=== PATIENT | male | born 1975 | race Caucasian/White ===

== ENCOUNTER → 2018-02-26 | Outpatient (CLI) | payer BC, OTHER ==
[~2018-02-26] MED LIST: MELO-195 PO; NAPR-243 PO; OMEP40CA36 PO; PNT40TEC PO; PRD20T PO; PRD5T PO; SULF1TAB35 PO; TRAM-21 PO
--- NOTE | 2018-02-26 14:32 | Diagnostic Imaging Report ---
PROCEDURE: MRI of the right joint upper extremity without contrast. TECHNIQUE: Multiplanar, multisequence [id number] MRI of the right upper extremity was accomplished. INDICATION: Bilateral shoulder pain with years of heavy lifting. COMPARISON: 07/23/2013. FINDINGS: No acute fracture is seen in the right shoulder. There is superior migration of the humeral head. No significant joint effusion is seen. There is high-grade partial-thickness tearing of the supraspinatus and infraspinatus tendons, with small full-thickness components anteriorly and posteriorly. The subscapularis tendon demonstrates low-grade partial thickness tearing at the articular surface. The teres minor tendon appears intact. There is mild atrophy of the infraspinatus muscle. The glenoid labrum is suboptimally evaluated in the absence of contrast; however, there appears to be tearing at the posterior labrum. No large paralabral cyst is seen. The long head of the biceps tendon demonstrates tendinosis with high-grade tearing of the intra-articular portion. There are marked degenerative changes at the acromioclavicular joint. The acromion has a slightly curved undersurface without significant hooking seen. The coracoclavicular ligament appears intact. The coracoacromial ligament is not well seen, and may be torn. The soft tissues about the right shoulder are otherwise unremarkable. No lymphadenopathy is seen. IMPRESSION: 1. High-grade partial-thickness tearing of the right supraspinatus and infraspinatus tendons with small full-thickness components anteriorly and posteriorly. Mild atrophy of the infraspinatus muscle. 2. Low-grade partial-thickness tearing of the right subscapularis tendon. 3. High-grade near-complete tearing of the proximal long of the biceps tendon. 4. Marked degenerative changes in the acromioclavicular joint. The coracoacromial ligament is not well seen, and may be torn. Dictated by: Dictated on workstation # [id number]
--- NOTE | 2018-02-26 20:03 | Diagnostic Imaging Report ---
EXAMINATION: Magnetic resonance imaging of the left shoulder without contrast. DATE: February 26, 2018. COMPARISON: MRI left shoulder July 23, 2013. HISTORY: 42-year-old male, bilateral shoulder pain. History of weightlifting. TECHNIQUE: Magnetic Resonance Imaging sequences were performed of the shoulder without contrast. FINDINGS: ROTATOR CUFF, LIGAMENTS, TENDONS, AND MUSCLES: There is a full-thickness near fullwidth tear of the supraspinatus tendon with tendon retraction measuring 1.8 cm to the level of the superior humeral head. There is infraspinatus tendinopathy. The teres minor tendon is intact. The subscapularis tendon is intact. There is normal rotator cuff muscle bulk and signal. LONG HEAD OF BICEPS: The biceps labral attachment and long head of the biceps tendon is intact. The long head of the biceps tendon is normally positioned within the bicipital groove. GLENOHUMERAL JOINT: The humeral head is well positioned relative to the glenoid. There is a tear of the posterior superior labrum extending from approximately the 11 o'clock position to near the 9 o'clock position in the mid posterior labrum. There is no identified paralabral cyst. The articular cartilage is grossly intact. There is no joint effusion. ACROMIOCLAVICULAR JOINT: The acromioclavicular joint is normally aligned. The coracoclavicular and coracoacromial ligaments are intact. There are mild to moderate acromioclavicular degenerative changes with somewhat bulbous clavicle and osteophytes projecting approximately 2 mm below the joint margin. BONE: There is no os acromiale. There is degenerative related marrow edema adjacent to the acromioclavicular joint. There is no acute fracture, bone contusion, or evidence of osteonecrosis. BURSAE AND SOFT TISSUES: The bursae and soft tissue surrounding the shoulder are unremarkable. IMPRESSION: 1. Full width or near fullwidth tear of the supraspinatus tendon which is a full-thickness tear with tendon retraction near the level of the superior humeral head. No fatty muscle atrophy. Infraspinatus tendinopathy. 2. Mild to moderate acromioclavicular degenerative changes with somewhat bulbous lateral clavicle and osteophytes projecting approximately 2 mm below the joint margin. No os acromiale. 3.. Tear of the posterior superior labrum extending to the mid posterior labrum extending from approximately the 11 o'clock position to the 9 o'clock position. No paralabral cyst. Grossly intact articular cartilage. No glenohumeral joint effusion. 4. No acute fracture, bone contusion, or evidence of osteonecrosis. Dictated on workstation # [id number]
== END ==
LOC: RAD 13:09
PROVIDERS: ATTEND Orthopaedic Surgery
DX: M75.122 Complete rotator cuff tear or rupture of left shoulder, not specified as traumatic (principal); M19.012 Primary osteoarthritis, left shoulder; M25.712 Osteophyte, left shoulder; M19.011 Primary osteoarthritis, right shoulder; M75.111 Incomplete rotator cuff tear or rupture of right shoulder, not specified as traumatic; S43.492A Other sprain of left shoulder joint, initial encounter; S46.811A Strain of other muscles, fascia and tendons at shoulder and upper arm level, right arm, initial encounter
CPT/HCPCS: 73221

== ENCOUNTER → 2018-09-19 | Day surgery (SDC) | payer BC ==
[~2018-09-19] VITALS: Ht 185.4 cm; Wt 86.2 kg
[~2018-09-19] MED LIST changes: +LIDOCAINE 1% INJ 20 ML 20 ML VIAL ONE
--- OUTSIDE RECORDS SUMMARY | 2018-09-19 08:01 | XMS REPORT | Clinical Summary ---
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 If you d o not see the information that you expected, contact Release of Information in [facility] [employer] Information Management department at [phone] for further assistan ce in locating additional records.[facility] Allergies No Known Allergies Medications End Date Status Medication Sig Dispensed Refills Start Date Active testosterone cypionate(+) Inject 100 mg 0 (DEPO-TESTOSTERONE) 100 to area(s) as mg/mL injection directed every 14 days. Active PEG 7723-Ttysciqlwcqe-Sdy 1 liter at 1 Each 0 C (MOVIPREP) 6pm night 3 100-7.5-2.691 gram pwpk before colonoscopy, then drink 2 cups water. 1 liter at 2am morning of colonoscopy, then drink 2 cups water. Active budesonide (ENTOCORT EC) take 3 90 Cap 3 3 mg capsule capsules 3 daily for 90 days, then 2 capsules for 2 weeks, then 1 capsule for 2 weeks, then stop. Active metroNIDAZOLE (METROGEL) Apply to 45 g 3 1 % topical gel affected area 4 twice weekly. Active Problems Problem Noted Date Diarrhea 12/30/2012 Crohn's disease 12/30/2012 Overview: This is OSH diagnosis, we need to evaluate and confirm Encounters Care Team Description Date Type Specialty 07/08/2018 Hospital Radiology Encounter 07/08/2018 Hospital Radiology Encounter from Last 3 Months Family History Medical History Relation Name Comments Melanoma Neg Hx Social History Date Tobacco Use Types Packs/Day Years Used Never Smoker Smokeless Tobacco: Chew Current User Comments: 1 can a day Drinks/Week oz/Week Comments Alcohol Use drink socially, beer, whisky Yes Sex Assigned at Date Recorded Not on file Industry Job Start Date Occupation Not on file Not on file Not on file Travel End Travel History Travel Start No recent travel history available. Last Filed Vital Signs Reading Time Taken Comments Vital Sign 147/89 03/10/2013 1:20 PM [employer] Blood Pressure 71 03/10/2013 1:20 PM [employer] Pulse 36.9 C (98.5 F) 03/10/2013 1:20 PM [employer] Temperature 16 03/10/2013 1:20 PM [employer] Respiratory Rate 94% 02/13/2013 10:21 AM [employer] Oxygen Saturation - - Inhaled Oxygen Concentration 99.2 kg (218 lb 9.6 oz) 03/25/2013 9:20 AM [employer] Weight 185.4 cm (6' 1") 03/25/2013 9:20 AM [employer] Height 28.84 03/25/2013 9:20 AM [employer] Body Mass Index Plan of Treatment Health Maintenance Due Date Last Done Comments PHYSICAL (COMPREHENSIVE) 1981 EXAM HIV SCREENING 1989 DTAP/TDAP VACCINES (1992 Tdap) INFLUENZA VACCINE 12/24/2018 Procedures Comments Procedure Name Priority Date/Time Associated Diagnosis GENERAL RAD CHEST Routine 07/08/2018 Diagnosis unknown EXTERNAL IMAGING 12:[address] HEAD EXTERNAL IMAGING Routine 07/08/2018 Diagnosis unknown 12:00 AM CDT from Last 3 Months Results * GENERAL RAD CHEST EXTERNAL IMAGING (07/08/2018 12:05 AM CDT) Specimen Narrative Performed At This order has been auto finalized and does not contain a result. * CT HEAD EXTERNAL IMAGING (07/08/2018 12:00 AM CDT) Specimen Narrative Performed At This order has been auto finalized and does not contain a result. 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
--- OUTSIDE RECORDS SUMMARY | 2018-09-19 08:02 | XMS REPORT | Encounter Summary ---
Author Author [facility] Organization [facility] Address Unknown Phone Unavailable Care Team Providers Care Family And Consumer Science Professor Name Role Phone Tanner Swan MD Unavailable Ryan Miguel MD PCP Prasad Brewer MD Unavailable Jose Rogers MD Unavailable Waleska Howell MD Unavailable Encounter Details Care Team Description Date Type Department 07/08/2018 [facility] [address] [id number] Social History Date Tobacco Use Types Packs/Day [...] Travel Start No recent travel history available. documented as of this encounter Medications at Time of Discharge Start Date End Date Medication Sig Dispensed Refills 03/10/2013 budesonide (ENTOCORT EC) take 3 90 Cap 3 3 mg capsule capsules daily for 90 days, then 2 capsules for 2 weeks, then 1 capsule for 2 weeks, then stop. 03/27/2013 metroNIDAZOLE (METROGEL) Apply to 45 g 3 1 % topical gel affected area twice weekly. 02/24/2013 PEG 9282-Vdpftknrnxgt-Lzr 1 liter at 1 Each 0 C (MOVIPREP) 6pm night 100-7.5-2.691 gram pwpk before colonoscopy, then drink 2 cups water. 1 liter at 2am morning of colonoscopy, then drink 2 cups water. testosterone cypionate(+) Inject 100 mg 0 (DEPO-TESTOSTERONE) 100 to area(s) as mg/mL injection directed every 14 days. documented as of this encounter Plan of Treatment Not on filedocumented as of this encounter Procedures Comments Procedure Name Priority Date/Time Associated Diagnosis GENERAL RAD CHEST Routine 07/08/2018 Diagnosis unknown EXTERNAL IMAGING 12:05 AM CDT documented in this encounter Results * GENERAL RAD CHEST EXTERNAL IMAGING (07/08/2018 12:05 AM CDT) Specimen Narrative Performed At This order has been auto finalized and does not contain a result. documented in this encounter Visit Diagnoses Diagnosis Diagnosis unknown Other unknown and unspecified cause of morbidity or mortality documented in this encounter
--- OUTSIDE RECORDS SUMMARY | 2018-09-19 08:02 | XMS REPORT | Encounter Summary ---
Author Author [facility] Organization [facility] Address Unknown Phone Unavailable Care Team Providers Care Director Of Vocational Guidance Name Role Phone Tanner Swan MD Unavailable Ryan Miguel MD PCP Prasad Brewer MD Unavailable Jose Rogers MD Unavailable Waleska Howell MD Unavailable Encounter Details Care Team Description Date Type Department 07/08/2018 [facility] [address] [phone] Social History Date Tobacco Use Types Packs/Day [...] gel affected area twice weekly. 02/24/2013 PEG 2611-Iyktjmqhuyar-Die 1 liter at 1 Each 0 C [...] Comments Procedure Name Priority Date/Time Associated Diagnosis CT HEAD EXTERNAL IMAGING Routine 07/08/2018 Diagnosis unknown 12:00 AM CDT documented in this encounter Results * CT HEAD EXTERNAL IMAGING (07/08/2018 12:00 AM CDT) Specimen Narrative Performed At This order has been auto finalized and does not contain a result. documented in this encounter Visit Diagnoses Diagnosis Diagnosis unknown Other unknown and unspecified cause of morbidity or mortality documented in this encounter
--- OUTSIDE RECORDS SUMMARY | 2018-09-19 08:03 | XMS REPORT | CCD ---
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 Name Role Phone PP Unavailable CCM Unavailable Summary Purpose Interface Exchange Insurance Providers Payer name Policy type / Coverage type Covered republican ID Effective Begin Date Effective End Date Blue Cross Blue [facility] Blue Cross/Blue [facility] [id number] Unknown Unknown Family history Son Diagnosis Age At Onset Attention deficit hyperactivity disorder Unknown Social History Social History Element Codes Description Effective Dates Marital status Unknown Consuelo 04/25/2018 Number of children Unknown 1 10/15/[address]: 891390930 Currently uses smokeless tobacco 10/15/2015 Alcohol history Unknown pt chooses not to answer 10/15/2015 Allergies, Adverse Reactions, Alerts Substance Reaction Codes Entered Date Inactivated Date Status * NO KNOWN DRUG ALLERGIES Unknown 10/15/2015 No Inactive Date Active Past Medical History Illness Codes Condition Status Onset Date Resolved Date Essential (primary) hypertension ICD-9: 401.1 ICD-10: I10 Active 07/25/2018 Unknown Atrial septal defect ICD- 9: 745.5 ICD-10: Q21.1 Active 07/11/2018 Unknown 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-9: 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.91 ICD-10: I63.81 Active 07/11/2018 Unknown Crohn's disease of both small and large intestine without complications ICD-9: 555.2 ICD-10: K50.80 Active 10/14/2015 Unknown Chronic pain due to trauma ICD-9: 338.21 ICD-10: G89.21 Active 11/29/2015 Unknown Incomplete rotator cuff tear or rupture of right shoulder, not specified as traumatic ICD-9: 726.13 ICD-10: M75.111 Active 11/29/2015 Unknown Testicular hypofunction ICD-9: 257.2 ICD-10: E29.1 Active 04/25/2018 Unknown Incomplete rotator cuff tear or rupture of left shoulder, not specified as traumatic ICD-9: 726.13 ICD-10: M75.112 Active 11/29/2015 Unknown Rash and other nonspecific skin eruption ICD-9: 782.1 ICD-10: R21 Active 01/02/2017 Unknown Zoster without complications ICD-9: 053.9 ICD-10: B02.9 Active 01/02/2017 Unknown Problems Condition Codes Effective Dates Condition Status Essential (primary) hypertension ICD-9: 401.1 ICD-10: I10 07/25/2018 Active Atrial septal defect ICD- 9: 745.5 ICD-10: Q21.1 07/11/2018 Active 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-9: 434.91 ICD-10: I63.81 07/11/2018 Active Crohn's disease of both small and large intestine without complications ICD-9: 555.2 ICD-10: K50.80 10/14/2015 Active Chronic pain due to trauma ICD-9: 338.21 ICD-10: G89.21 11/29/2015 Active Incomplete rotator cuff tear or rupture of right shoulder, not specified as traumatic ICD-9: 726.13 ICD-10: M75.111 11/29/2015 Active Testicular hypofunction ICD-9: 257.2 ICD-10: E29.1 04/25/2018 Active Incomplete rotator cuff tear or rupture of left shoulder, not specified as traumatic ICD-9: 726.13 ICD-10: M75.112 11/29/2015 Active Rash and other nonspecific skin eruption ICD-9: 782.1 ICD-10: R21 01/02/2017 Active Zoster without complications ICD-9: 053.9 ICD-10: B02.9 01/02/2017 Active Medications Medication Codes Instructions Start Date Stop Date Status Fill Instructions hydrocodone 10 mg-acetaminophen 325 mg tablet RxNorm: 519071 1 Tablet(s) PO Q6-8H as needed 2018 09/25/2018 Active hydrocodone 10 mg-acetaminophen 325 mg tablet RxNorm: 978988 1 Tablet(s) PO Q6-8H as needed 08/12/2018 09/02/2018 Inactive lisinopril 20 mg tablet RxNorm: 815138 1 Tablet(s) PO daily 07/25/2018 02/19/2019 Active atorvastatin 10 mg tablet RxNorm: 139814 1 Tablet(s) PO QHS 07/25/2018 02/19/2019 Active hydrocodone 10 mg-acetaminophen 325 mg tablet RxNorm: 777037 1 Tablet(s) PO Q6-8H as needed 07/15/2018 08/06/2018 Inactive hydrocodone 10 mg-acetaminophen 325 mg tablet RxNorm: 025503 1 Tablet(s) PO Q6-8H as needed 06/18/2018 07/10/2018 Inactive hydrocodone 10 mg-acetaminophen 325 mg tablet RxNorm: 639544 1 Tablet(s) PO Q6-8H as needed 05/22/2018 06/13/2018 Inactive cyanocobalamin (vit B-12) 1,000 mcg/mL injection solution RxNorm: 306886 1 Milliliter(s) Inj monthly 05/01/2018 08/28/2018 Inactive Please provide syringes and needles for him to administer testosterone cypionate 200 mg/mL intramuscular oil RxNorm: 6538216 1 Milliliter(s) IM monthly 05/01/2018 08/28/2018 Inactive cyanocobalamin (vit B-12) 1,000 mcg/mL injection solution RxNorm: 801476 1 Milliliter(s) Inj monthly 05/01/2018 04/30/2018 Inactive testosterone cypionate 200 mg/mL intramuscular oil RxNorm: 0255799 1 Milliliter(s) IM monthly 05/01/2018 04/30/2018 Inactive hydrocodone 10 mg-acetaminophen 325 mg tablet RxNorm: 567599 1 Tablet(s) PO Q6-8H as needed 04/25/2018 05/17/2018 Inactive hydrocodone 10 mg-acetaminophen 325 mg tablet RxNorm: 239680 1 Tablet(s) PO Q6-8H as needed 04/01/2018 04/23/2018 Inactive hydrocodone 10 mg-acetaminophen 325 mg tablet RxNorm: 626950 1 Tablet(s) PO Q6-8H as needed 03/05/2018 03/27/2018 Inactive hydrocodone 10 mg-acetaminophen 325 mg tablet RxNorm: 116730 1 Tablet(s) PO Q6-8H as needed 02/11/2018 03/04/2018 Inactive hydrocodone 10 mg-acetaminophen 325 mg tablet RxNorm: 489380 1 Tablet(s) PO Q6-8H as needed 01/18/2018 02/09/2018 Inactive hydrocodone 10 mg-acetaminophen 325 mg tablet RxNorm: 438819 1 Tablet(s) PO Q6-8H as needed 12/24/2017 01/15/2018 Inactive hydrocodone 10 mg-acetaminophen 325 mg tablet RxNorm: 824617 1 Tablet(s) PO Q6-8H as needed 11/30/2017 12/22/2017 Inactive hydrocodone 10 mg-acetaminophen 325 mg tablet RxNorm: 995670 1 Tablet(s) PO Q6-8H as needed 11/06/2017 11/28/2017 Inactive hydrocodone 10 mg-acetaminophen 325 mg tablet RxNorm: 191319 1 Tablet(s) PO Q6-8H as needed 10/11/2017 11/02/2017 Inactive hydrocodone 10 mg-acetaminophen 325 mg tablet RxNorm: 687575 1 Tablet(s) PO Q6-8H as needed 09/12/2017 10/04/2017 Inactive hydrocodone 10 mg-acetaminophen 325 mg tablet RxNorm: 706461 1 Tablet(s) PO Q6-8H as needed 08/16/2017 09/07/2017 Inactive hydrocodone 10 mg-acetaminophen 325 mg tablet RxNorm: 463316 1 Tablet(s) PO Q6-8H as needed 07/19/2017 08/10/2017 Inactive oxycodone-acetaminophen 7.5 mg-325 mg tablet RxNorm: 2923334 1 Tablet(s) PO Q6-8H as needed 06/29/2017 07/18/2017 Inactive hydrocodone 10 mg-acetaminophen 325 mg tablet RxNorm: 189369 1 Tablet(s) PO Q6-8H as needed 06/01/2017 06/17/2017 Inactive hydrocodone 10 mg-acetaminophen 325 mg tablet RxNorm: 150354 1 Tablet(s) PO Q6-8H as needed 05/09/2017 05/30/2017 Inactive Cipro 500 mg tablet RxNorm: 709366 1 Tablet(s) PO BID 04/20/2017 04/29/2017 Inactive prednisone 10 mg tablet RxNorm: 283450 Tablet(s) PO 04/20/2017 03/04/2018 Inactive 6,5,4,3,2,1 Flagyl 500 mg tablet RxNorm: 574254 1 Tablet(s) PO TID 04/20/2017 04/29/2017 Inactive hydrocodone 10 mg-acetaminophen 325 mg tablet RxNorm: 544080 1 Tablet(s) PO Q6-8H as needed 04/09/2017 05/01/2017 Inactive hydrocodone 10 mg-acetaminophen 325 mg tablet RxNorm: 563825 1 Tablet(s) PO Q6-8H as needed 03/07/2017 03/29/2017 Inactive hydrocodone 10 mg-acetaminophen 325 mg tablet RxNorm: 786648 1 Tablet(s) PO Q6-8H as needed 02/01/2017 02/23/2017 Inactive lidocaine 3 % lotion RxNorm: 2365474 1 Application TOP BID as needed 01/03/2017 No Stop Date Active acyclovir 800 mg tablet RxNorm: 919472 1 Tablet(s) PO 5 x a day 01/02/2017 01/08/2017 Inactive hydrocodone 10 mg-acetaminophen 325 mg tablet RxNorm: 383312 1 Tablet(s) PO Q6-8H as needed 12/06/2016 12/28/2016 Inactive hydrocodone 10 mg-acetaminophen 325 mg tablet RxNorm: 577954 1 Tablet(s) PO Q6-8H as needed 12/04/2016 12/05/2016 Inactive hydrocodone 10 mg-acetaminophen 325 mg tablet RxNorm: 252438 1 Tablet(s) PO Q6-8H as needed 11/08/2016 11/30/2016 Inactive hydrocodone 10 mg-acetaminophen 325 mg tablet RxNorm: 875701 1 Tablet(s) PO Q6-8H as needed 10/09/2016 10/31/2016 Inactive hydrocodone 10 mg-acetaminophen 325 mg tablet RxNorm: 253565 1 Tablet(s) PO Q6-8H as needed 08/08/2016 08/30/2016 Inactive hydrocodone 10 mg-acetaminophen 325 mg tablet RxNorm: 941419 1 Tablet(s) PO Q6-8H as needed 07/12/2016 08/03/2016 Inactive hydrocodone 10 mg-acetaminophen 325 mg tablet RxNorm: 445764 1 Tablet(s) PO Q6-8H as needed 06/12/2016 07/04/2016 Inactive hydrocodone 10 mg-acetaminophen 325 mg tablet RxNorm: 761907 1 Tablet(s) PO Q6-8H as needed 05/16/2016 06/07/2016 Inactive hydrocodone 10 mg-acetaminophen 325 mg tablet RxNorm: 775488 1 Tablet(s) PO Q6-8H as needed 04/21/2016 05/12/2016 Inactive hydrocodone 10 mg-acetaminophen 325 mg tablet RxNorm: 791101 1 Tablet(s) PO Q6-8H as needed 03/23/2016 04/13/2016 Inactive hydrocodone 10 mg-acetaminophen 325 mg tablet RxNorm: 616921 1 Tablet(s) PO Q6-8H as needed 02/24/2016 03/16/2016 Inactive hydrocodone 10 mg-acetaminophen 325 mg tablet RxNorm: 192680 1 Tablet(s) PO Q6-8H 01/21/2016 02/11/2016 Inactive hydrocodone 10 mg-acetaminophen 325 mg tablet RxNorm: 789833 1 Tablet(s) PO Q6-8H 12/24/2015 01/14/2016 Inactive hydrocodone 10 mg-acetaminophen 325 mg tablet RxNorm: 382681 1 Tablet(s) PO Q6-8H 11/30/2015 12/23/2015 Inactive hydrocodone 10 mg-acetaminophen 325 mg tablet RxNorm: 736703 1 Tablet(s) PO Q6-8H 11/05/2015 11/29/2015 Inactive hydrocodone 5 mg-acetaminophen 325 mg tablet RxNorm: 391212 1-2 Tablet(s) PO Q6-8H as needed 10/26/2015 11/01/2015 Inactive omeprazole 40 mg capsule,delayed release RxNorm: 975421 1 Capsule(s) PO daily No Start Date Active aspirin 325 mg tablet,delayed release RxNorm: 423418 1 Tablet(s) PO daily No Start Date Active Imuran 50 mg tablet RxNorm: 647282 1 Tablet(s) PO daily No Start Date Active testosterone cypionate 200 mg/mL intramuscular oil RxNorm: 386968 1 Milliliter(s) IM No Start Date Active metoprolol succinate ER 50 mg tablet,extended release 24 hr RxNorm: 877617 1 Tablet(s) PO daily -Prescribed by Valentino Zapien (cardiology) No Start Date Active lidocaine 3 % lotion RxNorm: 1900525 1 Application TOP BID as needed No Start Date 01/02/2017 Inactive hydrocodone 5 mg-acetaminophen 325 mg tablet RxNorm: 608648 1-2 Tablet(s) PO Q6-8H as needed No Start Date 10/25/2015 Inactive Medication Administered No Medication Administered data Immunizations No Immunization data Assessments Condition Codes Effective Dates Essential (primary) hypertension ICD-10: I10 ICD-9: 401.1 08/26/2018 Atrial septal defect ICD-10: Q21.1 ICD-9: 745.5 07/25/2018 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-10: I63.81 ICD-9: 434.91 07/25/2018 Crohn's disease of both small and large intestine without complications ICD-10: K50.80 ICD-9: 555.2 07/11/2018 Chronic pain due to trauma ICD-10: G89.21 ICD-9: 338.21 04/25/2018 Testicular hypofunction ICD-10: E29.1 ICD-9: 257.2 04/25/2018 Incomplete rotator cuff tear or rupture of right shoulder, not specified as traumatic ICD-10: M75.111 ICD-9: 726.13 04/25/2018 Incomplete rotator cuff tear or rupture of left shoulder, not specified as traumatic ICD-10: M75.112 ICD-9: 726.13 12/24/2017 Zoster without complications ICD-10: B02.9 ICD-9: 053.9 01/02/2017 Reason For Visit Reason For Visit Effective Dates Notes hypertension 08/26/2018 Hospital Follow Up 07/25/2018 Hospital Follow Up 07/23/2018 Hospital Follow Up 07/11/2018 shoulder pain 04/25/2018 medication follow up 12/24/2017 medication follow up 06/20/2017 diarrhea 04/20/2017 rash 01/02/2017 medication follow up 09/07/2016 medication follow up 04/21/2016 medication follow up 11/30/2015 shoulder pain 11/02/2015 shoulder pain 10/15/2015 Results Observation Observation Code Item Item Code Result Date QuantiFERON?-TB Gold Plus (Client Incubated) [id number] QUANTIFERON CRITERIA COMMENT 07/01/2018 QuantiFERON?-TB Gold Plus (Client Incubated) [id number] QUANTIFERON TB1 AG VALUE 0.01 IU/ML 07/01/2018 QuantiFERON?-TB Gold Plus (Client Incubated) [id number] QUANTIFERON TB2 AG VALUE 0.01 IU/ML 07/01/2018 QuantiFERON?-TB Gold Plus (Client Incubated) [id number] QUANTIFERON NIL VALUE 0.01 IU/ML 07/01/2018 QuantiFERON?-TB Gold Plus (Client Incubated) [id number] QUANTIFERON MITOGEN VALUE >10.00 IU/ML 07/01/2018 QuantiFERON?-TB Gold Plus (Client Incubated) [id number] QUANTIFERON-TB GOLD PLUS NEGATIVE 07/01/2018 B12 Rtb955 B12 113.00 pg/ml 04/30/2018 Testosterone Ydf046 Testo 198.8 ng/dL 04/30/2018 Comp Metabolic Iky633 NA 143 mEq/L 04/30/2018 Comp Metabolic Ulu826 K 3.8 mEq/L 04/30/2018 Comp Metabolic Ujv941 CL 108 mEq/L 04/30/2018 Comp Metabolic Tsz166 CO2 29.0 mEq/L 04/30/2018 Comp Metabolic Zou508 ANION GAP 10 04/30/2018 Comp Metabolic Stc284 GLUCOSE 94 mg/dL 04/30/2018 Comp Metabolic Sxf950 Creat 0.8 mg/dL 04/30/2018 Comp Metabolic Qif172 eGFR 110 ml/min/1.73m2 04/30/2018 Comp Metabolic Uct842 BUN 13 mg/dL 04/30/2018 Comp Metabolic Puu960 B/C Ratio 16.0 Ratio 04/30/2018 Comp Metabolic Dpf058 CALCIUM 9.2 mg/dL 04/30/2018 Comp Metabolic Bnu515 ALK PHOS 62 U/L 04/30/2018 Comp Metabolic Dvk991 AST(SGOT) 16 U/L 04/30/2018 Comp Metabolic Yho335 ALT(SGPT) 15 U/L 04/30/2018 Comp Metabolic Zqo899 BILI T 0.9 mg/dL 04/30/2018 Comp Metabolic Hwb727 ALBUMIN 4.1 g/dL 04/30/2018 Comp Metabolic Nam167 TPRO 6.2 g/dL 04/30/2018 Comp Metabolic Zuw821 GLOB 2.1 g/dL 04/30/2018 Comp Metabolic Svk910 A/G Ratio 1.9 Ratio 04/30/2018 Comp Metabolic Okx048 Osmo 285 mOsmo 04/30/2018 Cbc With Differential Ord2 WBC 6.03 K/ul 04/30/2018 Cbc With Differential Ord2 RBC 4.63 M/ul 04/30/2018 Cbc With Differential Ord2 HGB 14.5 g/dl 04/30/2018 Cbc With Differential Ord2 HCT 41.4 % 04/30/2018 Cbc With Differential Ord2 Neut% 75.0 % 04/30/2018 Cbc With Differential Ord2 MCV 89.4 fl 04/30/2018 Cbc With Differential Ord2 Lymph% 13.3 % 04/30/2018 Cbc With Differential Ord2 MCH 31.3 pg 04/30/2018 Cbc With Differential Ord2 Webb% 8.5 % 04/30/2018 Cbc With Differential Ord2 MCHC 35.0 pg 04/30/2018 Cbc With Differential Ord2 Eos% 3.0 % 04/30/2018 Cbc With Differential Ord2 PLT 246 K/ul 04/30/2018 Cbc With Differential Ord2 Baso% 0.2 % 04/30/2018 Cbc With Differential Ord2 RDW 14.9 % 04/30/2018 Cbc With Differential Ord2 Neut ABS# 4.53 K/ul 04/30/2018 Cbc With Differential Ord2 Lymph ABS# 0.80 K/ul 04/30/2018 Cbc With Differential Ord2 Webb ABS# 0.5 K/ul 04/30/2018 Cbc With Differential Ord2 Eos ABS# 0.2 K/ul 04/30/2018 Cbc With Differential Ord2 Baso ABS# 0.0 K/ul 04/30/2018 Lipid Ord30 CHOL 115 mg/dL 04/30/2018 Lipid Ord30 HDL 34.0 mg/dl 04/30/2018 Lipid Ord30 TRIG 83 mg/dL 04/30/2018 Lipid Ord30 LDL 64 mg/dL 04/30/2018 Lipid Ord30 C/HDL 3.4 Ratio 04/30/2018 Cbc With Differential Ord2 WBC 6.44 K/ul 04/20/2017 Cbc With Differential Ord2 RBC 5.02 M/ul 04/20/2017 Cbc With Differential Ord2 HGB 15.7 g/dl 04/20/2017 Cbc With Differential Ord2 HCT 45.5 % 04/20/2017 Cbc With Differential Ord2 Neut% 69.7 % 04/20/2017 Cbc With Differential Ord2 MCV 90.6 fl 04/20/2017 Cbc With Differential Ord2 Lymph% 10.4 % 04/20/2017 Cbc With Differential Ord2 MCH 31.3 pg 04/20/2017 Cbc With Differential Ord2 Webb% 18.6 % 04/20/2017 Cbc With Differential Ord2 MCHC 34.5 pg 04/20/2017 Cbc With Differential Ord2 Eos% 1.1 % 04/20/2017 Cbc With Differential Ord2 PLT 371 K/ul 04/20/2017 Cbc With Differential Ord2 Baso% 0.2 % 04/20/2017 Cbc With Differential Ord2 RDW 16.0 % 04/20/2017 Cbc With Differential Ord2 Neut ABS# 4.49 K/ul 04/20/2017 Cbc With Differential Ord2 Lymph ABS# 0.67 K/ul 04/20/2017 Cbc With Differential Ord2 Webb ABS# 1.2 K/ul 04/20/2017 Cbc With Differential Ord2 Eos ABS# 0.1 K/ul 04/20/2017 Cbc With Differential Ord2 Baso ABS# 0.0 K/ul 04/20/2017 Comp Metabolic Aoj419 NA 142 mEq/L 04/20/2017 Comp Metabolic Sns580 K 4.2 mEq/L 04/20/2017 Comp Metabolic Jwm878 CL 104 mEq/L 04/20/2017 Comp Metabolic Brl142 CO2 28.0 mEq/L 04/20/2017 Comp Metabolic Ajr655 ANION GAP 14 04/20/2017 Comp Metabolic Csi370 GLUCOSE 73 mg/dL 04/20/2017 Comp Metabolic Vga702 Creat 1.2 mg/dL 04/20/2017 Comp Metabolic Dgg776 eGFR 68 ml/min/1.73m2 04/20/2017 Comp Metabolic Orq994 BUN 9 mg/dL 04/20/2017 Comp Metabolic Wyy953 B/C Ratio 7.3 Ratio 04/20/2017 Comp Metabolic Zyx018 CALCIUM 9.5 mg/dL 04/20/2017 Comp Metabolic Vig596 ALK PHOS 57 U/L 04/20/2017 Comp Metabolic Teg450 AST(SGOT) 16 U/L 04/20/2017 Comp Metabolic Wub402 ALT(SGPT) 14 U/L 04/20/2017 Comp Metabolic Ces046 BILI T 0.6 mg/dL 04/20/2017 Comp Metabolic Wmz667 ALBUMIN 4.0 g/dL 04/20/2017 Comp Metabolic Qft432 TPRO 7.0 g/dL 04/20/2017 Comp Metabolic Zad583 GLOB 3.0 g/dL 04/20/2017 Comp Metabolic Ubl373 A/G Ratio 1.3 Ratio 04/20/2017 Comp Metabolic Zxh354 Osmo 280 mOsmo 04/20/2017 Review of Systems System Result Effective Dates Constitutional No recent illness 08/26/2018 Constitutional No chills 08/26/2018 Constitutional No diaphoresis 08/26/2018 Constitutional No fatigue 08/26/2018 Constitutional No fever 08/26/2018 Eyes No blindness 08/26/2018 Eyes No vision change 08/26/2018 Ears/Nose/Throat/Neck No nasal discharge 08/26/2018 Cardiovascular No chest pain/pressure 08/26/2018 Cardiovascular No dyspnea 08/26/2018 Respiratory No chest congestion 08/26/2018 Respiratory No cough 08/26/2018 Neurologic No alteration of consciousness 08/26/2018 Neurologic No memory loss 08/26/2018 Neurologic No mental status change 08/26/2018 Neurologic No weakness 08/26/2018 Gastrointestinal abdominal pain 08/26/2018 Gastrointestinal diarrhea 08/26/2018 Gastrointestinal No nausea 08/26/2018 Gastrointestinal No vomiting 08/26/2018 Musculoskeletal arthralgia(s) 08/26/2018 Dermatologic No sores 08/26/2018 Psychiatric No anxiety 08/26/2018 Psychiatric No depression 08/26/2018 Constitutional No recent illness 07/25/2018 Constitutional No chills 07/25/2018 Constitutional No diaphoresis 07/25/2018 Constitutional No fatigue 07/25/2018 Constitutional No fever 07/25/2018 Eyes No blindness 07/25/2018 Eyes No vision change 07/25/2018 Ears/Nose/Throat/Neck No nasal discharge 07/25/2018 Cardiovascular No chest pain/pressure 07/25/2018 Cardiovascular No dyspnea 07/25/2018 Respiratory No chest congestion 07/25/2018 Respiratory No cough 07/25/2018 Neurologic No alteration of consciousness 07/25/2018 Neurologic dizziness 07/25/2018 Neurologic headache 07/25/2018 Neurologic No memory loss 07/25/2018 Neurologic No mental status change 07/25/2018 Neurologic No weakness 07/25/2018 Eyes No vision change 07/23/2018 Neurologic dizziness 07/23/2018 Neurologic headache 07/23/2018 Neurologic No memory loss 07/23/2018 Neurologic No mental status change 07/23/2018 Constitutional No recent illness 07/23/2018 Constitutional No chills 07/23/2018 Constitutional No diaphoresis 07/23/2018 Constitutional No fatigue 07/23/2018 Constitutional No fever 07/23/2018 Eyes No eye erythema 07/23/2018 Ears/Nose/Throat/Neck No nasal discharge 07/23/2018 Cardiovascular No chest pain/pressure 07/23/2018 Cardiovascular No dyspnea 07/23/2018 Respiratory No cough 07/23/2018 Respiratory No chest congestion 07/23/2018 Neurologic No alteration of consciousness 07/23/2018 Neurologic No weakness 07/23/2018 Constitutional recent illness 07/11/2018 Constitutional No night sweats 07/11/2018 Constitutional No chills 07/11/2018 Constitutional No diaphoresis 07/11/2018 Constitutional fatigue 07/11/2018 Constitutional No fever 07/11/2018 Constitutional No insomnia 07/11/2018 Constitutional No malaise 07/11/2018 Eyes No eye pain 07/11/2018 Eyes No eye trauma 07/11/2018 Eyes No vision change 07/11/2018 Ears/Nose/Throat/Neck No dizziness 07/11/2018 Ears/Nose/Throat/Neck No headache 07/11/2018 Cardiovascular No chest pain/pressure 07/11/2018 Cardiovascular No dyspnea 07/11/2018 Cardiovascular No exercise intolerance 07/11/2018 Respiratory No chest congestion 07/11/2018 Respiratory No chest tightness 07/11/2018 Respiratory No cigarette smoking 07/11/2018 Respiratory No cough 07/11/2018 Gastrointestinal abdominal pain 07/11/2018 Gastrointestinal No constipation 07/11/2018 Gastrointestinal diarrhea 07/11/2018 Gastrointestinal No nausea 07/11/2018 Gastrointestinal No vomiting 07/11/2018 Musculoskeletal stiffness 07/11/2018 Musculoskeletal arthralgia(s) 07/11/2018 Musculoskeletal No back pain 07/11/2018 Dermatologic No rash 07/11/2018 Dermatologic No sores 07/11/2018 Neurologic dizziness 07/11/2018 Neurologic headache 07/11/2018 Neurologic No memory loss 07/11/2018 Neurologic No mental status change 07/11/2018 Psychiatric No anxiety 07/11/2018 Psychiatric No depression 07/11/2018 Hematologic/Lymphatic No abnormal ecchymoses 07/11/2018 Hematologic/Lymphatic No abnormal bleeding and bruising 07/11/2018 Neurologic No pain, limb 07/11/2018 Neurologic No weakness 07/11/2018 Constitutional No recent illness 04/25/2018 Constitutional anorexia 04/25/2018 Constitutional No night sweats 04/25/2018 Constitutional No chills 04/25/2018 Constitutional No diaphoresis 04/25/2018 Constitutional fatigue 04/25/2018 Constitutional No fever 04/25/2018 Constitutional No insomnia 04/25/2018 Constitutional No malaise 04/25/2018 Constitutional weight loss 04/25/2018 Constitutional No weight gain 04/25/2018 Constitutional No obesity 04/25/2018 Eyes No eye pain 04/25/2018 Eyes No eye trauma 04/25/2018 Eyes No vision change 04/25/2018 Ears/Nose/Throat/Neck No dizziness 04/25/2018 Ears/Nose/Throat/Neck No headache 04/25/2018 Cardiovascular No chest pain/pressure 04/25/2018 Cardiovascular No dyspnea 04/25/2018 Cardiovascular No exercise intolerance 04/25/2018 Respiratory No chest congestion 04/25/2018 Respiratory No chest tightness 04/25/2018 Respiratory No cigarette smoking 04/25/2018 Respiratory No cough 04/25/2018 Gastrointestinal abdominal pain 04/25/2018 Gastrointestinal No constipation 04/25/2018 Gastrointestinal diarrhea 04/25/2018 Gastrointestinal No nausea 04/25/2018 Gastrointestinal No vomiting 04/25/2018 Genitourinary/Nephrology No anuria/oliguria 04/25/2018 Genitourinary/Nephrology No dysuria 04/25/2018 Musculoskeletal stiffness 04/25/2018 Musculoskeletal arthralgia(s) 04/25/2018 Musculoskeletal No back pain 04/25/2018 Dermatologic No rash 04/25/2018 Dermatologic No sores 04/25/2018 Neurologic No dizziness 04/25/2018 Neurologic No headache 04/25/2018 Neurologic No memory loss 04/25/2018 Neurologic No mental status change 04/25/2018 Neurologic pain, limb 04/25/2018 Psychiatric No anxiety 04/25/2018 Psychiatric No depression 04/25/2018 Hematologic/Lymphatic No abnormal ecchymoses 04/25/2018 Hematologic/Lymphatic No abnormal bleeding and bruising 04/25/2018 Constitutional No recent illness 12/24/2017 Constitutional No chills 12/24/2017 Constitutional No diaphoresis 12/24/2017 Constitutional No fever 12/24/2017 Eyes No eye erythema 12/24/2017 Eyes No vision change 12/24/2017 Ears/Nose/Throat/Neck No nasal allergies 12/24/2017 Ears/Nose/Throat/Neck No nasal discharge 12/24/2017 Cardiovascular No chest pain/pressure 12/24/2017 Cardiovascular No dyspnea 12/24/2017 Respiratory No chest congestion 12/24/2017 Respiratory No cough 12/24/2017 Respiratory No dyspnea 12/24/2017 Gastrointestinal No abdominal pain 12/24/2017 Gastrointestinal No constipation 12/24/2017 Gastrointestinal No diarrhea 12/24/2017 Gastrointestinal No nausea 12/24/2017 Gastrointestinal No vomiting 12/24/2017 Musculoskeletal stiffness 12/24/2017 Musculoskeletal arthralgia(s) 12/24/2017 Musculoskeletal No back pain 12/24/2017 Dermatologic No rash 12/24/2017 Neurologic No alteration of consciousness 12/24/2017 Neurologic No mental status change 12/24/2017 Constitutional No recent illness 06/20/2017 Constitutional No chills 06/20/2017 Constitutional No diaphoresis 06/20/2017 Constitutional No fever 06/20/2017 Eyes No eye erythema 06/20/2017 Eyes No vision change 06/20/2017 Ears/Nose/Throat/Neck No nasal allergies 06/20/2017 Ears/Nose/Throat/Neck No nasal discharge 06/20/2017 Cardiovascular No chest pain/pressure 06/20/2017 Cardiovascular No dyspnea 06/20/2017 Respiratory No chest congestion 06/20/2017 Respiratory No cough 06/20/2017 Respiratory No dyspnea 06/20/2017 Gastrointestinal No abdominal pain 06/20/2017 Gastrointestinal No constipation 06/20/2017 Gastrointestinal No diarrhea 06/20/2017 Gastrointestinal No nausea 06/20/2017 Gastrointestinal No vomiting 06/20/2017 Musculoskeletal stiffness 06/20/2017 Musculoskeletal arthralgia(s) 06/20/2017 Musculoskeletal No back pain 06/20/2017 Dermatologic No rash 06/20/2017 Neurologic No alteration of consciousness 06/20/2017 Neurologic No mental status change 06/20/2017 Constitutional recent illness 04/20/2017 Constitutional No chills 04/20/2017 Constitutional No diaphoresis 04/20/2017 Constitutional No fever 04/20/2017 Eyes No eye erythema 04/20/2017 Ears/Nose/Throat/Neck No nasal discharge 04/20/2017 Ears/Nose/Throat/Neck No nasal allergies 04/20/2017 Cardiovascular No chest pain/pressure 04/20/2017 Respiratory No cough 04/20/2017 Gastrointestinal abdominal pain 04/20/2017 Gastrointestinal diarrhea 04/20/2017 Gastrointestinal No constipation 04/20/2017 Gastrointestinal No vomiting 04/20/2017 Gastrointestinal No nausea 04/20/2017 Dermatologic No rash 04/20/2017 Neurologic No alteration of consciousness 04/20/2017 Neurologic No mental status change 04/20/2017 Constitutional No recent illness 01/02/2017 Constitutional No chills 01/02/2017 Constitutional No diaphoresis 01/02/2017 Constitutional No fever 01/02/2017 Eyes No eye erythema 01/02/2017 Ears/Nose/Throat/Neck No nasal discharge 01/02/2017 Ears/Nose/Throat/Neck No nasal allergies 01/02/2017 Cardiovascular No chest pain/pressure 01/02/2017 Cardiovascular No dyspnea 01/02/2017 Respiratory No cough 01/02/2017 Respiratory No dyspnea 01/02/2017 Dermatologic rash 01/02/2017 Neurologic No alteration of consciousness 01/02/2017 Neurologic No mental status change 01/02/2017 Constitutional No recent illness 09/07/2016 Constitutional No chills 09/07/2016 Constitutional No diaphoresis 09/07/2016 Constitutional No fatigue 09/07/2016 Constitutional No fever 09/07/2016 Constitutional No insomnia 09/07/2016 Constitutional No malaise 09/07/2016 Eyes No eye pain 09/07/2016 Eyes No vision change 09/07/2016 Cardiovascular No chest pain/pressure 09/07/2016 Cardiovascular No dyspnea 09/07/2016 Respiratory No chest congestion 09/07/2016 Respiratory No cough 09/07/2016 Gastrointestinal No abdominal pain 09/07/2016 Gastrointestinal No constipation 09/07/2016 Gastrointestinal No diarrhea 09/07/2016 Gastrointestinal No nausea 09/07/2016 Gastrointestinal No vomiting 09/07/2016 Musculoskeletal stiffness 09/07/2016 Musculoskeletal arthralgia(s) 09/07/2016 Musculoskeletal No back pain 09/07/2016 Dermatologic No rash 09/07/2016 Eyes No eye erythema 09/07/2016 Ears/Nose/Throat/Neck No nasal allergies 09/07/2016 Ears/Nose/Throat/Neck No nasal discharge 09/07/2016 Respiratory No dyspnea 09/07/2016 Neurologic No alteration of consciousness 09/07/2016 Neurologic No mental status change 09/07/2016 Constitutional No recent illness 04/21/2016 Constitutional No anorexia 04/21/2016 Constitutional No chills 04/21/2016 Constitutional No night sweats 04/21/2016 Constitutional No diaphoresis 04/21/2016 Constitutional No fatigue 04/21/2016 Constitutional No fever 04/21/2016 Constitutional No insomnia 04/21/2016 Constitutional No malaise 04/21/2016 Constitutional No weight loss 04/21/2016 Constitutional No weight gain 04/21/2016 Constitutional No obesity 04/21/2016 Eyes No eye pain 04/21/2016 Eyes No eye trauma 04/21/2016 Eyes No vision change 04/21/2016 Ears/Nose/Throat/Neck No dizziness 04/21/2016 Ears/Nose/Throat/Neck No headache 04/21/2016 Cardiovascular No chest pain/pressure 04/21/2016 Cardiovascular No dyspnea 04/21/2016 Cardiovascular No exercise intolerance 04/21/2016 Respiratory No chest congestion 04/21/2016 Respiratory No chest tightness 04/21/2016 Respiratory No cigarette smoking 04/21/2016 Respiratory No cough 04/21/2016 Gastrointestinal No abdominal pain 04/21/2016 Gastrointestinal No constipation 04/21/2016 Gastrointestinal No diarrhea 04/21/2016 Gastrointestinal No nausea 04/21/2016 Gastrointestinal No vomiting 04/21/2016 Genitourinary/Nephrology No anuria/oliguria 04/21/2016 Genitourinary/Nephrology No dysuria 04/21/2016 Musculoskeletal stiffness 04/21/2016 Musculoskeletal arthralgia(s) 04/21/2016 Musculoskeletal No back pain 04/21/2016 Dermatologic No rash 04/21/2016 Dermatologic No sores 04/21/2016 Neurologic No dizziness 04/21/2016 Neurologic No headache 04/21/2016 Neurologic No memory loss 04/21/2016 Neurologic No mental status change 04/21/2016 Neurologic pain, limb 04/21/2016 Psychiatric No anxiety 04/21/2016 Psychiatric No depression 04/21/2016 Hematologic/Lymphatic No abnormal ecchymoses 04/21/2016 Hematologic/Lymphatic No abnormal bleeding and bruising 04/21/2016 Constitutional No recent illness 11/30/2015 Constitutional No chills 11/30/2015 Constitutional No diaphoresis 11/30/2015 Constitutional No fever 11/30/2015 Eyes No eye erythema 11/30/2015 Ears/Nose/Throat/Neck No nasal allergies 11/30/2015 Ears/Nose/Throat/Neck No nasal discharge 11/30/2015 Cardiovascular No chest pain/pressure 11/30/2015 Cardiovascular No dyspnea 11/30/2015 Respiratory No cough 11/30/2015 Respiratory No dyspnea 11/30/2015 Musculoskeletal shoulder pain 11/30/2015 Dermatologic No rash 11/30/2015 Dermatologic No sores 11/30/2015 Neurologic No alteration of consciousness 11/30/2015 Neurologic No mental status change 11/30/2015 Respiratory No chest congestion 11/30/2015 Gastrointestinal No abdominal pain 11/30/2015 Constitutional No recent illness 11/02/2015 Constitutional No chills 11/02/2015 Constitutional No diaphoresis 11/02/2015 Constitutional No fever 11/02/2015 Eyes No eye erythema 11/02/2015 Ears/Nose/Throat/Neck No nasal allergies 11/02/2015 Ears/Nose/Throat/Neck No nasal discharge 11/02/2015 Cardiovascular No chest pain/pressure 11/02/2015 Cardiovascular No dyspnea 11/02/2015 Respiratory No cough 11/02/2015 Respiratory No dyspnea 11/02/2015 Musculoskeletal shoulder pain 11/02/2015 Dermatologic No rash 11/02/2015 Dermatologic No sores 11/02/2015 Neurologic No alteration of consciousness 11/02/2015 Neurologic No mental status change 11/02/2015 Psychiatric No anxiety 11/02/2015 Psychiatric No depression 11/02/2015 Constitutional No recent illness 10/15/2015 Constitutional No malaise 10/15/2015 Constitutional No fever 10/15/2015 Constitutional No fatigue 10/15/2015 Constitutional No diaphoresis 10/15/2015 Constitutional No chills 10/15/2015 Eyes No eye erythema 10/15/2015 Ears/Nose/Throat/Neck No nasal discharge 10/15/2015 Ears/Nose/Throat/Neck No nasal allergies 10/15/2015 Cardiovascular No chest pain/pressure 10/15/2015 Cardiovascular No dyspnea 10/15/2015 Cardiovascular No edema 10/15/2015 Respiratory No cough 10/15/2015 Respiratory No chest congestion 10/15/2015 Respiratory No dyspnea 10/15/2015 Gastrointestinal No abdominal pain 10/15/2015 Gastrointestinal No constipation 10/15/2015 Gastrointestinal No diarrhea 10/15/2015 Gastrointestinal No vomiting 10/15/2015 Gastrointestinal No nausea 10/15/2015 Genitourinary/Nephrology No flank pain 10/15/2015 Musculoskeletal shoulder pain 10/15/2015 Dermatologic No rash 10/15/2015 Dermatologic No sores 10/15/2015 Neurologic No alteration of consciousness 10/15/2015 Neurologic No mental status change 10/15/2015 Psychiatric No anxiety 10/15/2015 Psychiatric No depression 10/15/2015 Physical Exam Exam Name System Name Item Name Status Result Effective Dates Notes Full Exam - General 1994 Constitutional general appearance Overall: well developed 08/26/2018 None Full Exam - General 1994 Constitutional general appearance Overall: in no acute distress 08/26/2018 None Full Exam - General 1995 Constitutional general appearance Overall: well nourished 08/26/2018 None Full Exam - General 1995 Eyes conjunctiva/eyelids Overall: conjunctiva clear 08/26/2018 None Full Exam - General 1995 Eyes conjunctiva/eyelids Overall: cornea clear 08/26/2018 None Full Exam - General 1994 Eyes pupils and irises Overall: pupils equal, round, reactive to light and accomodation 08/26/2018 None Full Exam - General 1995 Ears/Nose/Throat lips/teeth/gingiva Overall: benign lips 08/26/2018 None Full Exam - General 1995 Ears/Nose/Throat oral cavity/pharynx/larynx Overall: oral mucosa clear 08/26/2018 None Full Exam - General 1994 Respiratory auscultation Overall: breath sounds clear bilaterally 08/26/2018 None Full Exam - General 1994 Respiratory respiratory effort/rhythm Overall: no retractions 08/26/2018 None Full Exam - General 1994 Respiratory respiratory effort/rhythm Overall: normal rate 08/26/2018 None Full Exam - General 1994 Cardiovascular auscultation of heart Overall: regular rate 08/26/2018 None Full Exam - General 1994 Cardiovascular auscultation of heart Overall: normal heart sounds 08/26/2018 None Full Exam - General 1994 Cardiovascular auscultation of heart Overall: no murmurs 08/26/2018 None Full Exam - General 1994 Musculoskeletal gait and station Overall: normal gait 08/26/2018 None Full Exam - General 1994 Musculoskeletal gait and station Overall: normal station 08/26/2018 None Full Exam - General 1994 Musculoskeletal head and neck Overall: head atraumatic 08/26/2018 None Full Exam - General 1994 Psychiatric orientation/consciousness Overall: oriented to person, place and time 08/26/2018 None Full Exam - General 1994 Psychiatric mood and affect Overall: normal mood and affect 08/26/2018 None Full Exam - General 1994 Psychiatric speech Overall: normal quality, no aphasia 08/26/2018 None Full Exam - General 1994 Constitutional general appearance Overall: well developed 07/25/2018 None Full Exam - General 1994 Constitutional general appearance Overall: in no acute distress 07/25/2018 None Full Exam - General 1994 Constitutional general appearance Overall: well nourished 07/25/2018 None Full Exam - General 1994 Eyes conjunctiva/eyelids Overall: conjunctiva clear 07/25/2018 None Full Exam - General 1994 Eyes conjunctiva/eyelids Overall: cornea clear 07/25/2018 None Full Exam - General 1994 Eyes pupils and irises Overall: pupils equal, round, reactive to light and accomodation 07/25/2018 None Full Exam - General 1994 Ears/Nose/Throat lips/teeth/gingiva Overall: benign lips 07/25/2018 None Full Exam - General 1994 Ears/Nose/Throat oral cavity/pharynx/larynx Overall: oral mucosa clear 07/25/2018 None Full Exam - General 1994 Respiratory auscultation Overall: breath sounds clear bilaterally 07/25/2018 None Full Exam - General 1994 Respiratory respiratory effort/rhythm Overall: no retractions 07/25/2018 None Full Exam - General 1994 Respiratory respiratory effort/rhythm Overall: normal rate 07/25/2018 None Full Exam - General 1994 Cardiovascular auscultation of heart Overall: regular rate 07/25/2018 None Full Exam - General 1994 Cardiovascular auscultation of heart Overall: normal heart sounds 07/25/2018 None Full Exam - General 1994 Cardiovascular auscultation of heart Overall: no murmurs 07/25/2018 None Full Exam - General 1994 Musculoskeletal gait and station Overall: normal gait 07/25/2018 None Full Exam - General 1994 Musculoskeletal gait and station Overall: normal station 07/25/2018 None Full Exam - General 1994 Musculoskeletal head and neck Overall: head atraumatic 07/25/2018 None Full Exam - General 1994 Neurologic mental status Overall: alert 07/25/2018 None Full Exam - General 1994 Neurologic mental status Overall: oriented 07/25/2018 None Full Exam - General 1994 Psychiatric orientation/consciousness Overall: oriented to person, place and time 07/25/2018 None Full Exam - General 1994 Psychiatric mood and affect Overall: normal mood and affect 07/25/2018 None Full Exam - General 1994 Psychiatric speech Overall: normal quality, no aphasia 07/25/2018 None Full Exam - General 1994 Abdomen abdominal exam Overall: no tenderness 07/25/2018 None Full Exam - General 1994 Abdomen abdominal exam Overall: normal bowel sounds 07/25/2018 None Full Exam - General 1994 Eyes conjunctiva/eyelids Overall: conjunctiva clear 07/23/2018 None Full Exam - General 1994 Eyes conjunctiva/eyelids Overall: cornea clear 07/23/2018 None Full Exam - General 1994 Eyes pupils and irises Overall: pupils equal, round, reactive to light and accomodation 07/23/2018 None Full Exam - General 1994 Ears/Nose/Throat lips/teeth/gingiva Overall: benign lips 07/23/2018 None Full Exam - General 1994 Ears/Nose/Throat oral cavity/pharynx/larynx Overall: oral mucosa clear 07/23/2018 None Full Exam - General 1994 Respiratory auscultation Overall: breath sounds clear bilaterally 07/23/2018 None Full Exam - General 1994 Respiratory respiratory effort/rhythm Overall: no retractions 07/23/2018 None Full Exam - General 1994 Respiratory respiratory effort/rhythm Overall: normal rate 07/23/2018 None Full Exam - General 1994 Cardiovascular auscultation of heart Overall: regular rate 07/23/2018 None Full Exam - General 1994 Cardiovascular auscultation of heart Overall: normal heart sounds 07/23/2018 None Full Exam - General 1994 Cardiovascular auscultation of heart Overall: no murmurs 07/23/2018 None Full Exam - General 1994 Musculoskeletal gait and station Overall: normal gait 07/23/2018 None Full Exam - General 1994 Musculoskeletal gait and station Overall: normal station 07/23/2018 None Full Exam - General 1994 Musculoskeletal head and neck Overall: head atraumatic 07/23/2018 None Full Exam - General 1994 Neurologic mental status Overall: alert 07/23/2018 None Full Exam - General 1994 Neurologic mental status Overall: oriented 07/23/2018 None Full Exam - General 1994 Psychiatric orientation/consciousness Overall: oriented to person, place and time 07/23/2018 None Full Exam - General 1994 Psychiatric mood and affect Overall: normal mood and affect 07/23/2018 None Full Exam - General 1994 Psychiatric speech Overall: normal quality, no aphasia 07/23/2018 None Full Exam - General 1994 Constitutional general appearance Overall: well developed 07/23/2018 None Full Exam - General 1994 Constitutional general appearance Overall: in no acute distress 07/23/2018 None Full Exam - General 1994 Constitutional general appearance Overall: well nourished 07/23/2018 None Full Exam - General 1994 Constitutional general appearance Development: well developed 07/11/2018 None Full Exam - General 1994 Constitutional general appearance Development: appears stated age 0407/11/2018 None Full Exam - General 1994 Eyes conjunctiva/eyelids Overall: conjunctiva clear 07/11/2018 None Full Exam - General 1994 Eyes conjunctiva/eyelids Overall: cornea clear 07/11/2018 None Full Exam - General 1994 Eyes pupils and irises Overall: pupils equal, round, reactive to light and accomodation 07/11/2018 None Full Exam - General 1994 Ears/Nose/Throat otoscopic exam Overall: external auditory canals clear 07/11/2018 None Full Exam - General 1994 Ears/Nose/Throat otoscopic exam Overall: tympanic membranes clear 07/11/2018 None Full Exam - General 1994 Ears/Nose/Throat lips/teeth/gingiva Overall: benign lips 07/11/2018 None Full Exam - General 1994 Ears/Nose/Throat lips/teeth/gingiva Overall: normal dentition 07/11/2018 None Full Exam - General 1994 Ears/Nose/Throat oral cavity/pharynx/larynx Overall: oral mucosa clear 07/11/2018 None Full Exam - General 1994 Respiratory auscultation Overall: breath sounds clear bilaterally 07/11/2018 None Full Exam - General 1994 Respiratory respiratory effort/rhythm Overall: no retractions 07/11/2018 None Full Exam - General 1994 Respiratory respiratory effort/rhythm Overall: normal rate 07/11/2018 None Full Exam - General 1994 Cardiovascular auscultation of heart Overall: regular rate 07/11/2018 None Full Exam - General 1994 Cardiovascular auscultation of heart Overall: normal heart sounds 07/11/2018 None Full Exam - General 1994 Cardiovascular auscultation of heart Overall: no murmurs 07/11/2018 None Full Exam - General 1994 Abdomen abdominal exam Overall: no tenderness 07/11/2018 None Full Exam - General 1994 Abdomen abdominal exam Overall: normal bowel sounds 07/11/2018 None Full Exam - General 1994 Integument inspection of skin Overall: few scattered moles, no gross abnormalities 07/11/2018 None Full Exam - General 1994 Neurologic mental status Overall: alert 07/11/2018 None Full Exam - General 1994 Neurologic mental status Overall: oriented 07/11/2018 None Full Exam - General 1994 Psychiatric orientation/consciousness Overall: oriented to person, place and time 07/11/2018 None Full Exam - General 1994 Psychiatric mood and affect Overall: normal mood and affect 07/11/2018 None Full Exam - General 1994 Psychiatric speech Overall: normal quality, no aphasia 07/11/2018 None Full Exam - General 1994 Musculoskeletal head and neck Overall: cervical spine benign 07/11/2018 None Full Exam - General 1994 Musculoskeletal head and neck Overall: head atraumatic 07/11/2018 None Full Exam - General 1994 Musculoskeletal gait and station Overall: normal station 07/11/2018 None Full Exam - General 1994 Musculoskeletal gait and station Overall: normal gait 07/11/2018 None Full Exam - General 1994 Lymphatic neck nodes Overall: anterior cervical chain benign 07/11/2018 None Full Exam - General 1994 Lymphatic neck nodes Overall: posterior cervical chain benign 07/11/2018 None Full Exam - General 1994 Constitutional general appearance Development: well developed 04/25/2018 None Full Exam - General 1994 Constitutional general appearance Development: appears stated age 0104/25/2018 None Full Exam - General 1994 Eyes conjunctiva/eyelids Overall: conjunctiva clear 04/25/2018 None Full Exam - General 1994 Eyes conjunctiva/eyelids Overall: cornea clear 04/25/2018 None Full Exam - General 1994 Eyes pupils and irises Overall: pupils equal, round, reactive to light and accomodation 04/25/2018 None Full Exam - General 1994 Ears/Nose/Throat otoscopic exam Overall: external auditory canals clear 04/25/2018 None Full Exam - General 1994 Ears/Nose/Throat otoscopic exam Overall: tympanic membranes clear 04/25/2018 None Full Exam - General 1994 Ears/Nose/Throat lips/teeth/gingiva Overall: benign lips 04/25/2018 None Full Exam - General 1994 Ears/Nose/Throat lips/teeth/gingiva Overall: normal dentition 04/25/2018 None Full Exam - General 1994 Ears/Nose/Throat oral cavity/pharynx/larynx Overall: oral mucosa clear 04/25/2018 None Full Exam - General 1994 Respiratory auscultation Overall: breath sounds clear bilaterally 04/25/2018 None Full Exam - General 1994 Respiratory respiratory effort/rhythm Overall: no retractions 04/25/2018 None Full Exam - General 1994 Respiratory respiratory effort/rhythm Overall: normal rate 04/25/2018 None Full Exam - General 1994 Cardiovascular auscultation of heart Overall: regular rate 04/25/2018 None Full Exam - General 1994 Cardiovascular auscultation of heart Overall: normal heart sounds 04/25/2018 None Full Exam - General 1994 Cardiovascular auscultation of heart Overall: no murmurs 04/25/2018 None Full Exam - General 1994 Abdomen abdominal exam Overall: no tenderness 04/25/2018 None Full Exam - General 1994 Abdomen abdominal exam Overall: normal bowel sounds 04/25/2018 None Full Exam - General 1994 Neurologic mental status Overall: alert 04/25/2018 None Full Exam - General 1994 Neurologic mental status Overall: oriented 04/25/2018 None Full Exam - General 1994 Psychiatric orientation/consciousness Overall: oriented to person, place and time 04/25/2018 None Full Exam - General 1994 Psychiatric mood and affect Overall: normal mood and affect 04/25/2018 None Full Exam - General 1994 Psychiatric speech Overall: normal quality, no aphasia 04/25/2018 None Full Exam - General 1994 Integument inspection of skin Overall: few scattered moles, no gross abnormalities 04/25/2018 None Full Exam - General 1994 Constitutional general appearance Overall: well developed 12/24/2017 None Full Exam - General 1994 Constitutional general appearance Overall: in no acute distress 12/24/2017 None Full Exam - General 1994 Constitutional general appearance Overall: well nourished 12/24/2017 None Full Exam - General 1994 Eyes conjunctiva/eyelids Overall: conjunctiva clear 12/24/2017 None Full Exam - General 1994 Eyes conjunctiva/eyelids Overall: cornea clear 12/24/2017 None Full Exam - General 1994 Eyes conjunctiva/eyelids Overall: eyelids normal 12/24/2017 None Full Exam - General 1994 Ears/Nose/Throat lips/teeth/gingiva Overall: benign lips 12/24/2017 None Full Exam - General 1994 Ears/Nose/Throat oral cavity/pharynx/larynx Overall: oral mucosa clear 12/24/2017 None Full Exam - General 1994 Respiratory auscultation Overall: breath sounds clear bilaterally 12/24/2017 None Full Exam - General 1994 Respiratory respiratory effort/rhythm Overall: no retractions 12/24/2017 None Full Exam - General 1994 Respiratory respiratory effort/rhythm Overall: normal rate 12/24/2017 None Full Exam - General 1994 Cardiovascular auscultation of heart Overall: regular rate 12/24/2017 None Full Exam - General 1994 Cardiovascular auscultation of heart Overall: normal heart sounds 12/24/2017 None Full Exam - General 1994 Cardiovascular auscultation of heart Overall: no murmurs 12/24/2017 None Full Exam - General 1994 Abdomen abdominal exam Overall: no tenderness 12/24/2017 None Full Exam - General 1994 Abdomen abdominal exam Overall: normal bowel sounds 12/24/2017 None Full Exam - General 1994 Abdomen hernia exam Abdominal hernia present: non-tender 12/24/2017 None Full Exam - General 1994 Abdomen hernia exam Abdominal hernia present: reducible 12/24/2017 None Full Exam - General 1994 Musculoskeletal upper extremity ROM - shoulder: pain with external rotation 12/24/2017 None Full Exam - General 1994 Musculoskeletal upper extremity ROM - shoulder: pain with internal rotation 12/24/2017 None Full Exam - General 1994 Musculoskeletal gait and station Overall: normal gait 12/24/2017 None Full Exam - General 1994 Musculoskeletal gait and station Overall: normal station 12/24/2017 None Full Exam - General 1994 Musculoskeletal head and neck Overall: head atraumatic 12/24/2017 None Full Exam - General 1994 Neurologic cranial nerves Overall: crainial nerves 2 - 12 grossly intact 12/24/2017 None Full Exam - General 1994 Psychiatric orientation/consciousness Overall: oriented to person, place and time 12/24/2017 None Full Exam - General 1994 Psychiatric mood and affect Overall: normal mood and affect 12/24/2017 None Full Exam - General 1994 Psychiatric appearance Overall: well-groomed, good eye contact 12/24/2017 None Full Exam - General 1994 Psychiatric speech Overall: normal quality, no aphasia 12/24/2017 None Full Exam - General 1994 Constitutional general appearance Overall: well developed 06/20/2017 None Full Exam - General 1994 Constitutional general appearance Overall: in no acute distress 06/20/2017 None Full Exam - General 1994 Constitutional general appearance Overall: well nourished 06/20/2017 None Full Exam - General 1994 Eyes conjunctiva/eyelids Overall: conjunctiva clear 06/20/2017 None Full Exam - General 1994 Eyes conjunctiva/eyelids Overall: eyelids normal 06/20/2017 None Full Exam - General 1994 Ears/Nose/Throat lips/teeth/gingiva Overall: benign lips 06/20/2017 None Full Exam - General 1994 Ears/Nose/Throat oral cavity/pharynx/larynx Overall: oral mucosa clear 06/20/2017 None Full Exam - General 1994 Respiratory auscultation Overall: breath sounds clear bilaterally 06/20/2017 None Full Exam - General 1994 Respiratory respiratory effort/rhythm Overall: no retractions 06/20/2017 None Full Exam - General 1994 Respiratory respiratory effort/rhythm Overall: normal rate 06/20/2017 None Full Exam - General 1994 Cardiovascular auscultation of heart Overall: regular rate 06/20/2017 None Full Exam - General 1994 Cardiovascular auscultation of heart Overall: normal heart sounds 06/20/2017 None Full Exam - General 1994 Cardiovascular auscultation of heart Overall: no murmurs 06/20/2017 None Full Exam - General 1994 Abdomen abdominal exam Overall: no tenderness 06/20/2017 None Full Exam - General 1994 Abdomen abdominal exam Overall: normal bowel sounds 06/20/2017 None Full Exam - General 1994 Abdomen hernia exam Abdominal hernia present: non-tender 06/20/2017 None Full Exam - General 1994 Abdomen hernia exam Abdominal hernia present: reducible 06/20/2017 None Full Exam - General 1994 Musculoskeletal gait and station Overall: normal gait 06/20/2017 None Full Exam - General 1994 Musculoskeletal gait and station Overall: normal station 06/20/2017 None Full Exam - General 1994 Musculoskeletal head and neck Overall: head atraumatic 06/20/2017 None Full Exam - General 1994 Neurologic cranial nerves Overall: crainial nerves 2 - 12 grossly intact 06/20/2017 None Full Exam - General 1994 Psychiatric orientation/consciousness Overall: oriented to person, place and time 06/20/2017 None Full Exam - General 1994 Psychiatric mood and affect Overall: normal mood and affect 06/20/2017 None Full Exam - General 1994 Psychiatric appearance Overall: well-groomed, good eye contact 06/20/2017 None Full Exam - General 1994 Psychiatric speech Overall: normal quality, no aphasia 06/20/2017 None Full Exam - General 1994 Eyes conjunctiva/eyelids Overall: cornea clear 06/20/2017 None Full Exam - General 1994 Musculoskeletal upper extremity ROM - shoulder: pain with external rotation 06/20/2017 None Full Exam - General 1994 Musculoskeletal upper extremity ROM - shoulder: pain with internal rotation 06/20/2017 None Full Exam - General 1994 Constitutional general appearance Overall: well developed 04/20/2017 None Full Exam - General 1994 Constitutional general appearance Overall: in no acute distress 04/20/2017 None Full Exam - General 1994 Constitutional general appearance Overall: well nourished 04/20/2017 None Full Exam - General 1994 Eyes conjunctiva/eyelids Overall: conjunctiva clear 04/20/2017 None Full Exam - General 1994 Eyes conjunctiva/eyelids Overall: cornea clear 04/20/2017 None Full Exam - General 1994 Eyes conjunctiva/eyelids Overall: eyelids normal 04/20/2017 None Full Exam - General 1994 Eyes pupils and irises Overall: pupils equal, round, reactive to light and accomodation 04/20/2017 None Full Exam - General 1994 Ears/Nose/Throat lips/teeth/gingiva Overall: benign lips 04/20/2017 None Full Exam - General 1994 Ears/Nose/Throat oral cavity/pharynx/larynx Overall: oral mucosa clear 04/20/2017 None Full Exam - General 1994 Respiratory auscultation Overall: breath sounds clear bilaterally 04/20/2017 None Full Exam - General 1994 Respiratory respiratory effort/rhythm Overall: no retractions 04/20/2017 None Full Exam - General 1994 Respiratory respiratory effort/rhythm Overall: normal rate 04/20/2017 None Full Exam - General 1994 Cardiovascular auscultation of heart Overall: regular rate 04/20/2017 None Full Exam - General 1994 Cardiovascular auscultation of heart Overall: normal heart sounds 04/20/2017 None Full Exam - General 1994 Abdomen abdominal exam Bowel sounds: hyperactive 04/20/2017 None Full Exam - General 1994 Abdomen abdominal exam Lower quadrant: dull pain 04/20/2017 None Full Exam - General 1994 Abdomen abdominal exam Lower quadrant: tender to palpation 04/20/2017 None Full Exam - General 1994 Abdomen abdominal exam Lower quadrant: no guarding 04/20/2017 None Full Exam - General 1994 Abdomen abdominal exam Lower quadrant: no rebound tenderness 04/20/2017 None Full Exam - General 1994 Abdomen abdominal exam Lower quadrant: soft 04/20/2017 None Full Exam - General 1994 Musculoskeletal head and neck Overall: head atraumatic 04/20/2017 None Full Exam - General 1994 Musculoskeletal gait and station Overall: normal station 04/20/2017 None Full Exam - General 1994 Musculoskeletal gait and station Overall: normal gait 04/20/2017 None Full Exam - General 1994 Neurologic cranial nerves Overall: crainial nerves 2 - 12 grossly intact 04/20/2017 None Full Exam - General 1994 Psychiatric orientation/consciousness Overall: oriented to person, place and time 04/20/2017 None Full Exam - General 1994 Psychiatric mood and affect Overall: normal mood and affect 04/20/2017 None Full Exam - Dermatology Constitutional general appearance Overall: well nourished 01/02/2017 None Full Exam - Dermatology Constitutional general appearance Overall: well developed 01/02/2017 None Full Exam - Dermatology Constitutional general appearance Overall: in no acute distress 01/02/2017 None Full Exam - Dermatology Eyes conjunctiva/eyelids Overall: clear conjunctiva bilaterally 01/02/2017 None Full Exam - Dermatology Eyes conjunctiva/eyelids Overall: normal eyelids 01/02/2017 None Full Exam - Dermatology Ears/Nose/Throat lips/teeth/gingiva Overall: benign lips 01/02/2017 None Full Exam - Dermatology Respiratory respiratory effort/rhythm Overall: no retractions 01/02/2017 None Full Exam - Dermatology Respiratory respiratory effort/rhythm Overall: normal rate 01/02/2017 None Full Exam - Dermatology Musculoskeletal head and neck Overall: head atraumatic 01/02/2017 None Full Exam - Dermatology Musculoskeletal gait and station Overall: normal gait 01/02/2017 None Full Exam - Dermatology Musculoskeletal gait and station Overall: normal station 01/02/2017 None Full Exam - Dermatology Integument insp & palp - abdomen Location: on the right abdomen 01/02/2017 None Full Exam - Dermatology Integument insp & palp - abdomen Color: erythematous 01/02/2017 None Full Exam - Dermatology Integument insp & palp - abdomen Lesion: vesicle 01/02/2017 None Full Exam - Dermatology Integument insp & palp - genitalia/groin/buttocks Location: on the left buttock 01/02/2017 None Full Exam - Dermatology Integument insp & palp - genitalia/groin/buttocks Color: erythematous 01/02/2017 None Full Exam - Dermatology Integument insp & palp - genitalia/groin/buttocks Lesion: vesicle 01/02/2017 None Full Exam - Dermatology Psychiatric orientation Overall: oriented to person, place and time 01/02/2017 None Full Exam - Dermatology Psychiatric mood and affect Overall: normal mood and affect 01/02/2017 None Full Exam - General 1994 Eyes conjunctiva/eyelids Overall: conjunctiva clear 09/07/2016 None Full Exam - General 1994 Ears/Nose/Throat lips/teeth/gingiva Overall: benign lips 09/07/2016 None Full Exam - General 1994 Ears/Nose/Throat oral cavity/pharynx/larynx Overall: oral mucosa clear 09/07/2016 None Full Exam - General 1994 Respiratory auscultation Overall: breath sounds clear bilaterally 09/07/2016 None Full Exam - General 1994 Respiratory respiratory effort/rhythm Overall: no retractions 09/07/2016 None Full Exam - General 1994 Respiratory respiratory effort/rhythm Overall: normal rate 09/07/2016 None Full Exam - General 1994 Cardiovascular auscultation of heart Overall: regular rate 09/07/2016 None Full Exam - General 1994 Cardiovascular auscultation of heart Overall: normal heart sounds 09/07/2016 None Full Exam - General 1994 Cardiovascular auscultation of heart Overall: no murmurs 09/07/2016 None Full Exam - General 1994 Abdomen abdominal exam Overall: no tenderness 09/07/2016 None Full Exam - General 1994 Abdomen abdominal exam Overall: normal bowel sounds 09/07/2016 None Full Exam - General 1994 Psychiatric orientation/consciousness Overall: oriented to person, place and time 09/07/2016 None Full Exam - General 1994 Psychiatric mood and affect Overall: normal mood and affect 09/07/2016 None Full Exam - General 1994 Psychiatric speech Overall: normal quality, no aphasia 09/07/2016 None Full Exam - General 1994 Constitutional general appearance Overall: well developed 09/07/2016 None Full Exam - General 1994 Constitutional general appearance Overall: in no acute distress 09/07/2016 None Full Exam - General 1994 Constitutional general appearance Overall: well nourished 09/07/2016 None Full Exam - General 1994 Eyes conjunctiva/eyelids Overall: eyelids normal 09/07/2016 None Full Exam - General 1994 Abdomen hernia exam Abdominal hernia present: non-tender 09/07/2016 None Full Exam - General 1994 Abdomen hernia exam Abdominal hernia present: reducible 09/07/2016 None Full Exam - General 1994 Musculoskeletal gait and station Overall: normal gait 09/07/2016 None Full Exam - General 1994 Musculoskeletal gait and station Overall: normal station 09/07/2016 None Full Exam - General 1994 Musculoskeletal head and neck Overall: head atraumatic 09/07/2016 None Full Exam - General 1994 Neurologic cranial nerves Overall: crainial nerves 2 - 12 grossly intact 09/07/2016 None Full Exam - General 1994 Psychiatric appearance Overall: well-groomed, good eye contact 09/07/2016 None Full Exam - General 1994 Constitutional general appearance Development: well developed 04/21/2016 None Full Exam - General 1994 Constitutional general appearance Development: appears stated age 0104/21/2016 None Full Exam - General 1994 Eyes conjunctiva/eyelids Overall: conjunctiva clear 04/21/2016 None Full Exam - General 1994 Eyes conjunctiva/eyelids Overall: cornea clear 04/21/2016 None Full Exam - General 1994 Eyes pupils and irises Overall: pupils equal, round, reactive to light and accomodation 04/21/2016 None Full Exam - General 1994 Ears/Nose/Throat otoscopic exam Overall: external auditory canals clear 04/21/2016 None Full Exam - General 1994 Ears/Nose/Throat otoscopic exam Overall: tympanic membranes clear 04/21/2016 None Full Exam - General 1994 Ears/Nose/Throat lips/teeth/gingiva Overall: benign lips 04/21/2016 None Full Exam - General 1995 Ears/Nose/Throat lips/teeth/gingiva Overall: normal dentition 04/21/2016 None Full Exam - General 1994 Ears/Nose/Throat oral cavity/pharynx/larynx Overall: oral mucosa clear 04/21/2016 None Full Exam - General 1994 Respiratory auscultation Overall: breath sounds clear bilaterally 04/21/2016 None Full Exam - General 1994 Respiratory respiratory effort/rhythm Overall: no retractions 04/21/2016 None Full Exam - General 1994 Respiratory respiratory effort/rhythm Overall: normal rate 04/21/2016 None Full Exam - General 1994 Cardiovascular auscultation of heart Overall: regular rate 04/21/2016 None Full Exam - General 1994 Cardiovascular auscultation of heart Overall: normal heart sounds 04/21/2016 None Full Exam - General 1994 Cardiovascular auscultation of heart Overall: no murmurs 04/21/2016 None Full Exam - General 1994 Abdomen abdominal exam Overall: no tenderness 04/21/2016 None Full Exam - General 1994 Abdomen abdominal exam Overall: normal bowel sounds 04/21/2016 None Full Exam - General 1994 Neurologic mental status Overall: alert 04/21/2016 None Full Exam - General 1994 Neurologic mental status Overall: oriented 04/21/2016 None Full Exam - General 1994 Psychiatric orientation/consciousness Overall: oriented to person, place and time 04/21/2016 None Full Exam - General 1994 Psychiatric mood and affect Overall: normal mood and affect 04/21/2016 None Full Exam - General 1994 Psychiatric speech Overall: normal quality, no aphasia 04/21/2016 None Full Exam - General 1994 Constitutional general appearance Overall: well developed 11/30/2015 None Full Exam - General 1994 Constitutional general appearance Overall: in no acute distress 11/30/2015 None Full Exam - General 1994 Constitutional general appearance Overall: well nourished 11/30/2015 None Full Exam - General 1994 Eyes conjunctiva/eyelids Overall: conjunctiva clear 11/30/2015 None Full Exam - General 1994 Eyes conjunctiva/eyelids Overall: cornea clear 11/30/2015 None Full Exam - General 1994 Eyes conjunctiva/eyelids Overall: eyelids normal 11/30/2015 None Full Exam - General 1994 Ears/Nose/Throat lips/teeth/gingiva Overall: benign lips 11/30/2015 None Full Exam - General 1994 Ears/Nose/Throat lips/teeth/gingiva Overall: normal dentition 11/30/2015 None Full Exam - General 1994 Respiratory auscultation Overall: breath sounds clear bilaterally 11/30/2015 None Full Exam - General 1994 Respiratory respiratory effort/rhythm Overall: no retractions 11/30/2015 None Full Exam - General 1994 Respiratory respiratory effort/rhythm Overall: normal rate 11/30/2015 None Full Exam - General 1994 Cardiovascular extremities Overall: no clubbing 11/30/2015 None Full Exam - General 1994 Cardiovascular auscultation of heart Overall: regular rate 11/30/2015 None Full Exam - General 1994 Cardiovascular auscultation of heart Overall: normal heart sounds 11/30/2015 None Full Exam - General 1994 Musculoskeletal upper extremity Palpation - shoulder: tenderness @ bicipital groove 11/30/2015 None Full Exam - General 1994 Musculoskeletal upper extremity ROM - shoulder: pain with external rotation 11/30/2015 None Full Exam - General 1994 Musculoskeletal upper extremity ROM - shoulder: pain with internal rotation 11/30/2015 None Full Exam - General 1994 Musculoskeletal spine, ribs and pelvis Overall: good posture 11/30/2015 None Full Exam - General 1994 Musculoskeletal gait and station Overall: normal gait 11/30/2015 None Full Exam - General 1994 Musculoskeletal gait and station Overall: normal station 11/30/2015 None Full Exam - General 1994 Integument inspection of skin Overall: no rash, lesions 11/30/2015 None Full Exam - General 1994 Neurologic gait Overall: no ataxia, no unsteadiness 11/30/2015 None Full Exam - General 1994 Neurologic cranial nerves Overall: crainial nerves 2 - 12 grossly intact 11/30/2015 None Full Exam - General 1994 Psychiatric orientation/consciousness Overall: oriented to person, place and time 11/30/2015 None Full Exam - General 1994 Psychiatric mood and affect Overall: normal mood and affect 11/30/2015 None Full Exam - General 1994 Psychiatric appearance Overall: well-groomed, good eye contact 11/30/2015 None Full Exam - General 1994 Psychiatric speech Overall: normal quality, no aphasia 11/30/2015 None Full Exam - General 1994 Psychiatric speech Overall: normal quality, quantity, rate 11/30/2015 None Full Exam - General 1994 Ears/Nose/Throat oral cavity/pharynx/larynx Overall: oral mucosa clear 11/30/2015 None Full Exam - General 1994 Musculoskeletal head and neck Overall: head atraumatic 11/30/2015 None Full Exam - General 1994 Abdomen abdominal exam Contour: flat 11/30/2015 None Full Exam - General 1994 Constitutional general appearance Overall: well developed 11/02/2015 None Full Exam - General 1994 Constitutional general appearance Overall: in no acute distress 11/02/2015 None Full Exam - General 1994 Constitutional general appearance Overall: well nourished 11/02/2015 None Full Exam - General 1994 Eyes conjunctiva/eyelids Overall: conjunctiva clear 11/02/2015 None Full Exam - General 1994 Eyes conjunctiva/eyelids Overall: cornea clear 11/02/2015 None Full Exam - General 1994 Eyes conjunctiva/eyelids Overall: eyelids normal 11/02/2015 None Full Exam - General 1994 Ears/Nose/Throat lips/teeth/gingiva Overall: benign lips 11/02/2015 None Full Exam - General 1994 Ears/Nose/Throat lips/teeth/gingiva Overall: normal dentition 11/02/2015 None Full Exam - General 1994 Respiratory auscultation Overall: breath sounds clear bilaterally 11/02/2015 None Full Exam - General 1994 Respiratory respiratory effort/rhythm Overall: no retractions 11/02/2015 None Full Exam - General 1994 Respiratory respiratory effort/rhythm Overall: normal rate 11/02/2015 None Full Exam - General 1994 Cardiovascular extremities Overall: no clubbing 11/02/2015 None Full Exam - General 1994 Cardiovascular auscultation of heart Overall: regular rate 11/02/2015 None Full Exam - General 1994 Cardiovascular auscultation of heart Overall: normal heart sounds 11/02/2015 None Full Exam - General 1994 Musculoskeletal upper extremity Palpation - shoulder: tenderness @ bicipital groove 11/02/2015 None Full Exam - General 1994 Musculoskeletal upper extremity ROM - shoulder: pain with external rotation 11/02/2015 None Full Exam - General 1994 Musculoskeletal upper extremity ROM - shoulder: pain with internal rotation 11/02/2015 None Full Exam - General 1994 Musculoskeletal spine, ribs and pelvis Overall: good posture 11/02/2015 None Full Exam - General 1994 Musculoskeletal gait and station Overall: normal gait 11/02/2015 None Full Exam - General 1994 Musculoskeletal gait and station Overall: normal station 11/02/2015 None Full Exam - General 1994 Integument inspection of skin Overall: no rash, lesions 11/02/2015 None Full Exam - General 1994 Neurologic gait Overall: no ataxia, no unsteadiness 11/02/2015 None Full Exam - General 1994 Neurologic cranial nerves Overall: crainial nerves 2 - 12 grossly intact 11/02/2015 None Full Exam - General 1994 Psychiatric orientation/consciousness Overall: oriented to person, place and time 11/02/2015 None Full Exam - General 1994 Psychiatric mood and affect Overall: normal mood and affect 11/02/2015 None Full Exam - General 1994 Psychiatric appearance Overall: well-groomed, good eye contact 11/02/2015 None Full Exam - General 1994 Psychiatric speech Overall: normal quality, no aphasia 11/02/2015 None Full Exam - General 1994 Psychiatric speech Overall: normal quality, quantity, rate 11/02/2015 None Full Exam - General 1994 Constitutional general appearance Overall: well developed 10/15/2015 None Full Exam - General 1994 Constitutional general appearance Overall: in no acute distress 10/15/2015 None Full Exam - General 1994 Constitutional general appearance Overall: well nourished 10/15/2015 None Full Exam - General 1994 Eyes conjunctiva/eyelids Overall: conjunctiva clear 10/15/2015 None Full Exam - General 1994 Eyes conjunctiva/eyelids Overall: cornea clear 10/15/2015 None Full Exam - General 1994 Eyes conjunctiva/eyelids Overall: eyelids normal 10/15/2015 None Full Exam - General 1994 Ears/Nose/Throat otoscopic exam Overall: external auditory canals clear 10/15/2015 None Full Exam - General 1994 Ears/Nose/Throat otoscopic exam Overall: tympanic membranes clear 10/15/2015 None Full Exam - General 1994 Ears/Nose/Throat lips/teeth/gingiva Overall: benign lips 10/15/2015 None Full Exam - General 1994 Ears/Nose/Throat lips/teeth/gingiva Overall: normal dentition 10/15/2015 None Full Exam - General 1994 Ears/Nose/Throat oral cavity/pharynx/larynx Overall: oral mucosa clear 10/15/2015 None Full Exam - General 1994 Ears/Nose/Throat oral cavity/pharynx/larynx Overall: oropharyngeal mucosa clear 10/15/2015 None Full Exam - General 1994 Ears/Nose/Throat oral cavity/pharynx/larynx Overall: no masses 10/15/2015 None Full Exam - General 1994 Respiratory auscultation Overall: breath sounds clear bilaterally 10/15/2015 None Full Exam - General 1994 Respiratory respiratory effort/rhythm Overall: no retractions 10/15/2015 None Full Exam - General 1994 Respiratory respiratory effort/rhythm Overall: normal rate 10/15/2015 None Full Exam - General 1994 Cardiovascular extremities Overall: no clubbing 10/15/2015 None Full Exam - General 1994 Cardiovascular auscultation of heart Overall: regular rate 10/15/2015 None Full Exam - General 1994 Cardiovascular auscultation of heart Overall: normal heart sounds 10/15/2015 None Full Exam - General 1994 Abdomen abdominal exam Overall: no tenderness 10/15/2015 None Full Exam - General 1994 Abdomen abdominal exam Overall: normal bowel sounds 10/15/2015 None Full Exam - General 1994 Lymphatic neck nodes Overall: anterior cervical chain benign 10/15/2015 None Full Exam - General 1994 Lymphatic neck nodes Overall: posterior cervical chain benign 10/15/2015 None Full Exam - General 1994 Musculoskeletal spine, ribs and pelvis Overall: good posture 10/15/2015 None Full Exam - General 1994 Musculoskeletal gait and station Overall: normal gait 10/15/2015 None Full Exam - General 1994 Musculoskeletal gait and station Overall: normal station 10/15/2015 None Full Exam - General 1994 Musculoskeletal upper extremity Palpation - shoulder: tenderness @ bicipital groove 10/15/2015 None Full Exam - General 1994 Musculoskeletal upper extremity ROM - shoulder: pain with external rotation 10/15/2015 None Full Exam - General 1994 Musculoskeletal upper extremity ROM - shoulder: pain with internal rotation 10/15/2015 None Full Exam - General 1994 Integument inspection of skin Overall: no rash, lesions 10/15/2015 None Full Exam - General 1994 Neurologic deep tendon reflexes Overall: deep tendon reflexes intact 10/15/2015 None Full Exam - General 1994 Neurologic gait Overall: no ataxia, no unsteadiness 10/15/2015 None Full Exam - General 1994 Neurologic cranial nerves Overall: crainial nerves 2 - 12 grossly intact 10/15/2015 None Full Exam - General 1994 Psychiatric orientation/consciousness Overall: oriented to person, place and time 10/15/2015 None Full Exam - General 1994 Psychiatric mood and affect Overall: normal mood and affect 10/15/2015 None Full Exam - General 1994 Psychiatric appearance Overall: well-groomed, good eye contact 10/15/2015 None Full Exam - General 1994 Psychiatric speech Overall: normal quality, no aphasia 10/15/2015 None Full Exam - General 1994 Psychiatric speech Overall: normal quality, quantity, rate 10/15/2015 None Procedures No Procedures data Vital Signs Date Vital 08/26/2018 Blood Pressure 1: 120/82 Code: 8480-6 BMI: 24.5 Code: 84376-3 Heart Rate 1: 80 bpm Height: 6' SpO2: 97% Weight: 181 lbs 07/30/2018 Blood Pressure 1: 132/70 Code: 8480-6 Heart Rate 1: 50 bpm SpO2: 97% 07/25/2018 Blood Pressure 1: 140/88 Code: 8480-6 BMI: 25.5 Code: 85120-8 Height: 6' Weight: 188 lbs 07/23/2018 Height: Weight: 07/11/2018 Blood Pressure 1: 148/82 Code: 8480-6 Blood Pressure 1: 126/74 Code: 8480-6 BMI: 25.1 Code: 10868-2 Heart Rate 1: 75 bpm Height: 6' SpO2: 98% Weight: 185 lbs 04/25/2018 Blood Pressure 1: 146/88 Code: 8480-6 BMI: 25.2 Code: 65215-8 Heart Rate 1: 94 bpm Height: 6' SpO2: 95% Weight: 186 lbs 12/24/2017 Blood Pressure 1: 134/90 Code: 8480-6 BMI: 25.8 Code: 81754-8 Heart Rate 1: 64 bpm Height: 6' SpO2: 99% Weight: 190 lbs 06/20/2017 Blood Pressure 1: 130/86 Code: 8480-6 BMI: 27.1 Code: 36297-4 Heart Rate 1: 74 bpm Height: 6' SpO2: 98% Weight: 200 lbs 04/20/2017 Blood Pressure 1: 136/80 Code: 8480-6 BMI: 27.1 Code: 00575-5 Heart Rate 1: 100 bpm Height: 6' SpO2: 95% Temperature: 36.9 (C) / 98.4 (F) Weight: 200 lbs 01/02/2017 Blood Pressure 1: 120/78 Code: 8480-6 BMI: 28.3 Code: 67061-0 Heart Rate 1: 79 bpm Height: 6' SpO2: 98% Weight: 209 lbs 09/07/2016 Blood Pressure 1: 140/90 Code: 8480-6 BMI: 27.4 Code: 21867-2 Heart Rate 1: 70 bpm Height: 6' SpO2: 96% Weight: 202 lbs 04/21/2016 Blood Pressure 1: 136/84 Code: 8480-6 BMI: 29.0 Code: 17492-9 Heart Rate 1: 67 bpm Height: 6' SpO2: 98% Weight: 214 lbs 11/30/2015 Blood Pressure 1: 130/80 Code: 8480-6 BMI: 29.3 Code: 31153-9 Heart Rate 1: 75 bpm Height: 6' SpO2: 98% Weight: 216 lbs 11/02/2015 Blood Pressure 1: 126/78 Code: 8480-6 BMI: 29.8 Code: 53292-2 Heart Rate 1: 69 bpm Height: 6' SpO2: 98% Weight: 220 lbs 10/15/2015 Blood Pressure 1: 132/76 Code: 8480-6 BMI: 29.8 Code: 45209-3 Heart Rate 1: 77 bpm Height: 6' SpO2: 95% Weight: 220 lbs Functional Status No Functional Status data History of Present Illness Symptom Name Status Result Effective Date Notes Quality primary hypertension 08/26/2018 None Onset and Resolution ongoing 08/26/2018 None Onset of Symptom during adulthood 08/26/2018 None Alleviating Factors medication 08/26/2018 None Blood Pressure Values not checking blood pressure at home 08/26/2018 None Pertinent Findings Denies dizziness 08/26/2018 None Pertinent Findings Denies dyspnea 08/26/2018 None Pertinent Findings Denies edema 08/26/2018 None Pertinent Findings Denies palpitations 08/26/2018 None _ Other: CVA 07/25/2018 None Onset and Resolution sudden in onset 07/25/2018 None Pertinent Findings other neurologic symptoms 07/25/2018 None Pertinent Findings Denies fever 07/25/2018 None _ Other: CVA 07/23/2018 None Onset and Resolution sudden in onset 07/23/2018 None Pertinent Findings Denies fever 07/23/2018 None Pertinent Findings other neurologic symptoms 07/23/2018 None _ Other: CVA 07/11/2018 None Onset of Symptom 4 days ago 07/11/2018 None Onset and Resolution sudden in onset 07/11/2018 None Quality chronic 07/11/2018 None Quality constant 07/11/2018 None Onset and Resolution ongoing 07/11/2018 None Onset of Symptom Denies years ago 07/11/2018 None Frequency of Episodes daily 07/11/2018 None Significant Medical Conditions inflammatory bowel disease 07/11/2018 -Crohn's Alleviating Factors medication 07/11/2018 None Location on the right shoulder 04/25/2018 None Location on the left shoulder 04/25/2018 -improving since surgery Quality chronic 04/25/2018 None Quality intermittent 04/25/2018 None Onset and Resolution ongoing 04/25/2018 None Frequency of Episodes daily 04/25/2018 None Alleviating Factors rest 04/25/2018 None Exacerbating Factors lifting 04/25/2018 None Exacerbating Factors pulling 04/25/2018 None Exacerbating Factors activity 04/25/2018 None Quality chronic 04/25/2018 None Onset and Resolution ongoing 04/25/2018 None Onset of Symptom Denies years ago 04/25/2018 None Frequency of Episodes daily 04/25/2018 None Quality constant 04/25/2018 None Significant Medical Conditions inflammatory bowel disease 04/25/2018 -Crohn's Alleviating Factors medication 04/25/2018 None medication follow up Additional Comments medication use 12/24/2017 None medication follow up Location oral intake 12/24/2017 None medication follow up Additional Comments medication use 06/20/2017 None medication follow up Location oral intake 06/20/2017 None medication follow up Quality chronic 06/20/2017 None medication follow up Significant Past Medical History injury 06/20/2017 None medication follow up Triggers pain 06/20/2017 None diarrhea Quality acute 04/20/2017 None diarrhea Quality intermittent 04/20/2017 None diarrhea Onset and Resolution gradual in onset 04/20/2017 None diarrhea Onset of Symptom 1 weeks ago 04/20/2017 None diarrhea Pertinent Findings fever 04/20/2017 None diarrhea Pertinent Findings Denies emesis 04/20/2017 None diarrhea Pertinent Findings abdominal distension 04/20/2017 None diarrhea Pertinent Findings Denies dyspepsia 04/20/2017 None diarrhea Pertinent Findings cramping 04/20/2017 None diarrhea Pertinent Findings flatulence 04/20/2017 None diarrhea Pertinent Findings Denies heartburn 04/20/2017 None diarrhea Pertinent Findings lethargy 04/20/2017 None diarrhea Pertinent Findings poor weight gain 04/20/2017 None diarrhea Pertinent Findings weight loss 04/20/2017 None diarrhea Pertinent Findings bloating 04/20/2017 None diarrhea Pertinent Findings Denies lightheadedness 04/20/2017 None diarrhea Pertinent Findings fecal urgency 04/20/2017 None diarrhea Alleviating Factors antidiarrheal agent 04/20/2017 None diarrhea Alleviating Factors medication 04/20/2017 None diarrhea Significant Medical Conditions acid reflux 04/20/2017 None diarrhea Significant Medical Conditions inflammatory bowel disease 04/20/2017 None diarrhea Significant Medical Conditions irritable bowel syndrome 04/20/2017 None diarrhea Limitation on Activities moderately limits activities 04/20/2017 None diarrhea Frequency of Episodes 4-6 stools per day 04/20/2017 None diarrhea Timing of Episodes no specific time 04/20/2017 None diarrhea Significant Medications toxic ingestion 04/20/2017 went on cruise diarrhea Triggers no known associated factors 04/20/2017 None diarrhea Triggers recent travel 04/20/2017 None rash Location-Major on the upper body 01/02/2017 None rash Color red 01/02/2017 None rash Onset and Resolution sudden in onset 01/02/2017 None rash Onset of Symptom 3 days ago 01/02/2017 None medication follow up Location oral intake 09/07/2016 None shoulder pain Location in both acromioclavicular joints 09/07/2016 None shoulder pain Quality chronic 09/07/2016 None shoulder pain Onset and Resolution ongoing 09/07/2016 None shoulder pain Limitation on Activities does not limit activities 09/07/2016 None shoulder pain Frequency of Episodes unchanged 09/07/2016 None shoulder pain Significant Medical Conditions trauma 09/07/2016 None shoulder pain Pertinent Findings Denies limited range of motion 09/07/2016 None medication follow up Additional Comments medication use 04/21/2016 None medication follow up Location oral intake 04/21/2016 None shoulder pain Location in both acromioclavicular joints 04/21/2016 None shoulder pain Quality chronic 04/21/2016 None shoulder pain Onset and Resolution ongoing 04/21/2016 None shoulder pain Limitation on Activities does not limit activities 04/21/2016 None shoulder pain Frequency of Episodes unchanged 04/21/2016 None shoulder pain Significant Medical Conditions trauma 04/21/2016 None medication follow up Additional Comments medication use 11/30/2015 None medication follow up Location oral intake 11/30/2015 None shoulder pain Quality aching 11/30/2015 None shoulder pain Quality constant 11/30/2015 None shoulder pain Quality sharp 11/30/2015 None shoulder pain Quality stabbing 11/30/2015 None shoulder pain Onset and Resolution ongoing 11/30/2015 None shoulder pain Triggers no known associated factors 11/30/2015 None shoulder pain Exacerbating Factors lifting 11/30/2015 None shoulder pain Onset of Symptom over 2 years ago 11/30/2015 None shoulder pain Exacerbating Factors pulling 11/30/2015 None shoulder pain Pertinent Findings Denies fever 11/30/2015 None shoulder pain Pertinent Findings Denies swelling 11/30/2015 None shoulder pain Quality aching 11/02/2015 None shoulder pain Quality constant 11/02/2015 None shoulder pain Quality sharp 11/02/2015 None shoulder pain Quality stabbing 11/02/2015 None shoulder pain Onset and Resolution ongoing 11/02/2015 None shoulder pain Onset of Symptom 2 years ago 11/02/2015 None shoulder pain Triggers no known associated factors 11/02/2015 None shoulder pain Exacerbating Factors lifting 11/02/2015 None shoulder pain Exacerbating Factors pulling 11/02/2015 None shoulder pain Quality sharp 10/15/2015 None shoulder pain Quality aching 10/15/2015 None shoulder pain Quality constant 10/15/2015 None shoulder pain Quality stabbing 10/15/2015 None shoulder pain Onset and Resolution ongoing 10/15/2015 None shoulder pain Onset of Symptom 2 years ago 10/15/2015 None shoulder pain Triggers no known associated factors 10/15/2015 None shoulder pain Exacerbating Factors lifting 10/15/2015 None shoulder pain Exacerbating Factors pulling 10/15/2015 None Advance Directives No Advance Directive data Encounters Encounter Performer Location Codes Date ([id number]) 81718 EST. PATIENT, LEVEL III Diagnosis: Essential (primary) hypertension[ICD10: I10] Rupal Hamm MD, [facility] CPT-4: 18204 08/26/2018 ([id number]) Miscellaneous no charge Diagnosis: Essential (primary) hypertension[ICD10: I10] [facility] CPT-4: 36676 07/30/2018 ([id number]) 00146 EST. 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 PATIENT, LEVEL III Diagnosis: 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 or stenosis of small artery[ICD10: I63.81] Diagnosis: Atrial septal defect[ICD10: Q21.1] [facility] CPT-4: 25054 07/23/2018 ([id number]) 09400 EST. PATIENT, LEVEL IV Diagnosis: Crohn's disease of both small and large intestine without complications[ICD10: K50.80] Diagnosis: 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 or stenosis of small artery[ICD10: I63.81] Diagnosis: Atrial septal defect[ICD10: Q21.1] Rupal Hamm MD, [facility] CPT- 4: 17261 07/11/2018 ([id number]) 08462 EST. PATIENT, LEVEL IV Diagnosis: Crohn's disease of both small and large intestine without complications[ICD10: K50.80] Diagnosis: Testicular hypofunction[ICD10: E29.1] Diagnosis: Incomplete rotator cuff tear or rupture of right shoulder, not specified as traumatic[ICD10: M75.111] Diagnosis: Chronic pain due to trauma[ICD10: G89.21] Carmela Hamm MD, [facility] CPT-4: 64122 04/25/2018 84085 EST. PATIENT, LEVEL III Diagnosis: Chronic pain due to trauma[ICD10: G89.21] Diagnosis: Incomplete rotator cuff tear or rupture of left shoulder, not specified as traumatic[ICD10: M75.112] Diagnosis: Incomplete rotator cuff tear or rupture of right shoulder, not specified as traumatic[ICD10: M75.111] Diagnosis: Crohn's disease of both small and large intestine without complications[ICD10: K50.80] Bridget Hamm MD, [facility] CPT-4: 41448 12/24/2017 49768 EST. PATIENT, LEVEL III Diagnosis: Chronic pain due to trauma[ICD10: G89.21] Diagnosis: Incomplete rotator cuff tear or rupture of left shoulder, not specified as traumatic[ICD10: M75.112] Diagnosis: Incomplete rotator cuff tear or rupture of right shoulder, not specified as traumatic[ICD10: M75.111] Diagnosis: Crohn's disease of both small and large intestine without complications[ICD10: K50.80] Bridget Hamm MD, [facility] CPT-4: 27140 06/20/2017 81581 EST. PATIENT, LEVEL IV Diagnosis: Crohn's disease of both small and large intestine without complications[ICD10: K50.80] [facility] CPT-4: 05445 04/20/2017 17586 EST. PATIENT, LEVEL III Diagnosis: Zoster without complications[ICD10: B02.9] Bridget Hamm MD, [facility] CPT-4: 54053 01/02/2017 81071 EST. PATIENT, LEVEL IV Diagnosis: Chronic pain due to trauma[ICD10: G89.21] Diagnosis: Incomplete rotator cuff tear or rupture of left shoulder, not specified as traumatic[ICD10: M75.112] Diagnosis: Incomplete rotator cuff tear or rupture of right shoulder, not specified as traumatic[ICD10: M75.111] Diagnosis: Crohn's disease of both small and large intestine without complications[ICD10: K50.80] Bridget Hamm MD, [facility] CPT-4: 67009 09/07/2016 ([id number]) 26212 EST. PATIENT, LEVEL III Diagnosis: Chronic pain due to trauma[ICD10: G89.21] Diagnosis: Incomplete rotator cuff tear or rupture of left shoulder, not specified as traumatic[ICD10: M75.112] Diagnosis: Incomplete rotator cuff tear or rupture of right shoulder, not specified as traumatic[ICD10: M75.111] Diagnosis: Crohn's disease of both small and large intestine without complications[ICD10: K50.80] Carmela Hamm MD, [facility] CPT-4: 30737 04/21/2016 17117 EST. PATIENT, LEVEL IV Diagnosis: Chronic pain due to trauma[ICD10: G89.21] Diagnosis: Incomplete rotator cuff tear or rupture of right shoulder, not specified as traumatic[ICD10: M75.111] Diagnosis: Incomplete rotator cuff tear or rupture of left shoulder, not specified as traumatic[ICD10: M75.112] Bridget Hamm MD, [facility] CPT-4: 84714 11/30/2015 33576 EST. PATIENT, LEVEL IV Diagnosis: Chronic pain due to trauma[ICD10: G89.21] Diagnosis: Incomplete rotator cuff tear or rupture of right shoulder, not specified as traumatic[ICD10: M75.111] Diagnosis: Incomplete rotator cuff tear or rupture of left shoulder, not specified as traumatic[ICD10: M75.112] Bridget Hamm MD, [facility] CPT-4: 61540 11/02/2015 ([id number]) OFFICE VISIT, NEW - LEVEL 4 Diagnosis: Incomplete rotator cuff tear or rupture of left shoulder, not specified as traumatic[ICD10: M75.112] Diagnosis: Incomplete rotator cuff tear or rupture of right shoulder, not specified as traumatic[ICD10: M75.111] Diagnosis: Crohn's disease of both small and large intestine without complications[ICD10: K50.80] [facility] CPT-4: 77651 10/15/2015 Plan of Care Planned Activity Notes Codes Status Date Visit Plan: Hypertension - well controlled - continue with current medications, continue with no added salt diet. Pt has been encouraged to exercise daily. The pt has been advised to call the office if there are any acute concerns about change in blood pressure readings at home. Advised Ba to stay off of work until he has his full cardiac work-up - he is to have an PHOEBE this week - this will tell us if he needs to have cardiac surgery or not - and until we know for sure if this is the cause of his stroke, I feel it is best for him to stay out of the high stress environment that he works in at the [employer]. 08/26/2018 Appointment: Rupal Hamm WPtel: [address] [place], [place] [id number] (15 min) Moderate 08/26/2018 Patient Education: Patient Medication Summary Completed 08/26/2018 Appointment: Nurse Visit 07/30/2018 Patient Education: Patient Medication Summary Completed 07/30/2018 Visit Plan: CVA - continue with heart monitor -Pt advised to keep track of any recurrent symptoms and notify clinic with any changes, questions, or concerns. I have recommended that Ba needs to look into seeking disability from his job due to the worsening of his Crohns disease from the stress of his job and his recent stroke that I feel was at least partially due to stress from his job and lack of sleep from his job. Restart statin therapy. Hypertension - uncontrolled - the patient's medications have been modified as documented in the visit note. The patient has been counseled to cut back on salt in diet for a no added salt diet, low fat diet, start an exercise program with low weight bearing exercises and higher aerobic activity for heart health. The patient is to check blood pressure readings as an outpatient and either fax, call, or email the readings to the office next week for practitioner to review. The pt is to call for acute concerns. Increase lisinopril to 20mg daily. ASD - waiting on neurology input to determine if they feel as if he needs any further intervention for stroke prevention. 07/25/2018 [facility]ment[phone] (15 min) Moderate 07/25/2018 Patient Education: Patient Medication Summary Completed 07/25/2018 Visit Plan: CVA - continue with heart monitor - will check with neurology consult - keep track of your symptoms and notify clinic with any changes, questions, or concerns. 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 Continue with medications as directed by specialist at [facility]. I have recommended that Ba needs to stay off of work until some of this work-up is completed since some of these issues may be due to the stress of his job and lack of sleep, versus from the foramen ovale that may be shunting blood from his right to left side of his heart. referral to neurology in [place] referral to dr. villalpando - Crohn's disease - keep appt with Dr. Sandhu since his symptoms have been worsening lately due to the stress of his job. 07/11/2018 Appointment: [phone] [place] (15 min) Moderate 07/11/2018 Patient Education: Patient Medication Summary Completed 07/11/2018 Care Plan: Referral Order SNOMED-CT : [id number] Pending 07/11/2018 Visit Plan: Crohns - symptoms are not well controlled with imuran -patient has seen Dr Sandhu in the past -recommend he follow up with him Low testosterone -check labs -restart injections if indicated Chronic Pain Syndrome - pt has chronic pain - has been maintained on current medications, has not sought out other medications, only uses PRN pain medications as directed, and understands the consequences of over-medication. Pain contract update today. 04/25/2018 Appointment: Carmela Greenberg WPtel: [phone] (30 min) Complex 04/25/2018 Patient Education: Patient Medication Summary Completed 04/25/2018 Visit Diagnosis Plan: Crohn's disease of both small and large intestine without complications Discussion: managed by Dr Ramsey-no changes at this time ICD-9 : 555.2 ICD-10 : K50.80 12/24/2017 Visit Diagnosis Plan: Incomplete rotator cuff tear or rupture of right shoulder, not specified as traumatic Recommendations: pt is to continue exercise and strengthening and notify clinic with any changes, questions, or concerns. ICD-9 : 726.13 ICD-10 : M75.111 12/24/2017 Visit Diagnosis Plan: Incomplete rotator cuff tear or rupture of left shoulder, not specified as traumatic Recommendations: pt is to continue exercise and strengthening and notify clinic with any changes, questions, or concerns. ICD-9 : 726.13 ICD-10 : M75.112 12/24/2017 Appointment: Bridget Terry WPtel: [address] [place], [place] [phone] (15 min) Moderate 12/24/2017 Patient Education: Patient Medication Summary Completed 12/24/2017 Visit Diagnosis Plan: Chronic pain due to trauma Discussion: Chronic Shoulder pain-bilateral rotator cuff tears - pt has chronic pain - has been maintained on current medications, has not sought out other medications, only uses PRN pain medications as directed, and understands the consequences of over-medication. ICD-9 : 338.21 ICD-10 : G89.21 06/20/2017 Visit Diagnosis Plan: Incomplete rotator cuff tear or rupture of right shoulder, not specified as traumatic Recommendations: pt is to continue exercise and strengthening and notify clinic with any changes, questions, or concerns. ICD-9 : 726.13 ICD-10 : M75.111 06/20/2017 Visit Diagnosis Plan: Crohn's disease of both small and large intestine without complications Discussion: managed by Dr Ramsey-no changes at this time ICD-9 : 555.2 ICD-10 : K50.80 06/20/2017 Visit Diagnosis Plan: Incomplete rotator cuff tear or rupture of left shoulder, not specified as traumatic Recommendations: pt is to continue exercise and strengthening and notify clinic with any changes, questions, or concerns. ICD-9 : 726.13 ICD-10 : M75.112 06/20/2017 Appointment: Bridget Terry WPtel: [phone] (30 min) Complex 06/20/2017 Patient Education: Patient Medication Summary Completed 06/20/2017 Appointment: Carmela Greenberg WPtel: [phone] [place] (15 min) Moderate 06/19/2017 Appointment: Lab Draw 05/31/2017 Visit Plan: Crohns vs Diverticulitis - rx for antibiotic sent to pt's pharmacy - pt advised to avoid seeds, nuts, popcorn, or any other food which has been proven to upset the pt's stomach. Pt is to follow up with his GI specialist and notify clinic with any changes in his current treatment plan. 04/20/2017 Appointment: Bridget Terry WPtel: [address] [place], [place] [phone] (30 min) Complex 04/20/2017 Patient Education: Patient Medication Summary Completed 04/20/2017 Appointment: Bridget Terry WPtel: [phone] (15 min) Moderate 04/19/2017 Appointment: Lab Draw 01/03/2017 Visit Plan: Shingles - Herpes Zoster - acute in onset - pt started on acyclovir and instructed to call if symptoms worsen or if the pt is concerned about the symptoms. Pt has been advised to avoid contact with persons who may be , or infants, or immunocompromised individuals. Pt has been instructed that shingles will continue to break out and eventually scab over a two week period, until all of the vesicles are scabbed, the pt is to be considered contagious. 01/02/2017 Appointment: Bridget Terry WPtel: [phone] (30 min) Complex 01/02/2017 Patient Education: Patient Medication Summary Completed 01/02/2017 Visit Diagnosis Plan: Crohn's disease of both small and large intestine without complications Discussion: managed by Dr Ramsey-no changes at this time ICD-9 : 555.2 ICD-10 : K50.80 09/07/2016 Visit Diagnosis Plan: Chronic pain due to trauma Discussion: Chronic Shoulder pain-bilateral rotator cuff tears - pt has chronic pain - has been maintained on current medications, has not sought out other medications, only uses PRN pain medications as directed, and understands the consequences of over-medication. ICD-9 : 338.21 ICD-10 : G89.21 09/07/2016 Appointment: Bridget Terry WPtel: [facility] (30 min) Complex 09/07/2016 Patient Education: Patient Medication Summary Completed 09/07/2016 Patient Education: Obesity Completed 09/07/2016 Visit Diagnosis Plan: Crohn's disease of both small and large intestine without complications Discussion: managed by Dr Ramsey-no changes at this time ICD-9 : 555.2 ICD-10 : K50.80 04/21/2016 Visit Diagnosis Plan: Chronic pain due to trauma Discussion: Chronic Shoulder pain-bilateral rotator cuff tears - pt has chronic pain - has been maintained on current medications, has not sought out other medications, only uses PRN pain medications as directed, and understands the consequences of over-medication. ICD-9 : 338.21 ICD-10 : G89.21 04/21/2016 Appointment: Carmela Greenberg WPtel: [phone] (15 min) Moderate 04/21/2016 Patient Education: Patient Medication Summary Completed 04/21/2016 Patient Education: Obesity Completed 04/21/2016 Visit Plan: Bilateral rotator cuff tear - the patient was counseled to always first attempt to use modalities other than pain medication for alleviation of the muscle spasms and pain. The patient was also encouraged to continue with exercises as previously directed. Pt is to use pain medication as directed. If pain medications are used inappropriately or early refills are requested, the patient understands that is a breech of trust/contract and could result in the patient's termination from this medical practice. Pt states that he has done PT before - pt states that he is planning to have surgery after the first of the year. 11/30/2015 Appointment: Carmela Greenberg WPtel: [phone] [phone] (30 min) Complex 11/30/2015 Patient Education: Patient Medication Summary Completed 11/30/2015 Patient Education: Obesity Completed 11/30/2015 Visit Plan: Bilateral rotator cuff tear - the patient was counseled to always first attempt to use modalities other than pain medication for alleviation of the muscle spasms and pain. The patient was also encouraged to continue with exercises as previously directed. Pt is to use pain medication as directed. If pain medications are used inappropriately or early refills are requested, the patient understands that is a breech of trust/contract and could result in the patient's termination from this medical practice. Will refer to physical therapy - pt states that he is planning to have surgery after the first of the year. 11/02/2015 Appointment: Carmela Greenberg WPtel: [phone] [phone] (15 min) Moderate 11/02/2015 Patient Education: Patient Medication Summary Completed 11/02/2015 Patient Education: Obesity Completed 11/02/2015 Visit Plan: Bilateral rotator cuff tear - the patient was counseled to always first attempt to use modalities other than pain medication for alleviation of the muscle spasms and pain. The patient was also encouraged to continue with back exercises as previously directed. Pt is to use pain medication as directed. If pain medications are used inappropriately or early refills are requested, the patient understands that is a breech of trust/contract and could result in the patient's termination from this medical practice. Well Adult - pt was counseled about diet, exercise, and encouraged to follow a heart healthy diet and increase activity level. The patient was instructed to RTC yearly for well adult exams and PRN for acute illnesses. The pt was also instructed to have yearly labs for check of cholesterol, thyroid, chem panel, CBC, and renal functioning. Crohn's - sees specialist, no changes at this time. 10/15/2015 Patient Education: Patient Medication Summary Completed 10/15/2015 Patient Education: Obesity Completed 10/15/2015 Referral: Kvng Villalpando Referral Appointment Requested Instructions Comment . Bilateral rotator cuff tear - the patient was counseled to always first attempt to use modalities other than pain medication for alleviation of the muscle spasms and pain. The patient was also encouraged to continue with exercises as previously directed. Pt is to use pain medication as directed. If pain medications are used inappropriately or early refills are requested, the patient understands that is a breech of trust/contract and could result in the patient's termination from this medical practice. Pt states that he has done PT before - pt states that he is planning to have surgery after the first of the year. . Bilateral rotator cuff tear - the patient was counseled to always first attempt to use modalities other than pain medication for alleviation of the muscle spasms and pain. The patient was also encouraged to continue with back exercises as previously directed. Pt is to use pain medication as directed. If pain medications are used inappropriately or early refills are requested, the patient understands that is a breech of trust/contract and could result in the patient's termination from this medical practice. Well Adult - pt was counseled about diet, exercise, and encouraged to follow a heart healthy diet and increase activity level. The patient was instructed to RTC yearly for well adult exams and PRN for acute illnesses. The pt was also instructed to have yearly labs for check of cholesterol, thyroid, chem panel, CBC, and renal functioning. Crohn's - sees specialist, no changes at this time. Sign release for Dr Pham so we can get your records Make an appointment with Dr Sandhu [facility] . Crohns - symptoms are not well controlled with imuran -patient has seen Dr Sandhu in the past -recommend he follow up with him Low testosterone -check labs -restart injections if indicated Chronic Pain Syndrome - pt has chronic pain - has been maintained on current medications, has not sought out other medications, only uses PRN pain medications as directed, and understands the consequences of over-medication. Pain contract update today. . Crohns vs Diverticulitis - rx for antibiotic sent to pt's pharmacy - pt advised to avoid seeds, nuts, popcorn, or any other food which has been proven to upset the pt's stomach. Pt is to follow up with his GI specialist and notify clinic with any changes in his current treatment plan. . 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 Continue with medications as directed by specialist at [facility]. I have recommended that Ba needs to stay off of work until some of this work- up is completed since some of these issues may be due to the stress of his job and lack of sleep, versus from the foramen ovale that may be shunting blood from his right to left side of his heart. referral to neurology in [place] referral to dr. villalpando - Crohn's disease - keep appt with Dr. Sandhu since his symptoms have been worsening lately due to the stress of his job. . Bilateral rotator cuff tear - the patient was counseled to always first attempt to use modalities other than pain medication for alleviation of the muscle spasms and pain. The patient was also encouraged to continue with exercises as previously directed. Pt is to use pain medication as directed. If pain medications are used inappropriately or early refills are requested, the patient understands that is a breech of trust/contract and could result in the patient's termination from this medical practice. Will refer to physical therapy - pt states that he is planning to have surgery after the first of the year. . CVA - continue with heart monitor - will check with neurology consult - keep track of your symptoms and notify clinic with any changes, questions, or concerns. increase lisinopril to 20mg daily call and ask dr. sandhu if he is okay with you taking a full 325mg aspirin daily . CVA - continue with heart monitor -Pt advised to keep track of any recurrent symptoms and notify clinic with any changes, questions, or concerns. I have recommended that Ba needs to look into seeking disability from his job due to the worsening of his Crohns disease from the stress of his job and his recent stroke that I feel was at least partially due to stress from his job and lack of sleep from his job. Restart statin therapy. Hypertension - uncontrolled - the patient's medications have been modified as documented in the visit note. The patient has been counseled to cut back on salt in diet for a no added salt diet, low fat diet, start an exercise program with low weight bearing exercises and higher aerobic activity for heart health. The patient is to check blood pressure readings as an outpatient and either fax, call, or email the readings to the office next week for practitioner to review. The pt is to call for acute concerns. Increase lisinopril to 20mg daily. ASD - waiting on neurology input to determine if they feel as if he needs any further intervention for stroke prevention. . Hypertension - well controlled - continue with current medications, continue with no added salt diet. Pt has been encouraged to exercise daily. The pt has been advised to call the office if there are any acute concerns about change in blood pressure readings at home. Advised Ba to stay off of work until he has his full cardiac work-up - he is to have an PHOEBE this week - this will tell us if he needs to have cardiac surgery or not - and until we know for sure if this is the cause of his stroke, I feel it is best for him to stay out of the high stress environment that he works in at [employer]. . Shingles - Herpes Zoster - acute in onset - pt started on acyclovir and instructed to call if symptoms worsen or if the pt is concerned about the symptoms. Pt has been advised to avoid contact with persons who may be , or infants, or immunocompromised individuals. Pt has been instructed that shingles will continue to break out and eventually scab over a two week period, until all of the vesicles are scabbed, the pt is to be considered contagious.
--- OUTSIDE RECORDS SUMMARY | 2018-09-19 08:05 | XMS REPORT | CCD ---
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 Name Role Phone PP Unavailable CCM Unavailable Summary Purpose Interface Exchange Insurance Providers Payer name Policy type / Coverage type Covered libertarian ID Effective Begin Date Effective End Date Blue Cross Blue [facility] [id number] Unknown Unknown Family history Son Diagnosis Age At Onset Attention deficit hyperactivity disorder Unknown Social History Social History Element Codes Description Effective Dates Marital status Unknown Consuelo 04/25/2018 Number of children Unknown 1 10/15/[address]: 176810260 Currently uses smokeless tobacco 10/15/2015 Alcohol history [...] hydrocodone 10 mg-acetaminophen 325 mg tablet RxNorm: 370531 1 Tablet(s) PO Q6-8H as needed 08/12/2018 2018 Active lisinopril 20 mg tablet RxNorm: 708887 1 Tablet(s) PO daily 07/25/2018 02/19/2019 Active atorvastatin 10 mg tablet RxNorm: 746608 1 Tablet(s) PO QHS 07/25/2018 02/19/2019 Active hydrocodone 10 mg-acetaminophen 325 mg tablet RxNorm: 465702 1 Tablet(s) PO Q6-8H as needed 07/15/2018 08/06/2018 Inactive hydrocodone 10 mg-acetaminophen 325 mg tablet RxNorm: 556344 1 Tablet(s) PO Q6-8H as needed 06/18/2018 07/10/2018 Inactive hydrocodone 10 mg-acetaminophen 325 mg tablet RxNorm: 455429 1 Tablet(s) PO Q6-8H as needed 05/22/2018 06/13/2018 Inactive testosterone cypionate 200 mg/mL intramuscular oil RxNorm: 8160975 1 Milliliter(s) IM monthly 05/01/2018 08/28/2018 Active cyanocobalamin (vit B-12) 1,000 mcg/mL injection solution RxNorm: 368240 1 Milliliter(s) Inj monthly 05/01/2018 08/28/2018 Active Please provide syringes and needles for him to administer cyanocobalamin (vit B-12) 1,000 mcg/mL injection solution RxNorm: 312708 1 Milliliter(s) Inj monthly 05/01/2018 04/30/2018 Inactive testosterone cypionate 200 mg/mL intramuscular oil RxNorm: 8107732 1 Milliliter(s) IM monthly 05/01/2018 04/30/2018 Inactive hydrocodone 10 mg-acetaminophen 325 mg tablet RxNorm: 500414 1 Tablet(s) PO Q6-8H as needed 04/25/2018 05/17/2018 Inactive hydrocodone 10 mg-acetaminophen 325 mg tablet RxNorm: 327062 1 Tablet(s) PO Q6-8H as needed 04/01/2018 04/23/2018 Inactive hydrocodone 10 mg-acetaminophen 325 mg tablet RxNorm: 203920 1 Tablet(s) PO Q6-8H as needed 03/05/2018 03/27/2018 Inactive hydrocodone 10 mg-acetaminophen 325 mg tablet RxNorm: 270459 1 Tablet(s) PO Q6-8H as needed 02/11/2018 03/04/2018 Inactive hydrocodone 10 mg-acetaminophen 325 mg tablet RxNorm: 982399 1 Tablet(s) PO Q6-8H as needed 01/18/2018 02/09/2018 Inactive hydrocodone 10 mg-acetaminophen 325 mg tablet RxNorm: 350056 1 Tablet(s) PO Q6-8H as needed 12/24/2017 01/15/2018 Inactive hydrocodone 10 mg-acetaminophen 325 mg tablet RxNorm: 732165 1 Tablet(s) PO Q6-8H as needed 11/30/2017 12/22/2017 Inactive hydrocodone 10 mg-acetaminophen 325 mg tablet RxNorm: 350569 1 Tablet(s) PO Q6-8H as needed 11/06/2017 11/28/2017 Inactive hydrocodone 10 mg-acetaminophen 325 mg tablet RxNorm: 874824 1 Tablet(s) PO Q6-8H as needed 10/11/2017 11/02/2017 Inactive hydrocodone 10 mg-acetaminophen 325 mg tablet RxNorm: 331980 1 Tablet(s) PO Q6-8H as needed 09/12/2017 10/04/2017 Inactive hydrocodone 10 mg-acetaminophen 325 mg tablet RxNorm: 986968 1 Tablet(s) PO Q6-8H as needed 08/16/2017 09/07/2017 Inactive hydrocodone 10 mg-acetaminophen 325 mg tablet RxNorm: 517603 1 Tablet(s) PO Q6-8H as needed 07/19/2017 08/10/2017 Inactive oxycodone-acetaminophen 7.5 mg-325 mg tablet RxNorm: 2275842 1 Tablet(s) PO Q6-8H as needed 06/29/2017 07/18/2017 Inactive hydrocodone 10 mg-acetaminophen 325 mg tablet RxNorm: 529539 1 Tablet(s) PO Q6-8H as needed 06/01/2017 06/17/2017 Inactive hydrocodone 10 mg-acetaminophen 325 mg tablet RxNorm: 957635 1 Tablet(s) PO Q6-8H as needed 05/09/2017 05/30/2017 Inactive Cipro 500 mg tablet RxNorm: 628547 1 Tablet(s) PO BID 04/20/2017 04/29/2017 Inactive prednisone 10 mg tablet RxNorm: 874386 Tablet(s) PO 04/20/2017 03/04/2018 Inactive 6,5,4,3,2,1 Flagyl 500 mg tablet RxNorm: 344441 1 Tablet(s) PO TID 04/20/2017 04/29/2017 Inactive hydrocodone 10 mg-acetaminophen 325 mg tablet RxNorm: 826784 1 Tablet(s) PO Q6-8H as needed 04/09/2017 05/01/2017 Inactive hydrocodone 10 mg-acetaminophen 325 mg tablet RxNorm: 254489 1 Tablet(s) PO Q6-8H as needed 03/07/2017 03/29/2017 Inactive hydrocodone 10 mg-acetaminophen 325 mg tablet RxNorm: 557080 1 Tablet(s) PO Q6-8H as needed 02/01/2017 02/23/2017 Inactive lidocaine 3 % lotion RxNorm: 5284136 1 Application TOP BID as needed 01/03/2017 No Stop Date Active acyclovir 800 mg tablet RxNorm: 961145 1 Tablet(s) PO 5 x a day 01/02/2017 01/08/2017 Inactive hydrocodone 10 mg-acetaminophen 325 mg tablet RxNorm: 323516 1 Tablet(s) PO Q6-8H as needed 12/06/2016 12/28/2016 Inactive hydrocodone 10 mg-acetaminophen 325 mg tablet RxNorm: 206535 1 Tablet(s) PO Q6-8H as needed 12/04/2016 12/05/2016 Inactive hydrocodone 10 mg-acetaminophen 325 mg tablet RxNorm: 704699 1 Tablet(s) PO Q6-8H as needed 11/08/2016 11/30/2016 Inactive hydrocodone 10 mg-acetaminophen 325 mg tablet RxNorm: 805539 1 Tablet(s) PO Q6-8H as needed 10/09/2016 10/31/2016 Inactive hydrocodone 10 mg-acetaminophen 325 mg tablet RxNorm: 803398 1 Tablet(s) PO Q6-8H as needed 08/08/2016 08/30/2016 Inactive hydrocodone 10 mg-acetaminophen 325 mg tablet RxNorm: 830368 1 Tablet(s) PO Q6-8H as needed 07/12/2016 08/03/2016 Inactive hydrocodone 10 mg-acetaminophen 325 mg tablet RxNorm: 504823 1 Tablet(s) PO Q6-8H as needed 06/12/2016 07/04/2016 Inactive hydrocodone 10 mg-acetaminophen 325 mg tablet RxNorm: 754907 1 Tablet(s) PO Q6-8H as needed 05/16/2016 06/07/2016 Inactive hydrocodone 10 mg-acetaminophen 325 mg tablet RxNorm: 010336 1 Tablet(s) PO Q6-8H as needed 04/21/2016 05/12/2016 Inactive hydrocodone 10 mg-acetaminophen 325 mg tablet RxNorm: 928401 1 Tablet(s) PO Q6-8H as needed 03/23/2016 04/13/2016 Inactive hydrocodone 10 mg-acetaminophen 325 mg tablet RxNorm: 239017 1 Tablet(s) PO Q6-8H as needed 02/24/2016 03/16/2016 Inactive hydrocodone 10 mg-acetaminophen 325 mg tablet RxNorm: 570232 1 Tablet(s) PO Q6-8H 01/21/2016 02/11/2016 Inactive hydrocodone 10 mg-acetaminophen 325 mg tablet RxNorm: 191351 1 Tablet(s) PO Q6-8H 12/24/2015 01/14/2016 Inactive hydrocodone 10 mg-acetaminophen 325 mg tablet RxNorm: 095019 1 Tablet(s) PO Q6-8H 11/30/2015 12/23/2015 Inactive hydrocodone 10 mg-acetaminophen 325 mg tablet RxNorm: 963595 1 Tablet(s) PO Q6-8H 11/05/2015 11/29/2015 Inactive hydrocodone 5 mg-acetaminophen 325 mg tablet RxNorm: 528904 1-2 Tablet(s) PO Q6-8H as needed 10/26/2015 11/01/2015 Inactive omeprazole 40 mg capsule,delayed release RxNorm: 453341 1 Capsule(s) PO daily No Start Date Active aspirin 325 mg tablet,delayed release RxNorm: 398389 1 Tablet(s) PO daily No Start Date Active Imuran 50 mg tablet RxNorm: 185011 1 Tablet(s) PO daily No Start Date Active testosterone cypionate 200 mg/mL intramuscular oil RxNorm: 197625 1 Milliliter(s) IM No Start Date Active metoprolol succinate ER 50 mg tablet,extended release 24 hr RxNorm: 168967 1 Tablet(s) PO daily -Prescribed by Valentino Zapien (cardiology) No Start Date Active lidocaine 3 % lotion RxNorm: 8614123 1 Application TOP BID as needed No Start Date 01/02/2017 Inactive hydrocodone 5 mg-acetaminophen 325 mg tablet RxNorm: 435361 1-2 Tablet(s) PO Q6-8H as needed No [...] Result Date QuantiFERON?-TB Gold Plus (Client Incubated) 312081 QUANTIFERON CRITERIA COMMENT 07/01/2018 QuantiFERON?-TB Gold Plus (Client Incubated) 000679 QUANTIFERON TB1 AG VALUE 0.01 IU/ML 07/01/2018 QuantiFERON?-TB Gold Plus (Client Incubated) 412521 QUANTIFERON TB2 AG VALUE 0.01 IU/ML 07/01/2018 QuantiFERON?-TB Gold Plus (Client Incubated) 134159 QUANTIFERON NIL VALUE 0.01 IU/ML 07/01/2018 QuantiFERON?-TB Gold Plus (Client Incubated) 699259 QUANTIFERON MITOGEN VALUE >10.00 IU/ML 07/01/2018 QuantiFERON?-TB Gold Plus (Client Incubated) 875939 QUANTIFERON-TB GOLD PLUS NEGATIVE 07/01/2018 B12 Ljg410 B12 113.00 pg/ml 04/30/2018 Testosterone Urf733 Testo 198.8 ng/dL 04/30/2018 Comp Metabolic Vjq844 NA 143 mEq/L 04/30/2018 Comp Metabolic Mdq073 K 3.8 mEq/L 04/30/2018 Comp Metabolic Hbz736 CL 108 mEq/L 04/30/2018 Comp Metabolic Bcm623 CO2 29.0 mEq/L 04/30/2018 Comp Metabolic Fkj968 ANION GAP 10 04/30/2018 Comp Metabolic Ffg650 GLUCOSE 94 mg/dL 04/30/2018 Comp Metabolic Igv500 Creat 0.8 mg/dL 04/30/2018 Comp Metabolic Wjm081 eGFR 110 ml/min/1.73m2 04/30/2018 Comp Metabolic Pnd977 BUN 13 mg/dL 04/30/2018 Comp Metabolic Bbu880 B/C Ratio 16.0 Ratio 04/30/2018 Comp Metabolic Wzb511 CALCIUM 9.2 mg/dL 04/30/2018 Comp Metabolic Swz072 ALK PHOS 62 U/L 04/30/2018 Comp Metabolic Yfx352 AST(SGOT) 16 U/L 04/30/2018 Comp Metabolic Rfb773 ALT(SGPT) 15 U/L 04/30/2018 Comp Metabolic Jfo138 BILI T 0.9 mg/dL 04/30/2018 Comp Metabolic Mqn382 ALBUMIN 4.1 g/dL 04/30/2018 Comp Metabolic Dvq824 TPRO 6.2 g/dL 04/30/2018 Comp Metabolic Bkw301 GLOB 2.1 g/dL 04/30/2018 Comp Metabolic Ixt448 A/G Ratio 1.9 Ratio 04/30/2018 Comp Metabolic Rpu015 Osmo 285 mOsmo 04/30/2018 Cbc With Differential [...] 31.3 pg 04/30/2018 Cbc With Differential Ord2 [place]% 8.5 % 04/30/2018 Cbc With Differential Ord2 [...] 0.80 K/ul 04/30/2018 Cbc With Differential Ord2 [place] ABS# 0.5 K/ul 04/30/2018 Cbc With Differential [...] 31.3 pg 04/20/2017 Cbc With Differential Ord2 [place]% 18.6 % 04/20/2017 Cbc With Differential Ord2 [...] 0.67 K/ul 04/20/2017 Cbc With Differential Ord2 [place] ABS# 1.2 K/ul 04/20/2017 Cbc With Differential Ord2 Eos ABS# 0.1 K/ul 04/20/2017 Cbc With Differential Ord2 Baso ABS# 0.0 K/ul 04/20/2017 Comp Metabolic Znq095 NA 142 mEq/L 04/20/2017 Comp Metabolic Sbi960 K 4.2 mEq/L 04/20/2017 Comp Metabolic Uvc009 CL 104 mEq/L 04/20/2017 Comp Metabolic Qed109 CO2 28.0 mEq/L 04/20/2017 Comp Metabolic Bch017 ANION GAP 14 04/20/2017 Comp Metabolic Geh449 GLUCOSE 73 mg/dL 04/20/2017 Comp Metabolic Xme391 Creat 1.2 mg/dL 04/20/2017 Comp Metabolic Lne551 eGFR 68 ml/min/1.73m2 04/20/2017 Comp Metabolic Fww368 BUN 9 mg/dL 04/20/2017 Comp Metabolic Wtw768 B/C Ratio 7.3 Ratio 04/20/2017 Comp Metabolic Qor428 CALCIUM 9.5 mg/dL 04/20/2017 Comp Metabolic Bbz316 ALK PHOS 57 U/L 04/20/2017 Comp Metabolic Rfo777 AST(SGOT) 16 U/L 04/20/2017 Comp Metabolic Qzk002 ALT(SGPT) 14 U/L 04/20/2017 Comp Metabolic Cxa098 BILI T 0.6 mg/dL 04/20/2017 Comp Metabolic Ziv637 ALBUMIN 4.0 g/dL 04/20/2017 Comp Metabolic Fgl532 TPRO 7.0 g/dL 04/20/2017 Comp Metabolic Yrg760 GLOB 3.0 g/dL 04/20/2017 Comp Metabolic Epy456 A/G Ratio 1.3 Ratio 04/20/2017 Comp Metabolic Fph028 Osmo 280 mOsmo 04/20/2017 Review of Systems [...] distress 08/26/2018 None Full Exam - General 1994 Constitutional general appearance Overall: well nourished 08/26/2018 None Full Exam - General 1994 Eyes conjunctiva/eyelids Overall: conjunctiva clear 08/26/2018 None Full Exam - General 1995 Eyes conjunctiva/eyelids Overall: cornea clear 08/26/2018 None Full Exam - General 1994 Eyes pupils and irises Overall: pupils equal, round, reactive to light and accomodation 08/26/2018 None Full Exam - General 1995 Ears/Nose/Throat lips/teeth/gingiva Overall: benign lips 08/26/2018 None Full Exam - General 1994 Ears/Nose/Throat [...] accomodation 07/25/2018 None Full Exam - General 1995 Ears/Nose/Throat lips/teeth/gingiva Overall: benign lips 07/25/2018 None Full Exam - General 1995 Ears/Nose/Throat [...] developed 04/25/2018 None Full Exam - General 1995 Constitutional general appearance Development: appears stated age 0104/25/2018 None Full Exam - General 1995 Eyes conjunctiva/eyelids Overall: conjunctiva clear 04/25/2018 None [...] 1: 120/82 Code: 8480-6 BMI: 24.5 Code: 73480-7 Heart Rate 1: 80 bpm Height: 6' SpO2: 97% Weight: 181 lbs 07/30/2018 Blood Pressure 1: 132/70 Code: 8480-6 Heart Rate 1: 50 bpm SpO2: 97% 07/25/2018 Blood Pressure 1: 140/88 Code: 8480-6 BMI: 25.5 Code: 67278-8 Height: 6' Weight: 188 lbs 07/23/2018 Height: Weight: 07/11/2018 Blood Pressure 1: 148/82 Code: 8480-6 Blood Pressure 1: 126/74 Code: 8480-6 BMI: 25.1 Code: 16940-5 Heart Rate 1: 75 bpm Height: 6' SpO2: 98% Weight: 185 lbs 04/25/2018 Blood Pressure 1: 146/88 Code: 8480-6 BMI: 25.2 Code: 03711-1 Heart Rate 1: 94 bpm Height: 6' SpO2: 95% Weight: 186 lbs 12/24/2017 Blood Pressure 1: 134/90 Code: 8480-6 BMI: 25.8 Code: 50530-0 Heart Rate 1: 64 bpm Height: 6' SpO2: 99% Weight: 190 lbs 06/20/2017 Blood Pressure 1: 130/86 Code: 8480-6 BMI: 27.1 Code: 44808-2 Heart Rate 1: 74 bpm Height: 6' SpO2: 98% Weight: 200 lbs 04/20/2017 Blood Pressure 1: 136/80 Code: 8480-6 BMI: 27.1 Code: 19099-7 Heart Rate 1: 100 bpm Height: 6' SpO2: 95% Temperature: 36.9 (C) / 98.4 (F) Weight: 200 lbs 01/02/2017 Blood Pressure 1: 120/78 Code: 8480-6 BMI: 28.3 Code: 09721-7 Heart Rate 1: 79 bpm Height: 6' SpO2: 98% Weight: 209 lbs 09/07/2016 Blood Pressure 1: 140/90 Code: 8480-6 BMI: 27.4 Code: 69403-2 Heart Rate 1: 70 bpm Height: 6' SpO2: 96% Weight: 202 lbs 04/21/2016 Blood Pressure 1: 136/84 Code: 8480-6 BMI: 29.0 Code: 97582-2 Heart Rate 1: 67 bpm Height: 6' SpO2: 98% Weight: 214 lbs 11/30/2015 Blood Pressure 1: 130/80 Code: 8480-6 BMI: 29.3 Code: 60600-2 Heart Rate 1: 75 bpm Height: 6' SpO2: 98% Weight: 216 lbs 11/02/2015 Blood Pressure 1: 126/78 Code: 8480-6 BMI: 29.8 Code: 50881-5 Heart Rate 1: 69 bpm Height: 6' SpO2: 98% Weight: 220 lbs 10/15/2015 Blood Pressure 1: 132/76 Code: 8480-6 BMI: 29.8 Code: 09916-4 Heart Rate 1: 77 bpm Height: 6' [...] data Encounters Encounter Performer Location Codes Date () 64386 EST. PATIENT, LEVEL III Diagnosis: Essential (primary) hypertension[ICD10: I10] Rupal Hamm MD, [facility] CPT-4: 11697 08/26/2018 ([id number]) Miscellaneous no charge Diagnosis: Essential (primary) hypertension[ICD10: I10] Rupal Hamm MD, [facility] CPT-4: 85859 07/30/2018 ([id number]) 83159 EST. 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 PATIENT, LEVEL IV Diagnosis: Crohn's disease of both small and large intestine without complications[ICD10: K50.80] Diagnosis: Testicular hypofunction[ICD10: E29.1] Diagnosis: Incomplete rotator cuff tear or rupture of right shoulder, not specified as traumatic[ICD10: M75.111] Diagnosis: Chronic pain due to trauma[ICD10: G89.21] Carmela Hamm MD, [facility] CPT-4: 70348 04/25/2018 29803 EST. PATIENT, LEVEL III Diagnosis: Chronic pain due to trauma[ICD10: G89.21] Diagnosis: Incomplete rotator cuff tear or rupture of left shoulder, not specified as traumatic[ICD10: M75.112] Diagnosis: Incomplete rotator cuff tear or rupture of right shoulder, not specified as traumatic[ICD10: M75.111] Diagnosis: Crohn's disease of both small and large intestine without complications[ICD10: K50.80] Bridget Hamm MD, [facility] CPT-4: 46995 12/24/2017 37034 EST. PATIENT, LEVEL III Diagnosis: Chronic pain due to trauma[ICD10: G89.21] Diagnosis: Incomplete rotator cuff tear or rupture of left shoulder, not specified as traumatic[ICD10: M75.112] Diagnosis: Incomplete rotator cuff tear or rupture of right shoulder, not specified as traumatic[ICD10: M75.111] Diagnosis: Crohn's disease of both small and large intestine without complications[ICD10: K50.80] [facility] CPT-4: 98196 06/20/2017 42677 EST. PATIENT, LEVEL IV Diagnosis: Crohn's disease of both small and large intestine without complications[ICD10: K50.80] [facility] CPT-4: 30948 04/20/2017 57417 EST. PATIENT, LEVEL III Diagnosis: Zoster without complications[ICD10: B02.9] Bridget Hamm MD, [facility] CPT-4: 04232 01/02/2017 06400 EST. PATIENT, LEVEL IV Diagnosis: Chronic pain due to trauma[ICD10: G89.21] Diagnosis: Incomplete rotator cuff tear or rupture of left shoulder, not specified as traumatic[ICD10: M75.112] Diagnosis: Incomplete rotator cuff tear or rupture of right shoulder, not specified as traumatic[ICD10: M75.111] Diagnosis: Crohn's disease of both small and large intestine without complications[ICD10: K50.80] Bridget Hamm MD, [facility] CPT-4: 90914 09/07/2016 ([id number]) 52594 EST. PATIENT, LEVEL III Diagnosis: Chronic pain due to trauma[ICD10: G89.21] Diagnosis: Incomplete rotator cuff tear or rupture of left shoulder, not specified as traumatic[ICD10: M75.112] Diagnosis: Incomplete rotator cuff tear or rupture of right shoulder, not specified as traumatic[ICD10: M75.111] Diagnosis: Crohn's disease of both small and large intestine without complications[ICD10: K50.80] Carmela Hamm MD, [facility] CPT-4: 68176 04/21/2016 53314 EST. PATIENT, LEVEL IV Diagnosis: Chronic pain due to trauma[ICD10: G89.21] Diagnosis: Incomplete rotator cuff tear or rupture of right shoulder, not specified as traumatic[ICD10: M75.111] Diagnosis: Incomplete rotator cuff tear or rupture of left shoulder, not specified as traumatic[ICD10: M75.112] Bridget Hamm MD, [facility] CPT-4: 42832 11/30/2015 66923 EST. PATIENT, LEVEL IV Diagnosis: Chronic pain due to trauma[ICD10: G89.21] Diagnosis: Incomplete rotator cuff tear or rupture of right shoulder, not specified as traumatic[ICD10: M75.111] Diagnosis: Incomplete rotator cuff tear or rupture of left shoulder, not specified as traumatic[ICD10: M75.112] Bridget Hamm MD, [facility] CPT-4: 90844 11/02/2015 ([id number]) OFFICE VISIT, NEW - LEVEL 4 Diagnosis: Incomplete rotator cuff tear or rupture of left shoulder, not specified as traumatic[ICD10: M75.112] Diagnosis: Incomplete rotator cuff tear or rupture of right shoulder, not specified as traumatic[ICD10: M75.111] Diagnosis: Crohn's disease of both small and large intestine without complications[ICD10: K50.80] [facility] CPT-4: 52205 10/15/2015 Plan of Care Planned Activity Notes [...] environment that he works in at the [employer]. 08/26/2018 Patient Education: Patient Medication Summary Completed [...] stroke prevention. 07/25/2018 Appointment: Rupal Hamm WPtel: [address] [place], [place] [address] (15 min) Moderate 07/25/2018 Patient Education: Patient Medication Summary Completed 07/25/2018 Visit Plan: CVA - continue with heart monitor - will check with neurology consult - keep track of your symptoms and notify clinic with any changes, questions, or concerns. 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 Continue with medications as directed by specialist at [facility]. I have recommended that Ba needs to stay off of work until some of this work-up is completed since some of these issues may be due to the stress of his job and lack of sleep, versus from the foramen ovale that may be shunting blood from his right to left side of his heart. referral to neurology in [place] referral to dr. villalpando - Crohn's disease - keep appt with Dr. Sandhu since his symptoms have been worsening lately due to the stress of his job. 07/11/2018 Appointment: [facility]upal Hamm [facility] [phone] [facility] [place] (15 min) Moderate 07/11/2018 Patient Education: Patient Medication Summary Completed 07/11/2018 Care Plan: Referral Order SNOMED-CT : [id number] Pending 07/11/2018 Visit Plan: Crohns - symptoms [...] update today. 04/25/2018 Appointment: [facility] [phone] [phone] [place] (30 min) Complex 04/25/2018 Patient Education: Patient [...] 726.13 ICD-10 : M75.112 12/24/2017 Appointment: Bridget Terry: [address] [place], [place] [id number] (15 min) [facility] 12/24/2017 Patient Education: Patient Medication Summary Completed [...] 726.13 ICD-10 : M75.112 06/20/2017 Appointment: Bridget Terryl: [address] [facility] [place] (30 min) Complex 06/20/2017 Patient Education: Patient Medication Summary Completed 06/20/2017 Appointment: Carmela Greenberg WPtel: [phone] [phone] [place] (15 min) Moderate 06/19/2017 Appointment: Lab [...] treatment plan. 04/20/2017 Appointment: Bridget Terry WPtel: [phone] [facility] (30 min) Complex 04/20/2017 Patient Education: Patient Medication Summary Completed 04/20/2017 Appointment: [facility] Terry [facility]Ptel[facility] [phone] [facility] [place] (15 min) Moderate 04/19/2017 Appointment: Lab Draw [...] to be considered contagious. 01/02/2017 Appointment: Bridget Teryr WPtel: [facility]3 [facility] [place] (30 min) Complex 01/02/2017 Patient Education: Patient [...] : G89.21 09/07/2016 Appointment: Bridget Terry WPtel: [facility] (30 min) Complex 09/07/2016 Patient Education: Patient [...] : G89.21 04/21/2016 Appointment: Carmela Greenberg WPtel: [phone] (15 min) Moderate 04/21/2016 Patient Education: Patient [...] the year. 11/30/2015 Appointment: Carmela Greenberg WPtel: [phone] [place] (30 min) Complex 11/30/2015 Patient Education: Patient [...] the year. 11/02/2015 Appointment: Carmela Greenberg WPtel: [phone] [place] (15 min) [facility] 11/02/2015 Patient Education: Patient Medication Summary Completed [...] your records Make an appointment with Dr Snadhu [facility] . Crohns - symptoms are [...] with medications as directed by specialist at [facility]. I have recommended that Ba needs to stay off of work until some of this work- up is completed since some of these issues may be due to the stress of his job and lack of sleep, versus from the foramen ovale that may be shunting blood from his right to left side of his heart. referral to neurology in [place] referral to dr. villalpando - Crohn's disease [...] environment that he works in at the [employer]. . Shingles - Herpes Zoster - acute [...]
--- OUTSIDE RECORDS SUMMARY | 2018-09-19 08:07 | XMS REPORT | CCD ---
Author Author [facility] Address [address] [place] [address] Phone Care Team Providers Care Engraving Supervisor Name Role Phone PP Unavailable CCM Unavailable Summary Purpose Interface Exchange Insurance Providers Payer name Policy type / Coverage type Covered green party ID Effective Begin Date Effective End Date Blue Cross Blue [facility] Blue Cross/Blue [facility] [id number] Unknown Unknown Family history Son Diagnosis Age At Onset Attention deficit hyperactivity disorder Unknown Social History Social History Element Codes Description Effective Dates Marital status Unknown Consuelo 04/25/2018 Number of children Unknown 1 10/15/[address]: 622138525 Currently uses smokeless tobacco 10/15/2015 Alcohol history [...] hydrocodone 10 mg-acetaminophen 325 mg tablet RxNorm: 066014 1 Tablet(s) PO Q6-8H as needed 08/12/2018 2018 Active lisinopril 20 mg tablet RxNorm: 931251 1 Tablet(s) PO daily 07/25/2018 02/19/2019 Active atorvastatin 10 mg tablet RxNorm: 582105 1 Tablet(s) PO QHS 07/25/2018 02/19/2019 Active hydrocodone 10 mg-acetaminophen 325 mg tablet RxNorm: 624190 1 Tablet(s) PO Q6-8H as needed 07/15/2018 08/06/2018 Inactive hydrocodone 10 mg-acetaminophen 325 mg tablet RxNorm: 143129 1 Tablet(s) PO Q6-8H as needed 06/18/2018 07/10/2018 Inactive hydrocodone 10 mg-acetaminophen 325 mg tablet RxNorm: 732704 1 Tablet(s) PO Q6-8H as needed 05/22/2018 06/13/2018 Inactive testosterone cypionate 200 mg/mL intramuscular oil RxNorm: 8813835 1 Milliliter(s) IM monthly 05/01/2018 08/28/2018 Active cyanocobalamin (vit B-12) 1,000 mcg/mL injection solution RxNorm: 808502 1 Milliliter(s) Inj monthly 05/01/2018 08/28/2018 Active Please provide syringes and needles for him to administer cyanocobalamin (vit B-12) 1,000 mcg/mL injection solution RxNorm: 595739 1 Milliliter(s) Inj monthly 05/01/2018 04/30/2018 Inactive testosterone cypionate 200 mg/mL intramuscular oil RxNorm: 4457586 1 Milliliter(s) IM monthly 05/01/2018 04/30/2018 Inactive hydrocodone 10 mg-acetaminophen 325 mg tablet RxNorm: 834703 1 Tablet(s) PO Q6-8H as needed 04/25/2018 05/17/2018 Inactive hydrocodone 10 mg-acetaminophen 325 mg tablet RxNorm: 747559 1 Tablet(s) PO Q6-8H as needed 04/01/2018 04/23/2018 Inactive hydrocodone 10 mg-acetaminophen 325 mg tablet RxNorm: 363204 1 Tablet(s) PO Q6-8H as needed 03/05/2018 03/27/2018 Inactive hydrocodone 10 mg-acetaminophen 325 mg tablet RxNorm: 510395 1 Tablet(s) PO Q6-8H as needed 02/11/2018 03/04/2018 Inactive hydrocodone 10 mg-acetaminophen 325 mg tablet RxNorm: 379345 1 Tablet(s) PO Q6-8H as needed 01/18/2018 02/09/2018 Inactive hydrocodone 10 mg-acetaminophen 325 mg tablet RxNorm: 931536 1 Tablet(s) PO Q6-8H as needed 12/24/2017 01/15/2018 Inactive hydrocodone 10 mg-acetaminophen 325 mg tablet RxNorm: 709633 1 Tablet(s) PO Q6-8H as needed 11/30/2017 12/22/2017 Inactive hydrocodone 10 mg-acetaminophen 325 mg tablet RxNorm: 998712 1 Tablet(s) PO Q6-8H as needed 11/06/2017 11/28/2017 Inactive hydrocodone 10 mg-acetaminophen 325 mg tablet RxNorm: 318767 1 Tablet(s) PO Q6-8H as needed 10/11/2017 11/02/2017 Inactive hydrocodone 10 mg-acetaminophen 325 mg tablet RxNorm: 896161 1 Tablet(s) PO Q6-8H as needed 09/12/2017 10/04/2017 Inactive hydrocodone 10 mg-acetaminophen 325 mg tablet RxNorm: 667410 1 Tablet(s) PO Q6-8H as needed 08/16/2017 09/07/2017 Inactive hydrocodone 10 mg-acetaminophen 325 mg tablet RxNorm: 063567 1 Tablet(s) PO Q6-8H as needed 07/19/2017 08/10/2017 Inactive oxycodone-acetaminophen 7.5 mg-325 mg tablet RxNorm: 8462791 1 Tablet(s) PO Q6-8H as needed 06/29/2017 07/18/2017 Inactive hydrocodone 10 mg-acetaminophen 325 mg tablet RxNorm: 736710 1 Tablet(s) PO Q6-8H as needed 06/01/2017 06/17/2017 Inactive hydrocodone 10 mg-acetaminophen 325 mg tablet RxNorm: 988832 1 Tablet(s) PO Q6-8H as needed 05/09/2017 05/30/2017 Inactive Cipro 500 mg tablet RxNorm: 918982 1 Tablet(s) PO BID 04/20/2017 04/29/2017 Inactive prednisone 10 mg tablet RxNorm: 653575 Tablet(s) PO 04/20/2017 03/04/2018 Inactive 6,5,4,3,2,1 Flagyl 500 mg tablet RxNorm: 921489 1 Tablet(s) PO TID 04/20/2017 04/29/2017 Inactive hydrocodone 10 mg-acetaminophen 325 mg tablet RxNorm: 927451 1 Tablet(s) PO Q6-8H as needed 04/09/2017 05/01/2017 Inactive hydrocodone 10 mg-acetaminophen 325 mg tablet RxNorm: 486614 1 Tablet(s) PO Q6-8H as needed 03/07/2017 03/29/2017 Inactive hydrocodone 10 mg-acetaminophen 325 mg tablet RxNorm: 497764 1 Tablet(s) PO Q6-8H as needed 02/01/2017 02/23/2017 Inactive lidocaine 3 % lotion RxNorm: 7177330 1 Application TOP BID as needed 01/03/2017 No Stop Date Active acyclovir 800 mg tablet RxNorm: 746248 1 Tablet(s) PO 5 x a day 01/02/2017 01/08/2017 Inactive hydrocodone 10 mg-acetaminophen 325 mg tablet RxNorm: 733413 1 Tablet(s) PO Q6-8H as needed 12/06/2016 12/28/2016 Inactive hydrocodone 10 mg-acetaminophen 325 mg tablet RxNorm: 884565 1 Tablet(s) PO Q6-8H as needed 12/04/2016 12/05/2016 Inactive hydrocodone 10 mg-acetaminophen 325 mg tablet RxNorm: 922201 1 Tablet(s) PO Q6-8H as needed 11/08/2016 11/30/2016 Inactive hydrocodone 10 mg-acetaminophen 325 mg tablet RxNorm: 116667 1 Tablet(s) PO Q6-8H as needed 10/09/2016 10/31/2016 Inactive hydrocodone 10 mg-acetaminophen 325 mg tablet RxNorm: 519949 1 Tablet(s) PO Q6-8H as needed 08/08/2016 08/30/2016 Inactive hydrocodone 10 mg-acetaminophen 325 mg tablet RxNorm: 017739 1 Tablet(s) PO Q6-8H as needed 07/12/2016 08/03/2016 Inactive hydrocodone 10 mg-acetaminophen 325 mg tablet RxNorm: 526432 1 Tablet(s) PO Q6-8H as needed 06/12/2016 07/04/2016 Inactive hydrocodone 10 mg-acetaminophen 325 mg tablet RxNorm: 765941 1 Tablet(s) PO Q6-8H as needed 05/16/2016 06/07/2016 Inactive hydrocodone 10 mg-acetaminophen 325 mg tablet RxNorm: 688401 1 Tablet(s) PO Q6-8H as needed 04/21/2016 05/12/2016 Inactive hydrocodone 10 mg-acetaminophen 325 mg tablet RxNorm: 713669 1 Tablet(s) PO Q6-8H as needed 03/23/2016 04/13/2016 Inactive hydrocodone 10 mg-acetaminophen 325 mg tablet RxNorm: 431137 1 Tablet(s) PO Q6-8H as needed 02/24/2016 03/16/2016 Inactive hydrocodone 10 mg-acetaminophen 325 mg tablet RxNorm: 958861 1 Tablet(s) PO Q6-8H 01/21/2016 02/11/2016 Inactive hydrocodone 10 mg-acetaminophen 325 mg tablet RxNorm: 421393 1 Tablet(s) PO Q6-8H 12/24/2015 01/14/2016 Inactive hydrocodone 10 mg-acetaminophen 325 mg tablet RxNorm: 675738 1 Tablet(s) PO Q6-8H 11/30/2015 12/23/2015 Inactive hydrocodone 10 mg-acetaminophen 325 mg tablet RxNorm: 015094 1 Tablet(s) PO Q6-8H 11/05/2015 11/29/2015 Inactive hydrocodone 5 mg-acetaminophen 325 mg tablet RxNorm: 795937 1-2 Tablet(s) PO Q6-8H as needed 10/26/2015 11/01/2015 Inactive omeprazole 40 mg capsule,delayed release RxNorm: 221515 1 Capsule(s) PO daily No Start Date Active Imuran 50 mg tablet RxNorm: 483006 1 Tablet(s) PO daily No Start Date Active testosterone cypionate 200 mg/mL intramuscular oil RxNorm: 079767 1 Milliliter(s) IM No Start Date Active lidocaine 3 % lotion RxNorm: 6751631 1 Application TOP BID as needed No Start Date 01/02/2017 Inactive hydrocodone 5 mg-acetaminophen 325 mg tablet RxNorm: 915713 1-2 Tablet(s) PO Q6-8H as needed No Start Date 10/25/2015 Inactive Medication Administered No Medication Administered data Immunizations No Immunization data Assessments Condition Codes Effective Dates Essential (primary) hypertension ICD-10: I10 ICD-9: 401.1 07/30/2018 Atrial septal defect ICD-10: Q21.1 ICD-9: 745.5 [...] Visit Reason For Visit Effective Dates Notes Hospital Follow Up 07/25/2018 Hospital Follow Up 07/23/2018 Hospital Follow Up 07/11/2018 shoulder pain 04/25/2018 medication follow up 12/24/2017 medication follow up 06/20/2017 diarrhea 04/20/2017 rash 01/02/2017 medication follow up 09/07/2016 medication follow up 04/21/2016 medication follow up 11/30/2015 shoulder pain 11/02/2015 shoulder pain 10/15/2015 Results Observation Observation Code Item Item Code Result Date QuantiFERON?-TB Gold Plus (Client Incubated) [id number] QUANTIFERON CRITERIA COMMENT 07/01/2018 QuantiFERON?-TB Gold Plus (Client Incubated) [id number] QUANTIFERON TB1 AG VALUE 0.01 IU/ML 07/01/2018 QuantiFERON?-TB Gold Plus (Client Incubated) [id number] QUANTIFERON TB2 AG VALUE 0.01 IU/ML 07/01/2018 QuantiFERON?-TB Gold Plus (Client Incubated) [id number] QUANTIFERON NIL VALUE 0.01 IU/ML 07/01/2018 QuantiFERON?-TB Gold Plus (Client Incubated) [id number] QUANTIFERON MITOGEN VALUE >10.00 IU/ML 07/01/2018 QuantiFERON?-TB Gold Plus (Client Incubated) [id number] QUANTIFERON-TB GOLD PLUS NEGATIVE 07/01/2018 B12 Jbq217 B12 113.00 pg/ml 04/30/2018 Testosterone Sbs967 Testo 198.8 ng/dL 04/30/2018 Comp Metabolic Gef435 NA 143 mEq/L 04/30/2018 Comp Metabolic Wnt606 K 3.8 mEq/L 04/30/2018 Comp Metabolic Mmg117 CL 108 mEq/L 04/30/2018 Comp Metabolic Iik384 CO2 29.0 mEq/L 04/30/2018 Comp Metabolic Qbl620 ANION GAP 10 04/30/2018 Comp Metabolic Jjq457 GLUCOSE 94 mg/dL 04/30/2018 Comp Metabolic Ien958 Creat 0.8 mg/dL 04/30/2018 Comp Metabolic Qgu178 eGFR 110 ml/min/1.73m2 04/30/2018 Comp Metabolic Biq730 BUN 13 mg/dL 04/30/2018 Comp Metabolic Kpn016 B/C Ratio 16.0 Ratio 04/30/2018 Comp Metabolic Vpo465 CALCIUM 9.2 mg/dL 04/30/2018 Comp Metabolic Akk385 ALK PHOS 62 U/L 04/30/2018 Comp Metabolic Kyl122 AST(SGOT) 16 U/L 04/30/2018 Comp Metabolic Ovd371 ALT(SGPT) 15 U/L 04/30/2018 Comp Metabolic Txn961 BILI T 0.9 mg/dL 04/30/2018 Comp Metabolic Ptg118 ALBUMIN 4.1 g/dL 04/30/2018 Comp Metabolic Shm025 TPRO 6.2 g/dL 04/30/2018 Comp Metabolic Pmv656 GLOB 2.1 g/dL 04/30/2018 Comp Metabolic Kwo195 A/G Ratio 1.9 Ratio 04/30/2018 Comp Metabolic Sbg340 Osmo 285 mOsmo 04/30/2018 Cbc With Differential [...] 31.3 pg 04/30/2018 Cbc With Differential Ord2 [place]% 8.5 % 04/30/2018 Cbc With Differential Ord2 [...] 0.80 K/ul 04/30/2018 Cbc With Differential Ord2 [place] ABS# 0.5 K/ul 04/30/2018 Cbc With Differential [...] 31.3 pg 04/20/2017 Cbc With Differential Ord2 [place]% 18.6 % 04/20/2017 Cbc With Differential Ord2 [...] 0.67 K/ul 04/20/2017 Cbc With Differential Ord2 [place] ABS# 1.2 K/ul 04/20/2017 Cbc With Differential Ord2 Eos ABS# 0.1 K/ul 04/20/2017 Cbc With Differential Ord2 Baso ABS# 0.0 K/ul 04/20/2017 Comp Metabolic Emr548 NA 142 mEq/L 04/20/2017 Comp Metabolic Xak368 K 4.2 mEq/L 04/20/2017 Comp Metabolic Azb529 CL 104 mEq/L 04/20/2017 Comp Metabolic Ihx399 CO2 28.0 mEq/L 04/20/2017 Comp Metabolic Hfc785 ANION GAP 14 04/20/2017 Comp Metabolic Toq880 GLUCOSE 73 mg/dL 04/20/2017 Comp Metabolic Cih082 Creat 1.2 mg/dL 04/20/2017 Comp Metabolic Doz712 eGFR 68 ml/min/1.73m2 04/20/2017 Comp Metabolic Oru321 BUN 9 mg/dL 04/20/2017 Comp Metabolic Djp908 B/C Ratio 7.3 Ratio 04/20/2017 Comp Metabolic Mrb272 CALCIUM 9.5 mg/dL 04/20/2017 Comp Metabolic Atx211 ALK PHOS 57 U/L 04/20/2017 Comp Metabolic Wiw969 AST(SGOT) 16 U/L 04/20/2017 Comp Metabolic Nsn656 ALT(SGPT) 14 U/L 04/20/2017 Comp Metabolic Szn076 BILI T 0.6 mg/dL 04/20/2017 Comp Metabolic Btg285 ALBUMIN 4.0 g/dL 04/20/2017 Comp Metabolic Xdn152 TPRO 7.0 g/dL 04/20/2017 Comp Metabolic Jug842 GLOB 3.0 g/dL 04/20/2017 Comp Metabolic Cqd181 A/G Ratio 1.3 Ratio 04/20/2017 Comp Metabolic Wty671 Osmo 280 mOsmo 04/20/2017 Review of Systems System Result Effective Dates Constitutional No recent illness 07/25/2018 Constitutional No [...] dentition 04/25/2018 None Full Exam - General 1995 Ears/Nose/Throat [...] lips 04/21/2016 None Full Exam - General 1994 Ears/Nose/Throat lips/teeth/gingiva Overall: normal dentition 04/21/2016 None [...] No Procedures data Vital Signs Date Vital 07/30/2018 Blood Pressure 1: 132/70 Code: 8480-6 Heart Rate 1: 50 bpm SpO2: 97% 07/25/2018 Blood Pressure 1: 140/88 Code: 8480-6 BMI: 25.5 Code: 72600-3 Height: 6' Weight: 188 lbs 07/23/2018 Height: Weight: 07/11/2018 Blood Pressure 1: 148/82 Code: 8480-6 Blood Pressure 1: 126/74 Code: 8480-6 BMI: 25.1 Code: 32423-9 Heart Rate 1: 75 bpm Height: 6' SpO2: 98% Weight: 185 lbs 04/25/2018 Blood Pressure 1: 146/88 Code: 8480-6 BMI: 25.2 Code: 51772-2 Heart Rate 1: 94 bpm Height: 6' SpO2: 95% Weight: 186 lbs 12/24/2017 Blood Pressure 1: 134/90 Code: 8480-6 BMI: 25.8 Code: 41903-8 Heart Rate 1: 64 bpm Height: 6' SpO2: 99% Weight: 190 lbs 06/20/2017 Blood Pressure 1: 130/86 Code: 8480-6 BMI: 27.1 Code: 02395-2 Heart Rate 1: 74 bpm Height: 6' SpO2: 98% Weight: 200 lbs 04/20/2017 Blood Pressure 1: 136/80 Code: 8480-6 BMI: 27.1 Code: 84796-3 Heart Rate 1: 100 bpm Height: 6' SpO2: 95% Temperature: 36.9 (C) / 98.4 (F) Weight: 200 lbs 01/02/2017 Blood Pressure 1: 120/78 Code: 8480-6 BMI: 28.3 Code: 09574-1 Heart Rate 1: 79 bpm Height: 6' SpO2: 98% Weight: 209 lbs 09/07/2016 Blood Pressure 1: 140/90 Code: 8480-6 BMI: 27.4 Code: 39693-0 Heart Rate 1: 70 bpm Height: 6' SpO2: 96% Weight: 202 lbs 04/21/2016 Blood Pressure 1: 136/84 Code: 8480-6 BMI: 29.0 Code: 15062-2 Heart Rate 1: 67 bpm Height: 6' SpO2: 98% Weight: 214 lbs 11/30/2015 Blood Pressure 1: 130/80 Code: 8480-6 BMI: 29.3 Code: 75775-8 Heart Rate 1: 75 bpm Height: 6' SpO2: 98% Weight: 216 lbs 11/02/2015 Blood Pressure 1: 126/78 Code: 8480-6 BMI: 29.8 Code: 63398-4 Heart Rate 1: 69 bpm Height: 6' SpO2: 98% Weight: 220 lbs 10/15/2015 Blood Pressure 1: 132/76 Code: 8480-6 BMI: 29.8 Code: 51191-6 Heart Rate 1: 77 bpm Height: 6' SpO2: 95% Weight: 220 lbs Functional Status No Functional Status data History of Present Illness Symptom Name Status Result Effective Date Notes _ Other: CVA 07/25/2018 None Onset and [...] data Encounters Encounter Performer Location Codes Date ([id number]) Miscellaneous no charge Diagnosis: Essential (primary) hypertension[ICD10: I10] [facility] CPT-4: 56644 07/30/2018 ([id number]) 08383 EST. 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 PATIENT, LEVEL IV Diagnosis: Crohn's disease of both small and large intestine without complications[ICD10: K50.80] Diagnosis: Testicular hypofunction[ICD10: E29.1] Diagnosis: Incomplete rotator cuff tear or rupture of right shoulder, not specified as traumatic[ICD10: M75.111] Diagnosis: Chronic pain due to trauma[ICD10: G89.21] Carmela Hamm MD, [facility] CPT-4: 78673 04/25/2018 62773 EST. PATIENT, LEVEL III Diagnosis: Chronic pain due to trauma[ICD10: G89.21] Diagnosis: Incomplete rotator cuff tear or rupture of left shoulder, not specified as traumatic[ICD10: M75.112] Diagnosis: Incomplete rotator cuff tear or rupture of right shoulder, not specified as traumatic[ICD10: M75.111] Diagnosis: Crohn's disease of both small and large intestine without complications[ICD10: K50.80] Bridget Hamm MD, [facility] CPT-4: 70704 12/24/2017 43857 EST. PATIENT, LEVEL III Diagnosis: Chronic pain due to trauma[ICD10: G89.21] Diagnosis: Incomplete rotator cuff tear or rupture of left shoulder, not specified as traumatic[ICD10: M75.112] Diagnosis: Incomplete rotator cuff tear or rupture of right shoulder, not specified as traumatic[ICD10: M75.111] Diagnosis: Crohn's disease of both small and large intestine without complications[ICD10: K50.80] Bridget Hamm MD, [facility] CPT-4: 11825 06/20/2017 03276 EST. PATIENT, LEVEL IV Diagnosis: Crohn's disease of both small and large intestine without complications[ICD10: K50.80] [facility] CPT-4: 15083 04/20/2017 07379 EST. PATIENT, LEVEL III Diagnosis: Zoster without complications[ICD10: B02.9] [facility] CPT-4: 87206 01/02/2017 76620 EST. PATIENT, LEVEL IV Diagnosis: Chronic pain due to trauma[ICD10: G89.21] Diagnosis: Incomplete rotator cuff tear or rupture of left shoulder, not specified as traumatic[ICD10: M75.112] Diagnosis: Incomplete rotator cuff tear or rupture of right shoulder, not specified as traumatic[ICD10: M75.111] Diagnosis: Crohn's disease of both small and large intestine without complications[ICD10: K50.80] Bridget Hamm MD, [facility] CPT-4: 71161 09/07/2016 ([id number]) 12957 EST. PATIENT, LEVEL III Diagnosis: Chronic pain due to trauma[ICD10: G89.21] Diagnosis: Incomplete rotator cuff tear or rupture of left shoulder, not specified as traumatic[ICD10: M75.112] Diagnosis: Incomplete rotator cuff tear or rupture of right shoulder, not specified as traumatic[ICD10: M75.111] Diagnosis: Crohn's disease of both small and large intestine without complications[ICD10: K50.80] [facility] CPT-4: 89697 04/21/2016 25883 EST. PATIENT, LEVEL IV Diagnosis: Chronic pain due to trauma[ICD10: G89.21] Diagnosis: Incomplete rotator cuff tear or rupture of right shoulder, not specified as traumatic[ICD10: M75.111] Diagnosis: Incomplete rotator cuff tear or rupture of left shoulder, not specified as traumatic[ICD10: M75.112] [facility] CPT-4: 27790 11/30/2015 71608 EST. PATIENT, LEVEL IV Diagnosis: Chronic pain due to trauma[ICD10: G89.21] Diagnosis: Incomplete rotator cuff tear or rupture of right shoulder, not specified as traumatic[ICD10: M75.111] Diagnosis: Incomplete rotator cuff tear or rupture of left shoulder, not specified as traumatic[ICD10: M75.112] [facility] CPT-4: 51219 11/02/2015 ([id number]) OFFICE VISIT, NEW - LEVEL 4 Diagnosis: Incomplete rotator cuff tear or rupture of left shoulder, not specified as traumatic[ICD10: M75.112] Diagnosis: Incomplete rotator cuff tear or rupture of right shoulder, not specified as traumatic[ICD10: M75.111] Diagnosis: Crohn's disease of both small and large intestine without complications[ICD10: K50.80] [facility] CPT-4: 60621 10/15/2015 Plan of Care Planned Activity Notes Codes Status Date Appointment: Nurse Visit 07/30/2018 Patient Education: Patient [...] stroke prevention. 07/25/2018 Appointment: Rupal Hamm WPtel: [address] [place], [place] [id number] (15 min) Moderate 07/25/2018 Patient Education: Patient Medication Summary Completed 07/25/2018 Visit Plan: CVA - continue with heart monitor - will check with neurology consult - keep track of your symptoms and notify clinic with any changes, questions, or concerns. 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 Continue with medications as directed by specialist at [facility]. I have recommended that Ba needs to stay off of work until some of this work-up is completed since some of these issues may be due to the stress of his job and lack of sleep, versus from the foramen ovale that may be shunting blood from his right to left side of his heart. referral to neurology in [place] referral to dr. villalpando - Crohn's disease - keep appt with Dr. Sandhu since his symptoms have been worsening lately due to the stress of his job. 07/11/2018 Appointment: Rupal Hamm [facility]Ptel[facility] [place] (15 min) Moderate 07/11/2018 Patient Education: Patient Medication Summary Completed 07/11/2018 Care Plan: Referral Order SNOMED-CT : [id number] Pending 07/11/2018 Visit Plan: Crohns - symptoms [...] update today. 04/25/2018 Appointment: Carm[facility] Green[facility] [phone] [phone] [place] (30 min) Complex 04/25/2018 Patient Education: Patient Medication Summary Completed 04/25/2018 Visit Diagnosis Plan: Crohn's disease of both small and large intestine without complications Discussion: managed by Dr SandhuYgwoi-agatxy-wq changes at this time ICD-9 : 555.2 [...] : M75.112 12/24/2017 Appointment: Bridget Terry WPtel: [id number] (15 min) Moderate 12/24/2017 Patient Education: Patient [...] intestine without complications Discussion: managed by Dr SandhuIgquf-zrxiia-ss changes at this time ICD-9 : 555.2 ICD-10 : K50.80 06/20/2017 Visit Diagnosis Plan: Incomplete rotator cuff tear or rupture of left shoulder, not specified as traumatic Recommendations: pt is to continue exercise and strengthening and notify clinic with any changes, questions, or concerns. ICD-9 : 726.13 ICD-10 : M75.112 06/20/2017 Appointment: Bridget Terry WPtel: [address] [place], [place] [phone] [place] (30 min) Complex 06/20/2017 Patient Education: Patient Medication Summary Completed 06/20/2017 Appointment: Carmela Greenberg WPtel: [address] [place], [place] [phone] [place] (15 min) Moderate 06/19/2017 Appointment: Lab [...] treatment plan. 04/20/2017 Appointment: Bridget Terry WPtel: [phone] [id number] [place] (30 min) Complex 04/20/2017 Patient Education: Patient Medication Summary Completed 04/20/2017 Appointment: Bridget Terrytel: [phone] [id number] [place] (15 min) Moderate 04/19/2017 Appointment: Lab [...] considered contagious. 01/02/2017 Appointment: Bridget Terry WPtel: [id number] [place] (30 min) Complex 01/02/2017 Patient Education: Patient Medication Summary Completed 01/02/2017 Visit Diagnosis Plan: Crohn's disease of both small and large intestine without complications Discussion: managed by Dr SandhuQoeru-rzjopa-ai changes at this time ICD-9 : 555.2 [...] : G89.21 09/07/2016 Appointment: Bridget Terry [phone] [facility] (30 min) Complex 09/07/2016 Patient Education: Patient [...] : G89.21 04/21/2016 Appointment: Carm[facility] Greenberg [facility]el[facility] [phone] [phone] (15 min) Moderate 04/21/2016 Patient Education: Patient [...] the year. 11/30/2015 Appointment: [phone] [phone] (30 min) Complex 11/30/2015 Patient Education: Patient [...] the year. 11/02/2015 Appointment: [facility] Green[phone] [phone] [place] (15 min) Moderate 11/02/2015 Patient Education: Patient [...] with medications as directed by specialist at [facility]. I have recommended that Ba needs to stay off of work until some of this work- up is completed since some of these issues may be due to the stress of his job and lack of sleep, versus from the foramen ovale that may be shunting blood from his right to left side of his heart. referral to neurology in [place] referral to dr. villalpando - Crohn's disease [...] any further intervention for stroke prevention. . Shingles - Herpes Zoster - acute [...]
--- OUTSIDE RECORDS SUMMARY | 2018-09-19 08:09 | XMS REPORT | CCD ---
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 Name Role Phone PP Unavailable CCM Unavailable Summary Purpose Interface Exchange Insurance Providers Payer name Policy type / Coverage type Covered alliance party ID Effective Begin Date Effective End Date Blue Cross Blue [facility] Blue Cross/Blue [facility] [id number] Unknown Unknown Family history Son Diagnosis Age At Onset Attention deficit hyperactivity disorder Unknown Social History Social History Element Codes Description Effective Dates Marital status Unknown Consuelo 04/25/2018 Number of children Unknown 1 10/15/[address]: 613546670 Currently uses smokeless tobacco 10/15/2015 Alcohol history [...] Start Date Stop Date Status Fill Instructions lisinopril 20 mg tablet RxNorm: 119326 1 Tablet(s) PO daily 07/25/2018 02/19/2019 Active atorvastatin 10 mg tablet RxNorm: 772679 1 Tablet(s) PO QHS 07/25/2018 02/19/2019 Active hydrocodone 10 mg-acetaminophen 325 mg tablet RxNorm: 555263 1 Tablet(s) PO Q6-8H as needed 07/15/2018 08/06/2018 Active hydrocodone 10 mg-acetaminophen 325 mg tablet RxNorm: 862773 1 Tablet(s) PO Q6-8H as needed 06/18/2018 07/10/2018 Inactive hydrocodone 10 mg-acetaminophen 325 mg tablet RxNorm: 394950 1 Tablet(s) PO Q6-8H as needed 05/22/2018 06/13/2018 Inactive testosterone cypionate 200 mg/mL intramuscular oil RxNorm: 3624601 1 Milliliter(s) IM monthly 05/01/2018 08/28/2018 Active cyanocobalamin (vit B-12) 1,000 mcg/mL injection solution RxNorm: 955096 1 Milliliter(s) Inj monthly 05/01/2018 08/28/2018 Active Please provide syringes and needles for him to administer cyanocobalamin (vit B-12) 1,000 mcg/mL injection solution RxNorm: 585455 1 Milliliter(s) Inj monthly 05/01/2018 04/30/2018 Inactive testosterone cypionate 200 mg/mL intramuscular oil RxNorm: 9717572 1 Milliliter(s) IM monthly 05/01/2018 04/30/2018 Inactive hydrocodone 10 mg-acetaminophen 325 mg tablet RxNorm: 046330 1 Tablet(s) PO Q6-8H as needed 04/25/2018 05/17/2018 Inactive hydrocodone 10 mg-acetaminophen 325 mg tablet RxNorm: 462836 1 Tablet(s) PO Q6-8H as needed 04/01/2018 04/23/2018 Inactive hydrocodone 10 mg-acetaminophen 325 mg tablet RxNorm: 028486 1 Tablet(s) PO Q6-8H as needed 03/05/2018 03/27/2018 Inactive hydrocodone 10 mg-acetaminophen 325 mg tablet RxNorm: 463359 1 Tablet(s) PO Q6-8H as needed 02/11/2018 03/04/2018 Inactive hydrocodone 10 mg-acetaminophen 325 mg tablet RxNorm: 727444 1 Tablet(s) PO Q6-8H as needed 01/18/2018 02/09/2018 Inactive hydrocodone 10 mg-acetaminophen 325 mg tablet RxNorm: 643219 1 Tablet(s) PO Q6-8H as needed 12/24/2017 01/15/2018 Inactive hydrocodone 10 mg-acetaminophen 325 mg tablet RxNorm: 880576 1 Tablet(s) PO Q6-8H as needed 11/30/2017 12/22/2017 Inactive hydrocodone 10 mg-acetaminophen 325 mg tablet RxNorm: 035039 1 Tablet(s) PO Q6-8H as needed 11/06/2017 11/28/2017 Inactive hydrocodone 10 mg-acetaminophen 325 mg tablet RxNorm: 747409 1 Tablet(s) PO Q6-8H as needed 10/11/2017 11/02/2017 Inactive hydrocodone 10 mg-acetaminophen 325 mg tablet RxNorm: 199726 1 Tablet(s) PO Q6-8H as needed 09/12/2017 10/04/2017 Inactive hydrocodone 10 mg-acetaminophen 325 mg tablet RxNorm: 741760 1 Tablet(s) PO Q6-8H as needed 08/16/2017 09/07/2017 Inactive hydrocodone 10 mg-acetaminophen 325 mg tablet RxNorm: 677838 1 Tablet(s) PO Q6-8H as needed 07/19/2017 08/10/2017 Inactive oxycodone-acetaminophen 7.5 mg-325 mg tablet RxNorm: 5234385 1 Tablet(s) PO Q6-8H as needed 06/29/2017 07/18/2017 Inactive hydrocodone 10 mg-acetaminophen 325 mg tablet RxNorm: 880918 1 Tablet(s) PO Q6-8H as needed 06/01/2017 06/17/2017 Inactive hydrocodone 10 mg-acetaminophen 325 mg tablet RxNorm: 390060 1 Tablet(s) PO Q6-8H as needed 05/09/2017 05/30/2017 Inactive Cipro 500 mg tablet RxNorm: 045128 1 Tablet(s) PO BID 04/20/2017 04/29/2017 Inactive prednisone 10 mg tablet RxNorm: 292415 Tablet(s) PO 04/20/2017 03/04/2018 Inactive 6,5,4,3,2,1 Flagyl 500 mg tablet RxNorm: 773305 1 Tablet(s) PO TID 04/20/2017 04/29/2017 Inactive hydrocodone 10 mg-acetaminophen 325 mg tablet RxNorm: 061038 1 Tablet(s) PO Q6-8H as needed 04/09/2017 05/01/2017 Inactive hydrocodone 10 mg-acetaminophen 325 mg tablet RxNorm: 848417 1 Tablet(s) PO Q6-8H as needed 03/07/2017 03/29/2017 Inactive hydrocodone 10 mg-acetaminophen 325 mg tablet RxNorm: 994990 1 Tablet(s) PO Q6-8H as needed 02/01/2017 02/23/2017 Inactive lidocaine 3 % lotion RxNorm: 5222277 1 Application TOP BID as needed 01/03/2017 No Stop Date Active acyclovir 800 mg tablet RxNorm: 476350 1 Tablet(s) PO 5 x a day 01/02/2017 01/08/2017 Inactive hydrocodone 10 mg-acetaminophen 325 mg tablet RxNorm: 218977 1 Tablet(s) PO Q6-8H as needed 12/06/2016 12/28/2016 Inactive hydrocodone 10 mg-acetaminophen 325 mg tablet RxNorm: 529007 1 Tablet(s) PO Q6-8H as needed 12/04/2016 12/05/2016 Inactive hydrocodone 10 mg-acetaminophen 325 mg tablet RxNorm: 815805 1 Tablet(s) PO Q6-8H as needed 11/08/2016 11/30/2016 Inactive hydrocodone 10 mg-acetaminophen 325 mg tablet RxNorm: 193010 1 Tablet(s) PO Q6-8H as needed 10/09/2016 10/31/2016 Inactive hydrocodone 10 mg-acetaminophen 325 mg tablet RxNorm: 133224 1 Tablet(s) PO Q6-8H as needed 08/08/2016 08/30/2016 Inactive hydrocodone 10 mg-acetaminophen 325 mg tablet RxNorm: 939411 1 Tablet(s) PO Q6-8H as needed 07/12/2016 08/03/2016 Inactive hydrocodone 10 mg-acetaminophen 325 mg tablet RxNorm: 559181 1 Tablet(s) PO Q6-8H as needed 06/12/2016 07/04/2016 Inactive hydrocodone 10 mg-acetaminophen 325 mg tablet RxNorm: 873691 1 Tablet(s) PO Q6-8H as needed 05/16/2016 06/07/2016 Inactive hydrocodone 10 mg-acetaminophen 325 mg tablet RxNorm: 860836 1 Tablet(s) PO Q6-8H as needed 04/21/2016 05/12/2016 Inactive hydrocodone 10 mg-acetaminophen 325 mg tablet RxNorm: 867222 1 Tablet(s) PO Q6-8H as needed 03/23/2016 04/13/2016 Inactive hydrocodone 10 mg-acetaminophen 325 mg tablet RxNorm: 796752 1 Tablet(s) PO Q6-8H as needed 02/24/2016 03/16/2016 Inactive hydrocodone 10 mg-acetaminophen 325 mg tablet RxNorm: 656415 1 Tablet(s) PO Q6-8H 01/21/2016 02/11/2016 Inactive hydrocodone 10 mg-acetaminophen 325 mg tablet RxNorm: 464617 1 Tablet(s) PO Q6-8H 12/24/2015 01/14/2016 Inactive hydrocodone 10 mg-acetaminophen 325 mg tablet RxNorm: 355286 1 Tablet(s) PO Q6-8H 11/30/2015 12/23/2015 Inactive hydrocodone 10 mg-acetaminophen 325 mg tablet RxNorm: 106082 1 Tablet(s) PO Q6-8H 11/05/2015 11/29/2015 Inactive hydrocodone 5 mg-acetaminophen 325 mg tablet RxNorm: 708087 1-2 Tablet(s) PO Q6-8H as needed 10/26/2015 11/01/2015 Inactive omeprazole 40 mg capsule,delayed release RxNorm: 015338 1 Capsule(s) PO daily No Start Date Active Imuran 50 mg tablet RxNorm: 305652 1 Tablet(s) PO daily No Start Date Active testosterone cypionate 200 mg/mL intramuscular oil RxNorm: 224257 1 Milliliter(s) IM No Start Date Active lidocaine 3 % lotion RxNorm: 8921546 1 Application TOP BID as needed No Start Date 01/02/2017 Inactive hydrocodone 5 mg-acetaminophen 325 mg tablet RxNorm: 872443 1-2 Tablet(s) PO Q6-8H as needed No [...] Result Date QuantiFERON?-TB Gold Plus (Client Incubated) [id number] QUANTIFERON CRITERIA COMMENT 07/01/2018 QuantiFERON?-TB Gold Plus (Client Incubated) [id number] QUANTIFERON TB1 AG VALUE 0.01 IU/ML 07/01/2018 QuantiFERON?-TB Gold Plus (Client Incubated) [id number] QUANTIFERON TB2 AG VALUE 0.01 IU/ML 07/01/2018 QuantiFERON?-TB Gold Plus (Client Incubated) [id number] QUANTIFERON NIL VALUE 0.01 IU/ML 07/01/2018 QuantiFERON?-TB Gold Plus (Client Incubated) [id number] QUANTIFERON MITOGEN VALUE >10.00 IU/ML 07/01/2018 QuantiFERON?-TB Gold Plus (Client Incubated) [id number] QUANTIFERON-TB GOLD PLUS NEGATIVE 07/01/2018 B12 Cmc361 B12 113.00 pg/ml 04/30/2018 Testosterone Dpi376 Testo 198.8 ng/dL 04/30/2018 Comp Metabolic Mkv112 NA 143 mEq/L 04/30/2018 Comp Metabolic Kyd405 K 3.8 mEq/L 04/30/2018 Comp Metabolic Lrb803 CL 108 mEq/L 04/30/2018 Comp Metabolic Ete669 CO2 29.0 mEq/L 04/30/2018 Comp Metabolic Ric956 ANION GAP 10 04/30/2018 Comp Metabolic Jmj484 GLUCOSE 94 mg/dL 04/30/2018 Comp Metabolic Jck779 Creat 0.8 mg/dL 04/30/2018 Comp Metabolic Mkg418 eGFR 110 ml/min/1.73m2 04/30/2018 Comp Metabolic Tqa708 BUN 13 mg/dL 04/30/2018 Comp Metabolic Tvz664 B/C Ratio 16.0 Ratio 04/30/2018 Comp Metabolic Kkg959 CALCIUM 9.2 mg/dL 04/30/2018 Comp Metabolic Uze904 ALK PHOS 62 U/L 04/30/2018 Comp Metabolic Tbw050 AST(SGOT) 16 U/L 04/30/2018 Comp Metabolic Gkg781 ALT(SGPT) 15 U/L 04/30/2018 Comp Metabolic Jcl275 BILI T 0.9 mg/dL 04/30/2018 Comp Metabolic Rqe586 ALBUMIN 4.1 g/dL 04/30/2018 Comp Metabolic Kck331 TPRO 6.2 g/dL 04/30/2018 Comp Metabolic Ffx870 GLOB 2.1 g/dL 04/30/2018 Comp Metabolic Wjv914 A/G Ratio 1.9 Ratio 04/30/2018 Comp Metabolic Vnf151 Osmo 285 mOsmo 04/30/2018 Cbc With Differential [...] 31.3 pg 04/30/2018 Cbc With Differential Ord2 [place]% 8.5 % 04/30/2018 Cbc With Differential Ord2 [...] 0.80 K/ul 04/30/2018 Cbc With Differential Ord2 [place] ABS# 0.5 K/ul 04/30/2018 Cbc With Differential [...] 31.3 pg 04/20/2017 Cbc With Differential Ord2 [place]% 18.6 % 04/20/2017 Cbc With Differential Ord2 [...] 0.67 K/ul 04/20/2017 Cbc With Differential Ord2 [place] ABS# 1.2 K/ul 04/20/2017 Cbc With Differential Ord2 Eos ABS# 0.1 K/ul 04/20/2017 Cbc With Differential Ord2 Baso ABS# 0.0 K/ul 04/20/2017 Comp Metabolic Bkr763 NA 142 mEq/L 04/20/2017 Comp Metabolic Lwa869 K 4.2 mEq/L 04/20/2017 Comp Metabolic Nig175 CL 104 mEq/L 04/20/2017 Comp Metabolic Gzo964 CO2 28.0 mEq/L 04/20/2017 Comp Metabolic Hlh821 ANION GAP 14 04/20/2017 Comp Metabolic Gak629 GLUCOSE 73 mg/dL 04/20/2017 Comp Metabolic Zyd254 Creat 1.2 mg/dL 04/20/2017 Comp Metabolic Qpv629 eGFR 68 ml/min/1.73m2 04/20/2017 Comp Metabolic Fzb880 BUN 9 mg/dL 04/20/2017 Comp Metabolic Mjo728 B/C Ratio 7.3 Ratio 04/20/2017 Comp Metabolic Kzo380 CALCIUM 9.5 mg/dL 04/20/2017 Comp Metabolic Ile024 ALK PHOS 57 U/L 04/20/2017 Comp Metabolic Cgq431 AST(SGOT) 16 U/L 04/20/2017 Comp Metabolic Fto469 ALT(SGPT) 14 U/L 04/20/2017 Comp Metabolic Lif357 BILI T 0.6 mg/dL 04/20/2017 Comp Metabolic Zgn366 ALBUMIN 4.0 g/dL 04/20/2017 Comp Metabolic Zuj215 TPRO 7.0 g/dL 04/20/2017 Comp Metabolic Mrj612 GLOB 3.0 g/dL 04/20/2017 Comp Metabolic Ums563 A/G Ratio 1.3 Ratio 04/20/2017 Comp Metabolic Ieg233 Osmo 280 mOsmo 04/20/2017 Review of Systems [...] 1: 140/88 Code: 8480-6 BMI: 25.5 Code: 66885-0 Height: 6' Weight: 188 lbs 07/23/2018 Height: Weight: 07/11/2018 Blood Pressure 1: 148/82 Code: 8480-6 Blood Pressure 1: 126/74 Code: 8480-6 BMI: 25.1 Code: 39211-1 Heart Rate 1: 75 bpm Height: 6' SpO2: 98% Weight: 185 lbs 04/25/2018 Blood Pressure 1: 146/88 Code: 8480-6 BMI: 25.2 Code: 67674-0 Heart Rate 1: 94 bpm Height: 6' SpO2: 95% Weight: 186 lbs 12/24/2017 Blood Pressure 1: 134/90 Code: 8480-6 BMI: 25.8 Code: 80646-9 Heart Rate 1: 64 bpm Height: 6' SpO2: 99% Weight: 190 lbs 06/20/2017 Blood Pressure 1: 130/86 Code: 8480-6 BMI: 27.1 Code: 85812-7 Heart Rate 1: 74 bpm Height: 6' SpO2: 98% Weight: 200 lbs 04/20/2017 Blood Pressure 1: 136/80 Code: 8480-6 BMI: 27.1 Code: 17718-9 Heart Rate 1: 100 bpm Height: 6' SpO2: 95% Temperature: 36.9 (C) / 98.4 (F) Weight: 200 lbs 01/02/2017 Blood Pressure 1: 120/78 Code: 8480-6 BMI: 28.3 Code: 64558-8 Heart Rate 1: 79 bpm Height: 6' SpO2: 98% Weight: 209 lbs 09/07/2016 Blood Pressure 1: 140/90 Code: 8480-6 BMI: 27.4 Code: 71559-1 Heart Rate 1: 70 bpm Height: 6' SpO2: 96% Weight: 202 lbs 04/21/2016 Blood Pressure 1: 136/84 Code: 8480-6 BMI: 29.0 Code: 79567-7 Heart Rate 1: 67 bpm Height: 6' SpO2: 98% Weight: 214 lbs 11/30/2015 Blood Pressure 1: 130/80 Code: 8480-6 BMI: 29.3 Code: 59824-3 Heart Rate 1: 75 bpm Height: 6' SpO2: 98% Weight: 216 lbs 11/02/2015 Blood Pressure 1: 126/78 Code: 8480-6 BMI: 29.8 Code: 37562-3 Heart Rate 1: 69 bpm Height: 6' SpO2: 98% Weight: 220 lbs 10/15/2015 Blood Pressure 1: 132/76 Code: 8480-6 BMI: 29.8 Code: 77903-5 Heart Rate 1: 77 bpm Height: 6' [...] data Encounters Encounter Performer Location Codes Date ([id number]) Miscellaneous no charge Diagnosis: Essential (primary) hypertension[ICD10: I10] [facility] CPT-4: 41229 07/30/2018 52010 48093 EST. 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 PATIENT, LEVEL IV Diagnosis: Crohn's disease of both small and large intestine without complications[ICD10: K50.80] Diagnosis: Testicular hypofunction[ICD10: E29.1] Diagnosis: Incomplete rotator cuff tear or rupture of right shoulder, not specified as traumatic[ICD10: M75.111] Diagnosis: Chronic pain due to trauma[ICD10: G89.21] Carmela Hamm MD, [facility] CPT-4: 65581 04/25/2018 68700 EST. PATIENT, LEVEL III Diagnosis: Chronic pain due to trauma[ICD10: G89.21] Diagnosis: Incomplete rotator cuff tear or rupture of left shoulder, not specified as traumatic[ICD10: M75.112] Diagnosis: Incomplete rotator cuff tear or rupture of right shoulder, not specified as traumatic[ICD10: M75.111] Diagnosis: Crohn's disease of both small and large intestine without complications[ICD10: K50.80] Bridget Hamm MD, [facility] CPT-4: 51464 12/24/2017 12982 EST. PATIENT, LEVEL III Diagnosis: Chronic pain due to trauma[ICD10: G89.21] Diagnosis: Incomplete rotator cuff tear or rupture of left shoulder, not specified as traumatic[ICD10: M75.112] Diagnosis: Incomplete rotator cuff tear or rupture of right shoulder, not specified as traumatic[ICD10: M75.111] Diagnosis: Crohn's disease of both small and large intestine without complications[ICD10: K50.80] [facility] CPT-4: 05242 06/20/2017 03746 EST. PATIENT, LEVEL IV Diagnosis: Crohn's disease of both small and large intestine without complications[ICD10: K50.80] [facility] CPT-4: 13400 04/20/2017 70217 EST. PATIENT, LEVEL III Diagnosis: Zoster without complications[ICD10: B02.9] [facility] CPT-4: 56831 01/02/2017 08499 EST. PATIENT, LEVEL IV Diagnosis: Chronic pain due to trauma[ICD10: G89.21] Diagnosis: Incomplete rotator cuff tear or rupture of left shoulder, not specified as traumatic[ICD10: M75.112] Diagnosis: Incomplete rotator cuff tear or rupture of right shoulder, not specified as traumatic[ICD10: M75.111] Diagnosis: Crohn's disease of both small and large intestine without complications[ICD10: K50.80] [facility] CPT-4: 72705 09/07/2016 ([id number]) 64191 EST. PATIENT, LEVEL III Diagnosis: Chronic pain due to trauma[ICD10: G89.21] Diagnosis: Incomplete rotator cuff tear or rupture of left shoulder, not specified as traumatic[ICD10: M75.112] Diagnosis: Incomplete rotator cuff tear or rupture of right shoulder, not specified as traumatic[ICD10: M75.111] Diagnosis: Crohn's disease of both small and large intestine without complications[ICD10: K50.80] [facility] CPT-4: 15083 04/21/2016 51034 EST. PATIENT, LEVEL IV Diagnosis: Chronic pain due to trauma[ICD10: G89.21] Diagnosis: Incomplete rotator cuff tear or rupture of right shoulder, not specified as traumatic[ICD10: M75.111] Diagnosis: Incomplete rotator cuff tear or rupture of left shoulder, not specified as traumatic[ICD10: M75.112] [facility] CPT-4: 73623 11/30/2015 25638 EST. PATIENT, LEVEL IV Diagnosis: Chronic pain due to trauma[ICD10: G89.21] Diagnosis: Incomplete rotator cuff tear or rupture of right shoulder, not specified as traumatic[ICD10: M75.111] Diagnosis: Incomplete rotator cuff tear or rupture of left shoulder, not specified as traumatic[ICD10: M75.112] [facility] CPT-4: 56479 11/02/2015 ([id number]) OFFICE VISIT, NEW - LEVEL 4 Diagnosis: Incomplete rotator cuff tear or rupture of left shoulder, not specified as traumatic[ICD10: M75.112] Diagnosis: Incomplete rotator cuff tear or rupture of right shoulder, not specified as traumatic[ICD10: M75.111] Diagnosis: Crohn's disease of both small and large intestine without complications[ICD10: K50.80] [facility] CPT-4: 31089 10/15/2015 Plan of Care Planned Activity Notes Codes Status Date Patient Education: Patient Medication Summary Completed 07/30/2018 [...] stroke prevention. 07/25/2018 Appointment: Rupal Hamm [facility]el[facility] (15 min) Moderate 07/25/2018 Patient Education: Patient Medication Summary Completed 07/25/2018 Visit Plan: CVA - continue with heart monitor - will check with neurology consult - keep track of your symptoms and notify clinic with any changes, questions, or concerns. 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 Continue with medications as directed by specialist at [facility]. I have recommended that Ba needs to stay off of work until some of this work-up is completed since some of these issues may be due to the stress of his job and lack of sleep, versus from the foramen ovale that may be shunting blood from his right to left side of his heart. referral to neurology in [place] referral to dr. villalpando - Crohn's disease - keep appt with Dr. Sandhu since his symptoms have been worsening lately due to the stress of his job. 07/11/2018 App[facility]ment: [facility]upal Hamm [facility] [phone] [facility] (15 min) Moderate 07/11/2018 Patient Education: Patient Medication Summary Completed 07/11/2018 Care Plan: Referral Order SNOMED-CT : [id number] Pending 07/11/2018 Visit Plan: Crohns - symptoms [...] update today. 04/25/2018 Appointment: Carm[facility] Green[facility]Ptel[facility] [phone] [phone] (30 min) Complex 04/25/2018 Patient Education: Patient Medication Summary Completed 04/25/2018 Visit Diagnosis Plan: Crohn's disease of both small and large intestine without complications Discussion: managed by Dr SandhuWizgu-dmpouy-jz changes at this time ICD-9 : 555.2 [...] : M75.112 12/24/2017 Appointment: Bridget Terry WPtel: [facility] [place] (15 min) Moderate 12/24/2017 Patient Education: Patient [...] intestine without complications Discussion: managed by Dr SandhuDjlsu-ssysqm-gv changes at this time ICD-9 : 555.2 ICD-10 : K50.80 06/20/2017 Visit Diagnosis Plan: Incomplete rotator cuff tear or rupture of left shoulder, not specified as traumatic Recommendations: pt is to continue exercise and strengthening and notify clinic with any changes, questions, or concerns. ICD-9 : 726.13 ICD-10 : M75.112 06/20/2017 Appointment: Bridget Terry WPtel: [address] [place], [place] [phone] [place] (30 min) Complex 06/20/2017 Patient Education: Patient Medication Summary Completed 06/20/2017 Appointment: Carmela Greenberg WPtel: [address] [place], [place] [phone] [place] (15 min) Moderate 06/19/2017 Appointment: Lab [...] his current treatment plan. 04/20/2017 Appointment: Bridget Terrytel: [facility] (30 min) Complex 04/20/2017 Patient Education: Patient Medication Summary Completed 04/20/2017 Appointment: Bridget Terry WPtel: [facility] (15 min) Moderate 04/19/2017 Appointment: Lab Draw [...] to be considered contagious. 01/02/2017 Appointment: Bridget Terrytel: [address] [place], [place] [phone] (30 min) Complex 01/02/2017 Patient Education: Patient [...] : G89.21 09/07/2016 Appointment: Bridget Terry WPtel: [facility] (30 min) Complex 09/07/2016 Patient Education: [...] : G89.21 04/21/2016 Appointment: Carmela Greenberg WPtel: [address] [place], [place] [phone] (15 min) Moderate 04/21/2016 Patient Education: Patient [...] the year. 11/30/2015 Appointment: Carmela Greenberg WPtel: [address] [place], [place] [phone] (30 min) Complex 11/30/2015 Patient Education: Patient [...] the year. 11/02/2015 Appointment: Carmela Greenberg WPtel: [phone] [place] (15 min) Moderate 11/02/2015 Patient Education: [...] with medications as directed by specialist at [facility]. I have recommended that Ba needs to stay off of work until some of this work- up is completed since some of these issues may be due to the stress of his job and lack of sleep, versus from the foramen ovale that may be shunting blood from his right to left side of his heart. referral to neurology in [place] referral to dr. villalpando - Crohn's disease [...]
--- OUTSIDE RECORDS SUMMARY | 2018-09-19 08:10 | XMS REPORT | CCD ---
Author Author Bridget Terry Organization [facility] Address [address] [place] [address] Phone Care Team Providers Care Assembler Gold Frame Name Role Phone PP Unavailable CCM Unavailable Summary Purpose Interface Exchange Insurance Providers Payer name Policy type / Coverage type Covered libertarian ID Effective Begin Date Effective End Date Blue Cross Blue [facility] Blue Cross/Blue Shield [id number] Unknown Unknown Family history Son Diagnosis Age At Onset Attention deficit hyperactivity disorder Unknown Social History Social History Element Codes Description Effective Dates Marital status Unknown Single 10/15/2015 Number of children Unknown 1 10/15/[address]: 435544452 Currently uses smokeless tobacco 10/15/2015 Alcohol history Unknown pt chooses not to answer 10/15/2015 Allergies, Adverse Reactions, Alerts Allergies, Adverse Reactions, Alerts data not found Past Medical History Illness Codes Condition Status Onset Date Resolved Date Chronic pain due to trauma ICD-9: 338.21 ICD-10: G89.21 Active 11/29/2015 Unknown Crohn's disease of both small and large intestine without complications ICD-9: 555.2 ICD-10: K50.80 Active 10/14/2015 Unknown Incomplete rotator cuff tear or rupture of right shoulder, not specified as traumatic ICD-9: 726.13 ICD-10: M75.111 Active 11/29/2015 Unknown Incomplete rotator cuff tear or rupture of left shoulder, not specified as traumatic ICD-9: 726.13 ICD-10: M75.112 Active 11/29/2015 Unknown Problems Condition Codes Effective Dates Condition Status Chronic pain due to trauma ICD-9: 338.21 ICD-10: G89.21 11/29/2015 Active Crohn's disease of both small and large intestine without complications ICD-9: 555.2 ICD-10: K50.80 10/14/2015 Active Incomplete rotator cuff tear or rupture of right shoulder, not specified as traumatic ICD-9: 726.13 ICD-10: M75.111 11/29/2015 Active Incomplete rotator cuff tear or rupture of left shoulder, not specified as traumatic ICD-9: 726.13 ICD-10: M75.112 11/29/2015 Active Medications Medication Codes Instructions Start Date Stop Date Status Fill Instructions hydrocodone 10 mg-acetaminophen 325 mg tablet RxNorm: 796374 1 Tablet(s) PO Q6-8H as needed 08/08/2016 08/30/2016 Inactive hydrocodone 10 mg-acetaminophen 325 mg tablet RxNorm: 358046 1 Tablet(s) PO Q6-8H as needed 07/12/2016 08/03/2016 Inactive hydrocodone 10 mg-acetaminophen 325 mg tablet RxNorm: 840285 1 Tablet(s) PO Q6-8H as needed 06/12/2016 07/04/2016 Inactive hydrocodone 10 mg-acetaminophen 325 mg tablet RxNorm: 964429 1 Tablet(s) PO Q6-8H as needed 05/16/2016 06/07/2016 Inactive hydrocodone 10 mg-acetaminophen 325 mg tablet RxNorm: 232462 1 Tablet(s) PO Q6-8H as needed 04/21/2016 05/12/2016 Inactive hydrocodone 10 mg-acetaminophen 325 mg tablet RxNorm: 564423 1 Tablet(s) PO Q6-8H as needed 03/23/2016 04/13/2016 Inactive hydrocodone 10 mg-acetaminophen 325 mg tablet RxNorm: 990103 1 Tablet(s) PO Q6-8H as needed 02/24/2016 03/16/2016 Inactive hydrocodone 10 mg-acetaminophen 325 mg tablet RxNorm: 327689 1 Tablet(s) PO Q6-8H 01/21/2016 02/11/2016 Inactive hydrocodone 10 mg-acetaminophen 325 mg tablet RxNorm: 910562 1 Tablet(s) PO Q6-8H 12/24/2015 01/14/2016 Inactive hydrocodone 10 mg-acetaminophen 325 mg tablet RxNorm: 786708 1 Tablet(s) PO Q6-8H 11/30/2015 12/23/2015 Inactive hydrocodone 10 mg-acetaminophen 325 mg tablet RxNorm: 804199 1 Tablet(s) PO Q6-8H 11/05/2015 11/29/2015 Inactive hydrocodone 5 mg-acetaminophen 325 mg tablet RxNorm: 359881 1-2 Tablet(s) PO Q6-8H as needed 10/26/2015 11/01/2015 Inactive omeprazole 40 mg capsule,delayed release RxNorm: 637915 1 Capsule(s) PO daily No Start Date Active Imuran 50 mg tablet RxNorm: 134533 1 Tablet(s) PO daily No Start Date Active testosterone cypionate 200 mg/mL intramuscular oil RxNorm: 163203 1 Milliliter(s) IM No Start Date Active hydrocodone 5 mg-acetaminophen 325 mg tablet RxNorm: 637198 1-2 Tablet(s) PO Q6-8H as needed No Start Date 10/25/2015 Inactive Medication Administered No Medication Administered data Immunizations No Immunization data Assessments Condition Codes Effective Dates Crohn's disease of both small and large intestine without complications ICD-10: K50.80 ICD-9: 555.2 09/07/2016 Chronic pain due to trauma ICD-10: G89.21 ICD-9: 338.21 09/07/2016 Incomplete rotator cuff tear or rupture of right shoulder, not specified as traumatic ICD-10: M75.111 ICD-9: 726.13 09/07/2016 Incomplete rotator cuff tear or rupture of left shoulder, not specified as traumatic ICD-10: M75.112 ICD-9: 726.13 09/07/2016 Reason For Visit Reason For Visit Effective Dates Notes medication follow up 09/07/2016 medication follow up 04/21/2016 medication follow up 11/30/2015 shoulder pain 11/02/2015 shoulder pain 10/15/2015 Results No Results data Review of Systems System Result Effective Dates Constitutional No recent illness 09/07/2016 Constitutional No [...] Dates Notes Full Exam - General 1994 Eyes conjunctiva/eyelids [...] No Procedures data Vital Signs Date Vital 09/07/2016 Blood Pressure 1: 140/90 Code: 8480-6 BMI: 27.4 Code: 33153-9 Heart Rate 1: 70 bpm Height: 6' SpO2: 96% Weight: 202 lbs 04/21/2016 Blood Pressure 1: 136/84 Code: 8480-6 BMI: 29.0 Code: 84075-6 Heart Rate 1: 67 bpm Height: 6' SpO2: 98% Weight: 214 lbs 11/30/2015 Blood Pressure 1: 130/80 Code: 8480-6 BMI: 29.3 Code: 95333-2 Heart Rate 1: 75 bpm Height: 6' SpO2: 98% Weight: 216 lbs 11/02/2015 Blood Pressure 1: 126/78 Code: 8480-6 BMI: 29.8 Code: 94100-5 Heart Rate 1: 69 bpm Height: 6' SpO2: 98% Weight: 220 lbs 10/15/2015 Blood Pressure 1: 132/76 Code: 8480-6 BMI: 29.8 Code: 91653-2 Heart Rate 1: 77 bpm Height: 6' SpO2: 95% Weight: 220 lbs Functional Status No Functional Status data History of Present Illness Symptom Name Status Result Effective Date Notes medication follow up Location oral intake 09/07/2016 [...] data Encounters Encounter Performer Location Codes Date EST. PATIENT, LEVEL IV Diagnosis: Chronic pain due to trauma[ICD10: G89.21] Diagnosis: Incomplete rotator cuff tear or rupture of left shoulder, not specified as traumatic[ICD10: M75.112] Diagnosis: Incomplete rotator cuff tear or rupture of right shoulder, not specified as traumatic[ICD10: M75.111] Diagnosis: Crohn's disease of both small and large intestine without complications[ICD10: K50.80] Bridget Hamm MD, [facility] CPT-4: 10489 09/07/2016 ([id number]) 70871 EST. PATIENT, LEVEL III Diagnosis: Chronic pain due to trauma[ICD10: G89.21] Diagnosis: Incomplete rotator cuff tear or rupture of left shoulder, not specified as traumatic[ICD10: M75.112] Diagnosis: Incomplete rotator cuff tear or rupture of right shoulder, not specified as traumatic[ICD10: M75.111] Diagnosis: Crohn's disease of both small and large intestine without complications[ICD10: K50.80] Carmela Hamm MD, [facility] CPT-4: 81433 04/21/2016 83549 EST. PATIENT, LEVEL IV Diagnosis: Chronic pain due to trauma[ICD10: G89.21] Diagnosis: Incomplete rotator cuff tear or rupture of right shoulder, not specified as traumatic[ICD10: M75.111] Diagnosis: Incomplete rotator cuff tear or rupture of left shoulder, not specified as traumatic[ICD10: M75.112] Bridget Hamm MD, [facility] CPT-4: 84442 11/30/2015 45032 EST. PATIENT, LEVEL IV Diagnosis: Chronic pain due to trauma[ICD10: G89.21] Diagnosis: Incomplete rotator cuff tear or rupture of right shoulder, not specified as traumatic[ICD10: M75.111] Diagnosis: Incomplete rotator cuff tear or rupture of left shoulder, not specified as traumatic[ICD10: M75.112] [facility] CPT-4: 52794 11/02/2015 ([id number]) OFFICE VISIT, NEW - LEVEL 4 Diagnosis: Incomplete rotator cuff tear or rupture of left shoulder, not specified as traumatic[ICD10: M75.112] Diagnosis: Incomplete rotator cuff tear or rupture of right shoulder, not specified as traumatic[ICD10: M75.111] Diagnosis: Crohn's disease of both small and large intestine without complications[ICD10: K50.80] [facility] CPT-4: 83109 10/15/2015 Plan of Care Planned Activity Notes Codes Status Date Appointment: Bridget Terry WPtel: [phone] ([facility] min) Complex 09/07/2016 Patient Education: Patient Medication Summary Completed 09/07/2016 Patient Education: Obesity Completed 09/07/2016 Appointment: Carmela Greenberg WPtel: [address] [place], [place] [phone] [place] (15 min) Moderate 04/21/2016 Patient Education: Patient Medication Summary Completed 04/21/2016 Patient Education: Obesity Completed 04/21/2016 Appointment: Carmela Greenberg WPtel: [phone] (30 min) Complex 11/30/2015 Patient Education: Patient Medication Summary Completed 11/30/2015 Patient Education: Obesity Completed 11/30/2015 Appointment: Carmela Greenberg WPtel: [phone] (15 min) Moderate 11/02/2015 Patient Education: Patient Medication Summary Completed 11/02/2015 Patient Education: Obesity Completed 11/02/2015 Patient Education: Patient Medication Summary Completed 10/15/2015 Patient Education: Obesity Completed 10/15/2015 Instructions No Instructions
--- OUTSIDE RECORDS SUMMARY | 2018-09-19 08:10 | XMS REPORT | CCD ---
Author Author Bridget Terry Organization [facility] Address [address] [place] [address] Phone Care Team Providers Care Charrer Name Role Phone PP Unavailable CCM Unavailable Summary Purpose Interface Exchange Insurance Providers Payer name Policy type / Coverage type Covered green party ID Effective Begin Date Effective End Date Blue Cross Blue [facility] Blue Cross/Blue Shield [id number] Unknown Unknown Family history Son Diagnosis Age At Onset Attention deficit hyperactivity disorder Unknown Social History Social History Element Codes Description Effective Dates Marital status Unknown Single 10/15/2015 Number of children Unknown 1 10/15/[address]: 018807972 Currently uses smokeless tobacco 10/15/2015 Alcohol history [...] hydrocodone 10 mg-acetaminophen 325 mg tablet RxNorm: 337504 1 Tablet(s) PO Q6-8H as needed 10/09/2016 10/31/2016 Active hydrocodone 10 mg-acetaminophen 325 mg tablet RxNorm: 987681 1 Tablet(s) PO Q6-8H as needed 08/08/2016 08/30/2016 Inactive hydrocodone 10 mg-acetaminophen 325 mg tablet RxNorm: 176766 1 Tablet(s) PO Q6-8H as needed 07/12/2016 08/03/2016 Inactive hydrocodone 10 mg-acetaminophen 325 mg tablet RxNorm: 160025 1 Tablet(s) PO Q6-8H as needed 06/12/2016 07/04/2016 Inactive hydrocodone 10 mg-acetaminophen 325 mg tablet RxNorm: 217626 1 Tablet(s) PO Q6-8H as needed 05/16/2016 06/07/2016 Inactive hydrocodone 10 mg-acetaminophen 325 mg tablet RxNorm: 748345 1 Tablet(s) PO Q6-8H as needed 04/21/2016 05/12/2016 Inactive hydrocodone 10 mg-acetaminophen 325 mg tablet RxNorm: 501733 1 Tablet(s) PO Q6-8H as needed 03/23/2016 04/13/2016 Inactive hydrocodone 10 mg-acetaminophen 325 mg tablet RxNorm: 422210 1 Tablet(s) PO Q6-8H as needed 02/24/2016 03/16/2016 Inactive hydrocodone 10 mg-acetaminophen 325 mg tablet RxNorm: 660878 1 Tablet(s) PO Q6-8H 01/21/2016 02/11/2016 Inactive hydrocodone 10 mg-acetaminophen 325 mg tablet RxNorm: 424283 1 Tablet(s) PO Q6-8H 12/24/2015 01/14/2016 Inactive hydrocodone 10 mg-acetaminophen 325 mg tablet RxNorm: 454461 1 Tablet(s) PO Q6-8H 11/30/2015 12/23/2015 Inactive hydrocodone 10 mg-acetaminophen 325 mg tablet RxNorm: 632209 1 Tablet(s) PO Q6-8H 11/05/2015 11/29/2015 Inactive hydrocodone 5 mg-acetaminophen 325 mg tablet RxNorm: 155063 1-2 Tablet(s) PO Q6-8H as needed 10/26/2015 11/01/2015 Inactive omeprazole 40 mg capsule,delayed release RxNorm: 281994 1 Capsule(s) PO daily No Start Date Active Imuran 50 mg tablet RxNorm: 554268 1 Tablet(s) PO daily No Start Date Active testosterone cypionate 200 mg/mL intramuscular oil RxNorm: 833470 1 Milliliter(s) IM No Start Date Active hydrocodone 5 mg-acetaminophen 325 mg tablet RxNorm: 230791 1-2 Tablet(s) PO Q6-8H as needed No [...] 1: 140/90 Code: 8480-6 BMI: 27.4 Code: 13432-9 Heart Rate 1: 70 bpm Height: 6' SpO2: 96% Weight: 202 lbs 04/21/2016 Blood Pressure 1: 136/84 Code: 8480-6 BMI: 29.0 Code: 21131-9 Heart Rate 1: 67 bpm Height: 6' SpO2: 98% Weight: 214 lbs 11/30/2015 Blood Pressure 1: 130/80 Code: 8480-6 BMI: 29.3 Code: 26808-8 Heart Rate 1: 75 bpm Height: 6' SpO2: 98% Weight: 216 lbs 11/02/2015 Blood Pressure 1: 126/78 Code: 8480-6 BMI: 29.8 Code: 48190-5 Heart Rate 1: 69 bpm Height: 6' SpO2: 98% Weight: 220 lbs 10/15/2015 Blood Pressure 1: 132/76 Code: 8480-6 BMI: 29.8 Code: 73127-4 Heart Rate 1: 77 bpm Height: 6' [...] intestine without complications[ICD10: K50.80] Bridget Hamm MD, [facility] CPT-4: 63490 09/07/2016 ([id number]) 08344 EST. PATIENT, LEVEL III Diagnosis: Chronic pain due to trauma[ICD10: G89.21] Diagnosis: Incomplete rotator cuff tear or rupture of left shoulder, not specified as traumatic[ICD10: M75.112] Diagnosis: Incomplete rotator cuff tear or rupture of right shoulder, not specified as traumatic[ICD10: M75.111] Diagnosis: Crohn's disease of both small and large intestine without complications[ICD10: K50.80] Carmela Hamm MD, [facility] CPT-4: 62665 04/21/2016 23889 EST. PATIENT, LEVEL IV Diagnosis: Chronic pain due to trauma[ICD10: G89.21] Diagnosis: Incomplete rotator cuff tear or rupture of right shoulder, not specified as traumatic[ICD10: M75.111] Diagnosis: Incomplete rotator cuff tear or rupture of left shoulder, not specified as traumatic[ICD10: M75.112] Bridget Hamm MD, [facility] CPT-4: 27646 11/30/2015 17076 EST. PATIENT, LEVEL IV Diagnosis: Chronic pain due to trauma[ICD10: G89.21] Diagnosis: Incomplete rotator cuff tear or rupture of right shoulder, not specified as traumatic[ICD10: M75.111] Diagnosis: Incomplete rotator cuff tear or rupture of left shoulder, not specified as traumatic[ICD10: M75.112] [facility] CPT-4: 15394 11/02/2015 ([id number]) OFFICE VISIT, NEW - LEVEL 4 Diagnosis: Incomplete rotator cuff tear or rupture of left shoulder, not specified as traumatic[ICD10: M75.112] Diagnosis: Incomplete rotator cuff tear or rupture of right shoulder, not specified as traumatic[ICD10: M75.111] Diagnosis: Crohn's disease of both small and large intestine without complications[ICD10: K50.80] [facility] CPT-4: 27131 10/15/2015 Plan of Care Planned Activity Notes Codes Status Date Appointment: Bridget Terry WPtel: [address] [place], [place] [phone] (30 min) Complex 09/07/2016 Patient Education: Patient Medication Summary Completed 09/07/2016 Patient Education: Obesity Completed 09/07/2016 Appointment: Carmela Greenberg WPtel: [phone] (15 min) Moderate 04/21/2016 Patient Education: Patient [...] in the patient's termination from this medical practice.Pt states that he has done PT before - pt states that he is planning to have surgery after the first of the year. 11/30/2015 Appointment: Carmela Greenberg WPtel: [address] [phone] [place] [address] (30 min) [facility] 11/30/2015 Patient Education: Patient Medication Summary Completed [...] in the patient's termination from this medical practice.Will refer to physical therapy - pt states that he is planning to have surgery after the first of the year. 11/02/2015 Appointment: Carmela Greenberg WPtel: [address] [phone] (15 min) [facility] 11/02/2015 Patient Education: Patient Medication Summary Completed [...] in the patient's termination from this medical practice.Well Adult - pt was counseled about diet, exercise, and encouraged to follow a heart healthy diet and increase activity level. The patient was instructed to RTC yearly for well adult exams and PRN for acute illnesses. The pt was also instructed to have yearly labs for check of cholesterol, thyroid, chem panel, CBC, and renal functioning.Crohn's - sees specialist, no changes at this time. 10/15/2015 Patient Education: Patient Medication Summary Completed 10/15/2015 Patient Education: Obesity Completed 10/15/2015 Instructions Comment . Bilateral rotator cuff tear [...] sees specialist, no changes at this time. . Bilateral rotator cuff tear - the [...]
--- OUTSIDE RECORDS SUMMARY | 2018-09-19 08:11 | XMS REPORT | CCD ---
Author Author Bridget Terry Organization [facility] Address [address] [place] [address] Phone Care Team Providers Care Hotel Operations Manager Name Role Phone PP Unavailable CCM Unavailable Summary Purpose Interface Exchange Insurance Providers Payer name Policy type / Coverage type Covered constitution party ID Effective Begin Date Effective End Date Blue Cross Blue [facility] Blue Cross/Blue Shield [id number] Unknown Unknown Family history Son Diagnosis Age At Onset Attention deficit hyperactivity disorder Unknown Social History Social History Element Codes Description Effective Dates Marital status Unknown Single 10/15/2015 Number of children Unknown 1 10/15/[address]: 461824221 Currently uses smokeless tobacco 10/15/2015 Alcohol history [...] hydrocodone 10 mg-acetaminophen 325 mg tablet RxNorm: 709096 1 Tablet(s) PO Q6-8H as needed 08/08/2016 08/30/2016 Inactive hydrocodone 10 mg-acetaminophen 325 mg tablet RxNorm: 188419 1 Tablet(s) PO Q6-8H as needed 07/12/2016 08/03/2016 Inactive hydrocodone 10 mg-acetaminophen 325 mg tablet RxNorm: 289651 1 Tablet(s) PO Q6-8H as needed 06/12/2016 07/04/2016 Inactive hydrocodone 10 mg-acetaminophen 325 mg tablet RxNorm: 037245 1 Tablet(s) PO Q6-8H as needed 05/16/2016 06/07/2016 Inactive hydrocodone 10 mg-acetaminophen 325 mg tablet RxNorm: 869784 1 Tablet(s) PO Q6-8H as needed 04/21/2016 05/12/2016 Inactive hydrocodone 10 mg-acetaminophen 325 mg tablet RxNorm: 982243 1 Tablet(s) PO Q6-8H as needed 03/23/2016 04/13/2016 Inactive hydrocodone 10 mg-acetaminophen 325 mg tablet RxNorm: 056328 1 Tablet(s) PO Q6-8H as needed 02/24/2016 03/16/2016 Inactive hydrocodone 10 mg-acetaminophen 325 mg tablet RxNorm: 623894 1 Tablet(s) PO Q6-8H 01/21/2016 02/11/2016 Inactive hydrocodone 10 mg-acetaminophen 325 mg tablet RxNorm: 078929 1 Tablet(s) PO Q6-8H 12/24/2015 01/14/2016 Inactive hydrocodone 10 mg-acetaminophen 325 mg tablet RxNorm: 739138 1 Tablet(s) PO Q6-8H 11/30/2015 12/23/2015 Inactive hydrocodone 10 mg-acetaminophen 325 mg tablet RxNorm: 208201 1 Tablet(s) PO Q6-8H 11/05/2015 11/29/2015 Inactive hydrocodone 5 mg-acetaminophen 325 mg tablet RxNorm: 280864 1-2 Tablet(s) PO Q6-8H as needed 10/26/2015 11/01/2015 Inactive omeprazole 40 mg capsule,delayed release RxNorm: 359315 1 Capsule(s) PO daily No Start Date Active Imuran 50 mg tablet RxNorm: 949127 1 Tablet(s) PO daily No Start Date Active testosterone cypionate 200 mg/mL intramuscular oil RxNorm: 841968 1 Milliliter(s) IM No Start Date Active hydrocodone 5 mg-acetaminophen 325 mg tablet RxNorm: 609239 1-2 Tablet(s) PO Q6-8H as needed No [...] 1: 140/90 Code: 8480-6 BMI: 27.4 Code: 48448-1 Heart Rate 1: 70 bpm Height: 6' SpO2: 96% Weight: 202 lbs 04/21/2016 Blood Pressure 1: 136/84 Code: 8480-6 BMI: 29.0 Code: 57091-7 Heart Rate 1: 67 bpm Height: 6' SpO2: 98% Weight: 214 lbs 11/30/2015 Blood Pressure 1: 130/80 Code: 8480-6 BMI: 29.3 Code: 31853-3 Heart Rate 1: 75 bpm Height: 6' SpO2: 98% Weight: 216 lbs 11/02/2015 Blood Pressure 1: 126/78 Code: 8480-6 BMI: 29.8 Code: 55250-5 Heart Rate 1: 69 bpm Height: 6' SpO2: 98% Weight: 220 lbs 10/15/2015 Blood Pressure 1: 132/76 Code: 8480-6 BMI: 29.8 Code: 09555-1 Heart Rate 1: 77 bpm Height: 6' [...] intestine without complications[ICD10: K50.80] Bridget Hamm MD, [facility] CPT-4: 00929 09/07/2016 ([id number]) 63583 EST. PATIENT, LEVEL III Diagnosis: Chronic pain due to trauma[ICD10: G89.21] Diagnosis: Incomplete rotator cuff tear or rupture of left shoulder, not specified as traumatic[ICD10: M75.112] Diagnosis: Incomplete rotator cuff tear or rupture of right shoulder, not specified as traumatic[ICD10: M75.111] Diagnosis: Crohn's disease of both small and large intestine without complications[ICD10: K50.80] Carmela Hamm MD, [facility] CPT-4: 96771 04/21/2016 47977 EST. PATIENT, LEVEL IV Diagnosis: Chronic pain due to trauma[ICD10: G89.21] Diagnosis: Incomplete rotator cuff tear or rupture of right shoulder, not specified as traumatic[ICD10: M75.111] Diagnosis: Incomplete rotator cuff tear or rupture of left shoulder, not specified as traumatic[ICD10: M75.112] Bridget Hamm MD, [facility] CPT-4: 88335 11/30/2015 24471 EST. PATIENT, LEVEL IV Diagnosis: Chronic pain due to trauma[ICD10: G89.21] Diagnosis: Incomplete rotator cuff tear or rupture of right shoulder, not specified as traumatic[ICD10: M75.111] Diagnosis: Incomplete rotator cuff tear or rupture of left shoulder, not specified as traumatic[ICD10: M75.112] [facility] CPT-4: 42989 11/02/2015 ([id number]) OFFICE VISIT, NEW - LEVEL 4 Diagnosis: Incomplete rotator cuff tear or rupture of left shoulder, not specified as traumatic[ICD10: M75.112] Diagnosis: Incomplete rotator cuff tear or rupture of right shoulder, not specified as traumatic[ICD10: M75.111] Diagnosis: Crohn's disease of both small and large intestine without complications[ICD10: K50.80] [facility] CPT-4: 44119 10/15/2015 Plan of Care Planned Activity Notes Codes Status Date Patient Education: Patient Medication Summary Completed 09/07/2016 Patient Education: Obesity Completed 09/07/2016 Appointment: Carmela Greenberg WPtel: [address] [place], [place] [phone] (15 min) Moderate 04/21/2016 Patient Education: Patient Medication Summary Completed 04/21/2016 Patient Education: Obesity Completed 04/21/2016 Appointment: Carmela Greenberg WPtel: [address] [place], [place] [phone] (30 min) Complex 11/30/2015 Patient Education: Patient Medication Summary Completed 11/30/2015 Patient Education: Obesity Completed 11/30/2015 Appointment: Carmela Greenberg WPtel: [address] [place], [place] [phone] (15 min) Moderate 11/02/2015 Patient Education: Patient Medication Summary Completed 11/02/2015 Patient Education: Obesity Completed 11/02/2015 Patient Education: Patient Medication Summary Completed 10/15/2015 Patient Education: Obesity Completed 10/15/2015 Instructions No Instructions
--- OUTSIDE RECORDS SUMMARY | 2018-09-19 08:12 | XMS REPORT | CCD ---
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 Name Role Phone PP Unavailable CCM Unavailable Summary Purpose Interface Exchange Insurance Providers Payer name Policy type / Coverage type Covered green party ID Effective Begin Date Effective End Date Blue Cross Blue [facility] Blue Cross/Blue [facility] [id number] Unknown Unknown Family history Son Diagnosis Age At Onset Attention deficit hyperactivity disorder Unknown Social History Social History Element Codes Description Effective Dates Marital status Unknown Consuelo 04/25/2018 Number of children Unknown 1 10/15/[address]: 873258355 Currently uses smokeless tobacco 10/15/2015 Alcohol history Unknown pt chooses not to answer 10/15/2015 Allergies, Adverse Reactions, Alerts Substance Reaction Codes Entered Date Inactivated Date Status * NO KNOWN DRUG ALLERGIES Unknown 10/15/2015 No Inactive Date Active Past Medical History Illness Codes Condition Status Onset Date Resolved Date Atrial septal defect ICD- 9: 745.5 ICD-10: Q21.1 Active 07/11/2018 Unknown Essential (primary) hypertension ICD-9: 401.1 ICD-10: I10 Active 07/25/2018 Unknown 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 [...] Problems Condition Codes Effective Dates Condition Status Atrial septal defect ICD- 9: 745.5 ICD-10: Q21.1 07/11/2018 Active Essential (primary) hypertension ICD-9: 401.1 ICD-10: I10 07/25/2018 Active 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 [...] Fill Instructions lisinopril 20 mg tablet RxNorm: 508807 1 Tablet(s) PO daily 07/25/2018 02/19/2019 Active atorvastatin 10 mg tablet RxNorm: 575139 1 Tablet(s) PO QHS 07/25/2018 02/19/2019 Active hydrocodone 10 mg-acetaminophen 325 mg tablet RxNorm: 251783 1 Tablet(s) PO Q6-8H as needed 07/15/2018 08/06/2018 Active hydrocodone 10 mg-acetaminophen 325 mg tablet RxNorm: 895988 1 Tablet(s) PO Q6-8H as needed 06/18/2018 07/10/2018 Inactive hydrocodone 10 mg-acetaminophen 325 mg tablet RxNorm: 960012 1 Tablet(s) PO Q6-8H as needed 05/22/2018 06/13/2018 Inactive testosterone cypionate 200 mg/mL intramuscular oil RxNorm: 2263417 1 Milliliter(s) IM monthly 05/01/2018 08/28/2018 Active cyanocobalamin (vit B-12) 1,000 mcg/mL injection solution RxNorm: 843761 1 Milliliter(s) Inj monthly 05/01/2018 08/28/2018 Active Please provide syringes and needles for him to administer cyanocobalamin (vit B-12) 1,000 mcg/mL injection solution RxNorm: 130977 1 Milliliter(s) Inj monthly 05/01/2018 04/30/2018 Inactive testosterone cypionate 200 mg/mL intramuscular oil RxNorm: 4241720 1 Milliliter(s) IM monthly 05/01/2018 04/30/2018 Inactive hydrocodone 10 mg-acetaminophen 325 mg tablet RxNorm: 696307 1 Tablet(s) PO Q6-8H as needed 04/25/2018 05/17/2018 Inactive hydrocodone 10 mg-acetaminophen 325 mg tablet RxNorm: 140695 1 Tablet(s) PO Q6-8H as needed 04/01/2018 04/23/2018 Inactive hydrocodone 10 mg-acetaminophen 325 mg tablet RxNorm: 282676 1 Tablet(s) PO Q6-8H as needed 03/05/2018 03/27/2018 Inactive hydrocodone 10 mg-acetaminophen 325 mg tablet RxNorm: 822656 1 Tablet(s) PO Q6-8H as needed 02/11/2018 03/04/2018 Inactive hydrocodone 10 mg-acetaminophen 325 mg tablet RxNorm: 738990 1 Tablet(s) PO Q6-8H as needed 01/18/2018 02/09/2018 Inactive hydrocodone 10 mg-acetaminophen 325 mg tablet RxNorm: 449023 1 Tablet(s) PO Q6-8H as needed 12/24/2017 01/15/2018 Inactive hydrocodone 10 mg-acetaminophen 325 mg tablet RxNorm: 100170 1 Tablet(s) PO Q6-8H as needed 11/30/2017 12/22/2017 Inactive hydrocodone 10 mg-acetaminophen 325 mg tablet RxNorm: 806955 1 Tablet(s) PO Q6-8H as needed 11/06/2017 11/28/2017 Inactive hydrocodone 10 mg-acetaminophen 325 mg tablet RxNorm: 770769 1 Tablet(s) PO Q6-8H as needed 10/11/2017 11/02/2017 Inactive hydrocodone 10 mg-acetaminophen 325 mg tablet RxNorm: 907935 1 Tablet(s) PO Q6-8H as needed 09/12/2017 10/04/2017 Inactive hydrocodone 10 mg-acetaminophen 325 mg tablet RxNorm: 496574 1 Tablet(s) PO Q6-8H as needed 08/16/2017 09/07/2017 Inactive hydrocodone 10 mg-acetaminophen 325 mg tablet RxNorm: 919858 1 Tablet(s) PO Q6-8H as needed 07/19/2017 08/10/2017 Inactive oxycodone-acetaminophen 7.5 mg-325 mg tablet RxNorm: 3392569 1 Tablet(s) PO Q6-8H as needed 06/29/2017 07/18/2017 Inactive hydrocodone 10 mg-acetaminophen 325 mg tablet RxNorm: 401474 1 Tablet(s) PO Q6-8H as needed 06/01/2017 06/17/2017 Inactive hydrocodone 10 mg-acetaminophen 325 mg tablet RxNorm: 143618 1 Tablet(s) PO Q6-8H as needed 05/09/2017 05/30/2017 Inactive Cipro 500 mg tablet RxNorm: 286561 1 Tablet(s) PO BID 04/20/2017 04/29/2017 Inactive prednisone 10 mg tablet RxNorm: 328164 Tablet(s) PO 04/20/2017 03/04/2018 Inactive 6,5,4,3,2,1 Flagyl 500 mg tablet RxNorm: 815552 1 Tablet(s) PO TID 04/20/2017 04/29/2017 Inactive hydrocodone 10 mg-acetaminophen 325 mg tablet RxNorm: 879575 1 Tablet(s) PO Q6-8H as needed 04/09/2017 05/01/2017 Inactive hydrocodone 10 mg-acetaminophen 325 mg tablet RxNorm: 924702 1 Tablet(s) PO Q6-8H as needed 03/07/2017 03/29/2017 Inactive hydrocodone 10 mg-acetaminophen 325 mg tablet RxNorm: 189663 1 Tablet(s) PO Q6-8H as needed 02/01/2017 02/23/2017 Inactive lidocaine 3 % lotion RxNorm: 9593765 1 Application TOP BID as needed 01/03/2017 No Stop Date Active acyclovir 800 mg tablet RxNorm: 874394 1 Tablet(s) PO 5 x a day 01/02/2017 01/08/2017 Inactive hydrocodone 10 mg-acetaminophen 325 mg tablet RxNorm: 371203 1 Tablet(s) PO Q6-8H as needed 12/06/2016 12/28/2016 Inactive hydrocodone 10 mg-acetaminophen 325 mg tablet RxNorm: 690831 1 Tablet(s) PO Q6-8H as needed 12/04/2016 12/05/2016 Inactive hydrocodone 10 mg-acetaminophen 325 mg tablet RxNorm: 110643 1 Tablet(s) PO Q6-8H as needed 11/08/2016 11/30/2016 Inactive hydrocodone 10 mg-acetaminophen 325 mg tablet RxNorm: 970115 1 Tablet(s) PO Q6-8H as needed 10/09/2016 10/31/2016 Inactive hydrocodone 10 mg-acetaminophen 325 mg tablet RxNorm: 918624 1 Tablet(s) PO Q6-8H as needed 08/08/2016 08/30/2016 Inactive hydrocodone 10 mg-acetaminophen 325 mg tablet RxNorm: 873023 1 Tablet(s) PO Q6-8H as needed 07/12/2016 08/03/2016 Inactive hydrocodone 10 mg-acetaminophen 325 mg tablet RxNorm: 080215 1 Tablet(s) PO Q6-8H as needed 06/12/2016 07/04/2016 Inactive hydrocodone 10 mg-acetaminophen 325 mg tablet RxNorm: 879697 1 Tablet(s) PO Q6-8H as needed 05/16/2016 06/07/2016 Inactive hydrocodone 10 mg-acetaminophen 325 mg tablet RxNorm: 000626 1 Tablet(s) PO Q6-8H as needed 04/21/2016 05/12/2016 Inactive hydrocodone 10 mg-acetaminophen 325 mg tablet RxNorm: 904887 1 Tablet(s) PO Q6-8H as needed 03/23/2016 04/13/2016 Inactive hydrocodone 10 mg-acetaminophen 325 mg tablet RxNorm: 597909 1 Tablet(s) PO Q6-8H as needed 02/24/2016 03/16/2016 Inactive hydrocodone 10 mg-acetaminophen 325 mg tablet RxNorm: 708369 1 Tablet(s) PO Q6-8H 01/21/2016 02/11/2016 Inactive hydrocodone 10 mg-acetaminophen 325 mg tablet RxNorm: 196970 1 Tablet(s) PO Q6-8H 12/24/2015 01/14/2016 Inactive hydrocodone 10 mg-acetaminophen 325 mg tablet RxNorm: 318858 1 Tablet(s) PO Q6-8H 11/30/2015 12/23/2015 Inactive hydrocodone 10 mg-acetaminophen 325 mg tablet RxNorm: 763765 1 Tablet(s) PO Q6-8H 11/05/2015 11/29/2015 Inactive hydrocodone 5 mg-acetaminophen 325 mg tablet RxNorm: 039192 1-2 Tablet(s) PO Q6-8H as needed 10/26/2015 11/01/2015 Inactive omeprazole 40 mg capsule,delayed release RxNorm: 951702 1 Capsule(s) PO daily No Start Date Active Imuran 50 mg tablet RxNorm: 595868 1 Tablet(s) PO daily No Start Date Active testosterone cypionate 200 mg/mL intramuscular oil RxNorm: 466883 1 Milliliter(s) IM No Start Date Active lidocaine 3 % lotion RxNorm: 4835238 1 Application TOP BID as needed No Start Date 01/02/2017 Inactive hydrocodone 5 mg-acetaminophen 325 mg tablet RxNorm: 829108 1-2 Tablet(s) PO Q6-8H as needed No Start Date 10/25/2015 Inactive Medication Administered No Medication Administered data Immunizations No Immunization data Assessments Condition Codes Effective Dates Atrial septal defect ICD-10: Q21.1 ICD-9: 745.5 07/25/2018 Essential (primary) hypertension ICD-10: I10 ICD-9: 401.1 07/25/2018 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 [...] Result Date QuantiFERON?-TB Gold Plus (Client Incubated) [id number] QUANTIFERON CRITERIA COMMENT 07/01/2018 QuantiFERON?-TB Gold Plus (Client Incubated) [id number] QUANTIFERON TB1 AG VALUE 0.01 IU/ML 07/01/2018 QuantiFERON?-TB Gold Plus (Client Incubated) 667772 QUANTIFERON TB2 AG VALUE 0.01 IU/ML 07/01/2018 QuantiFERON?-TB Gold Plus (Client Incubated) 390340 QUANTIFERON NIL VALUE 0.01 IU/ML 07/01/2018 QuantiFERON?-TB Gold Plus (Client Incubated) [id number] QUANTIFERON MITOGEN VALUE >10.00 IU/ML 07/01/2018 QuantiFERON?-TB Gold Plus (Client Incubated) [id number] QUANTIFERON-TB GOLD PLUS NEGATIVE 07/01/2018 B12 Yen557 B12 113.00 pg/ml 04/30/2018 Testosterone Ihm299 Testo 198.8 ng/dL 04/30/2018 Comp Metabolic Rii175 NA 143 mEq/L 04/30/2018 Comp Metabolic Kgr152 K 3.8 mEq/L 04/30/2018 Comp Metabolic Dkd073 CL 108 mEq/L 04/30/2018 Comp Metabolic Qwu968 CO2 29.0 mEq/L 04/30/2018 Comp Metabolic Amb330 ANION GAP 10 04/30/2018 Comp Metabolic Eae544 GLUCOSE 94 mg/dL 04/30/2018 Comp Metabolic Pim365 Creat 0.8 mg/dL 04/30/2018 Comp Metabolic Acu774 eGFR 110 ml/min/1.73m2 04/30/2018 Comp Metabolic Oxb240 BUN 13 mg/dL 04/30/2018 Comp Metabolic Wps334 B/C Ratio 16.0 Ratio 04/30/2018 Comp Metabolic Wgc853 CALCIUM 9.2 mg/dL 04/30/2018 Comp Metabolic Jaz567 ALK PHOS 62 U/L 04/30/2018 Comp Metabolic Fuq997 AST(SGOT) 16 U/L 04/30/2018 Comp Metabolic Fch101 ALT(SGPT) 15 U/L 04/30/2018 Comp Metabolic Wtn971 BILI T 0.9 mg/dL 04/30/2018 Comp Metabolic Uyq212 ALBUMIN 4.1 g/dL 04/30/2018 Comp Metabolic Rsc276 TPRO 6.2 g/dL 04/30/2018 Comp Metabolic Mnv976 GLOB 2.1 g/dL 04/30/2018 Comp Metabolic Xlm028 A/G Ratio 1.9 Ratio 04/30/2018 Comp Metabolic Yeb628 Osmo 285 mOsmo 04/30/2018 Cbc With Differential [...] 31.3 pg 04/30/2018 Cbc With Differential Ord2 Johnson% 8.5 % 04/30/2018 Cbc With Differential Ord2 [...] 0.80 K/ul 04/30/2018 Cbc With Differential Ord2 Johnson ABS# 0.5 K/ul 04/30/2018 Cbc With Differential [...] 31.3 pg 04/20/2017 Cbc With Differential Ord2 Johnson% 18.6 % 04/20/2017 Cbc With Differential Ord2 [...] 0.67 K/ul 04/20/2017 Cbc With Differential Ord2 Johnson ABS# 1.2 K/ul 04/20/2017 Cbc With Differential Ord2 Eos ABS# 0.1 K/ul 04/20/2017 Cbc With Differential Ord2 Baso ABS# 0.0 K/ul 04/20/2017 Comp Metabolic Sny456 NA 142 mEq/L 04/20/2017 Comp Metabolic Wla836 K 4.2 mEq/L 04/20/2017 Comp Metabolic Ith916 CL 104 mEq/L 04/20/2017 Comp Metabolic Wgh923 CO2 28.0 mEq/L 04/20/2017 Comp Metabolic Pxq138 ANION GAP 14 04/20/2017 Comp Metabolic Cja215 GLUCOSE 73 mg/dL 04/20/2017 Comp Metabolic Zsi583 Creat 1.2 mg/dL 04/20/2017 Comp Metabolic Xyl483 eGFR 68 ml/min/1.73m2 04/20/2017 Comp Metabolic Ukm909 BUN 9 mg/dL 04/20/2017 Comp Metabolic Yhq595 B/C Ratio 7.3 Ratio 04/20/2017 Comp Metabolic Smg864 CALCIUM 9.5 mg/dL 04/20/2017 Comp Metabolic Hrn028 ALK PHOS 57 U/L 04/20/2017 Comp Metabolic Mku688 AST(SGOT) 16 U/L 04/20/2017 Comp Metabolic Kwb828 ALT(SGPT) 14 U/L 04/20/2017 Comp Metabolic Uot045 BILI T 0.6 mg/dL 04/20/2017 Comp Metabolic Fvv244 ALBUMIN 4.0 g/dL 04/20/2017 Comp Metabolic Cvd310 TPRO 7.0 g/dL 04/20/2017 Comp Metabolic Kvz186 GLOB 3.0 g/dL 04/20/2017 Comp Metabolic Jhr036 A/G Ratio 1.3 Ratio 04/20/2017 Comp Metabolic Tgv590 Osmo 280 mOsmo 04/20/2017 Review of Systems [...] No Procedures data Vital Signs Date Vital 07/25/2018 Blood Pressure 1: 140/88 Code: 8480-6 BMI: 25.5 Code: 07488-2 Height: 6' Weight: 188 lbs 07/23/2018 Height: Weight: 07/11/2018 Blood Pressure 1: 148/82 Code: 8480-6 Blood Pressure 1: 126/74 Code: 8480-6 BMI: 25.1 Code: 47540-5 Heart Rate 1: 75 bpm Height: 6' SpO2: 98% Weight: 185 lbs 04/25/2018 Blood Pressure 1: 146/88 Code: 8480-6 BMI: 25.2 Code: 51596-5 Heart Rate 1: 94 bpm Height: 6' SpO2: 95% Weight: 186 lbs 12/24/2017 Blood Pressure 1: 134/90 Code: 8480-6 BMI: 25.8 Code: 55687-2 Heart Rate 1: 64 bpm Height: 6' SpO2: 99% Weight: 190 lbs 06/20/2017 Blood Pressure 1: 130/86 Code: 8480-6 BMI: 27.1 Code: 05548-1 Heart Rate 1: 74 bpm Height: 6' SpO2: 98% Weight: 200 lbs 04/20/2017 Blood Pressure 1: 136/80 Code: 8480-6 BMI: 27.1 Code: 65186-6 Heart Rate 1: 100 bpm Height: 6' SpO2: 95% Temperature: 36.9 (C) / 98.4 (F) Weight: 200 lbs 01/02/2017 Blood Pressure 1: 120/78 Code: 8480-6 BMI: 28.3 Code: 50235-3 Heart Rate 1: 79 bpm Height: 6' SpO2: 98% Weight: 209 lbs 09/07/2016 Blood Pressure 1: 140/90 Code: 8480-6 BMI: 27.4 Code: 54450-5 Heart Rate 1: 70 bpm Height: 6' SpO2: 96% Weight: 202 lbs 04/21/2016 Blood Pressure 1: 136/84 Code: 8480-6 BMI: 29.0 Code: 32077-8 Heart Rate 1: 67 bpm Height: 6' SpO2: 98% Weight: 214 lbs 11/30/2015 Blood Pressure 1: 130/80 Code: 8480-6 BMI: 29.3 Code: 81611-6 Heart Rate 1: 75 bpm Height: 6' SpO2: 98% Weight: 216 lbs 11/02/2015 Blood Pressure 1: 126/78 Code: 8480-6 BMI: 29.8 Code: 55789-6 Heart Rate 1: 69 bpm Height: 6' SpO2: 98% Weight: 220 lbs 10/15/2015 Blood Pressure 1: 132/76 Code: 8480-6 BMI: 29.8 Code: 67488-2 Heart Rate 1: 77 bpm Height: 6' [...] data Encounters Encounter Performer Location Codes Date ([id number]) 75419 EST. PATIENT, LEVEL IV Diagnosis: Essential (primary) hypertension[ICD10: I10] Diagnosis: Atrial septal defect[ICD10: Q21.1] Diagnosis: 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 or stenosis of small artery[ICD10: I63.81] [facility] CPT-4: 42478 07/25/2018 78645 EST. PATIENT, LEVEL III Diagnosis: 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 or stenosis of small artery[ICD10: I63.81] Diagnosis: Atrial septal defect[ICD10: Q21.1] [facility] CPT-4: 41333 07/23/2018 ([id number]) 98521 EST. PATIENT, LEVEL IV Diagnosis: Crohn's disease of both small and large intestine without complications[ICD10: K50.80] Diagnosis: 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 or stenosis of small artery[ICD10: I63.81] Diagnosis: Atrial septal defect[ICD10: Q21.1] [facility] CPT- 4: 60748 07/11/2018 ([id number]) 45875 EST. PATIENT, LEVEL IV Diagnosis: Crohn's disease of both small and large intestine without complications[ICD10: K50.80] Diagnosis: Testicular hypofunction[ICD10: E29.1] Diagnosis: Incomplete rotator cuff tear or rupture of right shoulder, not specified as traumatic[ICD10: M75.111] Diagnosis: Chronic pain due to trauma[ICD10: G89.21] Carmela Hamm MD, [facility] CPT-4: 14672 04/25/2018 89158 EST. PATIENT, LEVEL III Diagnosis: Chronic pain due to trauma[ICD10: G89.21] Diagnosis: Incomplete rotator cuff tear or rupture of left shoulder, not specified as traumatic[ICD10: M75.112] Diagnosis: Incomplete rotator cuff tear or rupture of right shoulder, not specified as traumatic[ICD10: M75.111] Diagnosis: Crohn's disease of both small and large intestine without complications[ICD10: K50.80] Bridget Hamm MD, [facility] CPT-4: 14057 12/24/2017 37306 EST. PATIENT, LEVEL III Diagnosis: Chronic pain due to trauma[ICD10: G89.21] Diagnosis: Incomplete rotator cuff tear or rupture of left shoulder, not specified as traumatic[ICD10: M75.112] Diagnosis: Incomplete rotator cuff tear or rupture of right shoulder, not specified as traumatic[ICD10: M75.111] Diagnosis: Crohn's disease of both small and large intestine without complications[ICD10: K50.80] Bridget Hamm MD, [facility] CPT-4: 29867 06/20/2017 57181 EST. PATIENT, LEVEL IV Diagnosis: Crohn's disease of both small and large intestine without complications[ICD10: K50.80] Bridget Hamm MD, [facility] CPT-4: 74901 04/20/2017 95225 EST. PATIENT, LEVEL III Diagnosis: Zoster without complications[ICD10: B02.9] Bridget Hamm MD, [facility] CPT-4: 89382 01/02/2017 24832 EST. PATIENT, LEVEL IV Diagnosis: Chronic pain due to trauma[ICD10: G89.21] Diagnosis: Incomplete rotator cuff tear or rupture of left shoulder, not specified as traumatic[ICD10: M75.112] Diagnosis: Incomplete rotator cuff tear or rupture of right shoulder, not specified as traumatic[ICD10: M75.111] Diagnosis: Crohn's disease of both small and large intestine without complications[ICD10: K50.80] [facility] CPT-4: 56465 09/07/2016 ([id number]) 53846 EST. PATIENT, LEVEL III Diagnosis: Chronic pain due to trauma[ICD10: G89.21] Diagnosis: Incomplete rotator cuff tear or rupture of left shoulder, not specified as traumatic[ICD10: M75.112] Diagnosis: Incomplete rotator cuff tear or rupture of right shoulder, not specified as traumatic[ICD10: M75.111] Diagnosis: Crohn's disease of both small and large intestine without complications[ICD10: K50.80] [facility] CPT-4: 58167 04/21/2016 04546 EST. PATIENT, LEVEL IV Diagnosis: Chronic pain due to trauma[ICD10: G89.21] Diagnosis: Incomplete rotator cuff tear or rupture of right shoulder, not specified as traumatic[ICD10: M75.111] Diagnosis: Incomplete rotator cuff tear or rupture of left shoulder, not specified as traumatic[ICD10: M75.112] [facility] CPT-4: 05232 11/30/2015 69816 EST. PATIENT, LEVEL IV Diagnosis: Chronic pain due to trauma[ICD10: G89.21] Diagnosis: Incomplete rotator cuff tear or rupture of right shoulder, not specified as traumatic[ICD10: M75.111] Diagnosis: Incomplete rotator cuff tear or rupture of left shoulder, not specified as traumatic[ICD10: M75.112] [facility] CPT-4: 69485 11/02/2015 ([id number]) OFFICE VISIT, NEW - LEVEL 4 Diagnosis: Incomplete rotator cuff tear or rupture of left shoulder, not specified as traumatic[ICD10: M75.112] Diagnosis: Incomplete rotator cuff tear or rupture of right shoulder, not specified as traumatic[ICD10: M75.111] Diagnosis: Crohn's disease of both small and large intestine without complications[ICD10: K50.80] [facility] CPT-4: 42709 10/15/2015 Plan of Care Planned Activity Notes Codes Status Date Visit Plan: CVA - continue with heart [...] any further intervention for stroke prevention. 07/25/2018 Patient Education: Patient Medication Summary Completed 07/25/2018 Visit Plan: CVA - continue with heart monitor - will check with neurology consult - keep track of your symptoms and notify clinic with any changes, questions, or concerns. 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 Continue with medications as directed by specialist at [facility]. I have recommended that Ba needs to stay off of work until some of this work-up is completed since some of these issues may be due to the stress of his job and lack of sleep, versus from the foramen ovale that may be shunting blood from his right to left side of his heart. referral to [place]y [place] referral to dr. villalpando - Crohn's disease - keep appt with Dr. Sandhu since his symptoms have been worsening lately due to the stress of his job. 07/11/2018 Appointment: Rupal Hamm WPtel: [phone] [facility] (15 min) Moderate 07/11/2018 Patient Education: Patient Medication Summary Completed 07/11/2018 Care Plan: Referral Order SNOMED-CT : [id number] Pending 07/11/2018 Visit Plan: Crohns - symptoms [...] today. 04/25/2018 Appointment: Carmela Greenberg WPtel: [phone] [phone] [place] (30 min) Complex 04/25/2018 Patient Education: Patient Medication Summary Completed 04/25/2018 Visit Diagnosis Plan: Crohn's disease of both small and large intestine without complications Discussion: managed by Dr SandhuMlelr-ntyynx-rv changes at this time ICD-9 : 555.2 [...] : M75.112 12/24/2017 [phone] [place] (15 min) Moderate 12/24/2017 Patient Education: [...] intestine without complications Discussion: managed by Dr SandhuAahwh-tqqlqt-rl changes at this time ICD-9 : 555.2 ICD-10 : K50.80 06/20/2017 Visit Diagnosis Plan: Incomplete rotator cuff tear or rupture of left shoulder, not specified as traumatic Recommendations: pt is to continue exercise and strengthening and notify clinic with any changes, questions, or concerns. ICD-9 : 726.13 ICD-10 : M75.112 06/20/2017 Appointment: Bridget Terry WPtel: [facility] (30 min) Complex 06/20/2017 Patient Education: Patient Medication Summary Completed 06/20/2017 Appointment: Carmela Greenberg WPtel: [phone] [place] (15 min) Moderate 06/19/2017 Appointment: Lab [...] treatment plan. 04/20/2017 Appointment: Bridget Terry WPtel: [facility] (30 min) Complex 04/20/2017 Patient Education: Patient Medication Summary Completed 04/20/2017 Appointment: Bridget Terry WPtel: [phone] [facility] (15 min) Moderate 04/19/2017 Appointment: Lab Draw [...] considered contagious. 01/02/2017 [facility]ment: [phone] ([facility] Complex 01/02/2017 Patient Education: Patient [...] : G89.21 09/07/2016 Appointment: Bridget Terry WPtel[facility] ([facility] 09/07/2016 Patient Education: [...] : G89.21 04/21/2016 Appointment: Carmela Greenberg WPtel: [phone] [phone] (15 min) Moderate 04/21/2016 Patient Education: Patient [...] the year. 11/30/2015 Appointment: Carmela Greenberg WPtel: [phone] [phone] (30 min) Complex 11/30/2015 Patient Education: Patient [...] the year. 11/02/2015 Appointment: Carmela Greenberg WPtel: [phone] [phone] (15 min) Moderate 11/02/2015 Patient Education: Patient [...] with medications as directed by specialist at [facility]. I have recommended that Ba needs to stay off of work until some of this work- up is completed since some of these issues may be due to the stress of his job and lack of sleep, versus from the foramen ovale that may be shunting blood from his right to left side of his heart. referral to neurology in [place] referral to dr. villalpando - Crohn's disease [...]
--- OUTSIDE RECORDS SUMMARY | 2018-09-19 08:14 | XMS REPORT | CCD ---
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 [employer] Name Role Phone PP Unavailable CCM Unavailable Summary Purpose Interface Exchange Insurance Providers Payer name Policy type / Coverage type Covered republican ID Effective Begin Date Effective End Date Blue Cross Blue [facility] Blue Cross/Blue [facility] [id number] Unknown Unknown Family history Son Diagnosis Age At Onset Attention deficit hyperactivity disorder Unknown Social History Social History Element Codes Description Effective Dates Marital status Unknown Consuelo 04/25/2018 Number of children Unknown 1 10/15/[address]: 694318762 Currently uses smokeless tobacco 10/15/2015 Alcohol history [...] Fill Instructions lisinopril 20 mg tablet RxNorm: 597413 1 Tablet(s) PO daily 07/25/2018 02/19/2019 Active atorvastatin 10 mg tablet RxNorm: 170450 1 Tablet(s) PO QHS 07/25/2018 02/19/2019 Active hydrocodone 10 mg-acetaminophen 325 mg tablet RxNorm: 596356 1 Tablet(s) PO Q6-8H as needed 07/15/2018 08/06/2018 Active hydrocodone 10 mg-acetaminophen 325 mg tablet RxNorm: 636838 1 Tablet(s) PO Q6-8H as needed 06/18/2018 07/10/2018 Inactive hydrocodone 10 mg-acetaminophen 325 mg tablet RxNorm: 377550 1 Tablet(s) PO Q6-8H as needed 05/22/2018 06/13/2018 Inactive testosterone cypionate 200 mg/mL intramuscular oil RxNorm: 5069583 1 Milliliter(s) IM monthly 05/01/2018 08/28/2018 Active cyanocobalamin (vit B-12) 1,000 mcg/mL injection solution RxNorm: 757633 1 Milliliter(s) Inj monthly 05/01/2018 08/28/2018 Active Please provide syringes and needles for him to administer cyanocobalamin (vit B-12) 1,000 mcg/mL injection solution RxNorm: 314475 1 Milliliter(s) Inj monthly 05/01/2018 04/30/2018 Inactive testosterone cypionate 200 mg/mL intramuscular oil RxNorm: 8411000 1 Milliliter(s) IM monthly 05/01/2018 04/30/2018 Inactive hydrocodone 10 mg-acetaminophen 325 mg tablet RxNorm: 170914 1 Tablet(s) PO Q6-8H as needed 04/25/2018 05/17/2018 Inactive hydrocodone 10 mg-acetaminophen 325 mg tablet RxNorm: 524135 1 Tablet(s) PO Q6-8H as needed 04/01/2018 04/23/2018 Inactive hydrocodone 10 mg-acetaminophen 325 mg tablet RxNorm: 502952 1 Tablet(s) PO Q6-8H as needed 03/05/2018 03/27/2018 Inactive hydrocodone 10 mg-acetaminophen 325 mg tablet RxNorm: 182627 1 Tablet(s) PO Q6-8H as needed 02/11/2018 03/04/2018 Inactive hydrocodone 10 mg-acetaminophen 325 mg tablet RxNorm: 510666 1 Tablet(s) PO Q6-8H as needed 01/18/2018 02/09/2018 Inactive hydrocodone 10 mg-acetaminophen 325 mg tablet RxNorm: 854483 1 Tablet(s) PO Q6-8H as needed 12/24/2017 01/15/2018 Inactive hydrocodone 10 mg-acetaminophen 325 mg tablet RxNorm: 003014 1 Tablet(s) PO Q6-8H as needed 11/30/2017 12/22/2017 Inactive hydrocodone 10 mg-acetaminophen 325 mg tablet RxNorm: 565732 1 Tablet(s) PO Q6-8H as needed 11/06/2017 11/28/2017 Inactive hydrocodone 10 mg-acetaminophen 325 mg tablet RxNorm: 403203 1 Tablet(s) PO Q6-8H as needed 10/11/2017 11/02/2017 Inactive hydrocodone 10 mg-acetaminophen 325 mg tablet RxNorm: 633207 1 Tablet(s) PO Q6-8H as needed 09/12/2017 10/04/2017 Inactive hydrocodone 10 mg-acetaminophen 325 mg tablet RxNorm: 051418 1 Tablet(s) PO Q6-8H as needed 08/16/2017 09/07/2017 Inactive hydrocodone 10 mg-acetaminophen 325 mg tablet RxNorm: 323077 1 Tablet(s) PO Q6-8H as needed 07/19/2017 08/10/2017 Inactive oxycodone-acetaminophen 7.5 mg-325 mg tablet RxNorm: 0315799 1 Tablet(s) PO Q6-8H as needed 06/29/2017 07/18/2017 Inactive hydrocodone 10 mg-acetaminophen 325 mg tablet RxNorm: 234500 1 Tablet(s) PO Q6-8H as needed 06/01/2017 06/17/2017 Inactive hydrocodone 10 mg-acetaminophen 325 mg tablet RxNorm: 558355 1 Tablet(s) PO Q6-8H as needed 05/09/2017 05/30/2017 Inactive Cipro 500 mg tablet RxNorm: 266689 1 Tablet(s) PO BID 04/20/2017 04/29/2017 Inactive prednisone 10 mg tablet RxNorm: 012593 Tablet(s) PO 04/20/2017 03/04/2018 Inactive 6,5,4,3,2,1 Flagyl 500 mg tablet RxNorm: 662651 1 Tablet(s) PO TID 04/20/2017 04/29/2017 Inactive hydrocodone 10 mg-acetaminophen 325 mg tablet RxNorm: 673579 1 Tablet(s) PO Q6-8H as needed 04/09/2017 05/01/2017 Inactive hydrocodone 10 mg-acetaminophen 325 mg tablet RxNorm: 950736 1 Tablet(s) PO Q6-8H as needed 03/07/2017 03/29/2017 Inactive hydrocodone 10 mg-acetaminophen 325 mg tablet RxNorm: 888148 1 Tablet(s) PO Q6-8H as needed 02/01/2017 02/23/2017 Inactive lidocaine 3 % lotion RxNorm: 9487520 1 Application TOP BID as needed 01/03/2017 No Stop Date Active acyclovir 800 mg tablet RxNorm: 155259 1 Tablet(s) PO 5 x a day 01/02/2017 01/08/2017 Inactive hydrocodone 10 mg-acetaminophen 325 mg tablet RxNorm: 204174 1 Tablet(s) PO Q6-8H as needed 12/06/2016 12/28/2016 Inactive hydrocodone 10 mg-acetaminophen 325 mg tablet RxNorm: 323177 1 Tablet(s) PO Q6-8H as needed 12/04/2016 12/05/2016 Inactive hydrocodone 10 mg-acetaminophen 325 mg tablet RxNorm: 613045 1 Tablet(s) PO Q6-8H as needed 11/08/2016 11/30/2016 Inactive hydrocodone 10 mg-acetaminophen 325 mg tablet RxNorm: 966465 1 Tablet(s) PO Q6-8H as needed 10/09/2016 10/31/2016 Inactive hydrocodone 10 mg-acetaminophen 325 mg tablet RxNorm: 427316 1 Tablet(s) PO Q6-8H as needed 08/08/2016 08/30/2016 Inactive hydrocodone 10 mg-acetaminophen 325 mg tablet RxNorm: 382926 1 Tablet(s) PO Q6-8H as needed 07/12/2016 08/03/2016 Inactive hydrocodone 10 mg-acetaminophen 325 mg tablet RxNorm: 574109 1 Tablet(s) PO Q6-8H as needed 06/12/2016 07/04/2016 Inactive hydrocodone 10 mg-acetaminophen 325 mg tablet RxNorm: 651751 1 Tablet(s) PO Q6-8H as needed 05/16/2016 06/07/2016 Inactive hydrocodone 10 mg-acetaminophen 325 mg tablet RxNorm: 881392 1 Tablet(s) PO Q6-8H as needed 04/21/2016 05/12/2016 Inactive hydrocodone 10 mg-acetaminophen 325 mg tablet RxNorm: 200220 1 Tablet(s) PO Q6-8H as needed 03/23/2016 04/13/2016 Inactive hydrocodone 10 mg-acetaminophen 325 mg tablet RxNorm: 709191 1 Tablet(s) PO Q6-8H as needed 02/24/2016 03/16/2016 Inactive hydrocodone 10 mg-acetaminophen 325 mg tablet RxNorm: 991572 1 Tablet(s) PO Q6-8H 01/21/2016 02/11/2016 Inactive hydrocodone 10 mg-acetaminophen 325 mg tablet RxNorm: 844488 1 Tablet(s) PO Q6-8H 12/24/2015 01/14/2016 Inactive hydrocodone 10 mg-acetaminophen 325 mg tablet RxNorm: 855154 1 Tablet(s) PO Q6-8H 11/30/2015 12/23/2015 Inactive hydrocodone 10 mg-acetaminophen 325 mg tablet RxNorm: 622501 1 Tablet(s) PO Q6-8H 11/05/2015 11/29/2015 Inactive hydrocodone 5 mg-acetaminophen 325 mg tablet RxNorm: 229073 1-2 Tablet(s) PO Q6-8H as needed 10/26/2015 11/01/2015 Inactive omeprazole 40 mg capsule,delayed release RxNorm: 544991 1 Capsule(s) PO daily No Start Date Active Imuran 50 mg tablet RxNorm: 767716 1 Tablet(s) PO daily No Start Date Active testosterone cypionate 200 mg/mL intramuscular oil RxNorm: 888060 1 Milliliter(s) IM No Start Date Active lidocaine 3 % lotion RxNorm: 2664278 1 Application TOP BID as needed No Start Date 01/02/2017 Inactive hydrocodone 5 mg-acetaminophen 325 mg tablet RxNorm: 547228 1-2 Tablet(s) PO Q6-8H as needed No [...] Result Date QuantiFERON?-TB Gold Plus (Client Incubated) [id number] QUANTIFERON CRITERIA COMMENT 07/01/2018 QuantiFERON?-TB Gold Plus (Client Incubated) [id number] QUANTIFERON TB1 AG VALUE 0.01 IU/ML 07/01/2018 QuantiFERON?-TB Gold Plus (Client Incubated) [id number] QUANTIFERON TB2 AG VALUE 0.01 IU/ML 07/01/2018 QuantiFERON?-TB Gold Plus (Client Incubated) [id number] QUANTIFERON NIL VALUE 0.01 IU/ML 07/01/2018 QuantiFERON?-TB Gold Plus (Client Incubated) [id number] QUANTIFERON MITOGEN VALUE >10.00 IU/ML 07/01/2018 QuantiFERON?-TB Gold Plus (Client Incubated) [id number] QUANTIFERON-TB GOLD PLUS NEGATIVE 07/01/2018 B12 Zlw159 B12 113.00 pg/ml 04/30/2018 Testosterone Tmh893 Testo 198.8 ng/dL 04/30/2018 Comp Metabolic Qdz865 NA 143 mEq/L 04/30/2018 Comp Metabolic Ktr190 K 3.8 mEq/L 04/30/2018 Comp Metabolic Eqw129 CL 108 mEq/L 04/30/2018 Comp Metabolic Avp225 CO2 29.0 mEq/L 04/30/2018 Comp Metabolic Lcm874 ANION GAP 10 04/30/2018 Comp Metabolic Dqv209 GLUCOSE 94 mg/dL 04/30/2018 Comp Metabolic Pwe788 Creat 0.8 mg/dL 04/30/2018 Comp Metabolic Ghz114 eGFR 110 ml/min/1.73m2 04/30/2018 Comp Metabolic Hya938 BUN 13 mg/dL 04/30/2018 Comp Metabolic Zcg447 B/C Ratio 16.0 Ratio 04/30/2018 Comp Metabolic Svo899 CALCIUM 9.2 mg/dL 04/30/2018 Comp Metabolic Wrg589 ALK PHOS 62 U/L 04/30/2018 Comp Metabolic Lrk245 AST(SGOT) 16 U/L 04/30/2018 Comp Metabolic Cqd291 ALT(SGPT) 15 U/L 04/30/2018 Comp Metabolic Spd607 BILI T 0.9 mg/dL 04/30/2018 Comp Metabolic Ffd087 ALBUMIN 4.1 g/dL 04/30/2018 Comp Metabolic Pkh696 TPRO 6.2 g/dL 04/30/2018 Comp Metabolic Tuv161 GLOB 2.1 g/dL 04/30/2018 Comp Metabolic Uha808 A/G Ratio 1.9 Ratio 04/30/2018 Comp Metabolic Bzy360 Osmo 285 mOsmo 04/30/2018 Cbc With Differential [...] 31.3 pg 04/30/2018 Cbc With Differential Ord2 Nicholas% 8.5 % 04/30/2018 Cbc With Differential Ord2 [...] 0.80 K/ul 04/30/2018 Cbc With Differential Ord2 Nicholas ABS# 0.5 K/ul 04/30/2018 Cbc With Differential [...] 31.3 pg 04/20/2017 Cbc With Differential Ord2 Nicholas% 18.6 % 04/20/2017 Cbc With Differential Ord2 [...] 0.67 K/ul 04/20/2017 Cbc With Differential Ord2 Nicholas ABS# 1.2 K/ul 04/20/2017 Cbc With Differential Ord2 Eos ABS# 0.1 K/ul 04/20/2017 Cbc With Differential Ord2 Baso ABS# 0.0 K/ul 04/20/2017 Comp Metabolic Ylg315 NA 142 mEq/L 04/20/2017 Comp Metabolic Kzm267 K 4.2 mEq/L 04/20/2017 Comp Metabolic Sgc789 CL 104 mEq/L 04/20/2017 Comp Metabolic Azk203 CO2 28.0 mEq/L 04/20/2017 Comp Metabolic Nwb121 ANION GAP 14 04/20/2017 Comp Metabolic Lkn599 GLUCOSE 73 mg/dL 04/20/2017 Comp Metabolic Gpc473 Creat 1.2 mg/dL 04/20/2017 Comp Metabolic Bdd948 eGFR 68 ml/min/1.73m2 04/20/2017 Comp Metabolic Npj595 BUN 9 mg/dL 04/20/2017 Comp Metabolic Npe679 B/C Ratio 7.3 Ratio 04/20/2017 Comp Metabolic Lgu634 CALCIUM 9.5 mg/dL 04/20/2017 Comp Metabolic Khs864 ALK PHOS 57 U/L 04/20/2017 Comp Metabolic Bvl212 AST(SGOT) 16 U/L 04/20/2017 Comp Metabolic Fne481 ALT(SGPT) 14 U/L 04/20/2017 Comp Metabolic Wgt958 BILI T 0.6 mg/dL 04/20/2017 Comp Metabolic Zsg359 ALBUMIN 4.0 g/dL 04/20/2017 Comp Metabolic Biv227 TPRO 7.0 g/dL 04/20/2017 Comp Metabolic Xmq799 GLOB 3.0 g/dL 04/20/2017 Comp Metabolic Kbv484 A/G Ratio 1.3 Ratio 04/20/2017 Comp Metabolic Nwr411 Osmo 280 mOsmo 04/20/2017 Review of Systems [...] 1: 140/88 Code: 8480-6 BMI: 25.5 Code: 29954-1 Height: 6' Weight: 188 lbs 07/23/2018 Height: Weight: 07/11/2018 Blood Pressure 1: 148/82 Code: 8480-6 Blood Pressure 1: 126/74 Code: 8480-6 BMI: 25.1 Code: 80968-8 Heart Rate 1: 75 bpm Height: 6' SpO2: 98% Weight: 185 lbs 04/25/2018 Blood Pressure 1: 146/88 Code: 8480-6 BMI: 25.2 Code: 89562-6 Heart Rate 1: 94 bpm Height: 6' SpO2: 95% Weight: 186 lbs 12/24/2017 Blood Pressure 1: 134/90 Code: 8480-6 BMI: 25.8 Code: 80981-1 Heart Rate 1: 64 bpm Height: 6' SpO2: 99% Weight: 190 lbs 06/20/2017 Blood Pressure 1: 130/86 Code: 8480-6 BMI: 27.1 Code: 13685-2 Heart Rate 1: 74 bpm Height: 6' SpO2: 98% Weight: 200 lbs 04/20/2017 Blood Pressure 1: 136/80 Code: 8480-6 BMI: 27.1 Code: 37418-3 Heart Rate 1: 100 bpm Height: 6' SpO2: 95% Temperature: 36.9 (C) / 98.4 (F) Weight: 200 lbs 01/02/2017 Blood Pressure 1: 120/78 Code: 8480-6 BMI: 28.3 Code: 47076-9 Heart Rate 1: 79 bpm Height: 6' SpO2: 98% Weight: 209 lbs 09/07/2016 Blood Pressure 1: 140/90 Code: 8480-6 BMI: 27.4 Code: 04357-2 Heart Rate 1: 70 bpm Height: 6' SpO2: 96% Weight: 202 lbs 04/21/2016 Blood Pressure 1: 136/84 Code: 8480-6 BMI: 29.0 Code: 31936-3 Heart Rate 1: 67 bpm Height: 6' SpO2: 98% Weight: 214 lbs 11/30/2015 Blood Pressure 1: 130/80 Code: 8480-6 BMI: 29.3 Code: 62278-6 Heart Rate 1: 75 bpm Height: 6' SpO2: 98% Weight: 216 lbs 11/02/2015 Blood Pressure 1: 126/78 Code: 8480-6 BMI: 29.8 Code: 52779-7 Heart Rate 1: 69 bpm Height: 6' SpO2: 98% Weight: 220 lbs 10/15/2015 Blood Pressure 1: 132/76 Code: 8480-6 BMI: 29.8 Code: 78499-7 Heart Rate 1: 77 bpm Height: 6' [...] data Encounters Encounter Performer Location Codes Date ([id number]) 02178 EST. 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 PATIENT, LEVEL IV Diagnosis: Crohn's disease of both small and large intestine without complications[ICD10: K50.80] Diagnosis: Testicular hypofunction[ICD10: E29.1] Diagnosis: Incomplete rotator cuff tear or rupture of right shoulder, not specified as traumatic[ICD10: M75.111] Diagnosis: Chronic pain due to trauma[ICD10: G89.21] Carmela Hamm MD, [facility] CPT-4: 62736 04/25/2018 67445 EST. PATIENT, LEVEL III Diagnosis: Chronic pain due to trauma[ICD10: G89.21] Diagnosis: Incomplete rotator cuff tear or rupture of left shoulder, not specified as traumatic[ICD10: M75.112] Diagnosis: Incomplete rotator cuff tear or rupture of right shoulder, not specified as traumatic[ICD10: M75.111] Diagnosis: Crohn's disease of both small and large intestine without complications[ICD10: K50.80] Bridget Hamm MD, [facility] CPT-4: 91593 12/24/2017 47442 EST. PATIENT, LEVEL III Diagnosis: Chronic pain due to trauma[ICD10: G89.21] Diagnosis: Incomplete rotator cuff tear or rupture of left shoulder, not specified as traumatic[ICD10: M75.112] Diagnosis: Incomplete rotator cuff tear or rupture of right shoulder, not specified as traumatic[ICD10: M75.111] Diagnosis: Crohn's disease of both small and large intestine without complications[ICD10: K50.80] Bridget Hamm MD, [facility] CPT-4: 35362 06/20/2017 52523 EST. PATIENT, LEVEL IV Diagnosis: Crohn's disease of both small and large intestine without complications[ICD10: K50.80] Bridget Hamm MD, [facility] CPT-4: 36955 04/20/2017 41490 EST. PATIENT, LEVEL III Diagnosis: Zoster without complications[ICD10: B02.9] Bridget Hamm MD, [facility] CPT-4: 02521 01/02/2017 76339 EST. PATIENT, LEVEL IV Diagnosis: Chronic pain due to trauma[ICD10: G89.21] Diagnosis: Incomplete rotator cuff tear or rupture of left shoulder, not specified as traumatic[ICD10: M75.112] Diagnosis: Incomplete rotator cuff tear or rupture of right shoulder, not specified as traumatic[ICD10: M75.111] Diagnosis: Crohn's disease of both small and large intestine without complications[ICD10: K50.80] [facility] CPT-4: 66654 09/07/2016 ([id number]) 18873 EST. PATIENT, LEVEL III Diagnosis: Chronic pain due to trauma[ICD10: G89.21] Diagnosis: Incomplete rotator cuff tear or rupture of left shoulder, not specified as traumatic[ICD10: M75.112] Diagnosis: Incomplete rotator cuff tear or rupture of right shoulder, not specified as traumatic[ICD10: M75.111] Diagnosis: Crohn's disease of both small and large intestine without complications[ICD10: K50.80] [facility] CPT-4: 49255 04/21/2016 36335 EST. PATIENT, LEVEL IV Diagnosis: Chronic pain due to trauma[ICD10: G89.21] Diagnosis: Incomplete rotator cuff tear or rupture of right shoulder, not specified as traumatic[ICD10: M75.111] Diagnosis: Incomplete rotator cuff tear or rupture of left shoulder, not specified as traumatic[ICD10: M75.112] [facility] CPT-4: 15036 11/30/2015 54983 EST. PATIENT, LEVEL IV Diagnosis: Chronic pain due to trauma[ICD10: G89.21] Diagnosis: Incomplete rotator cuff tear or rupture of right shoulder, not specified as traumatic[ICD10: M75.111] Diagnosis: Incomplete rotator cuff tear or rupture of left shoulder, not specified as traumatic[ICD10: M75.112] [facility] CPT-4: 01059 11/02/2015 ([id number]) OFFICE VISIT, NEW - LEVEL 4 Diagnosis: Incomplete rotator cuff tear or rupture of left shoulder, not specified as traumatic[ICD10: M75.112] Diagnosis: Incomplete rotator cuff tear or rupture of right shoulder, not specified as traumatic[ICD10: M75.111] Diagnosis: Crohn's disease of both small and large intestine without complications[ICD10: K50.80] [facility] CPT-4: 39360 10/15/2015 Plan of Care Planned Activity Notes [...] or concerns. 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 Continue with medications as directed by specialist at [facility]. I have recommended that Ba needs to stay off of work until some of this work-up is completed since some of these issues may be due to the stress of his job and lack of sleep, versus from the foramen ovale that may be shunting blood from his right to left side of his heart. referral to neurology in [place] referral to dr. villalpando - Crohn's disease - keep appt with Dr. Sandhu since his symptoms have been worsening lately due to the stress of his job. 07/11/2018 Appointment: Rupal Hamm WPtel: [phone] [facility] (15 min) Moderate 07/11/2018 Patient Education: Patient Medication Summary Completed 07/11/2018 Care Plan: Referral Order SNOMED-CT : [id number] Pending 07/11/2018 Visit Plan: Crohns - symptoms [...] today. 04/25/2018 Appointment: Carmela Greenberg WPtel: [phone] [phone] [place] (30 min) Complex 04/25/2018 Patient Education: Patient Medication Summary Completed 04/25/2018 Visit Diagnosis Plan: Crohn's disease of both small and large intestine without complications Discussion: managed by Dr SandhuOhafr-zwokaa-tt changes at this time ICD-9 : 555.2 [...] M75.112 12/24/2017 [phone] [facility] [place] (15 min) Moderate 12/24/2017 Patient Education: [...] intestine without complications Discussion: managed by Dr SandhuBvici-frkkcj-ga changes at this time ICD-9 : 555.2 ICD-10 : K50.80 06/20/2017 Visit Diagnosis Plan: Incomplete rotator cuff tear or rupture of left shoulder, not specified as traumatic Recommendations: pt is to continue exercise and strengthening and notify clinic with any changes, questions, or concerns. ICD-9 : 726.13 ICD-10 : M75.112 06/20/2017 Appointment: Bridget Terry WPtel: [facility] (30 min) Complex 06/20/2017 Patient Education: Patient Medication Summary Completed 06/20/2017 Appointment: Carmela Greenberg WPtel: [phone] [place] (15 min) Moderate 06/19/2017 Appointment: Lab [...] treatment plan. 04/20/2017 Appointment: Bridget Terry WPtel: [phone] (30 min) Complex 04/20/2017 Patient Education: Patient Medication Summary Completed 04/20/2017 Appointment: Bridget Terry WPtel: [phone] [phone] (15 min) Moderate 04/19/2017 Appointment: Lab Draw [...] contagious. 01/02/2017 [phone] [facility] ([facility] min) Complex 01/02/2017 Patient Education: Patient [...] : G89.21 09/07/2016 Appointment: [facility] Terry [facility]Ptel[facility] ([facility] min) Complex 09/07/2016 Patient Education: Patient [...] : G89.21 04/21/2016 Appointment: Carmela Greenberg WPtel: [phone] [phone] (15 min) Moderate 04/21/2016 Patient Education: Patient [...] the year. 11/30/2015 Appointment: Carmela Greenberg WPtel: [phone] [phone] (30 min) Complex 11/30/2015 Patient Education: Patient [...] year. 11/02/2015 Appointment: Carmela Greenberg WPtel: [phone] [phone] (15 min) Moderate 11/02/2015 Patient Education: Patient [...] with medications as directed by specialist at [facility]. I have recommended that Ba needs to stay off of work until some of this work- up is completed since some of these issues may be due to the stress of his job and lack of sleep, versus from the foramen ovale that may be shunting blood from his right to left side of his heart. referral to neurology in [place] referral to dr. villalpando - Crohn's disease [...]
--- OUTSIDE RECORDS SUMMARY | 2018-09-19 08:15 | XMS REPORT | CCD ---
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 Name Role Phone PP Unavailable CCM Unavailable Summary Purpose Interface Exchange Insurance Providers Payer name Policy type / Coverage type Covered alliance party ID Effective Begin Date Effective End Date Blue Cross Blue [facility] Blue Cross/Blue Shield [id number] Unknown Unknown Family history Son Diagnosis Age At Onset Attention deficit hyperactivity disorder Unknown Social History Social History Element Codes Description Effective Dates Marital status Unknown Consuelo 04/25/2018 Number of children Unknown 1 10/15/[address]: 274867117 Currently uses smokeless tobacco 10/15/2015 Alcohol history Unknown pt chooses not to answer 10/15/2015 Allergies, Adverse Reactions, Alerts Substance Reaction Codes Entered Date Inactivated Date Status * NO KNOWN DRUG ALLERGIES Unknown 10/15/2015 No Inactive Date Active Past Medical History Illness Codes Condition Status Onset Date Resolved Date Atrial septal defect ICD- 9: 745.5 ICD-10: Q21.1 Active 07/11/2018 Unknown Crohn's disease of both small and large intestine without complications ICD-9: 555.2 ICD-10: K50.80 Active 10/14/2015 Unknown 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-9: 434.91 ICD-10: I63.81 Active 07/11/2018 Unknown Chronic pain due to trauma ICD-9: [...] ICD- 9: 745.5 ICD-10: Q21.1 07/11/2018 Active Crohn's disease of both small and large intestine without complications ICD-9: 555.2 ICD-10: K50.80 10/14/2015 Active 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-9: 434.91 ICD-10: I63.81 07/11/2018 Active Chronic pain due to trauma ICD-9: [...] hydrocodone 10 mg-acetaminophen 325 mg tablet RxNorm: 433278 1 Tablet(s) PO Q6-8H as needed 07/15/2018 08/06/2018 Active hydrocodone 10 mg-acetaminophen 325 mg tablet RxNorm: 626267 1 Tablet(s) PO Q6-8H as needed 06/18/2018 07/10/2018 Inactive hydrocodone 10 mg-acetaminophen 325 mg tablet RxNorm: 935459 1 Tablet(s) PO Q6-8H as needed 05/22/2018 06/13/2018 Inactive testosterone cypionate 200 mg/mL intramuscular oil RxNorm: 6515864 1 Milliliter(s) IM monthly 05/01/2018 08/28/2018 Active cyanocobalamin (vit B-12) 1,000 mcg/mL injection solution RxNorm: 599112 1 Milliliter(s) Inj monthly 05/01/2018 08/28/2018 Active Please provide syringes and needles for him to administer cyanocobalamin (vit B-12) 1,000 mcg/mL injection solution RxNorm: 236452 1 Milliliter(s) Inj monthly 05/01/2018 04/30/2018 Inactive testosterone cypionate 200 mg/mL intramuscular oil RxNorm: 1392948 1 Milliliter(s) IM monthly 05/01/2018 04/30/2018 Inactive hydrocodone 10 mg-acetaminophen 325 mg tablet RxNorm: 631053 1 Tablet(s) PO Q6-8H as needed 04/25/2018 05/17/2018 Inactive hydrocodone 10 mg-acetaminophen 325 mg tablet RxNorm: 177677 1 Tablet(s) PO Q6-8H as needed 04/01/2018 04/23/2018 Inactive hydrocodone 10 mg-acetaminophen 325 mg tablet RxNorm: 603798 1 Tablet(s) PO Q6-8H as needed 03/05/2018 03/27/2018 Inactive hydrocodone 10 mg-acetaminophen 325 mg tablet RxNorm: 987743 1 Tablet(s) PO Q6-8H as needed 02/11/2018 03/04/2018 Inactive hydrocodone 10 mg-acetaminophen 325 mg tablet RxNorm: 016546 1 Tablet(s) PO Q6-8H as needed 01/18/2018 02/09/2018 Inactive hydrocodone 10 mg-acetaminophen 325 mg tablet RxNorm: 132544 1 Tablet(s) PO Q6-8H as needed 12/24/2017 01/15/2018 Inactive hydrocodone 10 mg-acetaminophen 325 mg tablet RxNorm: 997635 1 Tablet(s) PO Q6-8H as needed 11/30/2017 12/22/2017 Inactive hydrocodone 10 mg-acetaminophen 325 mg tablet RxNorm: 145593 1 Tablet(s) PO Q6-8H as needed 11/06/2017 11/28/2017 Inactive hydrocodone 10 mg-acetaminophen 325 mg tablet RxNorm: 881360 1 Tablet(s) PO Q6-8H as needed 10/11/2017 11/02/2017 Inactive hydrocodone 10 mg-acetaminophen 325 mg tablet RxNorm: 748165 1 Tablet(s) PO Q6-8H as needed 09/12/2017 10/04/2017 Inactive hydrocodone 10 mg-acetaminophen 325 mg tablet RxNorm: 896854 1 Tablet(s) PO Q6-8H as needed 08/16/2017 09/07/2017 Inactive hydrocodone 10 mg-acetaminophen 325 mg tablet RxNorm: 575906 1 Tablet(s) PO Q6-8H as needed 07/19/2017 08/10/2017 Inactive oxycodone-acetaminophen 7.5 mg-325 mg tablet RxNorm: 3877855 1 Tablet(s) PO Q6-8H as needed 06/29/2017 07/18/2017 Inactive hydrocodone 10 mg-acetaminophen 325 mg tablet RxNorm: 953657 1 Tablet(s) PO Q6-8H as needed 06/01/2017 06/17/2017 Inactive hydrocodone 10 mg-acetaminophen 325 mg tablet RxNorm: 894764 1 Tablet(s) PO Q6-8H as needed 05/09/2017 05/30/2017 Inactive Cipro 500 mg tablet RxNorm: 591271 1 Tablet(s) PO BID 04/20/2017 04/29/2017 Inactive prednisone 10 mg tablet RxNorm: 891110 Tablet(s) PO 04/20/2017 03/04/2018 Inactive 6,5,4,3,2,1 Flagyl 500 mg tablet RxNorm: 686058 1 Tablet(s) PO TID 04/20/2017 04/29/2017 Inactive hydrocodone 10 mg-acetaminophen 325 mg tablet RxNorm: 772968 1 Tablet(s) PO Q6-8H as needed 04/09/2017 05/01/2017 Inactive hydrocodone 10 mg-acetaminophen 325 mg tablet RxNorm: 294918 1 Tablet(s) PO Q6-8H as needed 03/07/2017 03/29/2017 Inactive hydrocodone 10 mg-acetaminophen 325 mg tablet RxNorm: 043274 1 Tablet(s) PO Q6-8H as needed 02/01/2017 02/23/2017 Inactive lidocaine 3 % lotion RxNorm: 4338301 1 Application TOP BID as needed 01/03/2017 No Stop Date Active acyclovir 800 mg tablet RxNorm: 896365 1 Tablet(s) PO 5 x a day 01/02/2017 01/08/2017 Inactive hydrocodone 10 mg-acetaminophen 325 mg tablet RxNorm: 563791 1 Tablet(s) PO Q6-8H as needed 12/06/2016 12/28/2016 Inactive hydrocodone 10 mg-acetaminophen 325 mg tablet RxNorm: 396529 1 Tablet(s) PO Q6-8H as needed 12/04/2016 12/05/2016 Inactive hydrocodone 10 mg-acetaminophen 325 mg tablet RxNorm: 056423 1 Tablet(s) PO Q6-8H as needed 11/08/2016 11/30/2016 Inactive hydrocodone 10 mg-acetaminophen 325 mg tablet RxNorm: 023328 1 Tablet(s) PO Q6-8H as needed 10/09/2016 10/31/2016 Inactive hydrocodone 10 mg-acetaminophen 325 mg tablet RxNorm: 821486 1 Tablet(s) PO Q6-8H as needed 08/08/2016 08/30/2016 Inactive hydrocodone 10 mg-acetaminophen 325 mg tablet RxNorm: 831155 1 Tablet(s) PO Q6-8H as needed 07/12/2016 08/03/2016 Inactive hydrocodone 10 mg-acetaminophen 325 mg tablet RxNorm: 372193 1 Tablet(s) PO Q6-8H as needed 06/12/2016 07/04/2016 Inactive hydrocodone 10 mg-acetaminophen 325 mg tablet RxNorm: 621630 1 Tablet(s) PO Q6-8H as needed 05/16/2016 06/07/2016 Inactive hydrocodone 10 mg-acetaminophen 325 mg tablet RxNorm: 131269 1 Tablet(s) PO Q6-8H as needed 04/21/2016 05/12/2016 Inactive hydrocodone 10 mg-acetaminophen 325 mg tablet RxNorm: 778804 1 Tablet(s) PO Q6-8H as needed 03/23/2016 04/13/2016 Inactive hydrocodone 10 mg-acetaminophen 325 mg tablet RxNorm: 303397 1 Tablet(s) PO Q6-8H as needed 02/24/2016 03/16/2016 Inactive hydrocodone 10 mg-acetaminophen 325 mg tablet RxNorm: 108464 1 Tablet(s) PO Q6-8H 01/21/2016 02/11/2016 Inactive hydrocodone 10 mg-acetaminophen 325 mg tablet RxNorm: 775318 1 Tablet(s) PO Q6-8H 12/24/2015 01/14/2016 Inactive hydrocodone 10 mg-acetaminophen 325 mg tablet RxNorm: 135804 1 Tablet(s) PO Q6-8H 11/30/2015 12/23/2015 Inactive hydrocodone 10 mg-acetaminophen 325 mg tablet RxNorm: 283107 1 Tablet(s) PO Q6-8H 11/05/2015 11/29/2015 Inactive hydrocodone 5 mg-acetaminophen 325 mg tablet RxNorm: 291774 1-2 Tablet(s) PO Q6-8H as needed 10/26/2015 11/01/2015 Inactive omeprazole 40 mg capsule,delayed release RxNorm: 352017 1 Capsule(s) PO daily No Start Date Active Imuran 50 mg tablet RxNorm: 188221 1 Tablet(s) PO daily No Start Date Active testosterone cypionate 200 mg/mL intramuscular oil RxNorm: 863652 1 Milliliter(s) IM No Start Date Active lidocaine 3 % lotion RxNorm: 0179620 1 Application TOP BID as needed No Start Date 01/02/2017 Inactive hydrocodone 5 mg-acetaminophen 325 mg tablet RxNorm: 651475 1-2 Tablet(s) PO Q6-8H as needed No Start Date 10/25/2015 Inactive Medication Administered No Medication Administered data Immunizations No Immunization data Assessments Condition Codes Effective Dates 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-10: I63.81 ICD-9: 434.91 07/23/2018 Atrial septal defect ICD-10: Q21.1 ICD-9: 745.5 07/23/2018 Crohn's disease of both small and large [...] Visit Effective Dates Notes Hospital Follow Up 07/23/2018 Hospital Follow Up 07/11/2018 shoulder pain 04/25/2018 medication follow up 12/24/2017 medication follow up 06/20/2017 diarrhea 04/20/2017 rash 01/02/2017 medication follow up 09/07/2016 medication follow up 04/21/2016 medication follow up 11/30/2015 shoulder pain 11/02/2015 shoulder pain 10/15/2015 Results Observation Observation Code Item Item Code Result Date QuantiFERON?-TB Gold Plus (Client Incubated) 134896 QUANTIFERON CRITERIA COMMENT 07/01/2018 QuantiFERON?-TB Gold Plus (Client Incubated) [id number] QUANTIFERON TB1 AG VALUE 0.01 IU/ML 07/01/2018 QuantiFERON?-TB Gold Plus (Client Incubated) 320347 QUANTIFERON TB2 AG VALUE 0.01 IU/ML 07/01/2018 QuantiFERON?-TB Gold Plus (Client Incubated) 875789 QUANTIFERON NIL VALUE 0.01 IU/ML 07/01/2018 QuantiFERON?-TB Gold Plus (Client Incubated) 678652 QUANTIFERON MITOGEN VALUE >10.00 IU/ML 07/01/2018 QuantiFERON?-TB Gold Plus (Client Incubated) 155135 QUANTIFERON-TB GOLD PLUS NEGATIVE 07/01/2018 B12 Nni127 B12 113.00 pg/ml 04/30/2018 Testosterone Djr881 Testo 198.8 ng/dL 04/30/2018 Comp Metabolic Iqj839 NA 143 mEq/L 04/30/2018 Comp Metabolic Ajo170 K 3.8 mEq/L 04/30/2018 Comp Metabolic Nvl251 CL 108 mEq/L 04/30/2018 Comp Metabolic Qbd556 CO2 29.0 mEq/L 04/30/2018 Comp Metabolic Gan570 ANION GAP 10 04/30/2018 Comp Metabolic Veg794 GLUCOSE 94 mg/dL 04/30/2018 Comp Metabolic Wyw610 Creat 0.8 mg/dL 04/30/2018 Comp Metabolic Ybk242 eGFR 110 ml/min/1.73m2 04/30/2018 Comp Metabolic Ghv973 BUN 13 mg/dL 04/30/2018 Comp Metabolic Ucq989 B/C Ratio 16.0 Ratio 04/30/2018 Comp Metabolic Xld006 CALCIUM 9.2 mg/dL 04/30/2018 Comp Metabolic Rdb373 ALK PHOS 62 U/L 04/30/2018 Comp Metabolic Aek475 AST(SGOT) 16 U/L 04/30/2018 Comp Metabolic Pbc551 ALT(SGPT) 15 U/L 04/30/2018 Comp Metabolic Jhu099 BILI T 0.9 mg/dL 04/30/2018 Comp Metabolic Axm898 ALBUMIN 4.1 g/dL 04/30/2018 Comp Metabolic Mux523 TPRO 6.2 g/dL 04/30/2018 Comp Metabolic Lft849 GLOB 2.1 g/dL 04/30/2018 Comp Metabolic Vdm213 A/G Ratio 1.9 Ratio 04/30/2018 Comp Metabolic Pwk595 Osmo 285 mOsmo 04/30/2018 Cbc With Differential [...] 31.3 pg 04/30/2018 Cbc With Differential Ord2 [place]% 8.5 % 04/30/2018 Cbc With Differential Ord2 [...] 0.80 K/ul 04/30/2018 Cbc With Differential Ord2 [place] ABS# 0.5 K/ul 04/30/2018 Cbc With Differential [...] 31.3 pg 04/20/2017 Cbc With Differential Ord2 [place]% 18.6 % 04/20/2017 Cbc With Differential Ord2 [...] 0.67 K/ul 04/20/2017 Cbc With Differential Ord2 [place] ABS# 1.2 K/ul 04/20/2017 Cbc With Differential Ord2 Eos ABS# 0.1 K/ul 04/20/2017 Cbc With Differential Ord2 Baso ABS# 0.0 K/ul 04/20/2017 Comp Metabolic Sjb494 NA 142 mEq/L 04/20/2017 Comp Metabolic Pbs245 K 4.2 mEq/L 04/20/2017 Comp Metabolic Jrk497 CL 104 mEq/L 04/20/2017 Comp Metabolic Onk874 CO2 28.0 mEq/L 04/20/2017 Comp Metabolic Etq044 ANION GAP 14 04/20/2017 Comp Metabolic Kkl927 GLUCOSE 73 mg/dL 04/20/2017 Comp Metabolic Xmv740 Creat 1.2 mg/dL 04/20/2017 Comp Metabolic Efv303 eGFR 68 ml/min/1.73m2 04/20/2017 Comp Metabolic Opy899 BUN 9 mg/dL 04/20/2017 Comp Metabolic Sfz798 B/C Ratio 7.3 Ratio 04/20/2017 Comp Metabolic Utj256 CALCIUM 9.5 mg/dL 04/20/2017 Comp Metabolic Hff274 ALK PHOS 57 U/L 04/20/2017 Comp Metabolic Xxr074 AST(SGOT) 16 U/L 04/20/2017 Comp Metabolic Ymt290 ALT(SGPT) 14 U/L 04/20/2017 Comp Metabolic Vyq819 BILI T 0.6 mg/dL 04/20/2017 Comp Metabolic Svv860 ALBUMIN 4.0 g/dL 04/20/2017 Comp Metabolic Aix229 TPRO 7.0 g/dL 04/20/2017 Comp Metabolic Lnp913 GLOB 3.0 g/dL 04/20/2017 Comp Metabolic Tni290 A/G Ratio 1.3 Ratio 04/20/2017 Comp Metabolic Yok959 Osmo 280 mOsmo 04/20/2017 Review of Systems System Result Effective Dates Eyes No vision change 07/23/2018 Neurologic dizziness [...] No Procedures data Vital Signs Date Vital 07/23/2018 Height: Weight: 07/11/2018 Blood Pressure 1: 148/82 Code: 8480-6 Blood Pressure 1: 126/74 Code: 8480-6 BMI: 25.1 Code: 70489-4 Heart Rate 1: 75 bpm Height: 6' SpO2: 98% Weight: 185 lbs 04/25/2018 Blood Pressure 1: 146/88 Code: 8480-6 BMI: 25.2 Code: 22193-1 Heart Rate 1: 94 bpm Height: 6' SpO2: 95% Weight: 186 lbs 12/24/2017 Blood Pressure 1: 134/90 Code: 8480-6 BMI: 25.8 Code: 05643-9 Heart Rate 1: 64 bpm Height: 6' SpO2: 99% Weight: 190 lbs 06/20/2017 Blood Pressure 1: 130/86 Code: 8480-6 BMI: 27.1 Code: 90850-8 Heart Rate 1: 74 bpm Height: 6' SpO2: 98% Weight: 200 lbs 04/20/2017 Blood Pressure 1: 136/80 Code: 8480-6 BMI: 27.1 Code: 73686-3 Heart Rate 1: 100 bpm Height: 6' SpO2: 95% Temperature: 36.9 (C) / 98.4 (F) Weight: 200 lbs 01/02/2017 Blood Pressure 1: 120/78 Code: 8480-6 BMI: 28.3 Code: 50932-2 Heart Rate 1: 79 bpm Height: 6' SpO2: 98% Weight: 209 lbs 09/07/2016 Blood Pressure 1: 140/90 Code: 8480-6 BMI: 27.4 Code: 14587-5 Heart Rate 1: 70 bpm Height: 6' SpO2: 96% Weight: 202 lbs 04/21/2016 Blood Pressure 1: 136/84 Code: 8480-6 BMI: 29.0 Code: 48164-8 Heart Rate 1: 67 bpm Height: 6' SpO2: 98% Weight: 214 lbs 11/30/2015 Blood Pressure 1: 130/80 Code: 8480-6 BMI: 29.3 Code: 81238-1 Heart Rate 1: 75 bpm Height: 6' SpO2: 98% Weight: 216 lbs 11/02/2015 Blood Pressure 1: 126/78 Code: 8480-6 BMI: 29.8 Code: 26787-1 Heart Rate 1: 69 bpm Height: 6' SpO2: 98% Weight: 220 lbs 10/15/2015 Blood Pressure 1: 132/76 Code: 8480-6 BMI: 29.8 Code: 70967-7 Heart Rate 1: 77 bpm Height: 6' SpO2: 95% Weight: 220 lbs Functional Status No Functional Status data History of Present Illness Symptom Name Status Result Effective Date Notes _ Other: CVA 07/23/2018 None Onset and [...] Performer Location Codes Date EST. PATIENT, LEVEL III Diagnosis: 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 or stenosis of small artery[ICD10: I63.81] Diagnosis: Atrial septal defect[ICD10: Q21.1] [facility] CPT-4: 47853 07/23/2018 ([id number]) 99498 EST. PATIENT, LEVEL IV Diagnosis: Crohn's disease of both small and large intestine without complications[ICD10: K50.80] Diagnosis: 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 or stenosis of small artery[ICD10: I63.81] Diagnosis: Atrial septal defect[ICD10: Q21.1] [facility] CPT- 4: 76412 07/11/2018 ([id number]) 92142 EST. PATIENT, LEVEL IV Diagnosis: Crohn's disease of both small and large intestine without complications[ICD10: K50.80] Diagnosis: Testicular hypofunction[ICD10: E29.1] Diagnosis: Incomplete rotator cuff tear or rupture of right shoulder, not specified as traumatic[ICD10: M75.111] Diagnosis: Chronic pain due to trauma[ICD10: G89.21] Carmela Hamm MD, [facility] CPT-4: 30046 04/25/2018 21529 EST. PATIENT, LEVEL III Diagnosis: Chronic pain due to trauma[ICD10: G89.21] Diagnosis: Incomplete rotator cuff tear or rupture of left shoulder, not specified as traumatic[ICD10: M75.112] Diagnosis: Incomplete rotator cuff tear or rupture of right shoulder, not specified as traumatic[ICD10: M75.111] Diagnosis: Crohn's disease of both small and large intestine without complications[ICD10: K50.80] Bridget Hamm MD, [facility] CPT-4: 82033 12/24/2017 29273 EST. PATIENT, LEVEL III Diagnosis: Chronic pain due to trauma[ICD10: G89.21] Diagnosis: Incomplete rotator cuff tear or rupture of left shoulder, not specified as traumatic[ICD10: M75.112] Diagnosis: Incomplete rotator cuff tear or rupture of right shoulder, not specified as traumatic[ICD10: M75.111] Diagnosis: Crohn's disease of both small and large intestine without complications[ICD10: K50.80] Bridget Hamm MD [facility] CPT-4: 28532 06/20/2017 17724 EST. PATIENT, LEVEL IV Diagnosis: Crohn's disease of both small and large intestine without complications[ICD10: K50.80] Bridget Hamm MD [facility] CPT-4: 70663 04/20/2017 24392 EST. PATIENT, LEVEL III Diagnosis: Zoster without complications[ICD10: B02.9] Bridget Hamm MD [facility] CPT-4: 77300 01/02/2017 05795 EST. PATIENT, LEVEL IV Diagnosis: Chronic pain due to trauma[ICD10: G89.21] Diagnosis: Incomplete rotator cuff tear or rupture of left shoulder, not specified as traumatic[ICD10: M75.112] Diagnosis: Incomplete rotator cuff tear or rupture of right shoulder, not specified as traumatic[ICD10: M75.111] Diagnosis: Crohn's disease of both small and large intestine without complications[ICD10: K50.80] [facility] CPT-4: 89274 09/07/2016 ([id number]) 99699 EST. PATIENT, LEVEL III Diagnosis: Chronic pain due to trauma[ICD10: G89.21] Diagnosis: Incomplete rotator cuff tear or rupture of left shoulder, not specified as traumatic[ICD10: M75.112] Diagnosis: Incomplete rotator cuff tear or rupture of right shoulder, not specified as traumatic[ICD10: M75.111] Diagnosis: Crohn's disease of both small and large intestine without complications[ICD10: K50.80] [facility] CPT-4: 38736 04/21/2016 80103 EST. PATIENT, LEVEL IV Diagnosis: Chronic pain due to trauma[ICD10: G89.21] Diagnosis: Incomplete rotator cuff tear or rupture of right shoulder, not specified as traumatic[ICD10: M75.111] Diagnosis: Incomplete rotator cuff tear or rupture of left shoulder, not specified as traumatic[ICD10: M75.112] [facility] CPT-4: 89228 11/30/2015 89662 EST. PATIENT, LEVEL IV Diagnosis: Chronic pain due to trauma[ICD10: G89.21] Diagnosis: Incomplete rotator cuff tear or rupture of right shoulder, not specified as traumatic[ICD10: M75.111] Diagnosis: Incomplete rotator cuff tear or rupture of left shoulder, not specified as traumatic[ICD10: M75.112] [facility] CPT-4: 59273 11/02/2015 ([id number]) OFFICE VISIT, NEW - LEVEL 4 Diagnosis: Incomplete rotator cuff tear or rupture of left shoulder, not specified as traumatic[ICD10: M75.112] Diagnosis: Incomplete rotator cuff tear or rupture of right shoulder, not specified as traumatic[ICD10: M75.111] Diagnosis: Crohn's disease of both small and large intestine without complications[ICD10: K50.80] [facility] CPT-4: 41877 10/15/2015 Plan of Care Planned Activity Notes Codes Status Date Visit Plan: CVA - continue with heart monitor - will check with neurology consult - keep track of your symptoms and notify clinic with any changes, questions, or concerns. 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 Continue with medications as directed by specialist at [facility]. I have recommended that Ba needs to stay off of work until some of this work-up is completed since some of these issues may be due to the stress of his job and lack of sleep, versus from the foramen ovale that may be shunting blood from his right to left side of his heart. referral to neurology in [place] referral to dr. villalpando - Crohn's disease - keep appt with Dr. Rondon since his symptoms have been worsening lately due to the stress of his job. 07/11/2018 [facility]ment[facility] [phone] [facility] (15 min) Moderate 07/11/2018 Patient Education: Patient Medication Summary Completed 07/11/2018 Care Plan: Referral Order SNOMED-CT : [id number] Pending 07/11/2018 Visit Plan: Crohns - symptoms are not well controlled with imuran -patient has seen Dr Rondon in the past -recommend he follow up with him Low testosterone -check labs -restart injections if indicated Chronic Pain Syndrome - pt has chronic pain - has been maintained on current medications, has not sought out other medications, only uses PRN pain medications as directed, and understands the consequences of over-medication. Pain contract update today. 04/25/2018 Appointment: [facility] [phone] [facility] [phone] (30 min) Complex 04/25/2018 Patient Education: Patient Medication Summary Completed 04/25/2018 Visit Diagnosis Plan: Crohn's disease of both small and large intestine without complications Discussion: managed by Dr RondonXkrcc-zcoain-pk changes at this time ICD-9 : 555.2 [...] : M75.112 12/24/2017 Appointment: Bridget Terry WPtel: [address] [place], [place] [address] (15 min) Moderate 12/24/2017 Patient Education: Patient [...] : M75.112 06/20/2017 Appointment: Bridget Terry WPtel: [facility] [place] [place] (30 min) Complex 06/20/2017 Patient Education: Patient Medication Summary Completed 06/20/2017 Appointment: Carmela Greenberg WPtel: [phone] [phone] [place] (15 min) Moderate 06/19/2017 Appointment: [...] treatment plan. 04/20/2017 Appointment: Bridget Terry WPtel: [phone] [facility] (30 min) Complex 04/20/2017 Patient Education: Patient Medication Summary Completed 04/20/2017 Appointment: Bridget Terry WPtel: [phone] [facility] (15 min) Moderate 04/19/2017 Appointment: Lab Draw [...] considered contagious. 01/02/2017 Appointment: Bridget Terry WPtel: [facility] [place] (30 min) Complex 01/02/2017 Patient [...] : G89.21 09/07/2016 Appointment: Bridget Terry WPtel: [facility] (30 min) Complex 09/07/2016 Patient Education: [...] : G89.21 04/21/2016 Appointment: Carmela Greenberg WPtel: [phone] (15 min) Moderate 04/21/2016 Patient Education: [...] the year. 11/30/2015 Appointment: Carmela Greenberg WPtel: [phone] (30 min) Complex 11/30/2015 Patient Education: Patient [...] year. 11/02/2015 Appointment: [facility] Green[facility]el[facility] [phone] [facility] [phone] [place] (15 min) Moderate 11/02/2015 Patient Education: [...] your records Make an appointment with Dr Rondon FA[facility] LAB[facility] . Crohns - symptoms are not well controlled with imuran -patient has seen Dr Rondon in the past -recommend he follow up [...] with medications as directed by specialist at [facility]. I have recommended that Ba needs to stay off of work until some of this work- up is completed since some of these issues may be due to the stress of his job and lack of sleep, versus from the foramen ovale that may be shunting blood from his right to left side of his heart. referral to neurology in [place] referral to dr. villalpando - Crohn's disease - keep appt with Dr. Rondon since his symptoms have been worsening lately [...] clinic with any changes, questions, or concerns. . Shingles - Herpes Zoster - acute [...]
--- OUTSIDE RECORDS SUMMARY | 2018-09-19 08:17 | XMS REPORT | CCD ---
Author Author Bridget Terry MD, [facility] Address [address] [place] [address] Phone Care Team Providers Care Banking Specialist Name Role Phone PP Unavailable CCM Unavailable Summary Purpose Interface Exchange Insurance Providers Payer name Policy type / Coverage type Covered alliance party ID Effective Begin Date Effective End Date Blue Cross Blue [facility] Blue Cross/Blue Shield [id number] Unknown Unknown Family history Son Diagnosis Age At Onset Attention deficit hyperactivity disorder Unknown Social History Social History Element Codes Description Effective Dates Marital status Unknown Consuelo 04/25/2018 Number of children Unknown 1 10/15/[address]: 166352910 Currently uses smokeless tobacco 10/15/2015 Alcohol history [...] hydrocodone 10 mg-acetaminophen 325 mg tablet RxNorm: 316753 1 Tablet(s) PO Q6-8H as needed 07/15/2018 08/06/2018 Active hydrocodone 10 mg-acetaminophen 325 mg tablet RxNorm: 597928 1 Tablet(s) PO Q6-8H as needed 06/18/2018 07/10/2018 Inactive hydrocodone 10 mg-acetaminophen 325 mg tablet RxNorm: 989753 1 Tablet(s) PO Q6-8H as needed 05/22/2018 06/13/2018 Inactive testosterone cypionate 200 mg/mL intramuscular oil RxNorm: 1438071 1 Milliliter(s) IM monthly 05/01/2018 08/28/2018 Active cyanocobalamin (vit B-12) 1,000 mcg/mL injection solution RxNorm: 087830 1 Milliliter(s) Inj monthly 05/01/2018 08/28/2018 Active Please provide syringes and needles for him to administer cyanocobalamin (vit B-12) 1,000 mcg/mL injection solution RxNorm: 312181 1 Milliliter(s) Inj monthly 05/01/2018 04/30/2018 Inactive testosterone cypionate 200 mg/mL intramuscular oil RxNorm: 6621931 1 Milliliter(s) IM monthly 05/01/2018 04/30/2018 Inactive hydrocodone 10 mg-acetaminophen 325 mg tablet RxNorm: 591343 1 Tablet(s) PO Q6-8H as needed 04/25/2018 05/17/2018 Inactive hydrocodone 10 mg-acetaminophen 325 mg tablet RxNorm: 768754 1 Tablet(s) PO Q6-8H as needed 04/01/2018 04/23/2018 Inactive hydrocodone 10 mg-acetaminophen 325 mg tablet RxNorm: 981867 1 Tablet(s) PO Q6-8H as needed 03/05/2018 03/27/2018 Inactive hydrocodone 10 mg-acetaminophen 325 mg tablet RxNorm: 704590 1 Tablet(s) PO Q6-8H as needed 02/11/2018 03/04/2018 Inactive hydrocodone 10 mg-acetaminophen 325 mg tablet RxNorm: 109909 1 Tablet(s) PO Q6-8H as needed 01/18/2018 02/09/2018 Inactive hydrocodone 10 mg-acetaminophen 325 mg tablet RxNorm: 393227 1 Tablet(s) PO Q6-8H as needed 12/24/2017 01/15/2018 Inactive hydrocodone 10 mg-acetaminophen 325 mg tablet RxNorm: 662181 1 Tablet(s) PO Q6-8H as needed 11/30/2017 12/22/2017 Inactive hydrocodone 10 mg-acetaminophen 325 mg tablet RxNorm: 855510 1 Tablet(s) PO Q6-8H as needed 11/06/2017 11/28/2017 Inactive hydrocodone 10 mg-acetaminophen 325 mg tablet RxNorm: 675507 1 Tablet(s) PO Q6-8H as needed 10/11/2017 11/02/2017 Inactive hydrocodone 10 mg-acetaminophen 325 mg tablet RxNorm: 115963 1 Tablet(s) PO Q6-8H as needed 09/12/2017 10/04/2017 Inactive hydrocodone 10 mg-acetaminophen 325 mg tablet RxNorm: 124100 1 Tablet(s) PO Q6-8H as needed 08/16/2017 09/07/2017 Inactive hydrocodone 10 mg-acetaminophen 325 mg tablet RxNorm: 952581 1 Tablet(s) PO Q6-8H as needed 07/19/2017 08/10/2017 Inactive oxycodone-acetaminophen 7.5 mg-325 mg tablet RxNorm: 5857710 1 Tablet(s) PO Q6-8H as needed 06/29/2017 07/18/2017 Inactive hydrocodone 10 mg-acetaminophen 325 mg tablet RxNorm: 136438 1 Tablet(s) PO Q6-8H as needed 06/01/2017 06/17/2017 Inactive hydrocodone 10 mg-acetaminophen 325 mg tablet RxNorm: 743268 1 Tablet(s) PO Q6-8H as needed 05/09/2017 05/30/2017 Inactive Cipro 500 mg tablet RxNorm: 939256 1 Tablet(s) PO BID 04/20/2017 04/29/2017 Inactive prednisone 10 mg tablet RxNorm: 889267 Tablet(s) PO 04/20/2017 03/04/2018 Inactive 6,5,4,3,2,1 Flagyl 500 mg tablet RxNorm: 961547 1 Tablet(s) PO TID 04/20/2017 04/29/2017 Inactive hydrocodone 10 mg-acetaminophen 325 mg tablet RxNorm: 017932 1 Tablet(s) PO Q6-8H as needed 04/09/2017 05/01/2017 Inactive hydrocodone 10 mg-acetaminophen 325 mg tablet RxNorm: 300625 1 Tablet(s) PO Q6-8H as needed 03/07/2017 03/29/2017 Inactive hydrocodone 10 mg-acetaminophen 325 mg tablet RxNorm: 968247 1 Tablet(s) PO Q6-8H as needed 02/01/2017 02/23/2017 Inactive lidocaine 3 % lotion RxNorm: 5952177 1 Application TOP BID as needed 01/03/2017 No Stop Date Active acyclovir 800 mg tablet RxNorm: 526892 1 Tablet(s) PO 5 x a day 01/02/2017 01/08/2017 Inactive hydrocodone 10 mg-acetaminophen 325 mg tablet RxNorm: 958590 1 Tablet(s) PO Q6-8H as needed 12/06/2016 12/28/2016 Inactive hydrocodone 10 mg-acetaminophen 325 mg tablet RxNorm: 215122 1 Tablet(s) PO Q6-8H as needed 12/04/2016 12/05/2016 Inactive hydrocodone 10 mg-acetaminophen 325 mg tablet RxNorm: 544330 1 Tablet(s) PO Q6-8H as needed 11/08/2016 11/30/2016 Inactive hydrocodone 10 mg-acetaminophen 325 mg tablet RxNorm: 613548 1 Tablet(s) PO Q6-8H as needed 10/09/2016 10/31/2016 Inactive hydrocodone 10 mg-acetaminophen 325 mg tablet RxNorm: 914405 1 Tablet(s) PO Q6-8H as needed 08/08/2016 08/30/2016 Inactive hydrocodone 10 mg-acetaminophen 325 mg tablet RxNorm: 313434 1 Tablet(s) PO Q6-8H as needed 07/12/2016 08/03/2016 Inactive hydrocodone 10 mg-acetaminophen 325 mg tablet RxNorm: 678395 1 Tablet(s) PO Q6-8H as needed 06/12/2016 07/04/2016 Inactive hydrocodone 10 mg-acetaminophen 325 mg tablet RxNorm: 838053 1 Tablet(s) PO Q6-8H as needed 05/16/2016 06/07/2016 Inactive hydrocodone 10 mg-acetaminophen 325 mg tablet RxNorm: 599818 1 Tablet(s) PO Q6-8H as needed 04/21/2016 05/12/2016 Inactive hydrocodone 10 mg-acetaminophen 325 mg tablet RxNorm: 342885 1 Tablet(s) PO Q6-8H as needed 03/23/2016 04/13/2016 Inactive hydrocodone 10 mg-acetaminophen 325 mg tablet RxNorm: 439490 1 Tablet(s) PO Q6-8H as needed 02/24/2016 03/16/2016 Inactive hydrocodone 10 mg-acetaminophen 325 mg tablet RxNorm: 746807 1 Tablet(s) PO Q6-8H 01/21/2016 02/11/2016 Inactive hydrocodone 10 mg-acetaminophen 325 mg tablet RxNorm: 201950 1 Tablet(s) PO Q6-8H 12/24/2015 01/14/2016 Inactive hydrocodone 10 mg-acetaminophen 325 mg tablet RxNorm: 653924 1 Tablet(s) PO Q6-8H 11/30/2015 12/23/2015 Inactive hydrocodone 10 mg-acetaminophen 325 mg tablet RxNorm: 643814 1 Tablet(s) PO Q6-8H 11/05/2015 11/29/2015 Inactive hydrocodone 5 mg-acetaminophen 325 mg tablet RxNorm: 399773 1-2 Tablet(s) PO Q6-8H as needed 10/26/2015 11/01/2015 Inactive omeprazole 40 mg capsule,delayed release RxNorm: 551630 1 Capsule(s) PO daily No Start Date Active Imuran 50 mg tablet RxNorm: 267689 1 Tablet(s) PO daily No Start Date Active testosterone cypionate 200 mg/mL intramuscular oil RxNorm: 692239 1 Milliliter(s) IM No Start Date Active lidocaine 3 % lotion RxNorm: 2229495 1 Application TOP BID as needed No Start Date 01/02/2017 Inactive hydrocodone 5 mg-acetaminophen 325 mg tablet RxNorm: 758474 1-2 Tablet(s) PO Q6-8H as needed No Start Date 10/25/2015 Inactive Medication Administered No Medication Administered data Immunizations No Immunization data Assessments Condition Codes Effective Dates Atrial septal defect ICD-10: Q21.1 ICD-9: 745.5 07/11/2018 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-10: I63.81 ICD-9: 434.91 07/11/2018 Crohn's disease of both small and large [...] Visit Effective Dates Notes Hospital Follow Up 07/11/2018 shoulder pain 04/25/2018 medication follow up 12/24/2017 medication follow up 06/20/2017 diarrhea 04/20/2017 rash 01/02/2017 medication follow up 09/07/2016 medication follow up 04/21/2016 medication follow up 11/30/2015 shoulder pain 11/02/2015 shoulder pain 10/15/2015 Results Observation Observation Code Item Item Code Result Date QuantiFERON?-TB Gold Plus (Client Incubated) [id number] QUANTIFERON CRITERIA COMMENT 07/01/2018 QuantiFERON?-TB Gold Plus (Client Incubated) 728642 QUANTIFERON TB1 AG VALUE 0.01 IU/ML 07/01/2018 QuantiFERON?-TB Gold Plus (Client Incubated) 636557 QUANTIFERON TB2 AG VALUE 0.01 IU/ML 07/01/2018 QuantiFERON?-TB Gold Plus (Client Incubated) 221111 QUANTIFERON NIL VALUE 0.01 IU/ML 07/01/2018 QuantiFERON?-TB Gold Plus (Client Incubated) 354758 QUANTIFERON MITOGEN VALUE >10.00 IU/ML 07/01/2018 QuantiFERON?-TB Gold Plus (Client Incubated) [id number] QUANTIFERON-TB GOLD PLUS NEGATIVE 07/01/2018 B12 Svr569 B12 113.00 pg/ml 04/30/2018 Testosterone Hib350 Testo 198.8 ng/dL 04/30/2018 Comp Metabolic Fmo068 NA 143 mEq/L 04/30/2018 Comp Metabolic Ugm816 K 3.8 mEq/L 04/30/2018 Comp Metabolic Imk698 CL 108 mEq/L 04/30/2018 Comp Metabolic Dyy181 CO2 29.0 mEq/L 04/30/2018 Comp Metabolic Ref579 ANION GAP 10 04/30/2018 Comp Metabolic Svj539 GLUCOSE 94 mg/dL 04/30/2018 Comp Metabolic Dza845 Creat 0.8 mg/dL 04/30/2018 Comp Metabolic Zcx114 eGFR 110 ml/min/1.73m2 04/30/2018 Comp Metabolic Bxf464 BUN 13 mg/dL 04/30/2018 Comp Metabolic Jqh356 B/C Ratio 16.0 Ratio 04/30/2018 Comp Metabolic Ltj841 CALCIUM 9.2 mg/dL 04/30/2018 Comp Metabolic Qbt829 ALK PHOS 62 U/L 04/30/2018 Comp Metabolic Zjn415 AST(SGOT) 16 U/L 04/30/2018 Comp Metabolic Qff238 ALT(SGPT) 15 U/L 04/30/2018 Comp Metabolic Fpz342 BILI T 0.9 mg/dL 04/30/2018 Comp Metabolic Txc540 ALBUMIN 4.1 g/dL 04/30/2018 Comp Metabolic Ggy021 TPRO 6.2 g/dL 04/30/2018 Comp Metabolic Eah547 GLOB 2.1 g/dL 04/30/2018 Comp Metabolic Qso883 A/G Ratio 1.9 Ratio 04/30/2018 Comp Metabolic Ohh224 Osmo 285 mOsmo 04/30/2018 Cbc With Differential [...] 31.3 pg 04/30/2018 Cbc With Differential Ord2 Gila% 8.5 % 04/30/2018 Cbc With Differential Ord2 [...] 0.80 K/ul 04/30/2018 Cbc With Differential Ord2 Gila ABS# 0.5 K/ul 04/30/2018 Cbc With Differential [...] 31.3 pg 04/20/2017 Cbc With Differential Ord2 Gila% 18.6 % 04/20/2017 Cbc With Differential Ord2 [...] 0.67 K/ul 04/20/2017 Cbc With Differential Ord2 Gila ABS# 1.2 K/ul 04/20/2017 Cbc With Differential Ord2 Eos ABS# 0.1 K/ul 04/20/2017 Cbc With Differential Ord2 Baso ABS# 0.0 K/ul 04/20/2017 Comp Metabolic Onx179 NA 142 mEq/L 04/20/2017 Comp Metabolic Wve183 K 4.2 mEq/L 04/20/2017 Comp Metabolic Mla640 CL 104 mEq/L 04/20/2017 Comp Metabolic Axs763 CO2 28.0 mEq/L 04/20/2017 Comp Metabolic Hrp249 ANION GAP 14 04/20/2017 Comp Metabolic Jtr322 GLUCOSE 73 mg/dL 04/20/2017 Comp Metabolic Tou780 Creat 1.2 mg/dL 04/20/2017 Comp Metabolic Prp450 eGFR 68 ml/min/1.73m2 04/20/2017 Comp Metabolic Lfa092 BUN 9 mg/dL 04/20/2017 Comp Metabolic Ezr039 B/C Ratio 7.3 Ratio 04/20/2017 Comp Metabolic Zid683 CALCIUM 9.5 mg/dL 04/20/2017 Comp Metabolic Zgy172 ALK PHOS 57 U/L 04/20/2017 Comp Metabolic Wke666 AST(SGOT) 16 U/L 04/20/2017 Comp Metabolic Qid033 ALT(SGPT) 14 U/L 04/20/2017 Comp Metabolic Qym021 BILI T 0.6 mg/dL 04/20/2017 Comp Metabolic Qjt298 ALBUMIN 4.0 g/dL 04/20/2017 Comp Metabolic Pzh224 TPRO 7.0 g/dL 04/20/2017 Comp Metabolic Khj396 GLOB 3.0 g/dL 04/20/2017 Comp Metabolic Tmm520 A/G Ratio 1.3 Ratio 04/20/2017 Comp Metabolic Djg210 Osmo 280 mOsmo 04/20/2017 Review of Systems System Result Effective Dates Constitutional recent illness 07/11/2018 Constitutional No night [...] No Procedures data Vital Signs Date Vital 07/11/2018 Blood Pressure 1: 148/82 Code: 8480-6 Blood Pressure 1: 126/74 Code: 8480-6 BMI: 25.1 Code: 02227-0 Heart Rate 1: 75 bpm Height: 6' SpO2: 98% Weight: 185 lbs 04/25/2018 Blood Pressure 1: 146/88 Code: 8480-6 BMI: 25.2 Code: 22961-3 Heart Rate 1: 94 bpm Height: 6' SpO2: 95% Weight: 186 lbs 12/24/2017 Blood Pressure 1: 134/90 Code: 8480-6 BMI: 25.8 Code: 13382-2 Heart Rate 1: 64 bpm Height: 6' SpO2: 99% Weight: 190 lbs 06/20/2017 Blood Pressure 1: 130/86 Code: 8480-6 BMI: 27.1 Code: 94675-7 Heart Rate 1: 74 bpm Height: 6' SpO2: 98% Weight: 200 lbs 04/20/2017 Blood Pressure 1: 136/80 Code: 8480-6 BMI: 27.1 Code: 71658-8 Heart Rate 1: 100 bpm Height: 6' SpO2: 95% Temperature: 36.9 (C) / 98.4 (F) Weight: 200 lbs 01/02/2017 Blood Pressure 1: 120/78 Code: 8480-6 BMI: 28.3 Code: 64252-1 Heart Rate 1: 79 bpm Height: 6' SpO2: 98% Weight: 209 lbs 09/07/2016 Blood Pressure 1: 140/90 Code: 8480-6 BMI: 27.4 Code: 13869-6 Heart Rate 1: 70 bpm Height: 6' SpO2: 96% Weight: 202 lbs 04/21/2016 Blood Pressure 1: 136/84 Code: 8480-6 BMI: 29.0 Code: 78857-8 Heart Rate 1: 67 bpm Height: 6' SpO2: 98% Weight: 214 lbs 11/30/2015 Blood Pressure 1: 130/80 Code: 8480-6 BMI: 29.3 Code: 12322-2 Heart Rate 1: 75 bpm Height: 6' SpO2: 98% Weight: 216 lbs 11/02/2015 Blood Pressure 1: 126/78 Code: 8480-6 BMI: 29.8 Code: 10752-0 Heart Rate 1: 69 bpm Height: 6' SpO2: 98% Weight: 220 lbs 10/15/2015 Blood Pressure 1: 132/76 Code: 8480-6 BMI: 29.8 Code: 70561-2 Heart Rate 1: 77 bpm Height: 6' SpO2: 95% Weight: 220 lbs Functional Status No Functional Status data History of Present Illness Symptom Name Status Result Effective Date Notes _ Other: CVA 07/11/2018 None Onset of [...] data Encounters Encounter Performer Location Codes Date ([id number]) 83074 EST. PATIENT, LEVEL IV Diagnosis: Crohn's disease of both small and large intestine without complications[ICD10: K50.80] Diagnosis: 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 or stenosis of small artery[ICD10: I63.81] Diagnosis: Atrial septal defect[ICD10: Q21.1] Rupal Hamm MD, [facility] CPT- 4: 28158 07/11/2018 ([id number]) 18600 EST. PATIENT, LEVEL IV Diagnosis: Crohn's disease of both small and large intestine without complications[ICD10: K50.80] Diagnosis: Testicular hypofunction[ICD10: E29.1] Diagnosis: Incomplete rotator cuff tear or rupture of right shoulder, not specified as traumatic[ICD10: M75.111] Diagnosis: Chronic pain due to trauma[ICD10: G89.21] Carmela Hamm MD, [facility] CPT-4: 80578 04/25/2018 92108 EST. PATIENT, LEVEL III Diagnosis: Chronic pain due to trauma[ICD10: G89.21] Diagnosis: Incomplete rotator cuff tear or rupture of left shoulder, not specified as traumatic[ICD10: M75.112] Diagnosis: Incomplete rotator cuff tear or rupture of right shoulder, not specified as traumatic[ICD10: M75.111] Diagnosis: Crohn's disease of both small and large intestine without complications[ICD10: K50.80] Bridget Hamm MD, [facility] CPT-4: 56706 12/24/2017 21963 EST. PATIENT, LEVEL III Diagnosis: Chronic pain due to trauma[ICD10: G89.21] Diagnosis: Incomplete rotator cuff tear or rupture of left shoulder, not specified as traumatic[ICD10: M75.112] Diagnosis: Incomplete rotator cuff tear or rupture of right shoulder, not specified as traumatic[ICD10: M75.111] Diagnosis: Crohn's disease of both small and large intestine without complications[ICD10: K50.80] Bridget Hamm MD, [facility] CPT-4: 79296 06/20/2017 46607 EST. PATIENT, LEVEL IV Diagnosis: Crohn's disease of both small and large intestine without complications[ICD10: K50.80] Bridget Hamm MD, [facility] CPT-4: 98132 04/20/2017 89737 EST. PATIENT, LEVEL III Diagnosis: Zoster without complications[ICD10: B02.9] Bridget Hamm MD, [facility] CPT-4: 08901 01/02/2017 95663 EST. PATIENT, LEVEL IV Diagnosis: Chronic pain due to trauma[ICD10: G89.21] Diagnosis: Incomplete rotator cuff tear or rupture of left shoulder, not specified as traumatic[ICD10: M75.112] Diagnosis: Incomplete rotator cuff tear or rupture of right shoulder, not specified as traumatic[ICD10: M75.111] Diagnosis: Crohn's disease of both small and large intestine without complications[ICD10: K50.80] Bridget Hamm MD, [facility] CPT-4: 23962 09/07/2016 ([id number]) 94578 EST. PATIENT, LEVEL III Diagnosis: Chronic pain due to trauma[ICD10: G89.21] Diagnosis: Incomplete rotator cuff tear or rupture of left shoulder, not specified as traumatic[ICD10: M75.112] Diagnosis: Incomplete rotator cuff tear or rupture of right shoulder, not specified as traumatic[ICD10: M75.111] Diagnosis: Crohn's disease of both small and large intestine without complications[ICD10: K50.80] Carmela Hamm MD, [facility] CPT-4: 44867 04/21/2016 65575 EST. PATIENT, LEVEL IV Diagnosis: Chronic pain due to trauma[ICD10: G89.21] Diagnosis: Incomplete rotator cuff tear or rupture of right shoulder, not specified as traumatic[ICD10: M75.111] Diagnosis: Incomplete rotator cuff tear or rupture of left shoulder, not specified as traumatic[ICD10: M75.112] Bridget Hamm MD, [facility] CPT-4: 06833 11/30/2015 84892 EST. PATIENT, LEVEL IV Diagnosis: Chronic pain due to trauma[ICD10: G89.21] Diagnosis: Incomplete rotator cuff tear or rupture of right shoulder, not specified as traumatic[ICD10: M75.111] Diagnosis: Incomplete rotator cuff tear or rupture of left shoulder, not specified as traumatic[ICD10: M75.112] [facility] CPT-4: 88298 11/02/2015 ([id number]) OFFICE VISIT, NEW - LEVEL 4 Diagnosis: Incomplete rotator cuff tear or rupture of left shoulder, not specified as traumatic[ICD10: M75.112] Diagnosis: Incomplete rotator cuff tear or rupture of right shoulder, not specified as traumatic[ICD10: M75.111] Diagnosis: Crohn's disease of both small and large intestine without complications[ICD10: K50.80] Bridget Hamm MD, [facility] CPT-4: 62536 10/15/2015 Plan of Care Planned Activity Notes Codes Status Date Referral: Kvng Villalpando Referral Completed 07/23/2018 Visit Plan: 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 Continue with medications as directed by specialist at [facility]. I have recommended that Ba needs to stay off of work until some of this work-up is completed since some of these issues may be due to the stress of his job and lack of sleep, versus from the foramen ovale that may be shunting blood from his right to left side of his heart. referral to neurology in [place] referral to dr. villalpando - Crohn's disease - keep appt with Dr. Rondon since his symptoms have been worsening lately due to the stress of his job. 07/11/2018 Appointment: Rupal Hamm WPtel: [address] [place], [place] [phone] (15 min) Moderate 07/11/2018 Patient Education: Patient Medication Summary Completed 07/11/2018 Care Plan: Referral Order SNOMED-CT : [id number] Pending 07/11/2018 Visit Plan: Crohns - symptoms [...] update today. 04/25/2018 Appointment: Carmela Greenberg WPtel: [phone] (30 min) Complex 04/25/2018 Patient Education: Patient Medication Summary Completed 04/25/2018 Visit Diagnosis Plan: Crohn's disease of both small and large intestine without complications Discussion: managed by Dr RondonDuwuu-lqgoay-gz changes at this time ICD-9 : 555.2 [...] : M75.112 12/24/2017 Appointment: Bridget Terry WPtel[facility] [place] ([place] min) Moderate 12/24/2017 Patient Education: Patient [...] : M75.112 06/20/2017 Appointment: Bridget Terry WPtel: [facility] (30 min) Complex 06/20/2017 Patient Education: Patient Medication Summary Completed 06/20/2017 Appointment: Carmela Greenberg WPtel: [phone] [place] (15 min) Moderate 06/19/2017 Appointment: Lab [...] treatment plan. 04/20/2017 Appointment: Bridget Terry WPtel: [facility] (30 min) Complex 04/20/2017 Patient Education: Patient Medication Summary Completed 04/20/2017 Appointment: Bridget Terry WPtel: [phone] [facility] [place] (15 min) Moderate 04/19/2017 Appointment: Lab [...] considered contagious. 01/02/2017 Appointment: Bridget Terry WPtel: [address] [place], [place] [phone] (30 min) Complex 01/02/2017 Patient Education: Patient [...] : G89.21 09/07/2016 Appointment: Bridget Terry WPtel: [address] [place], [place] [phone] (30 min) Complex 09/07/2016 Patient Education: Patient [...] : G89.21 04/21/2016 Appointment: Carmela Greenberg WPtel: [facility] [phone] [place] (15 min) Moderate 04/21/2016 Patient Education: [...] year. 11/30/2015 Appointment: Carmela Greenberg WPtel: [phone] [facility] [place] [address] (30 min) [facility] 11/30/2015 Patient Education: Patient Medication Summary Completed [...] the year. 11/02/2015 Appointment: Carmela Greenberg WPtel: [phone] (15 min) Moderate 11/02/2015 Patient Education: Patient [...] with medications as directed by specialist at [facility]. I have recommended that Ba needs to stay off of work until some of this work- up is completed since some of these issues may be due to the stress of his job and lack of sleep, versus from the foramen ovale that may be shunting blood from his right to left side of his heart. referral to neurology in [place] referral to dr. villalpando - Crohn's disease [...] after the first of the year. . Shingles - Herpes Zoster - acute [...]
--- OUTSIDE RECORDS SUMMARY | 2018-09-19 08:18 | XMS REPORT | CCD ---
Author Author Bridget Terry MD, [facility] Address [address] [place] [address] Phone Care Team Providers Care Patient Access Associate Name Role Phone PP Unavailable CCM Unavailable Summary Purpose Interface Exchange Insurance Providers Payer name Policy type / Coverage type Covered democrat ID Effective Begin Date Effective End Date Blue Cross Blue [facility] Blue Cross/Blue Shield [id number] Unknown Unknown Family history Son Diagnosis Age At Onset Attention deficit hyperactivity disorder Unknown Social History Social History Element Codes Description Effective Dates Marital status Unknown Consuelo 04/25/2018 Number of children Unknown 1 10/15/[address]: 775261794 Currently uses smokeless tobacco 10/15/2015 Alcohol history [...] hydrocodone 10 mg-acetaminophen 325 mg tablet RxNorm: 866724 1 Tablet(s) PO Q6-8H as needed 06/18/2018 07/10/2018 Inactive hydrocodone 10 mg-acetaminophen 325 mg tablet RxNorm: 230816 1 Tablet(s) PO Q6-8H as needed 05/22/2018 06/13/2018 Inactive testosterone cypionate 200 mg/mL intramuscular oil RxNorm: 7655739 1 Milliliter(s) IM monthly 05/01/2018 08/28/2018 Active cyanocobalamin (vit B-12) 1,000 mcg/mL injection solution RxNorm: 730357 1 Milliliter(s) Inj monthly 05/01/2018 08/28/2018 Active Please provide syringes and needles for him to administer cyanocobalamin (vit B-12) 1,000 mcg/mL injection solution RxNorm: 267157 1 Milliliter(s) Inj monthly 05/01/2018 04/30/2018 Inactive testosterone cypionate 200 mg/mL intramuscular oil RxNorm: 9922976 1 Milliliter(s) IM monthly 05/01/2018 04/30/2018 Inactive hydrocodone 10 mg-acetaminophen 325 mg tablet RxNorm: 505281 1 Tablet(s) PO Q6-8H as needed 04/25/2018 05/17/2018 Inactive hydrocodone 10 mg-acetaminophen 325 mg tablet RxNorm: 231242 1 Tablet(s) PO Q6-8H as needed 04/01/2018 04/23/2018 Inactive hydrocodone 10 mg-acetaminophen 325 mg tablet RxNorm: 105568 1 Tablet(s) PO Q6-8H as needed 03/05/2018 03/27/2018 Inactive hydrocodone 10 mg-acetaminophen 325 mg tablet RxNorm: 434762 1 Tablet(s) PO Q6-8H as needed 02/11/2018 03/04/2018 Inactive hydrocodone 10 mg-acetaminophen 325 mg tablet RxNorm: 229140 1 Tablet(s) PO Q6-8H as needed 01/18/2018 02/09/2018 Inactive hydrocodone 10 mg-acetaminophen 325 mg tablet RxNorm: 887645 1 Tablet(s) PO Q6-8H as needed 12/24/2017 01/15/2018 Inactive hydrocodone 10 mg-acetaminophen 325 mg tablet RxNorm: 198547 1 Tablet(s) PO Q6-8H as needed 11/30/2017 12/22/2017 Inactive hydrocodone 10 mg-acetaminophen 325 mg tablet RxNorm: 524366 1 Tablet(s) PO Q6-8H as needed 11/06/2017 11/28/2017 Inactive hydrocodone 10 mg-acetaminophen 325 mg tablet RxNorm: 918799 1 Tablet(s) PO Q6-8H as needed 10/11/2017 11/02/2017 Inactive hydrocodone 10 mg-acetaminophen 325 mg tablet RxNorm: 879462 1 Tablet(s) PO Q6-8H as needed 09/12/2017 10/04/2017 Inactive hydrocodone 10 mg-acetaminophen 325 mg tablet RxNorm: 599805 1 Tablet(s) PO Q6-8H as needed 08/16/2017 09/07/2017 Inactive hydrocodone 10 mg-acetaminophen 325 mg tablet RxNorm: 154313 1 Tablet(s) PO Q6-8H as needed 07/19/2017 08/10/2017 Inactive oxycodone-acetaminophen 7.5 mg-325 mg tablet RxNorm: 9245068 1 Tablet(s) PO Q6-8H as needed 06/29/2017 07/18/2017 Inactive hydrocodone 10 mg-acetaminophen 325 mg tablet RxNorm: 093315 1 Tablet(s) PO Q6-8H as needed 06/01/2017 06/17/2017 Inactive hydrocodone 10 mg-acetaminophen 325 mg tablet RxNorm: 215178 1 Tablet(s) PO Q6-8H as needed 05/09/2017 05/30/2017 Inactive Cipro 500 mg tablet RxNorm: 944687 1 Tablet(s) PO BID 04/20/2017 04/29/2017 Inactive prednisone 10 mg tablet RxNorm: 669632 Tablet(s) PO 04/20/2017 03/04/2018 Inactive 6,5,4,3,2,1 Flagyl 500 mg tablet RxNorm: 586404 1 Tablet(s) PO TID 04/20/2017 04/29/2017 Inactive hydrocodone 10 mg-acetaminophen 325 mg tablet RxNorm: 772540 1 Tablet(s) PO Q6-8H as needed 04/09/2017 05/01/2017 Inactive hydrocodone 10 mg-acetaminophen 325 mg tablet RxNorm: 939860 1 Tablet(s) PO Q6-8H as needed 03/07/2017 03/29/2017 Inactive hydrocodone 10 mg-acetaminophen 325 mg tablet RxNorm: 327129 1 Tablet(s) PO Q6-8H as needed 02/01/2017 02/23/2017 Inactive lidocaine 3 % lotion RxNorm: 7091500 1 Application TOP BID as needed 01/03/2017 No Stop Date Active acyclovir 800 mg tablet RxNorm: 199720 1 Tablet(s) PO 5 x a day 01/02/2017 01/08/2017 Inactive hydrocodone 10 mg-acetaminophen 325 mg tablet RxNorm: 029493 1 Tablet(s) PO Q6-8H as needed 12/06/2016 12/28/2016 Inactive hydrocodone 10 mg-acetaminophen 325 mg tablet RxNorm: 478684 1 Tablet(s) PO Q6-8H as needed 12/04/2016 12/05/2016 Inactive hydrocodone 10 mg-acetaminophen 325 mg tablet RxNorm: 010667 1 Tablet(s) PO Q6-8H as needed 11/08/2016 11/30/2016 Inactive hydrocodone 10 mg-acetaminophen 325 mg tablet RxNorm: 291679 1 Tablet(s) PO Q6-8H as needed 10/09/2016 10/31/2016 Inactive hydrocodone 10 mg-acetaminophen 325 mg tablet RxNorm: 883454 1 Tablet(s) PO Q6-8H as needed 08/08/2016 08/30/2016 Inactive hydrocodone 10 mg-acetaminophen 325 mg tablet RxNorm: 942738 1 Tablet(s) PO Q6-8H as needed 07/12/2016 08/03/2016 Inactive hydrocodone 10 mg-acetaminophen 325 mg tablet RxNorm: 598768 1 Tablet(s) PO Q6-8H as needed 06/12/2016 07/04/2016 Inactive hydrocodone 10 mg-acetaminophen 325 mg tablet RxNorm: 214049 1 Tablet(s) PO Q6-8H as needed 05/16/2016 06/07/2016 Inactive hydrocodone 10 mg-acetaminophen 325 mg tablet RxNorm: 899416 1 Tablet(s) PO Q6-8H as needed 04/21/2016 05/12/2016 Inactive hydrocodone 10 mg-acetaminophen 325 mg tablet RxNorm: 280198 1 Tablet(s) PO Q6-8H as needed 03/23/2016 04/13/2016 Inactive hydrocodone 10 mg-acetaminophen 325 mg tablet RxNorm: 198270 1 Tablet(s) PO Q6-8H as needed 02/24/2016 03/16/2016 Inactive hydrocodone 10 mg-acetaminophen 325 mg tablet RxNorm: 824644 1 Tablet(s) PO Q6-8H 01/21/2016 02/11/2016 Inactive hydrocodone 10 mg-acetaminophen 325 mg tablet RxNorm: 644422 1 Tablet(s) PO Q6-8H 12/24/2015 01/14/2016 Inactive hydrocodone 10 mg-acetaminophen 325 mg tablet RxNorm: 644142 1 Tablet(s) PO Q6-8H 11/30/2015 12/23/2015 Inactive hydrocodone 10 mg-acetaminophen 325 mg tablet RxNorm: 289701 1 Tablet(s) PO Q6-8H 11/05/2015 11/29/2015 Inactive hydrocodone 5 mg-acetaminophen 325 mg tablet RxNorm: 010476 1-2 Tablet(s) PO Q6-8H as needed 10/26/2015 11/01/2015 Inactive omeprazole 40 mg capsule,delayed release RxNorm: 954677 1 Capsule(s) PO daily No Start Date Active Imuran 50 mg tablet RxNorm: 786630 1 Tablet(s) PO daily No Start Date Active testosterone cypionate 200 mg/mL intramuscular oil RxNorm: 898403 1 Milliliter(s) IM No Start Date Active lidocaine 3 % lotion RxNorm: 9583812 1 Application TOP BID as needed No Start Date 01/02/2017 Inactive hydrocodone 5 mg-acetaminophen 325 mg tablet RxNorm: 927677 1-2 Tablet(s) PO Q6-8H as needed No [...] Result Date QuantiFERON?-TB Gold Plus (Client Incubated) [id number] QUANTIFERON CRITERIA COMMENT 07/01/2018 QuantiFERON?-TB Gold Plus (Client Incubated) 656054 QUANTIFERON TB1 AG VALUE 0.01 IU/ML 07/01/2018 QuantiFERON?-TB Gold Plus (Client Incubated) 214430 QUANTIFERON TB2 AG VALUE 0.01 IU/ML 07/01/2018 QuantiFERON?-TB Gold Plus (Client Incubated) 731974 QUANTIFERON NIL VALUE 0.01 IU/ML 07/01/2018 QuantiFERON?-TB Gold Plus (Client Incubated) 046837 QUANTIFERON MITOGEN VALUE >10.00 IU/ML 07/01/2018 QuantiFERON?-TB Gold Plus (Client Incubated) 392643 QUANTIFERON-TB GOLD PLUS NEGATIVE 07/01/2018 B12 Aum017 B12 113.00 pg/ml 04/30/2018 Testosterone Qop877 Testo 198.8 ng/dL 04/30/2018 Comp Metabolic Sok948 NA 143 mEq/L 04/30/2018 Comp Metabolic Qdx383 K 3.8 mEq/L 04/30/2018 Comp Metabolic Kot358 CL 108 mEq/L 04/30/2018 Comp Metabolic Ugi070 CO2 29.0 mEq/L 04/30/2018 Comp Metabolic Fbu048 ANION GAP 10 04/30/2018 Comp Metabolic Eqd227 GLUCOSE 94 mg/dL 04/30/2018 Comp Metabolic Rht766 Creat 0.8 mg/dL 04/30/2018 Comp Metabolic Rko724 eGFR 110 ml/min/1.73m2 04/30/2018 Comp Metabolic Plh772 BUN 13 mg/dL 04/30/2018 Comp Metabolic Kgo192 B/C Ratio 16.0 Ratio 04/30/2018 Comp Metabolic Bnv517 CALCIUM 9.2 mg/dL 04/30/2018 Comp Metabolic Lvp406 ALK PHOS 62 U/L 04/30/2018 Comp Metabolic Ckk893 AST(SGOT) 16 U/L 04/30/2018 Comp Metabolic Mtr078 ALT(SGPT) 15 U/L 04/30/2018 Comp Metabolic Ikp393 BILI T 0.9 mg/dL 04/30/2018 Comp Metabolic Vra877 ALBUMIN 4.1 g/dL 04/30/2018 Comp Metabolic Brx809 TPRO 6.2 g/dL 04/30/2018 Comp Metabolic Feo191 GLOB 2.1 g/dL 04/30/2018 Comp Metabolic Aqw922 A/G Ratio 1.9 Ratio 04/30/2018 Comp Metabolic Yvd678 Osmo 285 mOsmo 04/30/2018 Cbc With Differential [...] 31.3 pg 04/30/2018 Cbc With Differential Ord2 [place]% 8.5 % 04/30/2018 Cbc With Differential Ord2 [...] 0.80 K/ul 04/30/2018 Cbc With Differential Ord2 [place] ABS# 0.5 K/ul 04/30/2018 Cbc With Differential [...] 31.3 pg 04/20/2017 Cbc With Differential Ord2 [place]% 18.6 % 04/20/2017 Cbc With Differential Ord2 [...] 0.67 K/ul 04/20/2017 Cbc With Differential Ord2 [place] ABS# 1.2 K/ul 04/20/2017 Cbc With Differential Ord2 Eos ABS# 0.1 K/ul 04/20/2017 Cbc With Differential Ord2 Baso ABS# 0.0 K/ul 04/20/2017 Comp Metabolic Mym998 NA 142 mEq/L 04/20/2017 Comp Metabolic Vmm883 K 4.2 mEq/L 04/20/2017 Comp Metabolic Atc452 CL 104 mEq/L 04/20/2017 Comp Metabolic Ilo488 CO2 28.0 mEq/L 04/20/2017 Comp Metabolic Jqt912 ANION GAP 14 04/20/2017 Comp Metabolic Huk541 GLUCOSE 73 mg/dL 04/20/2017 Comp Metabolic Qxc122 Creat 1.2 mg/dL 04/20/2017 Comp Metabolic Loj740 eGFR 68 ml/min/1.73m2 04/20/2017 Comp Metabolic Upw493 BUN 9 mg/dL 04/20/2017 Comp Metabolic Ulb280 B/C Ratio 7.3 Ratio 04/20/2017 Comp Metabolic Qck698 CALCIUM 9.5 mg/dL 04/20/2017 Comp Metabolic Bxb004 ALK PHOS 57 U/L 04/20/2017 Comp Metabolic Oug935 AST(SGOT) 16 U/L 04/20/2017 Comp Metabolic Cmz968 ALT(SGPT) 14 U/L 04/20/2017 Comp Metabolic Jvv876 BILI T 0.6 mg/dL 04/20/2017 Comp Metabolic Ufs515 ALBUMIN 4.0 g/dL 04/20/2017 Comp Metabolic Pav164 TPRO 7.0 g/dL 04/20/2017 Comp Metabolic Uup393 GLOB 3.0 g/dL 04/20/2017 Comp Metabolic Qkl767 A/G Ratio 1.3 Ratio 04/20/2017 Comp Metabolic Xdu384 Osmo 280 mOsmo 04/20/2017 Review of Systems [...] 1: 126/74 Code: 8480-6 BMI: 25.1 Code: 45739-0 Heart Rate 1: 75 bpm Height: 6' SpO2: 98% Weight: 185 lbs 04/25/2018 Blood Pressure 1: 146/88 Code: 8480-6 BMI: 25.2 Code: 99759-3 Heart Rate 1: 94 bpm Height: 6' SpO2: 95% Weight: 186 lbs 12/24/2017 Blood Pressure 1: 134/90 Code: 8480-6 BMI: 25.8 Code: 16727-9 Heart Rate 1: 64 bpm Height: 6' SpO2: 99% Weight: 190 lbs 06/20/2017 Blood Pressure 1: 130/86 Code: 8480-6 BMI: 27.1 Code: 56930-2 Heart Rate 1: 74 bpm Height: 6' SpO2: 98% Weight: 200 lbs 04/20/2017 Blood Pressure 1: 136/80 Code: 8480-6 BMI: 27.1 Code: 76991-6 Heart Rate 1: 100 bpm Height: 6' SpO2: 95% Temperature: 36.9 (C) / 98.4 (F) Weight: 200 lbs 01/02/2017 Blood Pressure 1: 120/78 Code: 8480-6 BMI: 28.3 Code: 49813-8 Heart Rate 1: 79 bpm Height: 6' SpO2: 98% Weight: 209 lbs 09/07/2016 Blood Pressure 1: 140/90 Code: 8480-6 BMI: 27.4 Code: 01188-4 Heart Rate 1: 70 bpm Height: 6' SpO2: 96% Weight: 202 lbs 04/21/2016 Blood Pressure 1: 136/84 Code: 8480-6 BMI: 29.0 Code: 17463-3 Heart Rate 1: 67 bpm Height: 6' SpO2: 98% Weight: 214 lbs 11/30/2015 Blood Pressure 1: 130/80 Code: 8480-6 BMI: 29.3 Code: 26479-5 Heart Rate 1: 75 bpm Height: 6' SpO2: 98% Weight: 216 lbs 11/02/2015 Blood Pressure 1: 126/78 Code: 8480-6 BMI: 29.8 Code: 07234-1 Heart Rate 1: 69 bpm Height: 6' SpO2: 98% Weight: 220 lbs 10/15/2015 Blood Pressure 1: 132/76 Code: 8480-6 BMI: 29.8 Code: 70751-2 Heart Rate 1: 77 bpm Height: 6' [...] data Encounters Encounter Performer Location Codes Date ([id number]) 22137 EST. 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 PATIENT, LEVEL IV Diagnosis: Crohn's disease of both small and large intestine without complications[ICD10: K50.80] Diagnosis: Testicular hypofunction[ICD10: E29.1] Diagnosis: Incomplete rotator cuff tear or rupture of right shoulder, not specified as traumatic[ICD10: M75.111] Diagnosis: Chronic pain due to trauma[ICD10: G89.21] Carmela Hamm MD, [facility] CPT-4: 81730 04/25/2018 71888 EST. PATIENT, LEVEL III Diagnosis: Chronic pain due to trauma[ICD10: G89.21] Diagnosis: Incomplete rotator cuff tear or rupture of left shoulder, not specified as traumatic[ICD10: M75.112] Diagnosis: Incomplete rotator cuff tear or rupture of right shoulder, not specified as traumatic[ICD10: M75.111] Diagnosis: Crohn's disease of both small and large intestine without complications[ICD10: K50.80] Bridget Hamm MD, [facility] CPT-4: 84432 12/24/2017 80963 EST. PATIENT, LEVEL III Diagnosis: Chronic pain due to trauma[ICD10: G89.21] Diagnosis: Incomplete rotator cuff tear or rupture of left shoulder, not specified as traumatic[ICD10: M75.112] Diagnosis: Incomplete rotator cuff tear or rupture of right shoulder, not specified as traumatic[ICD10: M75.111] Diagnosis: Crohn's disease of both small and large intestine without complications[ICD10: K50.80] Bridget Hamm MD, [facility] CPT-4: 23736 06/20/2017 59701 EST. PATIENT, LEVEL IV Diagnosis: Crohn's disease of both small and large intestine without complications[ICD10: K50.80] Bridget Hamm MD, [facility] CPT-4: 99104 04/20/2017 20848 EST. PATIENT, LEVEL III Diagnosis: Zoster without complications[ICD10: B02.9] Bridget Hamm MD, [facility] CPT-4: 32841 01/02/2017 62563 EST. PATIENT, LEVEL IV Diagnosis: Chronic pain due to trauma[ICD10: G89.21] Diagnosis: Incomplete rotator cuff tear or rupture of left shoulder, not specified as traumatic[ICD10: M75.112] Diagnosis: Incomplete rotator cuff tear or rupture of right shoulder, not specified as traumatic[ICD10: M75.111] Diagnosis: Crohn's disease of both small and large intestine without complications[ICD10: K50.80] Bridget Hamm MD, [facility] CPT-4: 84076 09/07/2016 ([id number]) 67878 EST. PATIENT, LEVEL III Diagnosis: Chronic pain due to trauma[ICD10: G89.21] Diagnosis: Incomplete rotator cuff tear or rupture of left shoulder, not specified as traumatic[ICD10: M75.112] Diagnosis: Incomplete rotator cuff tear or rupture of right shoulder, not specified as traumatic[ICD10: M75.111] Diagnosis: Crohn's disease of both small and large intestine without complications[ICD10: K50.80] Carmela Hamm MD, [facility] CPT-4: 43906 04/21/2016 83057 EST. PATIENT, LEVEL IV Diagnosis: Chronic pain due to trauma[ICD10: G89.21] Diagnosis: Incomplete rotator cuff tear or rupture of right shoulder, not specified as traumatic[ICD10: M75.111] Diagnosis: Incomplete rotator cuff tear or rupture of left shoulder, not specified as traumatic[ICD10: M75.112] Bridget Hamm MD, [facility] CPT-4: 47654 11/30/2015 26820 EST. PATIENT, LEVEL IV Diagnosis: Chronic pain due to trauma[ICD10: G89.21] Diagnosis: Incomplete rotator cuff tear or rupture of right shoulder, not specified as traumatic[ICD10: M75.111] Diagnosis: Incomplete rotator cuff tear or rupture of left shoulder, not specified as traumatic[ICD10: M75.112] [facility] CPT-4: 62496 11/02/2015 ([id number]) OFFICE VISIT, NEW - LEVEL 4 Diagnosis: Incomplete rotator cuff tear or rupture of left shoulder, not specified as traumatic[ICD10: M75.112] Diagnosis: Incomplete rotator cuff tear or rupture of right shoulder, not specified as traumatic[ICD10: M75.111] Diagnosis: Crohn's disease of both small and large intestine without complications[ICD10: K50.80] [facility] CPT-4: 18466 10/15/2015 Plan of Care Planned Activity Notes Codes Status Date Visit Plan: 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 Continue with medications as directed by specialist at [facility]. I have recommended that Ba needs to stay off of work until some of this work-up is completed since some of these issues may be due to the stress of his job and lack of sleep, versus from the foramen ovale that may be shunting blood from his right to left side of his heart. referral to neurology in [place] referral to dr. villalpando - Crohn's disease - keep appt with Dr. Rondon since his symptoms have been worsening lately due to the stress of his job. 07/11/2018 Patient Education: Patient Medication Summary Completed 07/11/2018 Care Plan: Referral Order SNOMED-CT : [id number] Pending 07/11/2018 Visit Plan: Crohns - symptoms [...] today. 04/25/2018 [facility]ment[facility] [phone] [phone] [facility] Complex 04/25/2018 Patient Education: Patient [...] 726.13 ICD-10 : M75.112 12/24/2017 Appointment: Bridget Terrytel: [address] [place], [place] [address] (15 min) Moderate 12/24/2017 Patient Education: Patient [...] : M75.112 06/20/2017 Appointment: Bridget Terry WPtel: [facility] (30 min) Complex 06/20/2017 Patient Education: Patient Medication Summary Completed 06/20/2017 Appointment: Carmela Greenberg WPtel: [phone] [phone] [place] (15 min) Moderate 06/19/2017 Appointment: [...] treatment plan. 04/20/2017 Appointment: Bridget Terry WPtel: [facility] (30 min) Complex 04/20/2017 Patient Education: Patient Medication Summary Completed 04/20/2017 Appointment: Bridget Terry WPtel: [facility] [place] (15 min) Moderate 04/19/2017 Appointment: Lab [...] considered contagious. 01/02/2017 Appointment: Bridget Terry WPtel: [facility] (30 min) Complex 01/02/2017 Patient Education: Patient Medication Summary Completed 01/02/2017 Visit Diagnosis Plan: Crohn's disease of both small and large intestine without complications Discussion: managed by Dr Lajla-spncdo-iz changes at this time ICD-9 : 555.2 [...] : G89.21 09/07/2016 Appointment: Bridget Terry WPtel: [facility] (30 min) Complex 09/07/2016 Patient Education: [...] : G89.21 04/21/2016 Appointment: Carmela Greenberg WPtel: [phone] (15 min) Moderate 04/21/2016 Patient Education: [...] the year. 11/30/2015 Appointment: Carmela Greenberg WPtel: [phone] [phone] (30 min) Complex 11/30/2015 Patient Education: [...] year. 11/02/2015 Appointment: Carmela Greenberg WPtel: [phone] [phone] (15 min) Moderate 11/02/2015 Patient Education: Patient [...] with medications as directed by specialist at [facility]. I have recommended that Ba needs to stay off of work until some of this work- up is completed since some of these issues may be due to the stress of his job and lack of sleep, versus from the foramen ovale that may be shunting blood from his right to left side of his heart. referral to neurology in [place] referral to dr. villalpando - Crohn's disease [...]
[2018-09-19 08:19] VITALS: BP 136/99
--- OUTSIDE RECORDS SUMMARY | 2018-09-19 08:19 | XMS REPORT | CCD ---
Author Author Bridget Terry MD, [facility] Address [address] [place] [address] Phone Care Team Providers Care Social Human Services Assistants Name Role Phone PP Unavailable CCM Unavailable Summary Purpose Interface Exchange Insurance Providers Payer name Policy type / Coverage type Covered democrat ID Effective Begin Date Effective End Date Blue Cross Blue [facility] Blue Cross/Blue Shield [id number] Unknown Unknown Family history Son Diagnosis Age At Onset Attention deficit hyperactivity disorder Unknown Social History Social History Element Codes Description Effective Dates Marital status Unknown Consuelo 04/25/2018 Number of children Unknown 1 10/15/[address]: 252037511 Currently uses smokeless tobacco 10/15/2015 Alcohol history [...] hydrocodone 10 mg-acetaminophen 325 mg tablet RxNorm: 513913 1 Tablet(s) PO Q6-8H as needed 06/18/2018 07/10/2018 Active hydrocodone 10 mg-acetaminophen 325 mg tablet RxNorm: 201256 1 Tablet(s) PO Q6-8H as needed 05/22/2018 06/13/2018 Inactive testosterone cypionate 200 mg/mL intramuscular oil RxNorm: 1225617 1 Milliliter(s) IM monthly 05/01/2018 08/28/2018 Active cyanocobalamin (vit B-12) 1,000 mcg/mL injection solution RxNorm: 949339 1 Milliliter(s) Inj monthly 05/01/2018 08/28/2018 Active Please provide syringes and needles for him to administer cyanocobalamin (vit B-12) 1,000 mcg/mL injection solution RxNorm: 576164 1 Milliliter(s) Inj monthly 05/01/2018 04/30/2018 Inactive testosterone cypionate 200 mg/mL intramuscular oil RxNorm: 3887463 1 Milliliter(s) IM monthly 05/01/2018 04/30/2018 Inactive hydrocodone 10 mg-acetaminophen 325 mg tablet RxNorm: 424484 1 Tablet(s) PO Q6-8H as needed 04/25/2018 05/17/2018 Inactive hydrocodone 10 mg-acetaminophen 325 mg tablet RxNorm: 574936 1 Tablet(s) PO Q6-8H as needed 04/01/2018 04/23/2018 Inactive hydrocodone 10 mg-acetaminophen 325 mg tablet RxNorm: 661276 1 Tablet(s) PO Q6-8H as needed 03/05/2018 03/27/2018 Inactive hydrocodone 10 mg-acetaminophen 325 mg tablet RxNorm: 309676 1 Tablet(s) PO Q6-8H as needed 02/11/2018 03/04/2018 Inactive hydrocodone 10 mg-acetaminophen 325 mg tablet RxNorm: 137314 1 Tablet(s) PO Q6-8H as needed 01/18/2018 02/09/2018 Inactive hydrocodone 10 mg-acetaminophen 325 mg tablet RxNorm: 267372 1 Tablet(s) PO Q6-8H as needed 12/24/2017 01/15/2018 Inactive hydrocodone 10 mg-acetaminophen 325 mg tablet RxNorm: 651490 1 Tablet(s) PO Q6-8H as needed 11/30/2017 12/22/2017 Inactive hydrocodone 10 mg-acetaminophen 325 mg tablet RxNorm: 414522 1 Tablet(s) PO Q6-8H as needed 11/06/2017 11/28/2017 Inactive hydrocodone 10 mg-acetaminophen 325 mg tablet RxNorm: 822568 1 Tablet(s) PO Q6-8H as needed 10/11/2017 11/02/2017 Inactive hydrocodone 10 mg-acetaminophen 325 mg tablet RxNorm: 877039 1 Tablet(s) PO Q6-8H as needed 09/12/2017 10/04/2017 Inactive hydrocodone 10 mg-acetaminophen 325 mg tablet RxNorm: 573199 1 Tablet(s) PO Q6-8H as needed 08/16/2017 09/07/2017 Inactive hydrocodone 10 mg-acetaminophen 325 mg tablet RxNorm: 285633 1 Tablet(s) PO Q6-8H as needed 07/19/2017 08/10/2017 Inactive oxycodone-acetaminophen 7.5 mg-325 mg tablet RxNorm: 8792729 1 Tablet(s) PO Q6-8H as needed 06/29/2017 07/18/2017 Inactive hydrocodone 10 mg-acetaminophen 325 mg tablet RxNorm: 949001 1 Tablet(s) PO Q6-8H as needed 06/01/2017 06/17/2017 Inactive hydrocodone 10 mg-acetaminophen 325 mg tablet RxNorm: 016114 1 Tablet(s) PO Q6-8H as needed 05/09/2017 05/30/2017 Inactive Cipro 500 mg tablet RxNorm: 271528 1 Tablet(s) PO BID 04/20/2017 04/29/2017 Inactive prednisone 10 mg tablet RxNorm: 012280 Tablet(s) PO 04/20/2017 03/04/2018 Inactive 6,5,4,3,2,1 Flagyl 500 mg tablet RxNorm: 581316 1 Tablet(s) PO TID 04/20/2017 04/29/2017 Inactive hydrocodone 10 mg-acetaminophen 325 mg tablet RxNorm: 938887 1 Tablet(s) PO Q6-8H as needed 04/09/2017 05/01/2017 Inactive hydrocodone 10 mg-acetaminophen 325 mg tablet RxNorm: 413181 1 Tablet(s) PO Q6-8H as needed 03/07/2017 03/29/2017 Inactive hydrocodone 10 mg-acetaminophen 325 mg tablet RxNorm: 735827 1 Tablet(s) PO Q6-8H as needed 02/01/2017 02/23/2017 Inactive lidocaine 3 % lotion RxNorm: 8012335 1 Application TOP BID as needed 01/03/2017 No Stop Date Active acyclovir 800 mg tablet RxNorm: 861481 1 Tablet(s) PO 5 x a day 01/02/2017 01/08/2017 Inactive hydrocodone 10 mg-acetaminophen 325 mg tablet RxNorm: 094380 1 Tablet(s) PO Q6-8H as needed 12/06/2016 12/28/2016 Inactive hydrocodone 10 mg-acetaminophen 325 mg tablet RxNorm: 139964 1 Tablet(s) PO Q6-8H as needed 12/04/2016 12/05/2016 Inactive hydrocodone 10 mg-acetaminophen 325 mg tablet RxNorm: 510182 1 Tablet(s) PO Q6-8H as needed 11/08/2016 11/30/2016 Inactive hydrocodone 10 mg-acetaminophen 325 mg tablet RxNorm: 466610 1 Tablet(s) PO Q6-8H as needed 10/09/2016 10/31/2016 Inactive hydrocodone 10 mg-acetaminophen 325 mg tablet RxNorm: 832897 1 Tablet(s) PO Q6-8H as needed 08/08/2016 08/30/2016 Inactive hydrocodone 10 mg-acetaminophen 325 mg tablet RxNorm: 239722 1 Tablet(s) PO Q6-8H as needed 07/12/2016 08/03/2016 Inactive hydrocodone 10 mg-acetaminophen 325 mg tablet RxNorm: 076852 1 Tablet(s) PO Q6-8H as needed 06/12/2016 07/04/2016 Inactive hydrocodone 10 mg-acetaminophen 325 mg tablet RxNorm: 092705 1 Tablet(s) PO Q6-8H as needed 05/16/2016 06/07/2016 Inactive hydrocodone 10 mg-acetaminophen 325 mg tablet RxNorm: 634081 1 Tablet(s) PO Q6-8H as needed 04/21/2016 05/12/2016 Inactive hydrocodone 10 mg-acetaminophen 325 mg tablet RxNorm: 981057 1 Tablet(s) PO Q6-8H as needed 03/23/2016 04/13/2016 Inactive hydrocodone 10 mg-acetaminophen 325 mg tablet RxNorm: 910855 1 Tablet(s) PO Q6-8H as needed 02/24/2016 03/16/2016 Inactive hydrocodone 10 mg-acetaminophen 325 mg tablet RxNorm: 961138 1 Tablet(s) PO Q6-8H 01/21/2016 02/11/2016 Inactive hydrocodone 10 mg-acetaminophen 325 mg tablet RxNorm: 842855 1 Tablet(s) PO Q6-8H 12/24/2015 01/14/2016 Inactive hydrocodone 10 mg-acetaminophen 325 mg tablet RxNorm: 759493 1 Tablet(s) PO Q6-8H 11/30/2015 12/23/2015 Inactive hydrocodone 10 mg-acetaminophen 325 mg tablet RxNorm: 929603 1 Tablet(s) PO Q6-8H 11/05/2015 11/29/2015 Inactive hydrocodone 5 mg-acetaminophen 325 mg tablet RxNorm: 555841 1-2 Tablet(s) PO Q6-8H as needed 10/26/2015 11/01/2015 Inactive omeprazole 40 mg capsule,delayed release RxNorm: 033087 1 Capsule(s) PO daily No Start Date Active Imuran 50 mg tablet RxNorm: 543636 1 Tablet(s) PO daily No Start Date Active testosterone cypionate 200 mg/mL intramuscular oil RxNorm: 223639 1 Milliliter(s) IM No Start Date Active lidocaine 3 % lotion RxNorm: 1308809 1 Application TOP BID as needed No Start Date 01/02/2017 Inactive hydrocodone 5 mg-acetaminophen 325 mg tablet RxNorm: 632657 1-2 Tablet(s) PO Q6-8H as needed No Start Date 10/25/2015 Inactive Medication Administered No Medication Administered data Immunizations No Immunization data Assessments Condition Codes Effective Dates Chronic pain due to trauma ICD-10: G89.21 ICD-9: 338.21 04/25/2018 Crohn's disease of both small and large intestine without complications ICD-10: K50.80 ICD-9: 555.2 04/25/2018 Testicular hypofunction ICD-10: E29.1 ICD-9: 257.2 04/25/2018 Incomplete rotator cuff tear or rupture of right shoulder, not specified as traumatic ICD-10: M75.111 ICD-9: 726.13 04/25/2018 Incomplete rotator cuff tear or rupture of left shoulder, not specified as traumatic ICD-10: M75.112 ICD-9: 726.13 12/24/2017 Zoster without complications ICD-10: B02.9 ICD-9: 053.9 01/02/2017 Reason For Visit Reason For Visit Effective Dates Notes shoulder pain 04/25/2018 medication follow up 12/24/2017 medication follow up 06/20/2017 diarrhea 04/20/2017 rash 01/02/2017 medication follow up 09/07/2016 medication follow up 04/21/2016 medication follow up 11/30/2015 shoulder pain 11/02/2015 shoulder pain 10/15/2015 Results Observation Observation Code Item Item Code Result Date QuantiFERON?-TB Gold Plus (Client Incubated) [id number] QUANTIFERON CRITERIA COMMENT 07/01/2018 QuantiFERON?-TB Gold Plus (Client Incubated) [id number] QUANTIFERON TB1 AG VALUE 0.01 IU/ML 07/01/2018 QuantiFERON?-TB Gold Plus (Client Incubated) [id number] QUANTIFERON TB2 AG VALUE 0.01 IU/ML 07/01/2018 QuantiFERON?-TB Gold Plus (Client Incubated) [id number] QUANTIFERON NIL VALUE 0.01 IU/ML 07/01/2018 QuantiFERON?-TB Gold Plus (Client Incubated) [id number] QUANTIFERON MITOGEN VALUE >10.00 IU/ML 07/01/2018 QuantiFERON?-TB Gold Plus (Client Incubated) [id number] QUANTIFERON-TB GOLD PLUS NEGATIVE 07/01/2018 B12 Kew442 B12 113.00 pg/ml 04/30/2018 Testosterone Ccu051 Testo 198.8 ng/dL 04/30/2018 Comp Metabolic Glm509 NA 143 mEq/L 04/30/2018 Comp Metabolic Iqe435 K 3.8 mEq/L 04/30/2018 Comp Metabolic Jbi985 CL 108 mEq/L 04/30/2018 Comp Metabolic Cdv875 CO2 29.0 mEq/L 04/30/2018 Comp Metabolic Yxi240 ANION GAP 10 04/30/2018 Comp Metabolic Bap628 GLUCOSE 94 mg/dL 04/30/2018 Comp Metabolic Lob104 Creat 0.8 mg/dL 04/30/2018 Comp Metabolic Ksw154 eGFR 110 ml/min/1.73m2 04/30/2018 Comp Metabolic Ltv070 BUN 13 mg/dL 04/30/2018 Comp Metabolic Yhr655 B/C Ratio 16.0 Ratio 04/30/2018 Comp Metabolic Ouu267 CALCIUM 9.2 mg/dL 04/30/2018 Comp Metabolic Ykx822 ALK PHOS 62 U/L 04/30/2018 Comp Metabolic Dug832 AST(SGOT) 16 U/L 04/30/2018 Comp Metabolic Zgv197 ALT(SGPT) 15 U/L 04/30/2018 Comp Metabolic Ssp925 BILI T 0.9 mg/dL 04/30/2018 Comp Metabolic Fux858 ALBUMIN 4.1 g/dL 04/30/2018 Comp Metabolic Jxw232 TPRO 6.2 g/dL 04/30/2018 Comp Metabolic Ytv609 GLOB 2.1 g/dL 04/30/2018 Comp Metabolic Kkf401 A/G Ratio 1.9 Ratio 04/30/2018 Comp Metabolic Tdl870 Osmo 285 mOsmo 04/30/2018 Cbc With Differential [...] 31.3 pg 04/30/2018 Cbc With Differential Ord2 Swain% 8.5 % 04/30/2018 Cbc With Differential Ord2 [...] 0.80 K/ul 04/30/2018 Cbc With Differential Ord2 Swain ABS# 0.5 K/ul 04/30/2018 Cbc With Differential [...] 31.3 pg 04/20/2017 Cbc With Differential Ord2 Swain% 18.6 % 04/20/2017 Cbc With Differential Ord2 [...] 0.67 K/ul 04/20/2017 Cbc With Differential Ord2 Swain ABS# 1.2 K/ul 04/20/2017 Cbc With Differential Ord2 Eos ABS# 0.1 K/ul 04/20/2017 Cbc With Differential Ord2 Baso ABS# 0.0 K/ul 04/20/2017 Comp Metabolic Dcl509 NA 142 mEq/L 04/20/2017 Comp Metabolic Wwf140 K 4.2 mEq/L 04/20/2017 Comp Metabolic Gsh085 CL 104 mEq/L 04/20/2017 Comp Metabolic Ggl396 CO2 28.0 mEq/L 04/20/2017 Comp Metabolic Ujx253 ANION GAP 14 04/20/2017 Comp Metabolic Ari478 GLUCOSE 73 mg/dL 04/20/2017 Comp Metabolic Byx532 Creat 1.2 mg/dL 04/20/2017 Comp Metabolic Lwm022 eGFR 68 ml/min/1.73m2 04/20/2017 Comp Metabolic Lxl747 BUN 9 mg/dL 04/20/2017 Comp Metabolic Kup602 B/C Ratio 7.3 Ratio 04/20/2017 Comp Metabolic Zoz620 CALCIUM 9.5 mg/dL 04/20/2017 Comp Metabolic Ndb311 ALK PHOS 57 U/L 04/20/2017 Comp Metabolic Zvj755 AST(SGOT) 16 U/L 04/20/2017 Comp Metabolic Sxz626 ALT(SGPT) 14 U/L 04/20/2017 Comp Metabolic Hro647 BILI T 0.6 mg/dL 04/20/2017 Comp Metabolic Igv711 ALBUMIN 4.0 g/dL 04/20/2017 Comp Metabolic Nar993 TPRO 7.0 g/dL 04/20/2017 Comp Metabolic Qrb127 GLOB 3.0 g/dL 04/20/2017 Comp Metabolic Vaz652 A/G Ratio 1.3 Ratio 04/20/2017 Comp Metabolic Hqg052 Osmo 280 mOsmo 04/20/2017 Review of Systems System Result Effective Dates Constitutional No recent illness 04/25/2018 Constitutional anorexia [...] No Procedures data Vital Signs Date Vital 04/25/2018 Blood Pressure 1: 146/88 Code: 8480-6 BMI: 25.2 Code: 80015-8 Heart Rate 1: 94 bpm Height: 6' SpO2: 95% Weight: 186 lbs 12/24/2017 Blood Pressure 1: 134/90 Code: 8480-6 BMI: 25.8 Code: 90159-2 Heart Rate 1: 64 bpm Height: 6' SpO2: 99% Weight: 190 lbs 06/20/2017 Blood Pressure 1: 130/86 Code: 8480-6 BMI: 27.1 Code: 57705-9 Heart Rate 1: 74 bpm Height: 6' SpO2: 98% Weight: 200 lbs 04/20/2017 Blood Pressure 1: 136/80 Code: 8480-6 BMI: 27.1 Code: 81853-5 Heart Rate 1: 100 bpm Height: 6' SpO2: 95% Temperature: 36.9 (C) / 98.4 (F) Weight: 200 lbs 01/02/2017 Blood Pressure 1: 120/78 Code: 8480-6 BMI: 28.3 Code: 48126-2 Heart Rate 1: 79 bpm Height: 6' SpO2: 98% Weight: 209 lbs 09/07/2016 Blood Pressure 1: 140/90 Code: 8480-6 BMI: 27.4 Code: 44081-1 Heart Rate 1: 70 bpm Height: 6' SpO2: 96% Weight: 202 lbs 04/21/2016 Blood Pressure 1: 136/84 Code: 8480-6 BMI: 29.0 Code: 73305-5 Heart Rate 1: 67 bpm Height: 6' SpO2: 98% Weight: 214 lbs 11/30/2015 Blood Pressure 1: 130/80 Code: 8480-6 BMI: 29.3 Code: 14236-8 Heart Rate 1: 75 bpm Height: 6' SpO2: 98% Weight: 216 lbs 11/02/2015 Blood Pressure 1: 126/78 Code: 8480-6 BMI: 29.8 Code: 76460-9 Heart Rate 1: 69 bpm Height: 6' SpO2: 98% Weight: 220 lbs 10/15/2015 Blood Pressure 1: 132/76 Code: 8480-6 BMI: 29.8 Code: 55884-9 Heart Rate 1: 77 bpm Height: 6' SpO2: 95% Weight: 220 lbs Functional Status No Functional Status data History of Present Illness Symptom Name Status Result Effective Date Notes Location on the right shoulder 04/25/2018 None [...] data Encounters Encounter Performer Location Codes Date ( EST. PATIENT, LEVEL IV Diagnosis: Crohn's disease of both small and large intestine without complications[ICD10: K50.80] Diagnosis: Testicular hypofunction[ICD10: E29.1] Diagnosis: Incomplete rotator cuff tear or rupture of right shoulder, not specified as traumatic[ICD10: M75.111] Diagnosis: Chronic pain due to trauma[ICD10: G89.21] Carmela Hamm MD, [facility] CPT-4: 86169 04/25/2018 85364 EST. PATIENT, LEVEL III Diagnosis: Chronic pain due to trauma[ICD10: G89.21] Diagnosis: Incomplete rotator cuff tear or rupture of left shoulder, not specified as traumatic[ICD10: M75.112] Diagnosis: Incomplete rotator cuff tear or rupture of right shoulder, not specified as traumatic[ICD10: M75.111] Diagnosis: Crohn's disease of both small and large intestine without complications[ICD10: K50.80] [facility] CPT-4: 20569 12/24/2017 69015 EST. PATIENT, LEVEL III Diagnosis: Chronic pain due to trauma[ICD10: G89.21] Diagnosis: Incomplete rotator cuff tear or rupture of left shoulder, not specified as traumatic[ICD10: M75.112] Diagnosis: Incomplete rotator cuff tear or rupture of right shoulder, not specified as traumatic[ICD10: M75.111] Diagnosis: Crohn's disease of both small and large intestine without complications[ICD10: K50.80] Bridget Hamm MD, [facility] CPT-4: 86812 06/20/2017 02105 EST. PATIENT, LEVEL IV Diagnosis: Crohn's disease of both small and large intestine without complications[ICD10: K50.80] Bridget Hamm MD, [facility] CPT-4: 89880 04/20/2017 58137 EST. PATIENT, LEVEL III Diagnosis: Zoster without complications[ICD10: B02.9] Bridget Hamm MD, [facility] CPT-4: 67305 01/02/2017 24935 EST. PATIENT, LEVEL IV Diagnosis: Chronic pain due to trauma[ICD10: G89.21] Diagnosis: Incomplete rotator cuff tear or rupture of left shoulder, not specified as traumatic[ICD10: M75.112] Diagnosis: Incomplete rotator cuff tear or rupture of right shoulder, not specified as traumatic[ICD10: M75.111] Diagnosis: Crohn's disease of both small and large intestine without complications[ICD10: K50.80] Bridget Hamm MD, [facility] CPT-4: 82168 09/07/2016 ([id number]) 84046 EST. PATIENT, LEVEL III Diagnosis: Chronic pain due to trauma[ICD10: G89.21] Diagnosis: Incomplete rotator cuff tear or rupture of left shoulder, not specified as traumatic[ICD10: M75.112] Diagnosis: Incomplete rotator cuff tear or rupture of right shoulder, not specified as traumatic[ICD10: M75.111] Diagnosis: Crohn's disease of both small and large intestine without complications[ICD10: K50.80] Carmela Hamm MD, [facility] CPT-4: 73585 04/21/2016 76649 EST. PATIENT, LEVEL IV Diagnosis: Chronic pain due to trauma[ICD10: G89.21] Diagnosis: Incomplete rotator cuff tear or rupture of right shoulder, not specified as traumatic[ICD10: M75.111] Diagnosis: Incomplete rotator cuff tear or rupture of left shoulder, not specified as traumatic[ICD10: M75.112] [facility] CPT-4: 13395 11/30/2015 40510 EST. PATIENT, LEVEL IV Diagnosis: Chronic pain due to trauma[ICD10: G89.21] Diagnosis: Incomplete rotator cuff tear or rupture of right shoulder, not specified as traumatic[ICD10: M75.111] Diagnosis: Incomplete rotator cuff tear or rupture of left shoulder, not specified as traumatic[ICD10: M75.112] [facility] CPT-4: 06392 11/02/2015 (79900) OFFICE VISIT, NEW - LEVEL 4 Diagnosis: Incomplete rotator cuff tear or rupture of left shoulder, not specified as traumatic[ICD10: M75.112] Diagnosis: Incomplete rotator cuff tear or rupture of right shoulder, not specified as traumatic[ICD10: M75.111] Diagnosis: Crohn's disease of both small and large intestine without complications[ICD10: K50.80] [facility] CPT-4: 62760 10/15/2015 Plan of Care Planned Activity Notes Codes Status Date Visit Plan: Crohns - symptoms are not [...] update today. 04/25/2018 Appointment: Carmela Greenberg WPtel: [address] [place], [place] [phone] (30 min) [facility] 04/25/2018 Patient Education: Patient Medication Summary Completed 04/25/2018 Visit Diagnosis Plan: Crohn's disease of both small and large intestine without complications Discussion: managed by Dr RondonCkmcp-xwytjn-sj changes at this time ICD-9 : 555.2 [...] : M75.112 12/24/2017 Appointment: Bridget Terry WPtel: [facility]5 [facility] (15 min) Moderate 12/24/2017 Patient Education: Patient [...] intestine without complications Discussion: managed by Dr RondonGbyef-kpgzqu-ry changes at this time ICD-9 : 555.2 ICD-10 : K50.80 06/20/2017 Visit Diagnosis Plan: Incomplete rotator cuff tear or rupture of left shoulder, not specified as traumatic Recommendations: pt is to continue exercise and strengthening and notify clinic with any changes, questions, or concerns. ICD-9 : 726.13 ICD-10 : M75.112 06/20/2017 Appointment: Bridget Terry WPtel: [address] [place], [place] [phone] [place] (30 min) Complex 06/20/2017 Patient Education: Patient Medication Summary Completed 06/20/2017 Appointment: Carmela Greenberg WPtel: [address] [place], [place] [phone] [place] (15 min) Moderate 06/19/2017 Appointment: Lab [...] current treatment plan. 04/20/2017 Appointment: Bridget Terrytel: [facility]6 [facility] (30 min) Complex 04/20/2017 Patient Education: Patient Medication Summary Completed 04/20/2017 Appointment: Bridget Terry WPtel: [address] [place], [place] [phone] (15 min) Moderate 04/19/2017 Appointment: Lab Draw [...] considered contagious. 01/02/2017 Appointment: Bridget Terry WPtel: [facility]8 [facility] (30 min) Complex 01/02/2017 Patient Education: Patient Medication Summary Completed 01/02/2017 Visit Diagnosis Plan: Crohn's disease of both small and large intestine without complications Discussion: managed by Dr RondonXyyxg-lqrnwv-dm changes at this time ICD-9 : 555.2 [...] : G89.21 09/07/2016 Appointment: Bridget Terry WPtel: [facility] (30 min) Complex 09/07/2016 Patient Education: Patient [...] G89.21 04/21/2016 Appointment: Carmela Greenberg WPtel: [phone] [phone] (15 min) Moderate 04/21/2016 Patient Education: Patient [...] the year. 11/30/2015 Appointment: Carmela Greenberg WPtel: [phone] (30 min) Complex [...] the year. 11/02/2015 Appointment: Carm[facility] Greenberg WPtel[phone] [place] (15 min) Moderate 11/02/2015 Patient Education: [...] changes in his current treatment plan. . Bilateral rotator cuff tear - the [...]
--- OUTSIDE RECORDS SUMMARY | 2018-09-19 08:21 | XMS REPORT | CCD ---
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 Role Phone PP Unavailable CCM Unavailable Summary Purpose Interface Exchange Insurance Providers Payer name Policy type / Coverage type Covered democrat ID Effective Begin Date Effective End Date Blue Cross Blue [facility] Blue Cross/Blue Shield [id number] Unknown Unknown Family history Son Diagnosis Age At Onset Attention deficit hyperactivity disorder Unknown Social History Social History Element Codes Description Effective Dates Marital status Unknown Consuelo 04/25/2018 Number of children Unknown 1 10/15/[address]: 366594045 Currently uses smokeless tobacco 10/15/2015 Alcohol history [...] hydrocodone 10 mg-acetaminophen 325 mg tablet RxNorm: 817797 1 Tablet(s) PO Q6-8H as needed 06/18/2018 07/10/2018 Active hydrocodone 10 mg-acetaminophen 325 mg tablet RxNorm: 852569 1 Tablet(s) PO Q6-8H as needed 05/22/2018 06/13/2018 Inactive testosterone cypionate 200 mg/mL intramuscular oil RxNorm: 6187013 1 Milliliter(s) IM monthly 05/01/2018 08/28/2018 Active cyanocobalamin (vit B-12) 1,000 mcg/mL injection solution RxNorm: 374976 1 Milliliter(s) Inj monthly 05/01/2018 08/28/2018 Active Please provide syringes and needles for him to administer cyanocobalamin (vit B-12) 1,000 mcg/mL injection solution RxNorm: 441070 1 Milliliter(s) Inj monthly 05/01/2018 04/30/2018 Inactive testosterone cypionate 200 mg/mL intramuscular oil RxNorm: 1967004 1 Milliliter(s) IM monthly 05/01/2018 04/30/2018 Inactive hydrocodone 10 mg-acetaminophen 325 mg tablet RxNorm: 178965 1 Tablet(s) PO Q6-8H as needed 04/25/2018 05/17/2018 Inactive hydrocodone 10 mg-acetaminophen 325 mg tablet RxNorm: 172152 1 Tablet(s) PO Q6-8H as needed 04/01/2018 04/23/2018 Inactive hydrocodone 10 mg-acetaminophen 325 mg tablet RxNorm: 766984 1 Tablet(s) PO Q6-8H as needed 03/05/2018 03/27/2018 Inactive hydrocodone 10 mg-acetaminophen 325 mg tablet RxNorm: 978035 1 Tablet(s) PO Q6-8H as needed 02/11/2018 03/04/2018 Inactive hydrocodone 10 mg-acetaminophen 325 mg tablet RxNorm: 766134 1 Tablet(s) PO Q6-8H as needed 01/18/2018 02/09/2018 Inactive hydrocodone 10 mg-acetaminophen 325 mg tablet RxNorm: 365778 1 Tablet(s) PO Q6-8H as needed 12/24/2017 01/15/2018 Inactive hydrocodone 10 mg-acetaminophen 325 mg tablet RxNorm: 599552 1 Tablet(s) PO Q6-8H as needed 11/30/2017 12/22/2017 Inactive hydrocodone 10 mg-acetaminophen 325 mg tablet RxNorm: 268690 1 Tablet(s) PO Q6-8H as needed 11/06/2017 11/28/2017 Inactive hydrocodone 10 mg-acetaminophen 325 mg tablet RxNorm: 104648 1 Tablet(s) PO Q6-8H as needed 10/11/2017 11/02/2017 Inactive hydrocodone 10 mg-acetaminophen 325 mg tablet RxNorm: 425679 1 Tablet(s) PO Q6-8H as needed 09/12/2017 10/04/2017 Inactive hydrocodone 10 mg-acetaminophen 325 mg tablet RxNorm: 262884 1 Tablet(s) PO Q6-8H as needed 08/16/2017 09/07/2017 Inactive hydrocodone 10 mg-acetaminophen 325 mg tablet RxNorm: 703790 1 Tablet(s) PO Q6-8H as needed 07/19/2017 08/10/2017 Inactive oxycodone-acetaminophen 7.5 mg-325 mg tablet RxNorm: 6700806 1 Tablet(s) PO Q6-8H as needed 06/29/2017 07/18/2017 Inactive hydrocodone 10 mg-acetaminophen 325 mg tablet RxNorm: 911491 1 Tablet(s) PO Q6-8H as needed 06/01/2017 06/17/2017 Inactive hydrocodone 10 mg-acetaminophen 325 mg tablet RxNorm: 605507 1 Tablet(s) PO Q6-8H as needed 05/09/2017 05/30/2017 Inactive Cipro 500 mg tablet RxNorm: 773496 1 Tablet(s) PO BID 04/20/2017 04/29/2017 Inactive prednisone 10 mg tablet RxNorm: 208314 Tablet(s) PO 04/20/2017 03/04/2018 Inactive 6,5,4,3,2,1 Flagyl 500 mg tablet RxNorm: 195003 1 Tablet(s) PO TID 04/20/2017 04/29/2017 Inactive hydrocodone 10 mg-acetaminophen 325 mg tablet RxNorm: 038194 1 Tablet(s) PO Q6-8H as needed 04/09/2017 05/01/2017 Inactive hydrocodone 10 mg-acetaminophen 325 mg tablet RxNorm: 813662 1 Tablet(s) PO Q6-8H as needed 03/07/2017 03/29/2017 Inactive hydrocodone 10 mg-acetaminophen 325 mg tablet RxNorm: 385771 1 Tablet(s) PO Q6-8H as needed 02/01/2017 02/23/2017 Inactive lidocaine 3 % lotion RxNorm: 5038677 1 Application TOP BID as needed 01/03/2017 No Stop Date Active acyclovir 800 mg tablet RxNorm: 128734 1 Tablet(s) PO 5 x a day 01/02/2017 01/08/2017 Inactive hydrocodone 10 mg-acetaminophen 325 mg tablet RxNorm: 205297 1 Tablet(s) PO Q6-8H as needed 12/06/2016 12/28/2016 Inactive hydrocodone 10 mg-acetaminophen 325 mg tablet RxNorm: 140861 1 Tablet(s) PO Q6-8H as needed 12/04/2016 12/05/2016 Inactive hydrocodone 10 mg-acetaminophen 325 mg tablet RxNorm: 496605 1 Tablet(s) PO Q6-8H as needed 11/08/2016 11/30/2016 Inactive hydrocodone 10 mg-acetaminophen 325 mg tablet RxNorm: 504871 1 Tablet(s) PO Q6-8H as needed 10/09/2016 10/31/2016 Inactive hydrocodone 10 mg-acetaminophen 325 mg tablet RxNorm: 808658 1 Tablet(s) PO Q6-8H as needed 08/08/2016 08/30/2016 Inactive hydrocodone 10 mg-acetaminophen 325 mg tablet RxNorm: 348432 1 Tablet(s) PO Q6-8H as needed 07/12/2016 08/03/2016 Inactive hydrocodone 10 mg-acetaminophen 325 mg tablet RxNorm: 588538 1 Tablet(s) PO Q6-8H as needed 06/12/2016 07/04/2016 Inactive hydrocodone 10 mg-acetaminophen 325 mg tablet RxNorm: 538341 1 Tablet(s) PO Q6-8H as needed 05/16/2016 06/07/2016 Inactive hydrocodone 10 mg-acetaminophen 325 mg tablet RxNorm: 889692 1 Tablet(s) PO Q6-8H as needed 04/21/2016 05/12/2016 Inactive hydrocodone 10 mg-acetaminophen 325 mg tablet RxNorm: 970994 1 Tablet(s) PO Q6-8H as needed 03/23/2016 04/13/2016 Inactive hydrocodone 10 mg-acetaminophen 325 mg tablet RxNorm: 380377 1 Tablet(s) PO Q6-8H as needed 02/24/2016 03/16/2016 Inactive hydrocodone 10 mg-acetaminophen 325 mg tablet RxNorm: 868974 1 Tablet(s) PO Q6-8H 01/21/2016 02/11/2016 Inactive hydrocodone 10 mg-acetaminophen 325 mg tablet RxNorm: 690800 1 Tablet(s) PO Q6-8H 12/24/2015 01/14/2016 Inactive hydrocodone 10 mg-acetaminophen 325 mg tablet RxNorm: 439641 1 Tablet(s) PO Q6-8H 11/30/2015 12/23/2015 Inactive hydrocodone 10 mg-acetaminophen 325 mg tablet RxNorm: 470073 1 Tablet(s) PO Q6-8H 11/05/2015 11/29/2015 Inactive hydrocodone 5 mg-acetaminophen 325 mg tablet RxNorm: 077048 1-2 Tablet(s) PO Q6-8H as needed 10/26/2015 11/01/2015 Inactive omeprazole 40 mg capsule,delayed release RxNorm: 301356 1 Capsule(s) PO daily No Start Date Active Imuran 50 mg tablet RxNorm: 844665 1 Tablet(s) PO daily No Start Date Active testosterone cypionate 200 mg/mL intramuscular oil RxNorm: 653000 1 Milliliter(s) IM No Start Date Active lidocaine 3 % lotion RxNorm: 0231197 1 Application TOP BID as needed No Start Date 01/02/2017 Inactive hydrocodone 5 mg-acetaminophen 325 mg tablet RxNorm: 482317 1-2 Tablet(s) PO Q6-8H as needed No [...] Observation Code Item Item Code Result Date B12 Zvr726 B12 113.00 pg/ml 04/30/2018 Testosterone Wky093 Testo 198.8 ng/dL 04/30/2018 Comp Metabolic Cru534 NA 143 mEq/L 04/30/2018 Comp Metabolic Ubk822 K 3.8 mEq/L 04/30/2018 Comp Metabolic Cwt783 CL 108 mEq/L 04/30/2018 Comp Metabolic Knh142 CO2 29.0 mEq/L 04/30/2018 Comp Metabolic Opz206 ANION GAP 10 04/30/2018 Comp Metabolic Vcj393 GLUCOSE 94 mg/dL 04/30/2018 Comp Metabolic Wln229 Creat 0.8 mg/dL 04/30/2018 Comp Metabolic Jut006 eGFR 110 ml/min/1.73m2 04/30/2018 Comp Metabolic Ipl217 BUN 13 mg/dL 04/30/2018 Comp Metabolic Grr593 B/C Ratio 16.0 Ratio 04/30/2018 Comp Metabolic Vgm327 CALCIUM 9.2 mg/dL 04/30/2018 Comp Metabolic Hap188 ALK PHOS 62 U/L 04/30/2018 Comp Metabolic Yqj100 AST(SGOT) 16 U/L 04/30/2018 Comp Metabolic Ogt454 ALT(SGPT) 15 U/L 04/30/2018 Comp Metabolic Xyb046 BILI T 0.9 mg/dL 04/30/2018 Comp Metabolic Pvz826 ALBUMIN 4.1 g/dL 04/30/2018 Comp Metabolic Hzz760 TPRO 6.2 g/dL 04/30/2018 Comp Metabolic Yck241 GLOB 2.1 g/dL 04/30/2018 Comp Metabolic Hwi275 A/G Ratio 1.9 Ratio 04/30/2018 Comp Metabolic Lcp247 Osmo 285 mOsmo 04/30/2018 Cbc With Differential [...] 31.3 pg 04/30/2018 Cbc With Differential Ord2 [place]% 8.5 % 04/30/2018 Cbc With Differential Ord2 [...] 0.80 K/ul 04/30/2018 Cbc With Differential Ord2 [place] ABS# 0.5 K/ul 04/30/2018 Cbc With Differential [...] 31.3 pg 04/20/2017 Cbc With Differential Ord2 [place]% 18.6 % 04/20/2017 Cbc With Differential Ord2 [...] 0.67 K/ul 04/20/2017 Cbc With Differential Ord2 [place] ABS# 1.2 K/ul 04/20/2017 Cbc With Differential Ord2 [place] ABS# 0.1 K/ul 04/20/2017 Cbc With Differential Ord2 Baso ABS# 0.0 K/ul 04/20/2017 Comp Metabolic Iix874 NA 142 mEq/L 04/20/2017 Comp Metabolic Uuq383 K 4.2 mEq/L 04/20/2017 Comp Metabolic Msl645 CL 104 mEq/L 04/20/2017 Comp Metabolic Jsl705 CO2 28.0 mEq/L 04/20/2017 Comp Metabolic Dpb923 ANION GAP 14 04/20/2017 Comp Metabolic Jqf129 GLUCOSE 73 mg/dL 04/20/2017 Comp Metabolic Csk670 Creat 1.2 mg/dL 04/20/2017 Comp Metabolic Kos504 eGFR 68 ml/min/1.73m2 04/20/2017 Comp Metabolic Wuq199 BUN 9 mg/dL 04/20/2017 Comp Metabolic Abn147 B/C Ratio 7.3 Ratio 04/20/2017 Comp Metabolic Wxk580 CALCIUM 9.5 mg/dL 04/20/2017 Comp Metabolic Wxy679 ALK PHOS 57 U/L 04/20/2017 Comp Metabolic Czg808 AST(SGOT) 16 U/L 04/20/2017 Comp Metabolic Erl515 ALT(SGPT) 14 U/L 04/20/2017 Comp Metabolic Xad989 BILI T 0.6 mg/dL 04/20/2017 Comp Metabolic Owa336 ALBUMIN 4.0 g/dL 04/20/2017 Comp Metabolic Okc941 TPRO 7.0 g/dL 04/20/2017 Comp Metabolic Pkk530 GLOB 3.0 g/dL 04/20/2017 Comp Metabolic Vuz095 A/G Ratio 1.3 Ratio 04/20/2017 Comp Metabolic Wow676 Osmo 280 mOsmo 04/20/2017 Review of Systems [...] lips 04/25/2018 None Full Exam - General 1995 Ears/Nose/Throat lips/teeth/gingiva Overall: normal dentition 04/25/2018 None Full Exam - General 1995 Ears/Nose/Throat oral cavity/pharynx/larynx Overall: oral mucosa clear 04/25/2018 None Full Exam - General 1995 Respiratory auscultation Overall: breath sounds clear bilaterally [...] 1: 146/88 Code: 8480-6 BMI: 25.2 Code: 22455-9 Heart Rate 1: 94 bpm Height: 6' SpO2: 95% Weight: 186 lbs 12/24/2017 Blood Pressure 1: 134/90 Code: 8480-6 BMI: 25.8 Code: 43111-9 Heart Rate 1: 64 bpm Height: 6' SpO2: 99% Weight: 190 lbs 06/20/2017 Blood Pressure 1: 130/86 Code: 8480-6 BMI: 27.1 Code: 75663-6 Heart Rate 1: 74 bpm Height: 6' SpO2: 98% Weight: 200 lbs 04/20/2017 Blood Pressure 1: 136/80 Code: 8480-6 BMI: 27.1 Code: 07554-5 Heart Rate 1: 100 bpm Height: 6' SpO2: 95% Temperature: 36.9 (C) / 98.4 (F) Weight: 200 lbs 01/02/2017 Blood Pressure 1: 120/78 Code: 8480-6 BMI: 28.3 Code: 48854-4 Heart Rate 1: 79 bpm Height: 6' SpO2: 98% Weight: 209 lbs 09/07/2016 Blood Pressure 1: 140/90 Code: 8480-6 BMI: 27.4 Code: 81784-4 Heart Rate 1: 70 bpm Height: 6' SpO2: 96% Weight: 202 lbs 04/21/2016 Blood Pressure 1: 136/84 Code: 8480-6 BMI: 29.0 Code: 43856-1 Heart Rate 1: 67 bpm Height: 6' SpO2: 98% Weight: 214 lbs 11/30/2015 Blood Pressure 1: 130/80 Code: 8480-6 BMI: 29.3 Code: 63954-6 Heart Rate 1: 75 bpm Height: 6' SpO2: 98% Weight: 216 lbs 11/02/2015 Blood Pressure 1: 126/78 Code: 8480-6 BMI: 29.8 Code: 45203-7 Heart Rate 1: 69 bpm Height: 6' SpO2: 98% Weight: 220 lbs 10/15/2015 Blood Pressure 1: 132/76 Code: 8480-6 BMI: 29.8 Code: 47050-6 Heart Rate 1: 77 bpm Height: 6' [...] Encounters Encounter Performer Location Codes Date () EST. PATIENT, LEVEL IV Diagnosis: Crohn's disease of both small and large intestine without complications[ICD10: K50.80] Diagnosis: Testicular hypofunction[ICD10: E29.1] Diagnosis: Incomplete rotator cuff tear or rupture of right shoulder, not specified as traumatic[ICD10: M75.111] Diagnosis: Chronic pain due to trauma[ICD10: G89.21] Carmela Hamm MD, [facility] CPT-4: 94256 04/25/2018 43233 EST. PATIENT, LEVEL III Diagnosis: Chronic pain due to trauma[ICD10: G89.21] Diagnosis: Incomplete rotator cuff tear or rupture of left shoulder, not specified as traumatic[ICD10: M75.112] Diagnosis: Incomplete rotator cuff tear or rupture of right shoulder, not specified as traumatic[ICD10: M75.111] Diagnosis: Crohn's disease of both small and large intestine without complications[ICD10: K50.80] Bridget Hamm MD, [facility] CPT-4: 76599 12/24/2017 80711 EST. PATIENT, LEVEL III Diagnosis: Chronic pain due to trauma[ICD10: G89.21] Diagnosis: Incomplete rotator cuff tear or rupture of left shoulder, not specified as traumatic[ICD10: M75.112] Diagnosis: Incomplete rotator cuff tear or rupture of right shoulder, not specified as traumatic[ICD10: M75.111] Diagnosis: Crohn's disease of both small and large intestine without complications[ICD10: K50.80] Bridget Hamm MD, [facility] CPT-4: 25897 06/20/2017 27019 EST. PATIENT, LEVEL IV Diagnosis: Crohn's disease of both small and large intestine without complications[ICD10: K50.80] [facility] CPT-4: 38036 04/20/2017 92163 EST. PATIENT, LEVEL III Diagnosis: [place] without complications[ICD10: B02.9] [facility] CPT-4: 73481 01/02/2017 22233 EST. PATIENT, LEVEL IV Diagnosis: Chronic pain due to trauma[ICD10: G89.21] Diagnosis: Incomplete rotator cuff tear or rupture of left shoulder, not specified as traumatic[ICD10: M75.112] Diagnosis: Incomplete rotator cuff tear or rupture of right shoulder, not specified as traumatic[ICD10: M75.111] Diagnosis: Crohn's disease of both small and large intestine without complications[ICD10: K50.80] [facility] CPT-4: 38552 09/07/2016 (07425) 61703 EST. PATIENT, LEVEL III Diagnosis: Chronic pain due to trauma[ICD10: G89.21] Diagnosis: Incomplete rotator cuff tear or rupture of left shoulder, not specified as traumatic[ICD10: M75.112] Diagnosis: Incomplete rotator cuff tear or rupture of right shoulder, not specified as traumatic[ICD10: M75.111] Diagnosis: Crohn's disease of both small and large intestine without complications[ICD10: K50.80] Carmela Hamm MD, [facility] CPT-4: 14766 04/21/2016 82885 EST. PATIENT, LEVEL IV Diagnosis: Chronic pain due to trauma[ICD10: G89.21] Diagnosis: Incomplete rotator cuff tear or rupture of right shoulder, not specified as traumatic[ICD10: M75.111] Diagnosis: Incomplete rotator cuff tear or rupture of left shoulder, not specified as traumatic[ICD10: M75.112] [facility] CPT-4: 12196 11/30/2015 81217 EST. PATIENT, LEVEL IV Diagnosis: Chronic pain due to trauma[ICD10: G89.21] Diagnosis: Incomplete rotator cuff tear or rupture of right shoulder, not specified as traumatic[ICD10: M75.111] Diagnosis: Incomplete rotator cuff tear or rupture of left shoulder, not specified as traumatic[ICD10: M75.112] [facility] CPT-4: 05418 11/02/2015 (22024) OFFICE VISIT, NEW - LEVEL 4 Diagnosis: Incomplete rotator cuff tear or rupture of left shoulder, not specified as traumatic[ICD10: M75.112] Diagnosis: Incomplete rotator cuff tear or rupture of right shoulder, not specified as traumatic[ICD10: M75.111] Diagnosis: Crohn's disease of both small and large intestine without complications[ICD10: K50.80] [facility] CPT-4: 53814 10/15/2015 Plan of Care Planned Activity Notes [...] update today. 04/25/2018 Appointment: Carmela Greenberg WPtel: [phone] (30 min) Complex 04/25/2018 Patient Education: Patient Medication Summary Completed 04/25/2018 Visit Diagnosis Plan: Crohn's disease of both small and large intestine without complications Discussion: managed by Dr [id number]-pl changes at this time ICD-9 : 555.2 [...] : M75.112 12/24/2017 Appointment[facility] Terry [facility] ([facility] min) Moderate 12/24/2017 Patient Education: Patient [...] : M75.112 06/20/2017 Appointment: Bridget Terry WPtel: [facility] (30 min) Complex 06/20/2017 Patient Education: Patient Medication Summary Completed 06/20/2017 Appointment: Carmela Greenberg WPtel: [phone] [place] (15 min) Moderate 06/19/2017 Appointment: [...] treatment plan. 04/20/2017 Appointment: Bridget Terry WPtel: [facility] [place] (30 min) Complex 04/20/2017 Patient Education: Patient Medication Summary Completed 04/20/2017 Appointment: Bridget Terry WPtel: [address] [place], [place] [phone] [place] (15 min) Moderate 04/19/2017 Appointment: Lab [...] considered contagious. 01/02/2017 Appointment: Br[facility] Terry [facility]Ptel[facility] ([facility] min) Complex 01/02/2017 Patient Education: [...] : G89.21 09/07/2016 Appointment: Bridget Terry [facility]Ptel[facility] ([facility] min) Complex 09/07/2016 Patient Education: [...] : G89.21 04/21/2016 Appointment: [facility]Ptel[phone] [place] (15 min) Moderate 04/21/2016 Patient Education: [...] year. 11/30/2015 Appointment: Carmela Greenberg WPtel: [phone] [phone] (30 min) [facility] 11/30/2015 Patient Education: Patient Medication Summary [...] the year. 11/02/2015 Appointment: Carmela Greenberg WPtel: [phone] (15 min) Moderate 11/02/2015 Patient Education: [...]
--- OUTSIDE RECORDS SUMMARY | 2018-09-19 08:22 | XMS REPORT | CCD ---
Author Author Bridget Terry MD, 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 Name Role Phone PP Unavailable CCM Unavailable Summary Purpose Interface Exchange Insurance Providers Payer name Policy type / Coverage type Covered democrat ID Effective Begin Date Effective End Date Blue Cross Blue [facility] Blue Cross/Blue Shield [id number] Unknown Unknown Family history Son Diagnosis Age At Onset Attention deficit hyperactivity disorder Unknown Social History Social History Element Codes Description Effective Dates Marital status Unknown Consuelo 04/25/2018 Number of children Unknown 1 10/15/[address]: 360598777 Currently uses smokeless tobacco 10/15/2015 Alcohol history [...] hydrocodone 10 mg-acetaminophen 325 mg tablet RxNorm: 063775 1 Tablet(s) PO Q6-8H as needed 05/22/2018 06/13/2018 Active testosterone cypionate 200 mg/mL intramuscular oil RxNorm: 2293639 1 Milliliter(s) IM monthly 05/01/2018 08/28/2018 Active cyanocobalamin (vit B-12) 1,000 mcg/mL injection solution RxNorm: 369019 1 Milliliter(s) Inj monthly 05/01/2018 08/28/2018 Active Please provide syringes and needles for him to administer cyanocobalamin (vit B-12) 1,000 mcg/mL injection solution RxNorm: 823177 1 Milliliter(s) Inj monthly 05/01/2018 04/30/2018 Inactive testosterone cypionate 200 mg/mL intramuscular oil RxNorm: 0328998 1 Milliliter(s) IM monthly 05/01/2018 04/30/2018 Inactive hydrocodone 10 mg-acetaminophen 325 mg tablet RxNorm: 236343 1 Tablet(s) PO Q6-8H as needed 04/25/2018 05/17/2018 Inactive hydrocodone 10 mg-acetaminophen 325 mg tablet RxNorm: 813395 1 Tablet(s) PO Q6-8H as needed 04/01/2018 04/23/2018 Inactive hydrocodone 10 mg-acetaminophen 325 mg tablet RxNorm: 007569 1 Tablet(s) PO Q6-8H as needed 03/05/2018 03/27/2018 Inactive hydrocodone 10 mg-acetaminophen 325 mg tablet RxNorm: 882750 1 Tablet(s) PO Q6-8H as needed 02/11/2018 03/04/2018 Inactive hydrocodone 10 mg-acetaminophen 325 mg tablet RxNorm: 541021 1 Tablet(s) PO Q6-8H as needed 01/18/2018 02/09/2018 Inactive hydrocodone 10 mg-acetaminophen 325 mg tablet RxNorm: 137294 1 Tablet(s) PO Q6-8H as needed 12/24/2017 01/15/2018 Inactive hydrocodone 10 mg-acetaminophen 325 mg tablet RxNorm: 104892 1 Tablet(s) PO Q6-8H as needed 11/30/2017 12/22/2017 Inactive hydrocodone 10 mg-acetaminophen 325 mg tablet RxNorm: 548528 1 Tablet(s) PO Q6-8H as needed 11/06/2017 11/28/2017 Inactive hydrocodone 10 mg-acetaminophen 325 mg tablet RxNorm: 126630 1 Tablet(s) PO Q6-8H as needed 10/11/2017 11/02/2017 Inactive hydrocodone 10 mg-acetaminophen 325 mg tablet RxNorm: 743829 1 Tablet(s) PO Q6-8H as needed 09/12/2017 10/04/2017 Inactive hydrocodone 10 mg-acetaminophen 325 mg tablet RxNorm: 144388 1 Tablet(s) PO Q6-8H as needed 08/16/2017 09/07/2017 Inactive hydrocodone 10 mg-acetaminophen 325 mg tablet RxNorm: 984869 1 Tablet(s) PO Q6-8H as needed 07/19/2017 08/10/2017 Inactive oxycodone-acetaminophen 7.5 mg-325 mg tablet RxNorm: 1510890 1 Tablet(s) PO Q6-8H as needed 06/29/2017 07/18/2017 Inactive hydrocodone 10 mg-acetaminophen 325 mg tablet RxNorm: 730804 1 Tablet(s) PO Q6-8H as needed 06/01/2017 06/17/2017 Inactive hydrocodone 10 mg-acetaminophen 325 mg tablet RxNorm: 313511 1 Tablet(s) PO Q6-8H as needed 05/09/2017 05/30/2017 Inactive Cipro 500 mg tablet RxNorm: 988708 1 Tablet(s) PO BID 04/20/2017 04/29/2017 Inactive prednisone 10 mg tablet RxNorm: 316417 Tablet(s) PO 04/20/2017 03/04/2018 Inactive 6,5,4,3,2,1 Flagyl 500 mg tablet RxNorm: 501440 1 Tablet(s) PO TID 04/20/2017 04/29/2017 Inactive hydrocodone 10 mg-acetaminophen 325 mg tablet RxNorm: 010779 1 Tablet(s) PO Q6-8H as needed 04/09/2017 05/01/2017 Inactive hydrocodone 10 mg-acetaminophen 325 mg tablet RxNorm: 658084 1 Tablet(s) PO Q6-8H as needed 03/07/2017 03/29/2017 Inactive hydrocodone 10 mg-acetaminophen 325 mg tablet RxNorm: 931024 1 Tablet(s) PO Q6-8H as needed 02/01/2017 02/23/2017 Inactive lidocaine 3 % lotion RxNorm: 9027180 1 Application TOP BID as needed 01/03/2017 No Stop Date Active acyclovir 800 mg tablet RxNorm: 024597 1 Tablet(s) PO 5 x a day 01/02/2017 01/08/2017 Inactive hydrocodone 10 mg-acetaminophen 325 mg tablet RxNorm: 918729 1 Tablet(s) PO Q6-8H as needed 12/06/2016 12/28/2016 Inactive hydrocodone 10 mg-acetaminophen 325 mg tablet RxNorm: 987213 1 Tablet(s) PO Q6-8H as needed 12/04/2016 12/05/2016 Inactive hydrocodone 10 mg-acetaminophen 325 mg tablet RxNorm: 776503 1 Tablet(s) PO Q6-8H as needed 11/08/2016 11/30/2016 Inactive hydrocodone 10 mg-acetaminophen 325 mg tablet RxNorm: 903198 1 Tablet(s) PO Q6-8H as needed 10/09/2016 10/31/2016 Inactive hydrocodone 10 mg-acetaminophen 325 mg tablet RxNorm: 661170 1 Tablet(s) PO Q6-8H as needed 08/08/2016 08/30/2016 Inactive hydrocodone 10 mg-acetaminophen 325 mg tablet RxNorm: 928697 1 Tablet(s) PO Q6-8H as needed 07/12/2016 08/03/2016 Inactive hydrocodone 10 mg-acetaminophen 325 mg tablet RxNorm: 912885 1 Tablet(s) PO Q6-8H as needed 06/12/2016 07/04/2016 Inactive hydrocodone 10 mg-acetaminophen 325 mg tablet RxNorm: 944286 1 Tablet(s) PO Q6-8H as needed 05/16/2016 06/07/2016 Inactive hydrocodone 10 mg-acetaminophen 325 mg tablet RxNorm: 890557 1 Tablet(s) PO Q6-8H as needed 04/21/2016 05/12/2016 Inactive hydrocodone 10 mg-acetaminophen 325 mg tablet RxNorm: 253182 1 Tablet(s) PO Q6-8H as needed 03/23/2016 04/13/2016 Inactive hydrocodone 10 mg-acetaminophen 325 mg tablet RxNorm: 351961 1 Tablet(s) PO Q6-8H as needed 02/24/2016 03/16/2016 Inactive hydrocodone 10 mg-acetaminophen 325 mg tablet RxNorm: 808999 1 Tablet(s) PO Q6-8H 01/21/2016 02/11/2016 Inactive hydrocodone 10 mg-acetaminophen 325 mg tablet RxNorm: 671509 1 Tablet(s) PO Q6-8H 12/24/2015 01/14/2016 Inactive hydrocodone 10 mg-acetaminophen 325 mg tablet RxNorm: 796817 1 Tablet(s) PO Q6-8H 11/30/2015 12/23/2015 Inactive hydrocodone 10 mg-acetaminophen 325 mg tablet RxNorm: 207491 1 Tablet(s) PO Q6-8H 11/05/2015 11/29/2015 Inactive hydrocodone 5 mg-acetaminophen 325 mg tablet RxNorm: 162734 1-2 Tablet(s) PO Q6-8H as needed 10/26/2015 11/01/2015 Inactive omeprazole 40 mg capsule,delayed release RxNorm: 858979 1 Capsule(s) PO daily No Start Date Active Imuran 50 mg tablet RxNorm: 677412 1 Tablet(s) PO daily No Start Date Active testosterone cypionate 200 mg/mL intramuscular oil RxNorm: 693531 1 Milliliter(s) IM No Start Date Active lidocaine 3 % lotion RxNorm: 9247252 1 Application TOP BID as needed No Start Date 01/02/2017 Inactive hydrocodone 5 mg-acetaminophen 325 mg tablet RxNorm: 074219 1-2 Tablet(s) PO Q6-8H as needed No [...] Code Item Item Code Result Date B12 Qpp309 B12 113.00 pg/ml 04/30/2018 Testosterone Kbo593 Testo 198.8 ng/dL 04/30/2018 Comp Metabolic Rud286 NA 143 mEq/L 04/30/2018 Comp Metabolic Vle866 K 3.8 mEq/L 04/30/2018 Comp Metabolic Wrz208 CL 108 mEq/L 04/30/2018 Comp Metabolic Xok300 CO2 29.0 mEq/L 04/30/2018 Comp Metabolic Wud081 ANION GAP 10 04/30/2018 Comp Metabolic Ith071 GLUCOSE 94 mg/dL 04/30/2018 Comp Metabolic Gyh901 Creat 0.8 mg/dL 04/30/2018 Comp Metabolic Ipu868 eGFR 110 ml/min/1.73m2 04/30/2018 Comp Metabolic Jii673 BUN 13 mg/dL 04/30/2018 Comp Metabolic Dkr975 B/C Ratio 16.0 Ratio 04/30/2018 Comp Metabolic Qhe076 CALCIUM 9.2 mg/dL 04/30/2018 Comp Metabolic Ksh838 ALK PHOS 62 U/L 04/30/2018 Comp Metabolic Pmc756 AST(SGOT) 16 U/L 04/30/2018 Comp Metabolic Gkm290 ALT(SGPT) 15 U/L 04/30/2018 Comp Metabolic Xwy996 BILI T 0.9 mg/dL 04/30/2018 Comp Metabolic Mcl268 ALBUMIN 4.1 g/dL 04/30/2018 Comp Metabolic Nlb221 TPRO 6.2 g/dL 04/30/2018 Comp Metabolic Kss668 GLOB 2.1 g/dL 04/30/2018 Comp Metabolic Oqm522 A/G Ratio 1.9 Ratio 04/30/2018 Comp Metabolic Cll939 Osmo 285 mOsmo 04/30/2018 Cbc With Differential Ord2 WBC 6.03 K/ul 04/30/2018 Cbc With Differential Ord2 RBC 4.63 M/ul 04/30/2018 Cbc With Differential Ord2 HGB 14.5 g/dl 04/30/2018 Cbc With Differential Ord2 Neut% 75.0 % 04/30/2018 Cbc With Differential Ord2 HCT 41.4 % 04/30/2018 Cbc With Differential Ord2 MCV 89.4 fl 04/30/2018 Cbc With Differential Ord2 Lymph% 13.3 % 04/30/2018 Cbc With Differential Ord2 MCH 31.3 pg 04/30/2018 Cbc With Differential Ord2 [place]% 8.5 % 04/30/2018 Cbc With Differential Ord2 Eos% 3.0 % 04/30/2018 Cbc With Differential Ord2 MCHC 35.0 pg 04/30/2018 Cbc With Differential Ord2 PLT 246 K/ul 04/30/2018 Cbc With Differential Ord2 Baso% 0.2 % 04/30/2018 Cbc With Differential Ord2 Neut ABS# 4.53 K/ul 04/30/2018 Cbc With Differential Ord2 RDW 14.9 % 04/30/2018 Cbc With Differential Ord2 Lymph ABS# 0.80 K/ul 04/30/2018 Cbc With Differential Ord2 [place] ABS# 0.5 K/ul 04/30/2018 Cbc With Differential [...] 15.7 g/dl 04/20/2017 Cbc With Differential Ord2 Neut% 69.7 % 04/20/2017 Cbc With Differential Ord2 HCT 45.5 % 04/20/2017 Cbc With Differential Ord2 Lymph% 10.4 % 04/20/2017 Cbc With Differential Ord2 MCV 90.6 fl 04/20/2017 Cbc With Differential Ord2 MCH 31.3 pg 04/20/2017 Cbc With Differential Ord2 [place]% 18.6 % 04/20/2017 Cbc With Differential Ord2 Eos% 1.1 % 04/20/2017 Cbc With Differential Ord2 MCHC 34.5 pg 04/20/2017 Cbc With Differential Ord2 PLT 371 K/ul 04/20/2017 Cbc With Differential Ord2 Baso% 0.2 % 04/20/2017 Cbc With Differential Ord2 Neut ABS# 4.49 K/ul 04/20/2017 Cbc With Differential Ord2 RDW 16.0 % 04/20/2017 Cbc With Differential Ord2 Lymph ABS# 0.67 K/ul 04/20/2017 Cbc With Differential Ord2 [place] ABS# 1.2 K/ul 04/20/2017 Cbc With Differential Ord2 Eos ABS# 0.1 K/ul 04/20/2017 Cbc With Differential Ord2 Baso ABS# 0.0 K/ul 04/20/2017 Comp Metabolic Ugb456 NA 142 mEq/L 04/20/2017 Comp Metabolic Wlb648 K 4.2 mEq/L 04/20/2017 Comp Metabolic Fva973 CL 104 mEq/L 04/20/2017 Comp Metabolic Fon593 CO2 28.0 mEq/L 04/20/2017 Comp Metabolic Lpm211 ANION GAP 14 04/20/2017 Comp Metabolic Yrx241 GLUCOSE 73 mg/dL 04/20/2017 Comp Metabolic Tcy444 Creat 1.2 mg/dL 04/20/2017 Comp Metabolic Ckd211 eGFR 68 ml/min/1.73m2 04/20/2017 Comp Metabolic Yvh930 BUN 9 mg/dL 04/20/2017 Comp Metabolic Igh205 B/C Ratio 7.3 Ratio 04/20/2017 Comp Metabolic Hlb825 CALCIUM 9.5 mg/dL 04/20/2017 Comp Metabolic Hrb001 ALK PHOS 57 U/L 04/20/2017 Comp Metabolic Pvo416 AST(SGOT) 16 U/L 04/20/2017 Comp Metabolic Xvl807 ALT(SGPT) 14 U/L 04/20/2017 Comp Metabolic Ywn763 BILI T 0.6 mg/dL 04/20/2017 Comp Metabolic Qya073 ALBUMIN 4.0 g/dL 04/20/2017 Comp Metabolic Okw666 TPRO 7.0 g/dL 04/20/2017 Comp Metabolic Hvj400 GLOB 3.0 g/dL 04/20/2017 Comp Metabolic Gox168 A/G Ratio 1.3 Ratio 04/20/2017 Comp Metabolic Mer114 Osmo 280 mOsmo 04/20/2017 Review of Systems [...] 1: 146/88 Code: 8480-6 BMI: 25.2 Code: 64327-3 Heart Rate 1: 94 bpm Height: 6' SpO2: 95% Weight: 186 lbs 12/24/2017 Blood Pressure 1: 134/90 Code: 8480-6 BMI: 25.8 Code: 37597-7 Heart Rate 1: 64 bpm Height: 6' SpO2: 99% Weight: 190 lbs 06/20/2017 Blood Pressure 1: 130/86 Code: 8480-6 BMI: 27.1 Code: 10484-1 Heart Rate 1: 74 bpm Height: 6' SpO2: 98% Weight: 200 lbs 04/20/2017 Blood Pressure 1: 136/80 Code: 8480-6 BMI: 27.1 Code: 22180-3 Heart Rate 1: 100 bpm Height: 6' SpO2: 95% Temperature: 36.9 (C) / 98.4 (F) Weight: 200 lbs 01/02/2017 Blood Pressure 1: 120/78 Code: 8480-6 BMI: 28.3 Code: 28754-1 Heart Rate 1: 79 bpm Height: 6' SpO2: 98% Weight: 209 lbs 09/07/2016 Blood Pressure 1: 140/90 Code: 8480-6 BMI: 27.4 Code: 55991-5 Heart Rate 1: 70 bpm Height: 6' SpO2: 96% Weight: 202 lbs 04/21/2016 Blood Pressure 1: 136/84 Code: 8480-6 BMI: 29.0 Code: 53365-9 Heart Rate 1: 67 bpm Height: 6' SpO2: 98% Weight: 214 lbs 11/30/2015 Blood Pressure 1: 130/80 Code: 8480-6 BMI: 29.3 Code: 86535-7 Heart Rate 1: 75 bpm Height: 6' SpO2: 98% Weight: 216 lbs 11/02/2015 Blood Pressure 1: 126/78 Code: 8480-6 BMI: 29.8 Code: 48852-7 Heart Rate 1: 69 bpm Height: 6' SpO2: 98% Weight: 220 lbs 10/15/2015 Blood Pressure 1: 132/76 Code: 8480-6 BMI: 29.8 Code: 67087-4 Heart Rate 1: 77 bpm Height: 6' [...] data Encounters Encounter Performer Location Codes Date ([id number]) 86253 EST. PATIENT, LEVEL IV Diagnosis: Crohn's disease of both small and large intestine without complications[ICD10: K50.80] Diagnosis: Testicular hypofunction[ICD10: E29.1] Diagnosis: Incomplete rotator cuff tear or rupture of right shoulder, not specified as traumatic[ICD10: M75.111] Diagnosis: Chronic pain due to trauma[ICD10: G89.21] Carmela Hamm MD, [facility] CPT-4: 28362 04/25/2018 49823 EST. PATIENT, LEVEL III Diagnosis: Chronic pain due to trauma[ICD10: G89.21] Diagnosis: Incomplete rotator cuff tear or rupture of left shoulder, not specified as traumatic[ICD10: M75.112] Diagnosis: Incomplete rotator cuff tear or rupture of right shoulder, not specified as traumatic[ICD10: M75.111] Diagnosis: Crohn's disease of both small and large intestine without complications[ICD10: K50.80] Bridget Hamm MD, [facility] CPT-4: 97376 12/24/2017 10845 EST. PATIENT, LEVEL III Diagnosis: Chronic pain due to trauma[ICD10: G89.21] Diagnosis: Incomplete rotator cuff tear or rupture of left shoulder, not specified as traumatic[ICD10: M75.112] Diagnosis: Incomplete rotator cuff tear or rupture of right shoulder, not specified as traumatic[ICD10: M75.111] Diagnosis: Crohn's disease of both small and large intestine without complications[ICD10: K50.80] Bridget Hamm MD, [facility] CPT-4: 99386 06/20/2017 98560 EST. PATIENT, LEVEL IV Diagnosis: Crohn's disease of both small and large intestine without complications[ICD10: K50.80] Bridget Hamm MD, [facility] CPT-4: 98046 04/20/2017 65599 EST. PATIENT, LEVEL III Diagnosis: [place] without complications[ICD10: B02.9] Bridget Hamm MD, [facility] CPT-4: 15969 01/02/2017 25825 EST. PATIENT, LEVEL IV Diagnosis: Chronic pain due to trauma[ICD10: G89.21] Diagnosis: Incomplete rotator cuff tear or rupture of left shoulder, not specified as traumatic[ICD10: M75.112] Diagnosis: Incomplete rotator cuff tear or rupture of right shoulder, not specified as traumatic[ICD10: M75.111] Diagnosis: Crohn's disease of both small and large intestine without complications[ICD10: K50.80] Bridget Hamm MD, [facility] CPT-4: 30498 09/07/2016 ([id number]) 86349 EST. PATIENT, LEVEL III Diagnosis: Chronic pain due to trauma[ICD10: G89.21] Diagnosis: Incomplete rotator cuff tear or rupture of left shoulder, not specified as traumatic[ICD10: M75.112] Diagnosis: Incomplete rotator cuff tear or rupture of right shoulder, not specified as traumatic[ICD10: M75.111] Diagnosis: Crohn's disease of both small and large intestine without complications[ICD10: K50.80] Carmela Hamm MD, [facility] CPT-4: 30352 04/21/2016 73946 EST. PATIENT, LEVEL IV Diagnosis: Chronic pain due to trauma[ICD10: G89.21] Diagnosis: Incomplete rotator cuff tear or rupture of right shoulder, not specified as traumatic[ICD10: M75.111] Diagnosis: Incomplete rotator cuff tear or rupture of left shoulder, not specified as traumatic[ICD10: M75.112] Bridget Hamm MD, [facility] CPT-4: 47276 11/30/2015 14473 EST. PATIENT, LEVEL IV Diagnosis: Chronic pain due to trauma[ICD10: G89.21] Diagnosis: Incomplete rotator cuff tear or rupture of right shoulder, not specified as traumatic[ICD10: M75.111] Diagnosis: Incomplete rotator cuff tear or rupture of left shoulder, not specified as traumatic[ICD10: M75.112] Bridget Hamm MD, [facility] CPT-4: 21410 11/02/2015 (06520) OFFICE VISIT, NEW - LEVEL 4 Diagnosis: Incomplete rotator cuff tear or rupture of left shoulder, not specified as traumatic[ICD10: M75.112] Diagnosis: Incomplete rotator cuff tear or rupture of right shoulder, not specified as traumatic[ICD10: M75.111] Diagnosis: Crohn's disease of both small and large intestine without complications[ICD10: K50.80] Bridget Hamm MD, [facility] CPT-4: 66818 10/15/2015 Plan of Care Planned Activity Notes [...] today. 04/25/2018 Appointment: Carmela Greenberg WPtel: [phone] [phone] (30 min) Complex 04/25/2018 Patient Education: Patient Medication Summary Completed 04/25/2018 Visit Diagnosis Plan: Crohn's disease of both small and large intestine without complications Discussion: managed by Dr RondonXhczy-wyidzc-oz changes at this time ICD-9 : 555.2 [...] : M75.112 12/24/2017 Appointment: Bridget Terry WPtel: [facility] (15 min) Moderate 12/24/2017 Patient Education: [...] : M75.112 06/20/2017 Appointment: Bridget Terry WPtel: [facility] (30 min) Complex 06/20/2017 Patient Education: Patient Medication Summary Completed 06/20/2017 Appointment: Carmela Greenberg WPtel: [facility]6 [phone] [place] (15 min) Moderate 06/19/2017 Appointment: [...] treatment plan. 04/20/2017 Appointment: Bridget Terry WPtel: [facility] (30 min) Complex 04/20/2017 Patient Education: Patient Medication Summary Completed 04/20/2017 Appointment: Bridget Terry WPtel: [facility] (15 min) Moderate 04/19/2017 Appointment: Lab [...] considered contagious. 01/02/2017 App[facility]ment: [facility] ([facility] 01/02/2017 Patient [...] : G89.21 09/07/2016 Appointment: Bridget Terry WPtel: [address] [place], [place] [address] (30 min) Complex 09/07/2016 Patient Education: Patient [...] : G89.21 04/21/2016 Appointment: Carmela Greenberg WPtel: [address] [place] [phone] (15 min) Moderate 04/21/2016 Patient Education: Patient [...] year. 11/30/2015 Appointment: Carmela Greenberg WPtel: [phone] [phone] (30 min) Complex 11/30/2015 Patient Education: [...] year. 11/02/2015 [facility]: [phone] [phone] (15 min) Moderate 11/02/2015 Patient Education: [...]
--- OUTSIDE RECORDS SUMMARY | 2018-09-19 08:23 | XMS REPORT | CCD ---
Author Author Bridget Terry MD, [facility] Address [address] [place] [address] Phone Care Team Providers Care Food And Nutrition Professor Name Role Phone PP Unavailable CCM Unavailable Summary Purpose Interface Exchange Insurance Providers Payer name Policy type / Coverage type Covered constitution party ID Effective Begin Date Effective End Date Blue Cross Blue [facility] Blue Cross/Blue Shield [id number] Unknown Unknown Family history Son Diagnosis Age At Onset Attention deficit hyperactivity disorder Unknown Social History Social History Element Codes Description Effective Dates Marital status Unknown Consuelo 04/25/2018 Number of children Unknown 1 10/15/[address]: 688932979 Currently uses smokeless tobacco 10/15/2015 Alcohol history [...] Start Date Stop Date Status Fill Instructions testosterone cypionate 200 mg/mL intramuscular oil RxNorm: 1213957 1 Milliliter(s) IM monthly 05/01/2018 08/28/2018 Active cyanocobalamin (vit B-12) 1,000 mcg/mL injection solution RxNorm: 502388 1 Milliliter(s) Inj monthly 05/01/2018 08/28/2018 Active Please provide syringes and needles for him to administer cyanocobalamin (vit B-12) 1,000 mcg/mL injection solution RxNorm: 646268 1 Milliliter(s) Inj monthly 05/01/2018 04/30/2018 Inactive testosterone cypionate 200 mg/mL intramuscular oil RxNorm: 1366115 1 Milliliter(s) IM monthly 05/01/2018 04/30/2018 Inactive hydrocodone 10 mg-acetaminophen 325 mg tablet RxNorm: 644328 1 Tablet(s) PO Q6-8H as needed 04/25/2018 05/17/2018 Active hydrocodone 10 mg-acetaminophen 325 mg tablet RxNorm: 035652 1 Tablet(s) PO Q6-8H as needed 04/01/2018 04/23/2018 Inactive hydrocodone 10 mg-acetaminophen 325 mg tablet RxNorm: 785559 1 Tablet(s) PO Q6-8H as needed 03/05/2018 03/27/2018 Inactive hydrocodone 10 mg-acetaminophen 325 mg tablet RxNorm: 203395 1 Tablet(s) PO Q6-8H as needed 02/11/2018 03/04/2018 Inactive hydrocodone 10 mg-acetaminophen 325 mg tablet RxNorm: 234548 1 Tablet(s) PO Q6-8H as needed 01/18/2018 02/09/2018 Inactive hydrocodone 10 mg-acetaminophen 325 mg tablet RxNorm: 829549 1 Tablet(s) PO Q6-8H as needed 12/24/2017 01/15/2018 Inactive hydrocodone 10 mg-acetaminophen 325 mg tablet RxNorm: 648338 1 Tablet(s) PO Q6-8H as needed 11/30/2017 12/22/2017 Inactive hydrocodone 10 mg-acetaminophen 325 mg tablet RxNorm: 183968 1 Tablet(s) PO Q6-8H as needed 11/06/2017 11/28/2017 Inactive hydrocodone 10 mg-acetaminophen 325 mg tablet RxNorm: 180233 1 Tablet(s) PO Q6-8H as needed 10/11/2017 11/02/2017 Inactive hydrocodone 10 mg-acetaminophen 325 mg tablet RxNorm: 161434 1 Tablet(s) PO Q6-8H as needed 09/12/2017 10/04/2017 Inactive hydrocodone 10 mg-acetaminophen 325 mg tablet RxNorm: 065160 1 Tablet(s) PO Q6-8H as needed 08/16/2017 09/07/2017 Inactive hydrocodone 10 mg-acetaminophen 325 mg tablet RxNorm: 203417 1 Tablet(s) PO Q6-8H as needed 07/19/2017 08/10/2017 Inactive oxycodone-acetaminophen 7.5 mg-325 mg tablet RxNorm: 0313458 1 Tablet(s) PO Q6-8H as needed 06/29/2017 07/18/2017 Inactive hydrocodone 10 mg-acetaminophen 325 mg tablet RxNorm: 132463 1 Tablet(s) PO Q6-8H as needed 06/01/2017 06/17/2017 Inactive hydrocodone 10 mg-acetaminophen 325 mg tablet RxNorm: 630917 1 Tablet(s) PO Q6-8H as needed 05/09/2017 05/30/2017 Inactive Cipro 500 mg tablet RxNorm: 572053 1 Tablet(s) PO BID 04/20/2017 04/29/2017 Inactive prednisone 10 mg tablet RxNorm: 984218 Tablet(s) PO 04/20/2017 03/04/2018 Inactive 6,5,4,3,2,1 Flagyl 500 mg tablet RxNorm: 931814 1 Tablet(s) PO TID 04/20/2017 04/29/2017 Inactive hydrocodone 10 mg-acetaminophen 325 mg tablet RxNorm: 833869 1 Tablet(s) PO Q6-8H as needed 04/09/2017 05/01/2017 Inactive hydrocodone 10 mg-acetaminophen 325 mg tablet RxNorm: 473383 1 Tablet(s) PO Q6-8H as needed 03/07/2017 03/29/2017 Inactive hydrocodone 10 mg-acetaminophen 325 mg tablet RxNorm: 055842 1 Tablet(s) PO Q6-8H as needed 02/01/2017 02/23/2017 Inactive lidocaine 3 % lotion RxNorm: 9315866 1 Application TOP BID as needed 01/03/2017 No Stop Date Active acyclovir 800 mg tablet RxNorm: 910488 1 Tablet(s) PO 5 x a day 01/02/2017 01/08/2017 Inactive hydrocodone 10 mg-acetaminophen 325 mg tablet RxNorm: 736463 1 Tablet(s) PO Q6-8H as needed 12/06/2016 12/28/2016 Inactive hydrocodone 10 mg-acetaminophen 325 mg tablet RxNorm: 934320 1 Tablet(s) PO Q6-8H as needed 12/04/2016 12/05/2016 Inactive hydrocodone 10 mg-acetaminophen 325 mg tablet RxNorm: 888263 1 Tablet(s) PO Q6-8H as needed 11/08/2016 11/30/2016 Inactive hydrocodone 10 mg-acetaminophen 325 mg tablet RxNorm: 996907 1 Tablet(s) PO Q6-8H as needed 10/09/2016 10/31/2016 Inactive hydrocodone 10 mg-acetaminophen 325 mg tablet RxNorm: 346096 1 Tablet(s) PO Q6-8H as needed 08/08/2016 08/30/2016 Inactive hydrocodone 10 mg-acetaminophen 325 mg tablet RxNorm: 610601 1 Tablet(s) PO Q6-8H as needed 07/12/2016 08/03/2016 Inactive hydrocodone 10 mg-acetaminophen 325 mg tablet RxNorm: 907052 1 Tablet(s) PO Q6-8H as needed 06/12/2016 07/04/2016 Inactive hydrocodone 10 mg-acetaminophen 325 mg tablet RxNorm: 895968 1 Tablet(s) PO Q6-8H as needed 05/16/2016 06/07/2016 Inactive hydrocodone 10 mg-acetaminophen 325 mg tablet RxNorm: 173619 1 Tablet(s) PO Q6-8H as needed 04/21/2016 05/12/2016 Inactive hydrocodone 10 mg-acetaminophen 325 mg tablet RxNorm: 949472 1 Tablet(s) PO Q6-8H as needed 03/23/2016 04/13/2016 Inactive hydrocodone 10 mg-acetaminophen 325 mg tablet RxNorm: 253492 1 Tablet(s) PO Q6-8H as needed 02/24/2016 03/16/2016 Inactive hydrocodone 10 mg-acetaminophen 325 mg tablet RxNorm: 821038 1 Tablet(s) PO Q6-8H 01/21/2016 02/11/2016 Inactive hydrocodone 10 mg-acetaminophen 325 mg tablet RxNorm: 396449 1 Tablet(s) PO Q6-8H 12/24/2015 01/14/2016 Inactive hydrocodone 10 mg-acetaminophen 325 mg tablet RxNorm: 294905 1 Tablet(s) PO Q6-8H 11/30/2015 12/23/2015 Inactive hydrocodone 10 mg-acetaminophen 325 mg tablet RxNorm: 443835 1 Tablet(s) PO Q6-8H 11/05/2015 11/29/2015 Inactive hydrocodone 5 mg-acetaminophen 325 mg tablet RxNorm: 204874 1-2 Tablet(s) PO Q6-8H as needed 10/26/2015 11/01/2015 Inactive omeprazole 40 mg capsule,delayed release RxNorm: 694759 1 Capsule(s) PO daily No Start Date Active Imuran 50 mg tablet RxNorm: 352851 1 Tablet(s) PO daily No Start Date Active testosterone cypionate 200 mg/mL intramuscular oil RxNorm: 827798 1 Milliliter(s) IM No Start Date Active lidocaine 3 % lotion RxNorm: 1530251 1 Application TOP BID as needed No Start Date 01/02/2017 Inactive hydrocodone 5 mg-acetaminophen 325 mg tablet RxNorm: 782129 1-2 Tablet(s) PO Q6-8H as needed No [...] Code Item Item Code Result Date B12 Qjx209 B12 113.00 pg/ml 04/30/2018 Testosterone Yak086 Testo 198.8 ng/dL 04/30/2018 Comp Metabolic Udp680 NA 143 mEq/L 04/30/2018 Comp Metabolic Vam047 K 3.8 mEq/L 04/30/2018 Comp Metabolic Tol539 CL 108 mEq/L 04/30/2018 Comp Metabolic Tdp629 CO2 29.0 mEq/L 04/30/2018 Comp Metabolic Cxr594 ANION GAP 10 04/30/2018 Comp Metabolic Lmo275 GLUCOSE 94 mg/dL 04/30/2018 Comp Metabolic Scw064 Creat 0.8 mg/dL 04/30/2018 Comp Metabolic Jhh143 eGFR 110 ml/min/1.73m2 04/30/2018 Comp Metabolic Mjb678 BUN 13 mg/dL 04/30/2018 Comp Metabolic Xsg594 B/C Ratio 16.0 Ratio 04/30/2018 Comp Metabolic Wst740 CALCIUM 9.2 mg/dL 04/30/2018 Comp Metabolic Hus530 ALK PHOS 62 U/L 04/30/2018 Comp Metabolic Zyy717 AST(SGOT) 16 U/L 04/30/2018 Comp Metabolic Ylf404 ALT(SGPT) 15 U/L 04/30/2018 Comp Metabolic Pic331 BILI T 0.9 mg/dL 04/30/2018 Comp Metabolic Vcv970 ALBUMIN 4.1 g/dL 04/30/2018 Comp Metabolic Ugx820 TPRO 6.2 g/dL 04/30/2018 Comp Metabolic Doj680 GLOB 2.1 g/dL 04/30/2018 Comp Metabolic Hir726 A/G Ratio 1.9 Ratio 04/30/2018 Comp Metabolic Tcq235 Osmo 285 mOsmo 04/30/2018 Cbc With Differential [...] 31.3 pg 04/30/2018 Cbc With Differential Ord2 Franklin% 8.5 % 04/30/2018 Cbc With Differential Ord2 [...] 0.80 K/ul 04/30/2018 Cbc With Differential Ord2 Franklin ABS# 0.5 K/ul 04/30/2018 Cbc With Differential [...] 31.3 pg 04/20/2017 Cbc With Differential Ord2 Franklin% 18.6 % 04/20/2017 Cbc With Differential Ord2 [...] 0.67 K/ul 04/20/2017 Cbc With Differential Ord2 Franklin ABS# 1.2 K/ul 04/20/2017 Cbc With Differential Ord2 Eos ABS# 0.1 K/ul 04/20/2017 Cbc With Differential Ord2 Baso ABS# 0.0 K/ul 04/20/2017 Comp Metabolic Qji837 NA 142 mEq/L 04/20/2017 Comp Metabolic Jqg594 K 4.2 mEq/L 04/20/2017 Comp Metabolic Uft242 CL 104 mEq/L 04/20/2017 Comp Metabolic Sde178 CO2 28.0 mEq/L 04/20/2017 Comp Metabolic Aku649 ANION GAP 14 04/20/2017 Comp Metabolic Pzj157 GLUCOSE 73 mg/dL 04/20/2017 Comp Metabolic Ngj050 Creat 1.2 mg/dL 04/20/2017 Comp Metabolic Ldw239 eGFR 68 ml/min/1.73m2 04/20/2017 Comp Metabolic Whw837 BUN 9 mg/dL 04/20/2017 Comp Metabolic Std709 B/C Ratio 7.3 Ratio 04/20/2017 Comp Metabolic Gwh183 CALCIUM 9.5 mg/dL 04/20/2017 Comp Metabolic Amy489 ALK PHOS 57 U/L 04/20/2017 Comp Metabolic Jfq605 AST(SGOT) 16 U/L 04/20/2017 Comp Metabolic Iau311 ALT(SGPT) 14 U/L 04/20/2017 Comp Metabolic Zcd532 BILI T 0.6 mg/dL 04/20/2017 Comp Metabolic Zjb911 ALBUMIN 4.0 g/dL 04/20/2017 Comp Metabolic Qzo835 TPRO 7.0 g/dL 04/20/2017 Comp Metabolic Cov437 GLOB 3.0 g/dL 04/20/2017 Comp Metabolic Rtm568 A/G Ratio 1.3 Ratio 04/20/2017 Comp Metabolic Tmr509 Osmo 280 mOsmo 04/20/2017 Review of Systems [...] 1: 146/88 Code: 8480-6 BMI: 25.2 Code: 90321-2 Heart Rate 1: 94 bpm Height: 6' SpO2: 95% Weight: 186 lbs 12/24/2017 Blood Pressure 1: 134/90 Code: 8480-6 BMI: 25.8 Code: 26897-1 Heart Rate 1: 64 bpm Height: 6' SpO2: 99% Weight: 190 lbs 06/20/2017 Blood Pressure 1: 130/86 Code: 8480-6 BMI: 27.1 Code: 91615-3 Heart Rate 1: 74 bpm Height: 6' SpO2: 98% Weight: 200 lbs 04/20/2017 Blood Pressure 1: 136/80 Code: 8480-6 BMI: 27.1 Code: 27685-3 Heart Rate 1: 100 bpm Height: 6' SpO2: 95% Temperature: 36.9 (C) / 98.4 (F) Weight: 200 lbs 01/02/2017 Blood Pressure 1: 120/78 Code: 8480-6 BMI: 28.3 Code: 21368-2 Heart Rate 1: 79 bpm Height: 6' SpO2: 98% Weight: 209 lbs 09/07/2016 Blood Pressure 1: 140/90 Code: 8480-6 BMI: 27.4 Code: 04226-0 Heart Rate 1: 70 bpm Height: 6' SpO2: 96% Weight: 202 lbs 04/21/2016 Blood Pressure 1: 136/84 Code: 8480-6 BMI: 29.0 Code: 23402-6 Heart Rate 1: 67 bpm Height: 6' SpO2: 98% Weight: 214 lbs 11/30/2015 Blood Pressure 1: 130/80 Code: 8480-6 BMI: 29.3 Code: 05970-1 Heart Rate 1: 75 bpm Height: 6' SpO2: 98% Weight: 216 lbs 11/02/2015 Blood Pressure 1: 126/78 Code: 8480-6 BMI: 29.8 Code: 97776-8 Heart Rate 1: 69 bpm Height: 6' SpO2: 98% Weight: 220 lbs 10/15/2015 Blood Pressure 1: 132/76 Code: 8480-6 BMI: 29.8 Code: 69571-9 Heart Rate 1: 77 bpm Height: 6' [...] data Encounters Encounter Performer Location Codes Date (02481) 78500 EST. PATIENT, LEVEL IV Diagnosis: Crohn's disease of both small and large intestine without complications[ICD10: K50.80] Diagnosis: Testicular hypofunction[ICD10: E29.1] Diagnosis: Incomplete rotator cuff tear or rupture of right shoulder, not specified as traumatic[ICD10: M75.111] Diagnosis: Chronic pain due to trauma[ICD10: G89.21] Carmela Hamm MD, [facility] CPT-4: 82642 04/25/2018 49569 EST. PATIENT, LEVEL III Diagnosis: Chronic pain due to trauma[ICD10: G89.21] Diagnosis: Incomplete rotator cuff tear or rupture of left shoulder, not specified as traumatic[ICD10: M75.112] Diagnosis: Incomplete rotator cuff tear or rupture of right shoulder, not specified as traumatic[ICD10: M75.111] Diagnosis: Crohn's disease of both small and large intestine without complications[ICD10: K50.80] rBidget Hamm MD, [facility] CPT-4: 57470 12/24/2017 73560 EST. PATIENT, LEVEL III Diagnosis: Chronic pain due to trauma[ICD10: G89.21] Diagnosis: Incomplete rotator cuff tear or rupture of left shoulder, not specified as traumatic[ICD10: M75.112] Diagnosis: Incomplete rotator cuff tear or rupture of right shoulder, not specified as traumatic[ICD10: M75.111] Diagnosis: Crohn's disease of both small and large intestine without complications[ICD10: K50.80] Bridget Hamm MD, [facility] CPT-4: 20825 06/20/2017 18601 EST. PATIENT, LEVEL IV Diagnosis: Crohn's disease of both small and large intestine without complications[ICD10: K50.80] Bridget Hamm MD, [facility] CPT-4: 45798 04/20/2017 00393 EST. PATIENT, LEVEL III Diagnosis: Zoster without complications[ICD10: B02.9] Bridget Hamm MD, [facility] CPT-4: 82248 01/02/2017 03916 EST. PATIENT, LEVEL IV Diagnosis: Chronic pain due to trauma[ICD10: G89.21] Diagnosis: Incomplete rotator cuff tear or rupture of left shoulder, not specified as traumatic[ICD10: M75.112] Diagnosis: Incomplete rotator cuff tear or rupture of right shoulder, not specified as traumatic[ICD10: M75.111] Diagnosis: Crohn's disease of both small and large intestine without complications[ICD10: K50.80] Bridget Hamm MD, [facility] CPT-4: 87499 09/07/2016 (05070) 29426 EST. PATIENT, LEVEL III Diagnosis: Chronic pain due to trauma[ICD10: G89.21] Diagnosis: Incomplete rotator cuff tear or rupture of left shoulder, not specified as traumatic[ICD10: M75.112] Diagnosis: Incomplete rotator cuff tear or rupture of right shoulder, not specified as traumatic[ICD10: M75.111] Diagnosis: Crohn's disease of both small and large intestine without complications[ICD10: K50.80] Carmela Hamm MD, [facility] CPT-4: 55544 04/21/2016 19613 EST. PATIENT, LEVEL IV Diagnosis: Chronic pain due to trauma[ICD10: G89.21] Diagnosis: Incomplete rotator cuff tear or rupture of right shoulder, not specified as traumatic[ICD10: M75.111] Diagnosis: Incomplete rotator cuff tear or rupture of left shoulder, not specified as traumatic[ICD10: M75.112] Bridget Hamm MD, [facility] CPT-4: 15344 11/30/2015 80072 EST. PATIENT, LEVEL IV Diagnosis: Chronic pain due to trauma[ICD10: G89.21] Diagnosis: Incomplete rotator cuff tear or rupture of right shoulder, not specified as traumatic[ICD10: M75.111] Diagnosis: Incomplete rotator cuff tear or rupture of left shoulder, not specified as traumatic[ICD10: M75.112] [facility] CPT-4: 14432 11/02/2015 (22423) OFFICE VISIT, NEW - LEVEL 4 Diagnosis: Incomplete rotator cuff tear or rupture of left shoulder, not specified as traumatic[ICD10: M75.112] Diagnosis: Incomplete rotator cuff tear or rupture of right shoulder, not specified as traumatic[ICD10: M75.111] Diagnosis: Crohn's disease of both small and large intestine without complications[ICD10: K50.80] Bridget Hamm MD, [facility] CPT-4: 68125 10/15/2015 Plan of Care Planned Activity Notes [...] update today. 04/25/2018 Appointment: Carmela Greenberg WPtel: [facility]5 [phone] (30 min) Complex 04/25/2018 Patient Education: [...] : M75.112 12/24/2017 Appointment: Bridget Terry WPtel: [address] [place], [place] [address] (15 min) Moderate 12/24/2017 Patient Education: Patient [...] : M75.112 06/20/2017 Appointment: Bridget Terry WPtel: [facility]5 [facility] (30 min) Complex 06/20/2017 Patient Education: Patient Medication Summary Completed 06/20/2017 Appointment: Carmela Greenberg WPtel: [facility]8 [phone] [place] (15 min) Moderate 06/19/2017 Appointment: [...] current treatment plan. 04/20/2017 Appointment: Bridget Terrytel: [facility]5 [facility] (30 min) Complex 04/20/2017 Patient Education: Patient Medication Summary Completed 04/20/2017 Appointment: Bridget Terry WPtel: [address] [place], [place] [address] (15 min) Moderate 04/19/2017 Appointment: [...] considered contagious. 01/02/2017 [phone] ([facility] 01/02/2017 Patient Education: [...] : G89.21 09/07/2016 Appointment: [phone] [facility] ([facility] min) Complex 09/07/2016 Patient Education: [...] : G89.21 04/21/2016 [facility]ment: [phone] [phone] [place] (15 min) Moderate 04/21/2016 Patient [...] year. 11/30/2015 Appointment: Carmela Greenberg WPtel: [phone] [phone] (30 min) Complex 11/30/2015 Patient Education: [...] year. 11/02/2015 Appointment: Carmela Greenberg WPtel: [phone] [phone] (15 min) Moderate 11/02/2015 Patient Education: [...]
--- OUTSIDE RECORDS SUMMARY | 2018-09-19 08:25 | XMS REPORT | CCD ---
Author Author Bridget Terry MD, [facility] Address [address] [place] [address] Phone Care Team Providers Care Vision Therapist Name Role Phone PP Unavailable CCM Unavailable Summary Purpose Interface Exchange Insurance Providers Payer name Policy type / Coverage type Covered republican ID Effective Begin Date Effective End Date Blue Cross Blue [facility] Blue Cross/Blue Shield [id number] Unknown Unknown Family history Son Diagnosis Age At Onset Attention deficit hyperactivity disorder Unknown Social History Social History Element Codes Description Effective Dates Marital status Unknown Consuelo 04/25/2018 Number of children Unknown 1 10/15/[address]: 805365078 Currently uses smokeless tobacco 10/15/2015 Alcohol history [...] hydrocodone 10 mg-acetaminophen 325 mg tablet RxNorm: 152055 1 Tablet(s) PO Q6-8H as needed 04/25/2018 05/17/2018 Active hydrocodone 10 mg-acetaminophen 325 mg tablet RxNorm: 381310 1 Tablet(s) PO Q6-8H as needed 04/01/2018 04/23/2018 Inactive hydrocodone 10 mg-acetaminophen 325 mg tablet RxNorm: 903689 1 Tablet(s) PO Q6-8H as needed 03/05/2018 03/27/2018 Inactive hydrocodone 10 mg-acetaminophen 325 mg tablet RxNorm: 280623 1 Tablet(s) PO Q6-8H as needed 02/11/2018 03/04/2018 Inactive hydrocodone 10 mg-acetaminophen 325 mg tablet RxNorm: 147271 1 Tablet(s) PO Q6-8H as needed 01/18/2018 02/09/2018 Inactive hydrocodone 10 mg-acetaminophen 325 mg tablet RxNorm: 379376 1 Tablet(s) PO Q6-8H as needed 12/24/2017 01/15/2018 Inactive hydrocodone 10 mg-acetaminophen 325 mg tablet RxNorm: 703076 1 Tablet(s) PO Q6-8H as needed 11/30/2017 12/22/2017 Inactive hydrocodone 10 mg-acetaminophen 325 mg tablet RxNorm: 519743 1 Tablet(s) PO Q6-8H as needed 11/06/2017 11/28/2017 Inactive hydrocodone 10 mg-acetaminophen 325 mg tablet RxNorm: 111462 1 Tablet(s) PO Q6-8H as needed 10/11/2017 11/02/2017 Inactive hydrocodone 10 mg-acetaminophen 325 mg tablet RxNorm: 188705 1 Tablet(s) PO Q6-8H as needed 09/12/2017 10/04/2017 Inactive hydrocodone 10 mg-acetaminophen 325 mg tablet RxNorm: 044010 1 Tablet(s) PO Q6-8H as needed 08/16/2017 09/07/2017 Inactive hydrocodone 10 mg-acetaminophen 325 mg tablet RxNorm: 381616 1 Tablet(s) PO Q6-8H as needed 07/19/2017 08/10/2017 Inactive oxycodone-acetaminophen 7.5 mg-325 mg tablet RxNorm: 8859824 1 Tablet(s) PO Q6-8H as needed 06/29/2017 07/18/2017 Inactive hydrocodone 10 mg-acetaminophen 325 mg tablet RxNorm: 402895 1 Tablet(s) PO Q6-8H as needed 06/01/2017 06/17/2017 Inactive hydrocodone 10 mg-acetaminophen 325 mg tablet RxNorm: 972120 1 Tablet(s) PO Q6-8H as needed 05/09/2017 05/30/2017 Inactive Cipro 500 mg tablet RxNorm: 861548 1 Tablet(s) PO BID 04/20/2017 04/29/2017 Inactive prednisone 10 mg tablet RxNorm: 255398 Tablet(s) PO 04/20/2017 03/04/2018 Inactive 6,5,4,3,2,1 Flagyl 500 mg tablet RxNorm: 032092 1 Tablet(s) PO TID 04/20/2017 04/29/2017 Inactive hydrocodone 10 mg-acetaminophen 325 mg tablet RxNorm: 929805 1 Tablet(s) PO Q6-8H as needed 04/09/2017 05/01/2017 Inactive hydrocodone 10 mg-acetaminophen 325 mg tablet RxNorm: 458763 1 Tablet(s) PO Q6-8H as needed 03/07/2017 03/29/2017 Inactive hydrocodone 10 mg-acetaminophen 325 mg tablet RxNorm: 376799 1 Tablet(s) PO Q6-8H as needed 02/01/2017 02/23/2017 Inactive lidocaine 3 % lotion RxNorm: 6162998 1 Application TOP BID as needed 01/03/2017 No Stop Date Active acyclovir 800 mg tablet RxNorm: 601012 1 Tablet(s) PO 5 x a day 01/02/2017 01/08/2017 Inactive hydrocodone 10 mg-acetaminophen 325 mg tablet RxNorm: 216657 1 Tablet(s) PO Q6-8H as needed 12/06/2016 12/28/2016 Inactive hydrocodone 10 mg-acetaminophen 325 mg tablet RxNorm: 327574 1 Tablet(s) PO Q6-8H as needed 12/04/2016 12/05/2016 Inactive hydrocodone 10 mg-acetaminophen 325 mg tablet RxNorm: 634274 1 Tablet(s) PO Q6-8H as needed 11/08/2016 11/30/2016 Inactive hydrocodone 10 mg-acetaminophen 325 mg tablet RxNorm: 857474 1 Tablet(s) PO Q6-8H as needed 10/09/2016 10/31/2016 Inactive hydrocodone 10 mg-acetaminophen 325 mg tablet RxNorm: 624090 1 Tablet(s) PO Q6-8H as needed 08/08/2016 08/30/2016 Inactive hydrocodone 10 mg-acetaminophen 325 mg tablet RxNorm: 270123 1 Tablet(s) PO Q6-8H as needed 07/12/2016 08/03/2016 Inactive hydrocodone 10 mg-acetaminophen 325 mg tablet RxNorm: 359403 1 Tablet(s) PO Q6-8H as needed 06/12/2016 07/04/2016 Inactive hydrocodone 10 mg-acetaminophen 325 mg tablet RxNorm: 759875 1 Tablet(s) PO Q6-8H as needed 05/16/2016 06/07/2016 Inactive hydrocodone 10 mg-acetaminophen 325 mg tablet RxNorm: 599329 1 Tablet(s) PO Q6-8H as needed 04/21/2016 05/12/2016 Inactive hydrocodone 10 mg-acetaminophen 325 mg tablet RxNorm: 266634 1 Tablet(s) PO Q6-8H as needed 03/23/2016 04/13/2016 Inactive hydrocodone 10 mg-acetaminophen 325 mg tablet RxNorm: 103038 1 Tablet(s) PO Q6-8H as needed 02/24/2016 03/16/2016 Inactive hydrocodone 10 mg-acetaminophen 325 mg tablet RxNorm: 219887 1 Tablet(s) PO Q6-8H 01/21/2016 02/11/2016 Inactive hydrocodone 10 mg-acetaminophen 325 mg tablet RxNorm: 440731 1 Tablet(s) PO Q6-8H 12/24/2015 01/14/2016 Inactive hydrocodone 10 mg-acetaminophen 325 mg tablet RxNorm: 125778 1 Tablet(s) PO Q6-8H 11/30/2015 12/23/2015 Inactive hydrocodone 10 mg-acetaminophen 325 mg tablet RxNorm: 813859 1 Tablet(s) PO Q6-8H 11/05/2015 11/29/2015 Inactive hydrocodone 5 mg-acetaminophen 325 mg tablet RxNorm: 157213 1-2 Tablet(s) PO Q6-8H as needed 10/26/2015 11/01/2015 Inactive omeprazole 40 mg capsule,delayed release RxNorm: 936681 1 Capsule(s) PO daily No Start Date Active Imuran 50 mg tablet RxNorm: 601615 1 Tablet(s) PO daily No Start Date Active testosterone cypionate 200 mg/mL intramuscular oil RxNorm: 344735 1 Milliliter(s) IM No Start Date Active lidocaine 3 % lotion RxNorm: 5293787 1 Application TOP BID as needed No Start Date 01/02/2017 Inactive hydrocodone 5 mg-acetaminophen 325 mg tablet RxNorm: 394755 1-2 Tablet(s) PO Q6-8H as needed No [...] Observation Code Item Item Code Result Date Cbc With Differential Ord2 WBC 6.44 K/ul [...] 31.3 pg 04/20/2017 Cbc With Differential Ord2 Sol[place]% 18.6 % 04/20/2017 Cbc With Differential Ord2 Eos% 1.1 % 04/20/2017 Cbc With Differential Ord2 MCHC 34.5 pg 04/20/2017 Cbc With Differential Ord2 Baso% 0.2 % 04/20/2017 Cbc With Differential Ord2 PLT 371 K/ul 04/20/2017 Cbc With Differential Ord2 Neut ABS# 4.49 K/ul 04/20/2017 Cbc With Differential Ord2 RDW 16.0 % 04/20/2017 Cbc With Differential Ord2 Lymph ABS# 0.67 K/ul 04/20/2017 Cbc With Differential Ord2 Sol[place] ABS# 1.2 K/ul 04/20/2017 Cbc With Differential Ord2 Eos ABS# 0.1 K/ul 04/20/2017 Cbc With Differential Ord2 Baso ABS# 0.0 K/ul 04/20/2017 Comp Metabolic Nxn227 NA 142 mEq/L 04/20/2017 Comp Metabolic Ugm487 K 4.2 mEq/L 04/20/2017 Comp Metabolic Tvk413 CL 104 mEq/L 04/20/2017 Comp Metabolic Nxh052 CO2 28.0 mEq/L 04/20/2017 Comp Metabolic Mwn693 ANION GAP 14 04/20/2017 Comp Metabolic Qko282 GLUCOSE 73 mg/dL 04/20/2017 Comp Metabolic Vjg389 Creat 1.2 mg/dL 04/20/2017 Comp Metabolic Erh378 eGFR 68 ml/min/1.73m2 04/20/2017 Comp Metabolic Lpc469 BUN 9 mg/dL 04/20/2017 Comp Metabolic Rek023 B/C Ratio 7.3 Ratio 04/20/2017 Comp Metabolic Ojf762 CALCIUM 9.5 mg/dL 04/20/2017 Comp Metabolic Iys887 ALK PHOS 57 U/L 04/20/2017 Comp Metabolic Zxx202 AST(SGOT) 16 U/L 04/20/2017 Comp Metabolic Zdw282 ALT(SGPT) 14 U/L 04/20/2017 Comp Metabolic Oer233 BILI T 0.6 mg/dL 04/20/2017 Comp Metabolic Kta564 ALBUMIN 4.0 g/dL 04/20/2017 Comp Metabolic Okp324 TPRO 7.0 g/dL 04/20/2017 Comp Metabolic Rqh184 GLOB 3.0 g/dL 04/20/2017 Comp Metabolic Kcr324 A/G Ratio 1.3 Ratio 04/20/2017 Comp Metabolic Bqh927 Osmo 280 mOsmo 04/20/2017 Review of Systems [...] General 1995 Ears/Nose/Throat lips/teeth/gingiva Overall: benign lips 04/25/2018 None [...] 1: 146/88 Code: 8480-6 BMI: 25.2 Code: 11708-5 Heart Rate 1: 94 bpm Height: 6' SpO2: 95% Weight: 186 lbs 12/24/2017 Blood Pressure 1: 134/90 Code: 8480-6 BMI: 25.8 Code: 71378-9 Heart Rate 1: 64 bpm Height: 6' SpO2: 99% Weight: 190 lbs 06/20/2017 Blood Pressure 1: 130/86 Code: 8480-6 BMI: 27.1 Code: 47054-8 Heart Rate 1: 74 bpm Height: 6' SpO2: 98% Weight: 200 lbs 04/20/2017 Blood Pressure 1: 136/80 Code: 8480-6 BMI: 27.1 Code: 95195-8 Heart Rate 1: 100 bpm Height: 6' SpO2: 95% Temperature: 36.9 (C) / 98.4 (F) Weight: 200 lbs 01/02/2017 Blood Pressure 1: 120/78 Code: 8480-6 BMI: 28.3 Code: 76437-3 Heart Rate 1: 79 bpm Height: 6' SpO2: 98% Weight: 209 lbs 09/07/2016 Blood Pressure 1: 140/90 Code: 8480-6 BMI: 27.4 Code: 54631-6 Heart Rate 1: 70 bpm Height: 6' SpO2: 96% Weight: 202 lbs 04/21/2016 Blood Pressure 1: 136/84 Code: 8480-6 BMI: 29.0 Code: 66245-4 Heart Rate 1: 67 bpm Height: 6' SpO2: 98% Weight: 214 lbs 11/30/2015 Blood Pressure 1: 130/80 Code: 8480-6 BMI: 29.3 Code: 82470-3 Heart Rate 1: 75 bpm Height: 6' SpO2: 98% Weight: 216 lbs 11/02/2015 Blood Pressure 1: 126/78 Code: 8480-6 BMI: 29.8 Code: 33639-6 Heart Rate 1: 69 bpm Height: 6' SpO2: 98% Weight: 220 lbs 10/15/2015 Blood Pressure 1: 132/76 Code: 8480-6 BMI: 29.8 Code: 82588-3 Heart Rate 1: 77 bpm Height: 6' [...] Encounters Encounter Performer Location Codes Date () 91033 EST. PATIENT, LEVEL IV Diagnosis: Crohn's disease of both small and large intestine without complications[ICD10: K50.80] Diagnosis: Testicular hypofunction[ICD10: E29.1] Diagnosis: Incomplete rotator cuff tear or rupture of right shoulder, not specified as traumatic[ICD10: M75.111] Diagnosis: Chronic pain due to trauma[ICD10: G89.21] [facility] CPT-4: 86325 04/25/2018 83204 EST. PATIENT, LEVEL III Diagnosis: Chronic pain due to trauma[ICD10: G89.21] Diagnosis: Incomplete rotator cuff tear or rupture of left shoulder, not specified as traumatic[ICD10: M75.112] Diagnosis: Incomplete rotator cuff tear or rupture of right shoulder, not specified as traumatic[ICD10: M75.111] Diagnosis: Crohn's disease of both small and large intestine without complications[ICD10: K50.80] Bridget Hamm MD, [facility] CPT-4: 30864 12/24/2017 94609 EST. PATIENT, LEVEL III Diagnosis: Chronic pain due to trauma[ICD10: G89.21] Diagnosis: Incomplete rotator cuff tear or rupture of left shoulder, not specified as traumatic[ICD10: M75.112] Diagnosis: Incomplete rotator cuff tear or rupture of right shoulder, not specified as traumatic[ICD10: M75.111] Diagnosis: Crohn's disease of both small and large intestine without complications[ICD10: K50.80] [facility] CPT-4: 38588 06/20/2017 93610 EST. PATIENT, LEVEL IV Diagnosis: Crohn's disease of both small and large intestine without complications[ICD10: K50.80] [facility] CPT-4: 71757 04/20/2017 45493 EST. PATIENT, LEVEL III Diagnosis: Zoster without complications[ICD10: B02.9] [facility] CPT-4: 49331 01/02/2017 41340 EST. PATIENT, LEVEL IV Diagnosis: Chronic pain due to trauma[ICD10: G89.21] Diagnosis: Incomplete rotator cuff tear or rupture of left shoulder, not specified as traumatic[ICD10: M75.112] Diagnosis: Incomplete rotator cuff tear or rupture of right shoulder, not specified as traumatic[ICD10: M75.111] Diagnosis: Crohn's disease of both small and large intestine without complications[ICD10: K50.80] Bridget Hamm MD, [facility] CPT-4: 34962 09/07/2016 ([id number]) 99225 EST. PATIENT, LEVEL III Diagnosis: Chronic pain due to trauma[ICD10: G89.21] Diagnosis: Incomplete rotator cuff tear or rupture of left shoulder, not specified as traumatic[ICD10: M75.112] Diagnosis: Incomplete rotator cuff tear or rupture of right shoulder, not specified as traumatic[ICD10: M75.111] Diagnosis: Crohn's disease of both small and large intestine without complications[ICD10: K50.80] Carmela Hamm MD, [facility] CPT-4: 62443 04/21/2016 44635 EST. PATIENT, LEVEL IV Diagnosis: Chronic pain due to trauma[ICD10: G89.21] Diagnosis: Incomplete rotator cuff tear or rupture of right shoulder, not specified as traumatic[ICD10: M75.111] Diagnosis: Incomplete rotator cuff tear or rupture of left shoulder, not specified as traumatic[ICD10: M75.112] [facility] CPT-4: 58816 11/30/2015 88039 EST. PATIENT, LEVEL IV Diagnosis: Chronic pain due to trauma[ICD10: G89.21] Diagnosis: Incomplete rotator cuff tear or rupture of right shoulder, not specified as traumatic[ICD10: M75.111] Diagnosis: Incomplete rotator cuff tear or rupture of left shoulder, not specified as traumatic[ICD10: M75.112] [facility] CPT-4: 54897 11/02/2015 (46596) OFFICE VISIT, NEW - LEVEL 4 Diagnosis: Incomplete rotator cuff tear or rupture of left shoulder, not specified as traumatic[ICD10: M75.112] Diagnosis: Incomplete rotator cuff tear or rupture of right shoulder, not specified as traumatic[ICD10: M75.111] Diagnosis: Crohn's disease of both small and large intestine without complications[ICD10: K50.80] Bridget Hamm MD, [facility] CPT-4: 90617 10/15/2015 Plan of Care Planned Activity Notes [...] of over-medication. Pain contract update today. 04/25/2018 Patient Education: Patient Medication Summary Completed 04/25/2018 Care Plan: Cbc With Differential Pending 04/25/2018 Care Plan: Comp Metabolic Pending 04/25/2018 Care Plan: Testosterone Pending 04/25/2018 Care Plan: Lipid Pending 04/25/2018 Care Plan: B12 Pending 04/25/2018 Visit Diagnosis Plan: Crohn's disease of both small and large intestine without complications Discussion: managed by Dr [id number]-[id number]-ag changes at this time ICD-9 : 555.2 [...] : M75.112 12/24/2017 Appointment: Bridget Terry WPtel: [address] [place], [place] [id number] (15 min) Moderate 12/24/2017 Patient Education: Patient [...] : M75.112 06/20/2017 Appointment: Bridget Terry WPtel: [facility]5 [id number] (30 min) Complex 06/20/2017 Patient Education: Patient Medication Summary Completed 06/20/2017 Appointment: Carmela Greenberg WPtel: [phone] [id number] [place] (15 min) Moderate 06/19/2017 Appointment: Lab [...] plan. 04/20/2017 Appointment: Bridget Terry WPtel: [phone] [id number] [place] (30 min) Complex 04/20/2017 Patient Education: Patient Medication Summary Completed 04/20/2017 Appointment: Bridget Terry WPtel: [facility]5 [id number] [place] [...] considered contagious. 01/02/2017 Appointment: Bridget Terry WPtel: [address] [place], [place] [phone] (30 min) Complex 01/02/2017 Patient Education: Patient [...] : G89.21 09/07/2016 Appointment: Bridget Terry WPtel: [address] [place], [place] [phone] (30 min) Complex 09/07/2016 Patient Education: Patient [...] : G89.21 04/21/2016 Appointment: Carmela Greenberg WPtel: [address] [place], [place] [phone] [place] (15 min) Moderate 04/21/2016 Patient Education: [...] year. 11/30/2015 App[facility]ment[phone] ([facility] min) Complex 11/30/2015 Patient Education: [...] year. 11/02/2015 Appointment: [facility] [phone] [phone] [place] (15 min) Moderate 11/02/2015 Patient [...]
--- OUTSIDE RECORDS SUMMARY | 2018-09-19 08:26 | XMS REPORT | CCD ---
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 Role Phone PP Unavailable CCM Unavailable Summary Purpose Interface Exchange Insurance Providers Payer name Policy type / Coverage type Covered republican ID Effective Begin Date Effective End Date Blue Cross Blue [facility] Blue Cross/Blue Shield [id number] Unknown Unknown Family history Son Diagnosis Age At Onset Attention deficit hyperactivity disorder Unknown Social History Social History Element Codes Description Effective Dates Marital status Unknown Consuelo 04/25/2018 Number of children Unknown 1 10/15/[address]: 649035888 Currently uses smokeless tobacco 10/15/2015 Alcohol history [...] hydrocodone 10 mg-acetaminophen 325 mg tablet RxNorm: 931756 1 Tablet(s) PO Q6-8H as needed 04/25/2018 05/17/2018 Active hydrocodone 10 mg-acetaminophen 325 mg tablet RxNorm: 148887 1 Tablet(s) PO Q6-8H as needed 04/01/2018 04/23/2018 Inactive hydrocodone 10 mg-acetaminophen 325 mg tablet RxNorm: 087686 1 Tablet(s) PO Q6-8H as needed 03/05/2018 03/27/2018 Inactive hydrocodone 10 mg-acetaminophen 325 mg tablet RxNorm: 049607 1 Tablet(s) PO Q6-8H as needed 02/11/2018 03/04/2018 Inactive hydrocodone 10 mg-acetaminophen 325 mg tablet RxNorm: 428237 1 Tablet(s) PO Q6-8H as needed 01/18/2018 02/09/2018 Inactive hydrocodone 10 mg-acetaminophen 325 mg tablet RxNorm: 639185 1 Tablet(s) PO Q6-8H as needed 12/24/2017 01/15/2018 Inactive hydrocodone 10 mg-acetaminophen 325 mg tablet RxNorm: 913344 1 Tablet(s) PO Q6-8H as needed 11/30/2017 12/22/2017 Inactive hydrocodone 10 mg-acetaminophen 325 mg tablet RxNorm: 008787 1 Tablet(s) PO Q6-8H as needed 11/06/2017 11/28/2017 Inactive hydrocodone 10 mg-acetaminophen 325 mg tablet RxNorm: 509504 1 Tablet(s) PO Q6-8H as needed 10/11/2017 11/02/2017 Inactive hydrocodone 10 mg-acetaminophen 325 mg tablet RxNorm: 038015 1 Tablet(s) PO Q6-8H as needed 09/12/2017 10/04/2017 Inactive hydrocodone 10 mg-acetaminophen 325 mg tablet RxNorm: 701415 1 Tablet(s) PO Q6-8H as needed 08/16/2017 09/07/2017 Inactive hydrocodone 10 mg-acetaminophen 325 mg tablet RxNorm: 836303 1 Tablet(s) PO Q6-8H as needed 07/19/2017 08/10/2017 Inactive oxycodone-acetaminophen 7.5 mg-325 mg tablet RxNorm: 8166959 1 Tablet(s) PO Q6-8H as needed 06/29/2017 07/18/2017 Inactive hydrocodone 10 mg-acetaminophen 325 mg tablet RxNorm: 743038 1 Tablet(s) PO Q6-8H as needed 06/01/2017 06/17/2017 Inactive hydrocodone 10 mg-acetaminophen 325 mg tablet RxNorm: 477971 1 Tablet(s) PO Q6-8H as needed 05/09/2017 05/30/2017 Inactive Cipro 500 mg tablet RxNorm: 448282 1 Tablet(s) PO BID 04/20/2017 04/29/2017 Inactive prednisone 10 mg tablet RxNorm: 894392 Tablet(s) PO 04/20/2017 03/04/2018 Inactive 6,5,4,3,2,1 Flagyl 500 mg tablet RxNorm: 464210 1 Tablet(s) PO TID 04/20/2017 04/29/2017 Inactive hydrocodone 10 mg-acetaminophen 325 mg tablet RxNorm: 086866 1 Tablet(s) PO Q6-8H as needed 04/09/2017 05/01/2017 Inactive hydrocodone 10 mg-acetaminophen 325 mg tablet RxNorm: 348474 1 Tablet(s) PO Q6-8H as needed 03/07/2017 03/29/2017 Inactive hydrocodone 10 mg-acetaminophen 325 mg tablet RxNorm: 809597 1 Tablet(s) PO Q6-8H as needed 02/01/2017 02/23/2017 Inactive lidocaine 3 % lotion RxNorm: 1760987 1 Application TOP BID as needed 01/03/2017 No Stop Date Active acyclovir 800 mg tablet RxNorm: 586791 1 Tablet(s) PO 5 x a day 01/02/2017 01/08/2017 Inactive hydrocodone 10 mg-acetaminophen 325 mg tablet RxNorm: 140467 1 Tablet(s) PO Q6-8H as needed 12/06/2016 12/28/2016 Inactive hydrocodone 10 mg-acetaminophen 325 mg tablet RxNorm: 356326 1 Tablet(s) PO Q6-8H as needed 12/04/2016 12/05/2016 Inactive hydrocodone 10 mg-acetaminophen 325 mg tablet RxNorm: 948297 1 Tablet(s) PO Q6-8H as needed 11/08/2016 11/30/2016 Inactive hydrocodone 10 mg-acetaminophen 325 mg tablet RxNorm: 305016 1 Tablet(s) PO Q6-8H as needed 10/09/2016 10/31/2016 Inactive hydrocodone 10 mg-acetaminophen 325 mg tablet RxNorm: 611106 1 Tablet(s) PO Q6-8H as needed 08/08/2016 08/30/2016 Inactive hydrocodone 10 mg-acetaminophen 325 mg tablet RxNorm: 821527 1 Tablet(s) PO Q6-8H as needed 07/12/2016 08/03/2016 Inactive hydrocodone 10 mg-acetaminophen 325 mg tablet RxNorm: 844088 1 Tablet(s) PO Q6-8H as needed 06/12/2016 07/04/2016 Inactive hydrocodone 10 mg-acetaminophen 325 mg tablet RxNorm: 309671 1 Tablet(s) PO Q6-8H as needed 05/16/2016 06/07/2016 Inactive hydrocodone 10 mg-acetaminophen 325 mg tablet RxNorm: 304461 1 Tablet(s) PO Q6-8H as needed 04/21/2016 05/12/2016 Inactive hydrocodone 10 mg-acetaminophen 325 mg tablet RxNorm: 835414 1 Tablet(s) PO Q6-8H as needed 03/23/2016 04/13/2016 Inactive hydrocodone 10 mg-acetaminophen 325 mg tablet RxNorm: 786592 1 Tablet(s) PO Q6-8H as needed 02/24/2016 03/16/2016 Inactive hydrocodone 10 mg-acetaminophen 325 mg tablet RxNorm: 302924 1 Tablet(s) PO Q6-8H 01/21/2016 02/11/2016 Inactive hydrocodone 10 mg-acetaminophen 325 mg tablet RxNorm: 193217 1 Tablet(s) PO Q6-8H 12/24/2015 01/14/2016 Inactive hydrocodone 10 mg-acetaminophen 325 mg tablet RxNorm: 130972 1 Tablet(s) PO Q6-8H 11/30/2015 12/23/2015 Inactive hydrocodone 10 mg-acetaminophen 325 mg tablet RxNorm: 126677 1 Tablet(s) PO Q6-8H 11/05/2015 11/29/2015 Inactive hydrocodone 5 mg-acetaminophen 325 mg tablet RxNorm: 411552 1-2 Tablet(s) PO Q6-8H as needed 10/26/2015 11/01/2015 Inactive omeprazole 40 mg capsule,delayed release RxNorm: 864069 1 Capsule(s) PO daily No Start Date Active Imuran 50 mg tablet RxNorm: 189330 1 Tablet(s) PO daily No Start Date Active testosterone cypionate 200 mg/mL intramuscular oil RxNorm: 613320 1 Milliliter(s) IM No Start Date Active lidocaine 3 % lotion RxNorm: 1439040 1 Application TOP BID as needed No Start Date 01/02/2017 Inactive hydrocodone 5 mg-acetaminophen 325 mg tablet RxNorm: 457914 1-2 Tablet(s) PO Q6-8H as needed No [...] 31.3 pg 04/20/2017 Cbc With Differential Ord2 Travis% 18.6 % 04/20/2017 Cbc With Differential Ord2 [...] 0.67 K/ul 04/20/2017 Cbc With Differential Ord2 Travis ABS# 1.2 K/ul 04/20/2017 Cbc With Differential Ord2 Eos ABS# 0.1 K/ul 04/20/2017 Cbc With Differential Ord2 Baso ABS# 0.0 K/ul 04/20/2017 Comp Metabolic Usl707 NA 142 mEq/L 04/20/2017 Comp Metabolic Ynq285 K 4.2 mEq/L 04/20/2017 Comp Metabolic Rpm629 CL 104 mEq/L 04/20/2017 Comp Metabolic Icp370 CO2 28.0 mEq/L 04/20/2017 Comp Metabolic Mlg976 ANION GAP 14 04/20/2017 Comp Metabolic Vsd234 GLUCOSE 73 mg/dL 04/20/2017 Comp Metabolic Upy245 Creat 1.2 mg/dL 04/20/2017 Comp Metabolic Bbv201 eGFR 68 ml/min/1.73m2 04/20/2017 Comp Metabolic Bcq956 BUN 9 mg/dL 04/20/2017 Comp Metabolic Jve841 B/C Ratio 7.3 Ratio 04/20/2017 Comp Metabolic Mam855 CALCIUM 9.5 mg/dL 04/20/2017 Comp Metabolic Upf439 ALK PHOS 57 U/L 04/20/2017 Comp Metabolic Oyc079 AST(SGOT) 16 U/L 04/20/2017 Comp Metabolic Wop388 ALT(SGPT) 14 U/L 04/20/2017 Comp Metabolic Lkc473 BILI T 0.6 mg/dL 04/20/2017 Comp Metabolic Lxs779 ALBUMIN 4.0 g/dL 04/20/2017 Comp Metabolic Vdl842 TPRO 7.0 g/dL 04/20/2017 Comp Metabolic Wnx107 GLOB 3.0 g/dL 04/20/2017 Comp Metabolic Oja005 A/G Ratio 1.3 Ratio 04/20/2017 Comp Metabolic Lxu358 Osmo 280 mOsmo 04/20/2017 Review of Systems [...] 1: 146/88 Code: 8480-6 BMI: 25.2 Code: 81901-9 Heart Rate 1: 94 bpm Height: 6' SpO2: 95% Weight: 186 lbs 12/24/2017 Blood Pressure 1: 134/90 Code: 8480-6 BMI: 25.8 Code: 51104-1 Heart Rate 1: 64 bpm Height: 6' SpO2: 99% Weight: 190 lbs 06/20/2017 Blood Pressure 1: 130/86 Code: 8480-6 BMI: 27.1 Code: 03626-1 Heart Rate 1: 74 bpm Height: 6' SpO2: 98% Weight: 200 lbs 04/20/2017 Blood Pressure 1: 136/80 Code: 8480-6 BMI: 27.1 Code: 76840-1 Heart Rate 1: 100 bpm Height: 6' SpO2: 95% Temperature: 36.9 (C) / 98.4 (F) Weight: 200 lbs 01/02/2017 Blood Pressure 1: 120/78 Code: 8480-6 BMI: 28.3 Code: 89646-5 Heart Rate 1: 79 bpm Height: 6' SpO2: 98% Weight: 209 lbs 09/07/2016 Blood Pressure 1: 140/90 Code: 8480-6 BMI: 27.4 Code: 58463-4 Heart Rate 1: 70 bpm Height: 6' SpO2: 96% Weight: 202 lbs 04/21/2016 Blood Pressure 1: 136/84 Code: 8480-6 BMI: 29.0 Code: 99612-4 Heart Rate 1: 67 bpm Height: 6' SpO2: 98% Weight: 214 lbs 11/30/2015 Blood Pressure 1: 130/80 Code: 8480-6 BMI: 29.3 Code: 28844-0 Heart Rate 1: 75 bpm Height: 6' SpO2: 98% Weight: 216 lbs 11/02/2015 Blood Pressure 1: 126/78 Code: 8480-6 BMI: 29.8 Code: 85104-2 Heart Rate 1: 69 bpm Height: 6' SpO2: 98% Weight: 220 lbs 10/15/2015 Blood Pressure 1: 132/76 Code: 8480-6 BMI: 29.8 Code: 01995-0 Heart Rate 1: 77 bpm Height: 6' [...] Encounters Encounter Performer Location Codes Date () 84617 EST. PATIENT, LEVEL IV Diagnosis: Crohn's disease of both small and large intestine without complications[ICD10: K50.80] Diagnosis: Testicular hypofunction[ICD10: E29.1] Diagnosis: Incomplete rotator cuff tear or rupture of right shoulder, not specified as traumatic[ICD10: M75.111] Diagnosis: Chronic pain due to trauma[ICD10: G89.21] [facility] CPT-4: 44537 04/25/2018 53019 EST. PATIENT, LEVEL III Diagnosis: Chronic pain due to trauma[ICD10: G89.21] Diagnosis: Incomplete rotator cuff tear or rupture of left shoulder, not specified as traumatic[ICD10: M75.112] Diagnosis: Incomplete rotator cuff tear or rupture of right shoulder, not specified as traumatic[ICD10: M75.111] Diagnosis: Crohn's disease of both small and large intestine without complications[ICD10: K50.80] Bridget Hamm MD, [facility] CPT-4: 64634 12/24/2017 02971 EST. PATIENT, LEVEL III Diagnosis: Chronic pain due to trauma[ICD10: G89.21] Diagnosis: Incomplete rotator cuff tear or rupture of left shoulder, not specified as traumatic[ICD10: M75.112] Diagnosis: Incomplete rotator cuff tear or rupture of right shoulder, not specified as traumatic[ICD10: M75.111] Diagnosis: Crohn's disease of both small and large intestine without complications[ICD10: K50.80] [facility] CPT-4: 06747 06/20/2017 97185 EST. PATIENT, LEVEL IV Diagnosis: Crohn's disease of both small and large intestine without complications[ICD10: K50.80] [facility] CPT-4: 62861 04/20/2017 75551 EST. PATIENT, LEVEL III Diagnosis: Zoster without complications[ICD10: B02.9] [facility] CPT-4: 33331 01/02/2017 07617 EST. PATIENT, LEVEL IV Diagnosis: Chronic pain due to trauma[ICD10: G89.21] Diagnosis: Incomplete rotator cuff tear or rupture of left shoulder, not specified as traumatic[ICD10: M75.112] Diagnosis: Incomplete rotator cuff tear or rupture of right shoulder, not specified as traumatic[ICD10: M75.111] Diagnosis: Crohn's disease of both small and large intestine without complications[ICD10: K50.80] Bridget Hamm MD, [facility] CPT-4: 30897 09/07/2016 ([id number]) 78500 EST. PATIENT, LEVEL III Diagnosis: Chronic pain due to trauma[ICD10: G89.21] Diagnosis: Incomplete rotator cuff tear or rupture of left shoulder, not specified as traumatic[ICD10: M75.112] Diagnosis: Incomplete rotator cuff tear or rupture of right shoulder, not specified as traumatic[ICD10: M75.111] Diagnosis: Crohn's disease of both small and large intestine without complications[ICD10: K50.80] Carmela Hamm MD, [facility] CPT-4: 82179 04/21/2016 83128 EST. PATIENT, LEVEL IV Diagnosis: Chronic pain due to trauma[ICD10: G89.21] Diagnosis: Incomplete rotator cuff tear or rupture of right shoulder, not specified as traumatic[ICD10: M75.111] Diagnosis: Incomplete rotator cuff tear or rupture of left shoulder, not specified as traumatic[ICD10: M75.112] [facility] CPT-4: 53051 11/30/2015 15314 EST. PATIENT, LEVEL IV Diagnosis: Chronic pain due to trauma[ICD10: G89.21] Diagnosis: Incomplete rotator cuff tear or rupture of right shoulder, not specified as traumatic[ICD10: M75.111] Diagnosis: Incomplete rotator cuff tear or rupture of left shoulder, not specified as traumatic[ICD10: M75.112] [facility] CPT-4: 81032 11/02/2015 ([id number]) OFFICE VISIT, NEW - LEVEL 4 Diagnosis: Incomplete rotator cuff tear or rupture of left shoulder, not specified as traumatic[ICD10: M75.112] Diagnosis: Incomplete rotator cuff tear or rupture of right shoulder, not specified as traumatic[ICD10: M75.111] Diagnosis: Crohn's disease of both small and large intestine without complications[ICD10: K50.80] Bridget Hamm MD, [facility] CPT-4: 08418 10/15/2015 Plan of Care Planned Activity Notes [...] intestine without complications Discussion: managed by Dr RondonBdhyd-zsbgro-de changes at this time ICD-9 : 555.2 [...] : M75.112 12/24/2017 Appointment: Bridget Terry WPtel: [address] [place], [place] [phone] (15 min) Moderate 12/24/2017 Patient Education: Patient [...] Bridget Terry WPtel: [facility]5 [facility] (30 min) Complex 06/20/2017 Patient Education: Patient Medication Summary Completed 06/20/2017 Appointment: Carmela Greenberg WPtel: [phone] [phone] [place] (15 min) Moderate 06/19/2017 [...] plan. 04/20/2017 Appointment: Bridget Terry WPtel: [phone] [facility] [place] (30 min) Complex 04/20/2017 Patient Education: Patient Medication Summary Completed 04/20/2017 Appointment: Bridget Terry WPtel: [facility]5 [facility] [place] (15 min) Moderate 04/19/2017 Appointment: Lab [...] considered contagious. 01/02/2017 Appointment: Bridget Terry WPtel: [address] [place], [place] [phone] (30 min) Complex 01/02/2017 Patient Education: Patient [...] : G89.21 09/07/2016 Appointment: Bridget Terry WPtel: [address] [place], [place] [phone] (30 min) Complex 09/07/2016 Patient Education: Patient [...] : G89.21 04/21/2016 Appointment: Carmela Greenberg WPtel: [address] [place], [place] [phone] [place] (15 min) Moderate 04/21/2016 Patient Education: [...] year. 11/30/2015 [phone] [phone] ([facility] min) Complex 11/30/2015 Patient Education: [...] year. 11/02/2015 App[facility]ment: [facility] [phone] [phone] [place] (15 min) Moderate 11/02/2015 Patient [...]
--- OUTSIDE RECORDS SUMMARY | 2018-09-19 08:27 | XMS REPORT | CCD ---
Author Author Bridget Terry MD, [facility] Address [address] [place] [address] Phone Care Team Providers Care Proof Operator Name Role Phone PP Unavailable CCM Unavailable Summary Purpose Interface Exchange Insurance Providers Payer name Policy type / Coverage type Covered alliance party ID Effective Begin Date Effective End Date Blue Cross Blue [facility] Blue Cross/Blue [facility] [id number] Unknown Unknown Family history Son Diagnosis Age At Onset Attention deficit hyperactivity disorder Unknown Social History Social History Element Codes Description Effective Dates Marital status Unknown rory 12/24/2017 Number of children Unknown 1 10/15/[address]: [id number] Currently uses smokeless tobacco 10/15/2015 Alcohol history [...] ICD-9: 726.13 ICD-10: M75.112 Active 11/29/2015 Unknown Incomplete rotator cuff tear or rupture of right shoulder, not specified as traumatic ICD-9: 726.13 ICD-10: M75.111 Active 11/29/2015 Unknown Rash and other nonspecific [...] traumatic ICD-9: 726.13 ICD-10: M75.112 11/29/2015 Active Incomplete rotator cuff tear or rupture of right shoulder, not specified as traumatic ICD-9: 726.13 ICD-10: M75.111 11/29/2015 Active Rash and other nonspecific skin eruption ICD-9: 782.1 ICD-10: R21 01/02/2017 Active Zoster without complications ICD-9: 053.9 ICD-10: B02.9 01/02/2017 Active Medications Medication Codes Instructions Start Date Stop Date Status Fill Instructions hydrocodone 10 mg-acetaminophen 325 mg tablet RxNorm: 902148 1 Tablet(s) PO Q6-8H as needed 04/01/2018 04/23/2018 Active hydrocodone 10 mg-acetaminophen 325 mg tablet RxNorm: 694525 1 Tablet(s) PO Q6-8H as needed 03/05/2018 03/27/2018 Inactive hydrocodone 10 mg-acetaminophen 325 mg tablet RxNorm: 101232 1 Tablet(s) PO Q6-8H as needed 02/11/2018 03/04/2018 Inactive hydrocodone 10 mg-acetaminophen 325 mg tablet RxNorm: 361491 1 Tablet(s) PO Q6-8H as needed 01/18/2018 02/09/2018 Inactive hydrocodone 10 mg-acetaminophen 325 mg tablet RxNorm: 836657 1 Tablet(s) PO Q6-8H as needed 12/24/2017 01/15/2018 Inactive hydrocodone 10 mg-acetaminophen 325 mg tablet RxNorm: 548677 1 Tablet(s) PO Q6-8H as needed 11/30/2017 12/22/2017 Inactive hydrocodone 10 mg-acetaminophen 325 mg tablet RxNorm: 835799 1 Tablet(s) PO Q6-8H as needed 11/06/2017 11/28/2017 Inactive hydrocodone 10 mg-acetaminophen 325 mg tablet RxNorm: 299447 1 Tablet(s) PO Q6-8H as needed 10/11/2017 11/02/2017 Inactive hydrocodone 10 mg-acetaminophen 325 mg tablet RxNorm: 478107 1 Tablet(s) PO Q6-8H as needed 09/12/2017 10/04/2017 Inactive hydrocodone 10 mg-acetaminophen 325 mg tablet RxNorm: 186776 1 Tablet(s) PO Q6-8H as needed 08/16/2017 09/07/2017 Inactive hydrocodone 10 mg-acetaminophen 325 mg tablet RxNorm: 047925 1 Tablet(s) PO Q6-8H as needed 07/19/2017 08/10/2017 Inactive oxycodone-acetaminophen 7.5 mg-325 mg tablet RxNorm: 3911857 1 Tablet(s) PO Q6-8H as needed 06/29/2017 07/18/2017 Inactive hydrocodone 10 mg-acetaminophen 325 mg tablet RxNorm: 225411 1 Tablet(s) PO Q6-8H as needed 06/01/2017 06/17/2017 Inactive hydrocodone 10 mg-acetaminophen 325 mg tablet RxNorm: 514439 1 Tablet(s) PO Q6-8H as needed 05/09/2017 05/30/2017 Inactive Cipro 500 mg tablet RxNorm: 538356 1 Tablet(s) PO BID 04/20/2017 04/29/2017 Inactive prednisone 10 mg tablet RxNorm: 589775 Tablet(s) PO 04/20/2017 03/04/2018 Inactive 6,5,4,3,2,1 Flagyl 500 mg tablet RxNorm: 286556 1 Tablet(s) PO TID 04/20/2017 04/29/2017 Inactive hydrocodone 10 mg-acetaminophen 325 mg tablet RxNorm: 995716 1 Tablet(s) PO Q6-8H as needed 04/09/2017 05/01/2017 Inactive hydrocodone 10 mg-acetaminophen 325 mg tablet RxNorm: 398397 1 Tablet(s) PO Q6-8H as needed 03/07/2017 03/29/2017 Inactive hydrocodone 10 mg-acetaminophen 325 mg tablet RxNorm: 987011 1 Tablet(s) PO Q6-8H as needed 02/01/2017 02/23/2017 Inactive lidocaine 3 % lotion RxNorm: 7328492 1 Application TOP BID as needed 01/03/2017 No Stop Date Active acyclovir 800 mg tablet RxNorm: 133847 1 Tablet(s) PO 5 x a day 01/02/2017 01/08/2017 Inactive hydrocodone 10 mg-acetaminophen 325 mg tablet RxNorm: 421217 1 Tablet(s) PO Q6-8H as needed 12/06/2016 12/28/2016 Inactive hydrocodone 10 mg-acetaminophen 325 mg tablet RxNorm: 311623 1 Tablet(s) PO Q6-8H as needed 12/04/2016 12/05/2016 Inactive hydrocodone 10 mg-acetaminophen 325 mg tablet RxNorm: 105661 1 Tablet(s) PO Q6-8H as needed 11/08/2016 11/30/2016 Inactive hydrocodone 10 mg-acetaminophen 325 mg tablet RxNorm: 366597 1 Tablet(s) PO Q6-8H as needed 10/09/2016 10/31/2016 Inactive hydrocodone 10 mg-acetaminophen 325 mg tablet RxNorm: 812451 1 Tablet(s) PO Q6-8H as needed 08/08/2016 08/30/2016 Inactive hydrocodone 10 mg-acetaminophen 325 mg tablet RxNorm: 129268 1 Tablet(s) PO Q6-8H as needed 07/12/2016 08/03/2016 Inactive hydrocodone 10 mg-acetaminophen 325 mg tablet RxNorm: 434434 1 Tablet(s) PO Q6-8H as needed 06/12/2016 07/04/2016 Inactive hydrocodone 10 mg-acetaminophen 325 mg tablet RxNorm: 605386 1 Tablet(s) PO Q6-8H as needed 05/16/2016 06/07/2016 Inactive hydrocodone 10 mg-acetaminophen 325 mg tablet RxNorm: 641746 1 Tablet(s) PO Q6-8H as needed 04/21/2016 05/12/2016 Inactive hydrocodone 10 mg-acetaminophen 325 mg tablet RxNorm: 556074 1 Tablet(s) PO Q6-8H as needed 03/23/2016 04/13/2016 Inactive hydrocodone 10 mg-acetaminophen 325 mg tablet RxNorm: 885898 1 Tablet(s) PO Q6-8H as needed 02/24/2016 03/16/2016 Inactive hydrocodone 10 mg-acetaminophen 325 mg tablet RxNorm: 321596 1 Tablet(s) PO Q6-8H 01/21/2016 02/11/2016 Inactive hydrocodone 10 mg-acetaminophen 325 mg tablet RxNorm: 242952 1 Tablet(s) PO Q6-8H 12/24/2015 01/14/2016 Inactive hydrocodone 10 mg-acetaminophen 325 mg tablet RxNorm: 787723 1 Tablet(s) PO Q6-8H 11/30/2015 12/23/2015 Inactive hydrocodone 10 mg-acetaminophen 325 mg tablet RxNorm: 605425 1 Tablet(s) PO Q6-8H 11/05/2015 11/29/2015 Inactive hydrocodone 5 mg-acetaminophen 325 mg tablet RxNorm: 510166 1-2 Tablet(s) PO Q6-8H as needed 10/26/2015 11/01/2015 Inactive omeprazole 40 mg capsule,delayed release RxNorm: 336059 1 Capsule(s) PO daily No Start Date Active Imuran 50 mg tablet RxNorm: 185989 1 Tablet(s) PO daily No Start Date Active testosterone cypionate 200 mg/mL intramuscular oil RxNorm: 736156 1 Milliliter(s) IM No Start Date Active lidocaine 3 % lotion RxNorm: 3333968 1 Application TOP BID as needed No Start Date 01/02/2017 Inactive hydrocodone 5 mg-acetaminophen 325 mg tablet RxNorm: 788222 1-2 Tablet(s) PO Q6-8H as needed No Start Date 10/25/2015 Inactive Medication Administered No Medication Administered data Immunizations No Immunization data Assessments Condition Codes Effective Dates Incomplete rotator cuff tear or rupture of right shoulder, not specified as traumatic ICD-10: M75.111 ICD-9: 726.13 12/24/2017 Chronic pain due to trauma ICD-10: G89.21 ICD-9: 338.21 12/24/2017 Incomplete rotator cuff tear or rupture of left shoulder, not specified as traumatic ICD-10: M75.112 ICD-9: 726.13 12/24/2017 Crohn's disease of both small and large intestine without complications ICD-10: K50.80 ICD-9: 555.2 12/24/2017 Zoster without complications ICD-10: B02.9 ICD-9: 053.9 01/02/2017 Reason For Visit Reason For Visit Effective Dates Notes medication follow up 12/24/2017 medication follow up [...] 31.3 pg 04/20/2017 Cbc With Differential Ord2 [place]% 18.6 % 04/20/2017 Cbc With Differential Ord2 [...] 0.67 K/ul 04/20/2017 Cbc With Differential Ord2 [place] ABS# 1.2 K/ul 04/20/2017 Cbc With Differential Ord2 Eos ABS# 0.1 K/ul 04/20/2017 Cbc With Differential Ord2 Baso ABS# 0.0 K/ul 04/20/2017 Comp Metabolic Bfa220 NA 142 mEq/L 04/20/2017 Comp Metabolic Zsa167 K 4.2 mEq/L 04/20/2017 Comp Metabolic Agg269 CL 104 mEq/L 04/20/2017 Comp Metabolic Ufz422 CO2 28.0 mEq/L 04/20/2017 Comp Metabolic Pai108 ANION GAP 14 04/20/2017 Comp Metabolic Tqp525 GLUCOSE 73 mg/dL 04/20/2017 Comp Metabolic Dwx213 Creat 1.2 mg/dL 04/20/2017 Comp Metabolic Vbk708 eGFR 68 ml/min/1.73m2 04/20/2017 Comp Metabolic Cpu392 BUN 9 mg/dL 04/20/2017 Comp Metabolic Afb759 B/C Ratio 7.3 Ratio 04/20/2017 Comp Metabolic Aso838 CALCIUM 9.5 mg/dL 04/20/2017 Comp Metabolic Egg302 ALK PHOS 57 U/L 04/20/2017 Comp Metabolic Xfx168 AST(SGOT) 16 U/L 04/20/2017 Comp Metabolic Jjt754 ALT(SGPT) 14 U/L 04/20/2017 Comp Metabolic Zwa426 BILI T 0.6 mg/dL 04/20/2017 Comp Metabolic Iyk785 ALBUMIN 4.0 g/dL 04/20/2017 Comp Metabolic Pjn547 TPRO 7.0 g/dL 04/20/2017 Comp Metabolic Ywq267 GLOB 3.0 g/dL 04/20/2017 Comp Metabolic Ywk383 A/G Ratio 1.3 Ratio 04/20/2017 Comp Metabolic Pvc933 Osmo 280 mOsmo 04/20/2017 Review of Systems System Result Effective Dates Constitutional No recent illness 12/24/2017 Constitutional No [...] No Procedures data Vital Signs Date Vital 12/24/2017 Blood Pressure 1: 134/90 Code: 8480-6 BMI: 25.8 Code: 31356-5 Heart Rate 1: 64 bpm Height: 6' SpO2: 99% Weight: 190 lbs 06/20/2017 Blood Pressure 1: 130/86 Code: 8480-6 BMI: 27.1 Code: 52996-7 Heart Rate 1: 74 bpm Height: 6' SpO2: 98% Weight: 200 lbs 04/20/2017 Blood Pressure 1: 136/80 Code: 8480-6 BMI: 27.1 Code: 63388-6 Heart Rate 1: 100 bpm Height: 6' SpO2: 95% Temperature: 36.9 (C) / 98.4 (F) Weight: 200 lbs 01/02/2017 Blood Pressure 1: 120/78 Code: 8480-6 BMI: 28.3 Code: 45587-4 Heart Rate 1: 79 bpm Height: 6' SpO2: 98% Weight: 209 lbs 09/07/2016 Blood Pressure 1: 140/90 Code: 8480-6 BMI: 27.4 Code: 96503-6 Heart Rate 1: 70 bpm Height: 6' SpO2: 96% Weight: 202 lbs 04/21/2016 Blood Pressure 1: 136/84 Code: 8480-6 BMI: 29.0 Code: 41251-5 Heart Rate 1: 67 bpm Height: 6' SpO2: 98% Weight: 214 lbs 11/30/2015 Blood Pressure 1: 130/80 Code: 8480-6 BMI: 29.3 Code: 08578-8 Heart Rate 1: 75 bpm Height: 6' SpO2: 98% Weight: 216 lbs 11/02/2015 Blood Pressure 1: 126/78 Code: 8480-6 BMI: 29.8 Code: 63225-1 Heart Rate 1: 69 bpm Height: 6' SpO2: 98% Weight: 220 lbs 10/15/2015 Blood Pressure 1: 132/76 Code: 8480-6 BMI: 29.8 Code: 85722-7 Heart Rate 1: 77 bpm Height: 6' SpO2: 95% Weight: 220 lbs Functional Status No Functional Status data History of Present Illness Symptom Name Status Result Effective Date Notes medication follow up Additional Comments medication use [...] Codes Date EST. PATIENT, LEVEL III Diagnosis: Chronic pain due to trauma[ICD10: G89.21] Diagnosis: Incomplete rotator cuff tear or rupture of left shoulder, not specified as traumatic[ICD10: M75.112] Diagnosis: Incomplete rotator cuff tear or rupture of right shoulder, not specified as traumatic[ICD10: M75.111] Diagnosis: Crohn's disease of both small and large intestine without complications[ICD10: K50.80] [facility] CPT-4: 17161 12/24/2017 28904 EST. PATIENT, LEVEL III Diagnosis: Chronic pain due to trauma[ICD10: G89.21] Diagnosis: Incomplete rotator cuff tear or rupture of left shoulder, not specified as traumatic[ICD10: M75.112] Diagnosis: Incomplete rotator cuff tear or rupture of right shoulder, not specified as traumatic[ICD10: M75.111] Diagnosis: Crohn's disease of both small and large intestine without complications[ICD10: K50.80] [facility] CPT-4: 91370 06/20/2017 34947 EST. PATIENT, LEVEL IV Diagnosis: Crohn's disease of both small and large intestine without complications[ICD10: K50.80] Bridget Hamm MD, [facility] CPT-4: 57649 04/20/2017 24881 EST. PATIENT, LEVEL III Diagnosis: Zoster without complications[ICD10: B02.9] Bridget Hamm MD, [facility] CPT-4: 97423 01/02/2017 52564 EST. PATIENT, LEVEL IV Diagnosis: Chronic pain due to trauma[ICD10: G89.21] Diagnosis: Incomplete rotator cuff tear or rupture of left shoulder, not specified as traumatic[ICD10: M75.112] Diagnosis: Incomplete rotator cuff tear or rupture of right shoulder, not specified as traumatic[ICD10: M75.111] Diagnosis: Crohn's disease of both small and large intestine without complications[ICD10: K50.80] Bridget Hamm MD, [facility] CPT-4: 11022 09/07/2016 ([id number]) 88273 EST. PATIENT, LEVEL III Diagnosis: Chronic pain due to trauma[ICD10: G89.21] Diagnosis: Incomplete rotator cuff tear or rupture of left shoulder, not specified as traumatic[ICD10: M75.112] Diagnosis: Incomplete rotator cuff tear or rupture of right shoulder, not specified as traumatic[ICD10: M75.111] Diagnosis: Crohn's disease of both small and large intestine without complications[ICD10: K50.80] Carmela Hamm MD, [facility] CPT-4: 14744 04/21/2016 76193 EST. PATIENT, LEVEL IV Diagnosis: Chronic pain due to trauma[ICD10: G89.21] Diagnosis: Incomplete rotator cuff tear or rupture of right shoulder, not specified as traumatic[ICD10: M75.111] Diagnosis: Incomplete rotator cuff tear or rupture of left shoulder, not specified as traumatic[ICD10: M75.112] Bridget Hamm MD, [facility] CPT-4: 54437 11/30/2015 03109 EST. PATIENT, LEVEL IV Diagnosis: Chronic pain due to trauma[ICD10: G89.21] Diagnosis: Incomplete rotator cuff tear or rupture of right shoulder, not specified as traumatic[ICD10: M75.111] Diagnosis: Incomplete rotator cuff tear or rupture of left shoulder, not specified as traumatic[ICD10: M75.112] Bridget Hamm MD, [facility] CPT-4: 83148 11/02/2015 ([id number]) OFFICE VISIT, NEW - LEVEL 4 Diagnosis: Incomplete rotator cuff tear or rupture of left shoulder, not specified as traumatic[ICD10: M75.112] Diagnosis: Incomplete rotator cuff tear or rupture of right shoulder, not specified as traumatic[ICD10: M75.111] Diagnosis: Crohn's disease of both small and large intestine without complications[ICD10: K50.80] Bridget Hamm MD, [facility] CPT-4: 28913 10/15/2015 Plan of Care Planned Activity Notes Codes Status Date Visit Diagnosis Plan: Crohn's disease of both [...] : M75.112 12/24/2017 Appointment: Bridget Terry WPtel: [address] [place], [place] [phone] (15 min) Moderate 12/24/2017 Patient Education: Patient [...] 726.13 ICD-10 : M75.112 06/20/2017 Appointment: Bridget Terry: [id number] (30 min) Complex 06/20/2017 Patient Education: Patient Medication Summary Completed 06/20/2017 Appointment: Carmela Greenbergl: [id number] [place] [...] his current treatment plan. 04/20/2017 Appointment: Bridget Terry: [id number] (30 min) Complex 04/20/2017 Patient Education: Patient Medication Summary Completed 04/20/2017 Appointment: Bridget Terry: [address] [place], [place] [phone] (15 min) Moderate 04/19/2017 Appointment: Lab Draw [...] to be considered contagious. 01/02/2017 [facility]ment[facility] ([facility] min) Complex 01/02/2017 Patient Education: [...] : G89.21 09/07/2016 Appointment: Bridget Terry WPtel: [id number] (30 min) Complex 09/07/2016 Patient Education: Patient [...] : G89.21 04/21/2016 Appointment: Carmela Greenberg WPtel: [facility] [place] (15 min) Moderate 04/21/2016 Patient [...] the year. 11/30/2015 Appointment: Carmela Greenberg WPtel: [phone] [id number] [place] [address] (30 min) Complex 11/30/2015 Patient Education: Patient [...] the year. 11/02/2015 Appointment: Carmela Greenberg WPtel: [phone] [id number] (15 min) Moderate 11/02/2015 Patient Education: Patient [...] specialist, no changes at this time. . Crohns vs Diverticulitis - rx for [...]
--- OUTSIDE RECORDS SUMMARY | 2018-09-19 08:28 | XMS REPORT | CCD ---
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 Name Role Phone PP Unavailable CCM Unavailable Summary Purpose Interface Exchange Insurance Providers Payer name Policy type / Coverage type Covered democrat ID Effective Begin Date Effective End Date Blue Cross Blue [facility] Blue Cross/Blue [facility] [id number] Unknown Unknown Family history Son Diagnosis Age At Onset Attention deficit hyperactivity disorder Unknown Social History Social History Element Codes Description Effective Dates Marital status Unknown rory 12/24/2017 Number of children Unknown 1 10/15/[address]: 668278217 Currently uses smokeless tobacco 10/15/2015 Alcohol history [...] hydrocodone 10 mg-acetaminophen 325 mg tablet RxNorm: 629735 1 Tablet(s) PO Q6-8H as needed 03/05/2018 03/27/2018 Active hydrocodone 10 mg-acetaminophen 325 mg tablet RxNorm: 869132 1 Tablet(s) PO Q6-8H as needed 02/11/2018 03/04/2018 Inactive hydrocodone 10 mg-acetaminophen 325 mg tablet RxNorm: 259729 1 Tablet(s) PO Q6-8H as needed 01/18/2018 02/09/2018 Inactive hydrocodone 10 mg-acetaminophen 325 mg tablet RxNorm: 090232 1 Tablet(s) PO Q6-8H as needed 12/24/2017 01/15/2018 Inactive hydrocodone 10 mg-acetaminophen 325 mg tablet RxNorm: 077576 1 Tablet(s) PO Q6-8H as needed 11/30/2017 12/22/2017 Inactive hydrocodone 10 mg-acetaminophen 325 mg tablet RxNorm: 335880 1 Tablet(s) PO Q6-8H as needed 11/06/2017 11/28/2017 Inactive hydrocodone 10 mg-acetaminophen 325 mg tablet RxNorm: 510426 1 Tablet(s) PO Q6-8H as needed 10/11/2017 11/02/2017 Inactive hydrocodone 10 mg-acetaminophen 325 mg tablet RxNorm: 532312 1 Tablet(s) PO Q6-8H as needed 09/12/2017 10/04/2017 Inactive hydrocodone 10 mg-acetaminophen 325 mg tablet RxNorm: 525905 1 Tablet(s) PO Q6-8H as needed 08/16/2017 09/07/2017 Inactive hydrocodone 10 mg-acetaminophen 325 mg tablet RxNorm: 421691 1 Tablet(s) PO Q6-8H as needed 07/19/2017 08/10/2017 Inactive oxycodone-acetaminophen 7.5 mg-325 mg tablet RxNorm: 2808001 1 Tablet(s) PO Q6-8H as needed 06/29/2017 07/18/2017 Inactive hydrocodone 10 mg-acetaminophen 325 mg tablet RxNorm: 940695 1 Tablet(s) PO Q6-8H as needed 06/01/2017 06/17/2017 Inactive hydrocodone 10 mg-acetaminophen 325 mg tablet RxNorm: 461927 1 Tablet(s) PO Q6-8H as needed 05/09/2017 05/30/2017 Inactive Cipro 500 mg tablet RxNorm: 373805 1 Tablet(s) PO BID 04/20/2017 04/29/2017 Inactive prednisone 10 mg tablet RxNorm: 465526 Tablet(s) PO 04/20/2017 03/04/2018 Inactive 6,5,4,3,2,1 Flagyl 500 mg tablet RxNorm: 579174 1 Tablet(s) PO TID 04/20/2017 04/29/2017 Inactive hydrocodone 10 mg-acetaminophen 325 mg tablet RxNorm: 093631 1 Tablet(s) PO Q6-8H as needed 04/09/2017 05/01/2017 Inactive hydrocodone 10 mg-acetaminophen 325 mg tablet RxNorm: 926589 1 Tablet(s) PO Q6-8H as needed 03/07/2017 03/29/2017 Inactive hydrocodone 10 mg-acetaminophen 325 mg tablet RxNorm: 324039 1 Tablet(s) PO Q6-8H as needed 02/01/2017 02/23/2017 Inactive lidocaine 3 % lotion RxNorm: 7901004 1 Application TOP BID as needed 01/03/2017 No Stop Date Active acyclovir 800 mg tablet RxNorm: 946222 1 Tablet(s) PO 5 x a day 01/02/2017 01/08/2017 Inactive hydrocodone 10 mg-acetaminophen 325 mg tablet RxNorm: 104342 1 Tablet(s) PO Q6-8H as needed 12/06/2016 12/28/2016 Inactive hydrocodone 10 mg-acetaminophen 325 mg tablet RxNorm: 830199 1 Tablet(s) PO Q6-8H as needed 12/04/2016 12/05/2016 Inactive hydrocodone 10 mg-acetaminophen 325 mg tablet RxNorm: 331554 1 Tablet(s) PO Q6-8H as needed 11/08/2016 11/30/2016 Inactive hydrocodone 10 mg-acetaminophen 325 mg tablet RxNorm: 722715 1 Tablet(s) PO Q6-8H as needed 10/09/2016 10/31/2016 Inactive hydrocodone 10 mg-acetaminophen 325 mg tablet RxNorm: 867212 1 Tablet(s) PO Q6-8H as needed 08/08/2016 08/30/2016 Inactive hydrocodone 10 mg-acetaminophen 325 mg tablet RxNorm: 995729 1 Tablet(s) PO Q6-8H as needed 07/12/2016 08/03/2016 Inactive hydrocodone 10 mg-acetaminophen 325 mg tablet RxNorm: 568168 1 Tablet(s) PO Q6-8H as needed 06/12/2016 07/04/2016 Inactive hydrocodone 10 mg-acetaminophen 325 mg tablet RxNorm: 139390 1 Tablet(s) PO Q6-8H as needed 05/16/2016 06/07/2016 Inactive hydrocodone 10 mg-acetaminophen 325 mg tablet RxNorm: 057236 1 Tablet(s) PO Q6-8H as needed 04/21/2016 05/12/2016 Inactive hydrocodone 10 mg-acetaminophen 325 mg tablet RxNorm: 621386 1 Tablet(s) PO Q6-8H as needed 03/23/2016 04/13/2016 Inactive hydrocodone 10 mg-acetaminophen 325 mg tablet RxNorm: 034325 1 Tablet(s) PO Q6-8H as needed 02/24/2016 03/16/2016 Inactive hydrocodone 10 mg-acetaminophen 325 mg tablet RxNorm: 914773 1 Tablet(s) PO Q6-8H 01/21/2016 02/11/2016 Inactive hydrocodone 10 mg-acetaminophen 325 mg tablet RxNorm: 542962 1 Tablet(s) PO Q6-8H 12/24/2015 01/14/2016 Inactive hydrocodone 10 mg-acetaminophen 325 mg tablet RxNorm: 854835 1 Tablet(s) PO Q6-8H 11/30/2015 12/23/2015 Inactive hydrocodone 10 mg-acetaminophen 325 mg tablet RxNorm: 192544 1 Tablet(s) PO Q6-8H 11/05/2015 11/29/2015 Inactive hydrocodone 5 mg-acetaminophen 325 mg tablet RxNorm: 115299 1-2 Tablet(s) PO Q6-8H as needed 10/26/2015 11/01/2015 Inactive omeprazole 40 mg capsule,delayed release RxNorm: 763501 1 Capsule(s) PO daily No Start Date Active Imuran 50 mg tablet RxNorm: 297464 1 Tablet(s) PO daily No Start Date Active testosterone cypionate 200 mg/mL intramuscular oil RxNorm: 126247 1 Milliliter(s) IM No Start Date Active lidocaine 3 % lotion RxNorm: 1018714 1 Application TOP BID as needed No Start Date 01/02/2017 Inactive hydrocodone 5 mg-acetaminophen 325 mg tablet RxNorm: 351914 1-2 Tablet(s) PO Q6-8H as needed No [...] 31.3 pg 04/20/2017 Cbc With Differential Ord2 [place]% 18.6 % 04/20/2017 Cbc With Differential Ord2 [...] 0.67 K/ul 04/20/2017 Cbc With Differential Ord2 [place] ABS# 1.2 K/ul 04/20/2017 Cbc With Differential Ord2 Eos ABS# 0.1 K/ul 04/20/2017 Cbc With Differential Ord2 Baso ABS# 0.0 K/ul 04/20/2017 Comp Metabolic Mri686 NA 142 mEq/L 04/20/2017 Comp Metabolic Tiq783 K 4.2 mEq/L 04/20/2017 Comp Metabolic Kap651 CL 104 mEq/L 04/20/2017 Comp Metabolic Alm689 CO2 28.0 mEq/L 04/20/2017 Comp Metabolic Bdq818 ANION GAP 14 04/20/2017 Comp Metabolic Flg436 GLUCOSE 73 mg/dL 04/20/2017 Comp Metabolic Vgh690 Creat 1.2 mg/dL 04/20/2017 Comp Metabolic Edv398 eGFR 68 ml/min/1.73m2 04/20/2017 Comp Metabolic Fpa104 BUN 9 mg/dL 04/20/2017 Comp Metabolic Uyl065 B/C Ratio 7.3 Ratio 04/20/2017 Comp Metabolic Yah630 CALCIUM 9.5 mg/dL 04/20/2017 Comp Metabolic Hhg170 ALK PHOS 57 U/L 04/20/2017 Comp Metabolic Crh169 AST(SGOT) 16 U/L 04/20/2017 Comp Metabolic Mey814 ALT(SGPT) 14 U/L 04/20/2017 Comp Metabolic Lwq075 BILI T 0.6 mg/dL 04/20/2017 Comp Metabolic Mws027 ALBUMIN 4.0 g/dL 04/20/2017 Comp Metabolic Ipr324 TPRO 7.0 g/dL 04/20/2017 Comp Metabolic Qhg639 GLOB 3.0 g/dL 04/20/2017 Comp Metabolic Dhb286 A/G Ratio 1.3 Ratio 04/20/2017 Comp Metabolic Xxt389 Osmo 280 mOsmo 04/20/2017 Review of Systems [...] 1: 134/90 Code: 8480-6 BMI: 25.8 Code: 89982-4 Heart Rate 1: 64 bpm Height: 6' SpO2: 99% Weight: 190 lbs 06/20/2017 Blood Pressure 1: 130/86 Code: 8480-6 BMI: 27.1 Code: 94571-4 Heart Rate 1: 74 bpm Height: 6' SpO2: 98% Weight: 200 lbs 04/20/2017 Blood Pressure 1: 136/80 Code: 8480-6 BMI: 27.1 Code: 96727-0 Heart Rate 1: 100 bpm Height: 6' SpO2: 95% Temperature: 36.9 (C) / 98.4 (F) Weight: 200 lbs 01/02/2017 Blood Pressure 1: 120/78 Code: 8480-6 BMI: 28.3 Code: 22837-1 Heart Rate 1: 79 bpm Height: 6' SpO2: 98% Weight: 209 lbs 09/07/2016 Blood Pressure 1: 140/90 Code: 8480-6 BMI: 27.4 Code: 89714-2 Heart Rate 1: 70 bpm Height: 6' SpO2: 96% Weight: 202 lbs 04/21/2016 Blood Pressure 1: 136/84 Code: 8480-6 BMI: 29.0 Code: 64951-3 Heart Rate 1: 67 bpm Height: 6' SpO2: 98% Weight: 214 lbs 11/30/2015 Blood Pressure 1: 130/80 Code: 8480-6 BMI: 29.3 Code: 03265-6 Heart Rate 1: 75 bpm Height: 6' SpO2: 98% Weight: 216 lbs 11/02/2015 Blood Pressure 1: 126/78 Code: 8480-6 BMI: 29.8 Code: 34455-4 Heart Rate 1: 69 bpm Height: 6' SpO2: 98% Weight: 220 lbs 10/15/2015 Blood Pressure 1: 132/76 Code: 8480-6 BMI: 29.8 Code: 05707-3 Heart Rate 1: 77 bpm Height: 6' [...] intestine without complications[ICD10: K50.80] Bridget Hamm MD, [facility] CPT-4: 26600 12/24/2017 91944 EST. PATIENT, LEVEL III Diagnosis: Chronic pain due to trauma[ICD10: G89.21] Diagnosis: Incomplete rotator cuff tear or rupture of left shoulder, not specified as traumatic[ICD10: M75.112] Diagnosis: Incomplete rotator cuff tear or rupture of right shoulder, not specified as traumatic[ICD10: M75.111] Diagnosis: Crohn's disease of both small and large intestine without complications[ICD10: K50.80] [facility] CPT-4: 35666 06/20/2017 37722 EST. PATIENT, LEVEL IV Diagnosis: Crohn's disease of both small and large intestine without complications[ICD10: K50.80] Bridget Hamm MD, [facility] CPT-4: 10674 04/20/2017 64955 EST. PATIENT, LEVEL III Diagnosis: Zoster without complications[ICD10: B02.9] Bridget Hamm MD, [facility] CPT-4: 44810 01/02/2017 36438 EST. PATIENT, LEVEL IV Diagnosis: Chronic pain due to trauma[ICD10: G89.21] Diagnosis: Incomplete rotator cuff tear or rupture of left shoulder, not specified as traumatic[ICD10: M75.112] Diagnosis: Incomplete rotator cuff tear or rupture of right shoulder, not specified as traumatic[ICD10: M75.111] Diagnosis: Crohn's disease of both small and large intestine without complications[ICD10: K50.80] Bridget Hamm MD, [facility] CPT-4: 20144 09/07/2016 ([id number]) 93811 EST. PATIENT, LEVEL III Diagnosis: Chronic pain due to trauma[ICD10: G89.21] Diagnosis: Incomplete rotator cuff tear or rupture of left shoulder, not specified as traumatic[ICD10: M75.112] Diagnosis: Incomplete rotator cuff tear or rupture of right shoulder, not specified as traumatic[ICD10: M75.111] Diagnosis: Crohn's disease of both small and large intestine without complications[ICD10: K50.80] Carmela Hamm MD, [facility] CPT-4: 18461 04/21/2016 03073 EST. PATIENT, LEVEL IV Diagnosis: Chronic pain due to trauma[ICD10: G89.21] Diagnosis: Incomplete rotator cuff tear or rupture of right shoulder, not specified as traumatic[ICD10: M75.111] Diagnosis: Incomplete rotator cuff tear or rupture of left shoulder, not specified as traumatic[ICD10: M75.112] [facility] CPT-4: 99478 11/30/2015 77722 EST. PATIENT, LEVEL IV Diagnosis: Chronic pain due to trauma[ICD10: G89.21] Diagnosis: Incomplete rotator cuff tear or rupture of right shoulder, not specified as traumatic[ICD10: M75.111] Diagnosis: Incomplete rotator cuff tear or rupture of left shoulder, not specified as traumatic[ICD10: M75.112] [facility] CPT-4: 30813 11/02/2015 ([id number]) OFFICE VISIT, NEW - LEVEL 4 Diagnosis: Incomplete rotator cuff tear or rupture of left shoulder, not specified as traumatic[ICD10: M75.112] Diagnosis: Incomplete rotator cuff tear or rupture of right shoulder, not specified as traumatic[ICD10: M75.111] Diagnosis: Crohn's disease of both small and large intestine without complications[ICD10: K50.80] Bridget Hamm MD, [facility] CPT-4: 56897 10/15/2015 Plan of Care Planned Activity Notes [...] : M75.112 12/24/2017 Appointment: Bridget Terry WPtel: [address] [place], [place] [id number] (15 min) Moderate 12/24/2017 Patient Education: Patient [...] : M75.112 06/20/2017 Appointment: Bridget Terry WPtel: [phone] [facility] [place] (30 min) Complex 06/20/2017 Patient Education: Patient Medication Summary Completed 06/20/2017 Appointment: Carmela Greenberg WPtel: [phone] [facility] [...] treatment plan. 04/20/2017 Appointment: Bridget Terry WPtel: [facility]7 [facility] [place] (30 min) Complex 04/20/2017 Patient Education: Patient Medication Summary Completed 04/20/2017 Appointment: Bridget Terry WPtel: [facility]3 [facility] [place] (15 min) Moderate 04/19/2017 [...] considered contagious. 01/02/2017 Appointment: Bridget Terry WPtel: [facility]4 [facility] [place] (30 min) Complex 01/02/2017 Patient Education: [...] : G89.21 09/07/2016 Appointment: Bridget Terry WPtel[phone] [facility] 09/07/2016 Patient Education: Patient Medication Summary Completed [...] : G89.21 04/21/2016 Appointment: Carmela Greenberg WPtel: [phone] (15 min) [facility] 04/21/2016 Patient Education: Patient Medication Summary Completed [...] year. 11/30/2015 Appointment: Carmela Greenberg WPtel: [phone] [facility] [...] year. 11/02/2015 Appointment: Carmela Greenberg WPtel: [phone] [facility] [...] Education: Obesity Completed 10/15/2015 Instructions Comment . Shingles - Herpes Zoster - acute [...] the pt is to be considered contagious. . Bilateral rotator cuff tear - the [...]
--- OUTSIDE RECORDS SUMMARY | 2018-09-19 08:29 | XMS REPORT | CCD ---
Author Author Bridget Terry MD, [facility] Address [address] [place] [address] Phone Care Team Providers Care Survey Compiler Name Role Phone PP Unavailable CCM Unavailable Summary Purpose Interface Exchange Insurance Providers Payer name Policy type / Coverage type Covered green party ID Effective Begin Date Effective End Date Blue Cross Blue [facility] Blue Cross/Blue [facility] [id number] Unknown Unknown Family history Son Diagnosis Age At Onset Attention deficit hyperactivity disorder Unknown Social History Social History Element Codes Description Effective Dates Marital status Unknown rory 12/24/2017 Number of children Unknown 1 10/15/[address]: 299858085 Currently uses smokeless tobacco 10/15/2015 Alcohol history [...] hydrocodone 10 mg-acetaminophen 325 mg tablet RxNorm: 445910 1 Tablet(s) PO Q6-8H as needed 02/11/2018 03/05/2018 Active hydrocodone 10 mg-acetaminophen 325 mg tablet RxNorm: 728481 1 Tablet(s) PO Q6-8H as needed 01/18/2018 02/09/2018 Inactive hydrocodone 10 mg-acetaminophen 325 mg tablet RxNorm: 011788 1 Tablet(s) PO Q6-8H as needed 12/24/2017 01/15/2018 Inactive hydrocodone 10 mg-acetaminophen 325 mg tablet RxNorm: 172562 1 Tablet(s) PO Q6-8H as needed 11/30/2017 12/22/2017 Inactive hydrocodone 10 mg-acetaminophen 325 mg tablet RxNorm: 113748 1 Tablet(s) PO Q6-8H as needed 11/06/2017 11/28/2017 Inactive hydrocodone 10 mg-acetaminophen 325 mg tablet RxNorm: 625431 1 Tablet(s) PO Q6-8H as needed 10/11/2017 11/02/2017 Inactive hydrocodone 10 mg-acetaminophen 325 mg tablet RxNorm: 460047 1 Tablet(s) PO Q6-8H as needed 09/12/2017 10/04/2017 Inactive hydrocodone 10 mg-acetaminophen 325 mg tablet RxNorm: 934490 1 Tablet(s) PO Q6-8H as needed 08/16/2017 09/07/2017 Inactive hydrocodone 10 mg-acetaminophen 325 mg tablet RxNorm: 525964 1 Tablet(s) PO Q6-8H as needed 07/19/2017 08/10/2017 Inactive oxycodone-acetaminophen 7.5 mg-325 mg tablet RxNorm: 8410774 1 Tablet(s) PO Q6-8H as needed 06/29/2017 07/18/2017 Inactive hydrocodone 10 mg-acetaminophen 325 mg tablet RxNorm: 779090 1 Tablet(s) PO Q6-8H as needed 06/01/2017 06/17/2017 Inactive hydrocodone 10 mg-acetaminophen 325 mg tablet RxNorm: 880790 1 Tablet(s) PO Q6-8H as needed 05/09/2017 05/30/2017 Inactive prednisone 10 mg tablet RxNorm: 319571 Tablet(s) PO 04/20/2017 No Stop Date Active 6,5,4,3,2,1 Cipro 500 mg tablet RxNorm: 316913 1 Tablet(s) PO BID 04/20/2017 04/29/2017 Inactive Flagyl 500 mg tablet RxNorm: 739496 1 Tablet(s) PO TID 04/20/2017 04/29/2017 Inactive hydrocodone 10 mg-acetaminophen 325 mg tablet RxNorm: 624714 1 Tablet(s) PO Q6-8H as needed 04/09/2017 05/01/2017 Inactive hydrocodone 10 mg-acetaminophen 325 mg tablet RxNorm: 393928 1 Tablet(s) PO Q6-8H as needed 03/07/2017 03/29/2017 Inactive hydrocodone 10 mg-acetaminophen 325 mg tablet RxNorm: 467774 1 Tablet(s) PO Q6-8H as needed 02/01/2017 02/23/2017 Inactive lidocaine 3 % lotion RxNorm: 8623512 1 Application TOP BID as needed 01/03/2017 No Stop Date Active acyclovir 800 mg tablet RxNorm: 438544 1 Tablet(s) PO 5 x a day 01/02/2017 01/08/2017 Inactive hydrocodone 10 mg-acetaminophen 325 mg tablet RxNorm: 203670 1 Tablet(s) PO Q6-8H as needed 12/06/2016 12/28/2016 Inactive hydrocodone 10 mg-acetaminophen 325 mg tablet RxNorm: 556281 1 Tablet(s) PO Q6-8H as needed 12/04/2016 12/05/2016 Inactive hydrocodone 10 mg-acetaminophen 325 mg tablet RxNorm: 536054 1 Tablet(s) PO Q6-8H as needed 11/08/2016 11/30/2016 Inactive hydrocodone 10 mg-acetaminophen 325 mg tablet RxNorm: 355409 1 Tablet(s) PO Q6-8H as needed 10/09/2016 10/31/2016 Inactive hydrocodone 10 mg-acetaminophen 325 mg tablet RxNorm: 778373 1 Tablet(s) PO Q6-8H as needed 08/08/2016 08/30/2016 Inactive hydrocodone 10 mg-acetaminophen 325 mg tablet RxNorm: 124162 1 Tablet(s) PO Q6-8H as needed 07/12/2016 08/03/2016 Inactive hydrocodone 10 mg-acetaminophen 325 mg tablet RxNorm: 053700 1 Tablet(s) PO Q6-8H as needed 06/12/2016 07/04/2016 Inactive hydrocodone 10 mg-acetaminophen 325 mg tablet RxNorm: 609627 1 Tablet(s) PO Q6-8H as needed 05/16/2016 06/07/2016 Inactive hydrocodone 10 mg-acetaminophen 325 mg tablet RxNorm: 553184 1 Tablet(s) PO Q6-8H as needed 04/21/2016 05/12/2016 Inactive hydrocodone 10 mg-acetaminophen 325 mg tablet RxNorm: 064492 1 Tablet(s) PO Q6-8H as needed 03/23/2016 04/13/2016 Inactive hydrocodone 10 mg-acetaminophen 325 mg tablet RxNorm: 001200 1 Tablet(s) PO Q6-8H as needed 02/24/2016 03/16/2016 Inactive hydrocodone 10 mg-acetaminophen 325 mg tablet RxNorm: 530365 1 Tablet(s) PO Q6-8H 01/21/2016 02/11/2016 Inactive hydrocodone 10 mg-acetaminophen 325 mg tablet RxNorm: 454649 1 Tablet(s) PO Q6-8H 12/24/2015 01/14/2016 Inactive hydrocodone 10 mg-acetaminophen 325 mg tablet RxNorm: 280099 1 Tablet(s) PO Q6-8H 11/30/2015 12/23/2015 Inactive hydrocodone 10 mg-acetaminophen 325 mg tablet RxNorm: 530862 1 Tablet(s) PO Q6-8H 11/05/2015 11/29/2015 Inactive hydrocodone 5 mg-acetaminophen 325 mg tablet RxNorm: 631260 1-2 Tablet(s) PO Q6-8H as needed 10/26/2015 11/01/2015 Inactive omeprazole 40 mg capsule,delayed release RxNorm: 225930 1 Capsule(s) PO daily No Start Date Active Imuran 50 mg tablet RxNorm: 547357 1 Tablet(s) PO daily No Start Date Active testosterone cypionate 200 mg/mL intramuscular oil RxNorm: 962264 1 Milliliter(s) IM No Start Date Active lidocaine 3 % lotion RxNorm: 6866525 1 Application TOP BID as needed No Start Date 01/02/2017 Inactive hydrocodone 5 mg-acetaminophen 325 mg tablet RxNorm: 778363 1-2 Tablet(s) PO Q6-8H as needed No [...] Observation Code Item Item Code Result Date Comp Metabolic Ywi177 NA 142 mEq/L 04/20/2017 Comp Metabolic Yhk254 K 4.2 mEq/L 04/20/2017 Comp Metabolic Zjg493 CL 104 mEq/L 04/20/2017 Comp Metabolic Eoc043 CO2 28.0 mEq/L 04/20/2017 Comp Metabolic Fsc738 ANION GAP 14 04/20/2017 Comp Metabolic Grb988 GLUCOSE 73 mg/dL 04/20/2017 Comp Metabolic Wms629 Creat 1.2 mg/dL 04/20/2017 Comp Metabolic Igp588 eGFR 68 ml/min/1.73m2 04/20/2017 Comp Metabolic Zcu961 BUN 9 mg/dL 04/20/2017 Comp Metabolic Rhq557 B/C Ratio 7.3 Ratio 04/20/2017 Comp Metabolic Uiq364 CALCIUM 9.5 mg/dL 04/20/2017 Comp Metabolic Rmx172 ALK PHOS 57 U/L 04/20/2017 Comp Metabolic Akr408 AST(SGOT) 16 U/L 04/20/2017 Comp Metabolic Bdi637 ALT(SGPT) 14 U/L 04/20/2017 Comp Metabolic Vbq702 BILI T 0.6 mg/dL 04/20/2017 Comp Metabolic Cwz684 ALBUMIN 4.0 g/dL 04/20/2017 Comp Metabolic Mfg613 TPRO 7.0 g/dL 04/20/2017 Comp Metabolic Atk839 GLOB 3.0 g/dL 04/20/2017 Comp Metabolic Sjs572 A/G Ratio 1.3 Ratio 04/20/2017 Comp Metabolic Fig258 Osmo 280 mOsmo 04/20/2017 Cbc With Differential Ord2 WBC 6.44 K/ul [...] 31.3 pg 04/20/2017 Cbc With Differential Ord2 [place]% 18.6 % 04/20/2017 Cbc With Differential Ord2 [...] 0.67 K/ul 04/20/2017 Cbc With Differential Ord2 [place] ABS# 1.2 K/ul 04/20/2017 Cbc With Differential Ord2 Eos ABS# 0.1 K/ul 04/20/2017 Cbc With Differential Ord2 Baso ABS# 0.0 K/ul 04/20/2017 Review of Systems System Result Effective [...] 1: 134/90 Code: 8480-6 BMI: 25.8 Code: 78419-0 Heart Rate 1: 64 bpm Height: 6' SpO2: 99% Weight: 190 lbs 06/20/2017 Blood Pressure 1: 130/86 Code: 8480-6 BMI: 27.1 Code: 29824-4 Heart Rate 1: 74 bpm Height: 6' SpO2: 98% Weight: 200 lbs 04/20/2017 Blood Pressure 1: 136/80 Code: 8480-6 BMI: 27.1 Code: 70536-3 Heart Rate 1: 100 bpm Height: 6' SpO2: 95% Temperature: 36.9 (C) / 98.4 (F) Weight: 200 lbs 01/02/2017 Blood Pressure 1: 120/78 Code: 8480-6 BMI: 28.3 Code: 23235-0 Heart Rate 1: 79 bpm Height: 6' SpO2: 98% Weight: 209 lbs 09/07/2016 Blood Pressure 1: 140/90 Code: 8480-6 BMI: 27.4 Code: 44271-7 Heart Rate 1: 70 bpm Height: 6' SpO2: 96% Weight: 202 lbs 04/21/2016 Blood Pressure 1: 136/84 Code: 8480-6 BMI: 29.0 Code: 24605-0 Heart Rate 1: 67 bpm Height: 6' SpO2: 98% Weight: 214 lbs 11/30/2015 Blood Pressure 1: 130/80 Code: 8480-6 BMI: 29.3 Code: 16005-9 Heart Rate 1: 75 bpm Height: 6' SpO2: 98% Weight: 216 lbs 11/02/2015 Blood Pressure 1: 126/78 Code: 8480-6 BMI: 29.8 Code: 23754-2 Heart Rate 1: 69 bpm Height: 6' SpO2: 98% Weight: 220 lbs 10/15/2015 Blood Pressure 1: 132/76 Code: 8480-6 BMI: 29.8 Code: 79511-2 Heart Rate 1: 77 bpm Height: 6' [...] complications[ICD10: K50.80] [facility] CPT-4: 59707 12/24/2017 [id number] EST. PATIENT, LEVEL III Diagnosis: Chronic pain due to trauma[ICD10: G89.21] Diagnosis: Incomplete rotator cuff tear or rupture of left shoulder, not specified as traumatic[ICD10: M75.112] Diagnosis: Incomplete rotator cuff tear or rupture of right shoulder, not specified as traumatic[ICD10: M75.111] Diagnosis: Crohn's disease of both small and large intestine without complications[ICD10: K50.80] [facility] CPT-4: 24255 06/20/2017 [id number] EST. PATIENT, LEVEL IV Diagnosis: Crohn's disease of both small and large intestine without complications[ICD10: K50.80] [facility] CPT-4: 57197 04/20/2017 52685 EST. PATIENT, LEVEL III Diagnosis: Zoster without complications[ICD10: B02.9] [facility] CPT-4: 00661 01/02/2017 45775 EST. PATIENT, LEVEL IV Diagnosis: Chronic pain due to trauma[ICD10: G89.21] Diagnosis: Incomplete rotator cuff tear or rupture of left shoulder, not specified as traumatic[ICD10: M75.112] Diagnosis: Incomplete rotator cuff tear or rupture of right shoulder, not specified as traumatic[ICD10: M75.111] Diagnosis: Crohn's disease of both small and large intestine without complications[ICD10: K50.80] [facility] CPT-4: 30711 09/07/2016 ([id number]) 52240 EST. PATIENT, LEVEL III Diagnosis: Chronic pain due to trauma[ICD10: G89.21] Diagnosis: Incomplete rotator cuff tear or rupture of left shoulder, not specified as traumatic[ICD10: M75.112] Diagnosis: Incomplete rotator cuff tear or rupture of right shoulder, not specified as traumatic[ICD10: M75.111] Diagnosis: Crohn's disease of both small and large intestine without complications[ICD10: K50.80] [facility] CPT-4: 01182 04/21/2016 45780 EST. PATIENT, LEVEL IV Diagnosis: Chronic pain due to trauma[ICD10: G89.21] Diagnosis: Incomplete rotator cuff tear or rupture of right shoulder, not specified as traumatic[ICD10: M75.111] Diagnosis: Incomplete rotator cuff tear or rupture of left shoulder, not specified as traumatic[ICD10: M75.112] [facility] CPT-4: 13280 11/30/2015 96732 EST. PATIENT, LEVEL IV Diagnosis: Chronic pain due to trauma[ICD10: G89.21] Diagnosis: Incomplete rotator cuff tear or rupture of right shoulder, not specified as traumatic[ICD10: M75.111] Diagnosis: Incomplete rotator cuff tear or rupture of left shoulder, not specified as traumatic[ICD10: M75.112] [facility] CPT-4: 41189 11/02/2015 ([id number]) OFFICE VISIT, NEW - LEVEL 4 Diagnosis: Incomplete rotator cuff tear or rupture of left shoulder, not specified as traumatic[ICD10: M75.112] Diagnosis: Incomplete rotator cuff tear or rupture of right shoulder, not specified as traumatic[ICD10: M75.111] Diagnosis: Crohn's disease of both small and large intestine without complications[ICD10: K50.80] [facility] CPT-4: 31542 10/15/2015 Plan of Care Planned Activity Notes [...] : M75.112 12/24/2017 Appointment: Bridget Terry WPtel: [address] [place], [place] [phone] (15 min) [facility] 12/24/2017 Patient Education: Patient Medication Summary [...] : M75.112 06/20/2017 Appointment: Bridget Terry WPtel: [facility] (30 min) Complex 06/20/2017 Patient Education: Patient Medication Summary Completed 06/20/2017 Appointment: Carmela Greenberg WPtel: [phone] [phone] [place] (15 min) Moderate [...] treatment plan. 04/20/2017 Appointment: Bridget Terry WPtel: [facility] (30 min) Complex 04/20/2017 Patient Education: Patient Medication Summary Completed 04/20/2017 Appointment: Bridget Terry WPtel: [facility] (15 min) Moderate 04/19/2017 Appointment: Lab [...] considered contagious. 01/02/2017 Appointment: Bridget Terry WPtel: [facility] [place] (30 min) Complex 01/02/2017 Patient Education: Patient Medication Summary Completed 01/02/2017 Visit Diagnosis Plan: Crohn's disease of both small and large intestine without complications Discussion: managed by Dr RondonYypiq-hmpjgf-kc changes at this time ICD-9 : 555.2 [...] : G89.21 09/07/2016 Appointment: Bridget Terry WPtel: [facility] (30 min) Complex 09/07/2016 Patient Education: Patient Medication Summary Completed 09/07/2016 Patient Education: Obesity Completed 09/07/2016 Visit Diagnosis Plan: Crohn's disease of both small and large intestine without complications Discussion: managed by Dr RondonHhfdi-jxkrid-lg changes at this time ICD-9 : 555.2 [...] : G89.21 04/21/2016 Appointment: Carmela Greenberg WPtel: [phone] (15 min) Moderate 04/21/2016 [...] year. 11/30/2015 [facility]: [phone] [phone] ([facility] Complex 11/30/2015 Patient Education: [...] year. 11/02/2015 [facility]: [facility] [phone] [phone] (15 min) Moderate 11/02/2015 Patient Education: [...]
--- OUTSIDE RECORDS SUMMARY | 2018-09-19 08:30 | XMS REPORT | CCD ---
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 Name Role Phone PP Unavailable CCM Unavailable Summary Purpose Interface Exchange Insurance Providers Payer name Policy type / Coverage type Covered green party ID Effective Begin Date Effective End Date Blue Cross Blue [facility] Blue Cross/Blue Shield [id number] Unknown Unknown Family history Son Diagnosis Age At Onset Attention deficit hyperactivity disorder Unknown Social History Social History Element Codes Description Effective Dates Marital status Unknown Single 10/15/2015 Number of children Unknown 1 10/15/[address]: 512815018 Currently uses smokeless tobacco 10/15/2015 Alcohol history Unknown pt chooses not to answer 10/15/2015 Allergies, Adverse Reactions, Alerts Allergies, Adverse Reactions, Alerts data not found Past Medical History Illness Codes Condition Status Onset Date Resolved Date Rash and other nonspecific skin eruption ICD-9: 782.1 ICD-10: R21 Active 01/02/2017 Unknown Zoster without complications ICD-9: 053.9 ICD-10: B02.9 Active 01/02/2017 Unknown Chronic pain due to trauma ICD-9: [...] Problems Condition Codes Effective Dates Condition Status Rash and other nonspecific skin eruption ICD-9: 782.1 ICD-10: R21 01/02/2017 Active Zoster without complications ICD-9: 053.9 ICD-10: B02.9 01/02/2017 Active Chronic pain due to trauma ICD-9: [...] hydrocodone 10 mg-acetaminophen 325 mg tablet RxNorm: 250468 1 Tablet(s) PO Q6-8H as needed 04/09/2017 05/01/2017 Active hydrocodone 10 mg-acetaminophen 325 mg tablet RxNorm: 308760 1 Tablet(s) PO Q6-8H as needed 03/07/2017 03/29/2017 Inactive hydrocodone 10 mg-acetaminophen 325 mg tablet RxNorm: 653732 1 Tablet(s) PO Q6-8H as needed 02/01/2017 02/23/2017 Inactive lidocaine 3 % lotion RxNorm: 2636548 1 Application TOP BID as needed 01/03/2017 No Stop Date Active acyclovir 800 mg tablet RxNorm: 000566 1 Tablet(s) PO 5 x a day 01/02/2017 01/08/2017 Inactive hydrocodone 10 mg-acetaminophen 325 mg tablet RxNorm: 733585 1 Tablet(s) PO Q6-8H as needed 12/06/2016 12/28/2016 Inactive hydrocodone 10 mg-acetaminophen 325 mg tablet RxNorm: 483727 1 Tablet(s) PO Q6-8H as needed 12/04/2016 12/05/2016 Inactive hydrocodone 10 mg-acetaminophen 325 mg tablet RxNorm: 142031 1 Tablet(s) PO Q6-8H as needed 11/08/2016 11/30/2016 Inactive hydrocodone 10 mg-acetaminophen 325 mg tablet RxNorm: 869544 1 Tablet(s) PO Q6-8H as needed 10/09/2016 10/31/2016 Inactive hydrocodone 10 mg-acetaminophen 325 mg tablet RxNorm: 698466 1 Tablet(s) PO Q6-8H as needed 08/08/2016 08/30/2016 Inactive hydrocodone 10 mg-acetaminophen 325 mg tablet RxNorm: 069267 1 Tablet(s) PO Q6-8H as needed 07/12/2016 08/03/2016 Inactive hydrocodone 10 mg-acetaminophen 325 mg tablet RxNorm: 001874 1 Tablet(s) PO Q6-8H as needed 06/12/2016 07/04/2016 Inactive hydrocodone 10 mg-acetaminophen 325 mg tablet RxNorm: 285519 1 Tablet(s) PO Q6-8H as needed 05/16/2016 06/07/2016 Inactive hydrocodone 10 mg-acetaminophen 325 mg tablet RxNorm: 800797 1 Tablet(s) PO Q6-8H as needed 04/21/2016 05/12/2016 Inactive hydrocodone 10 mg-acetaminophen 325 mg tablet RxNorm: 065077 1 Tablet(s) PO Q6-8H as needed 03/23/2016 04/13/2016 Inactive hydrocodone 10 mg-acetaminophen 325 mg tablet RxNorm: 273019 1 Tablet(s) PO Q6-8H as needed 02/24/2016 03/16/2016 Inactive hydrocodone 10 mg-acetaminophen 325 mg tablet RxNorm: 495266 1 Tablet(s) PO Q6-8H 01/21/2016 02/11/2016 Inactive hydrocodone 10 mg-acetaminophen 325 mg tablet RxNorm: 453778 1 Tablet(s) PO Q6-8H 12/24/2015 01/14/2016 Inactive hydrocodone 10 mg-acetaminophen 325 mg tablet RxNorm: 243904 1 Tablet(s) PO Q6-8H 11/30/2015 12/23/2015 Inactive hydrocodone 10 mg-acetaminophen 325 mg tablet RxNorm: 209026 1 Tablet(s) PO Q6-8H 11/05/2015 11/29/2015 Inactive hydrocodone 5 mg-acetaminophen 325 mg tablet RxNorm: 632139 1-2 Tablet(s) PO Q6-8H as needed 10/26/2015 11/01/2015 Inactive omeprazole 40 mg capsule,delayed release RxNorm: 856942 1 Capsule(s) PO daily No Start Date Active Imuran 50 mg tablet RxNorm: 650647 1 Tablet(s) PO daily No Start Date Active testosterone cypionate 200 mg/mL intramuscular oil RxNorm: 092558 1 Milliliter(s) IM No Start Date Active lidocaine 3 % lotion RxNorm: 1286668 1 Application TOP BID as needed No Start Date 01/02/2017 Inactive hydrocodone 5 mg-acetaminophen 325 mg tablet RxNorm: 926161 1-2 Tablet(s) PO Q6-8H as needed No Start Date 10/25/2015 Inactive Medication Administered No Medication Administered data Immunizations No Immunization data Assessments Condition Codes Effective Dates Zoster without complications ICD-10: B02.9 ICD-9: 053.9 01/02/2017 Crohn's disease of both small and large intestine without complications ICD-10: K50.80 ICD-9: 555.2 09/07/2016 Incomplete rotator cuff tear or rupture of right shoulder, not specified as traumatic ICD-10: M75.111 ICD-9: 726.13 09/07/2016 Incomplete rotator cuff tear or rupture of left shoulder, not specified as traumatic ICD-10: M75.112 ICD-9: 726.13 09/07/2016 Chronic pain due to trauma ICD-10: G89.21 ICD-9: 338.21 09/07/2016 Reason For Visit Reason For Visit Effective Dates Notes rash 01/02/2017 medication follow up 09/07/2016 medication follow up 04/21/2016 medication follow up 11/30/2015 shoulder pain 11/02/2015 shoulder pain 10/15/2015 Results No Results data Review of Systems System Result Effective Dates Constitutional No recent illness 01/02/2017 Constitutional No [...] Result Effective Dates Notes Full Exam - Dermatology Constitutional general appearance [...] No Procedures data Vital Signs Date Vital 01/02/2017 Blood Pressure 1: 120/78 Code: 8480-6 BMI: 28.3 Code: 65850-2 Heart Rate 1: 79 bpm Height: 6' SpO2: 98% Weight: 209 lbs 09/07/2016 Blood Pressure 1: 140/90 Code: 8480-6 BMI: 27.4 Code: 64327-3 Heart Rate 1: 70 bpm Height: 6' SpO2: 96% Weight: 202 lbs 04/21/2016 Blood Pressure 1: 136/84 Code: 8480-6 BMI: 29.0 Code: 75582-7 Heart Rate 1: 67 bpm Height: 6' SpO2: 98% Weight: 214 lbs 11/30/2015 Blood Pressure 1: 130/80 Code: 8480-6 BMI: 29.3 Code: 66268-4 Heart Rate 1: 75 bpm Height: 6' SpO2: 98% Weight: 216 lbs 11/02/2015 Blood Pressure 1: 126/78 Code: 8480-6 BMI: 29.8 Code: 33309-6 Heart Rate 1: 69 bpm Height: 6' SpO2: 98% Weight: 220 lbs 10/15/2015 Blood Pressure 1: 132/76 Code: 8480-6 BMI: 29.8 Code: 03277-9 Heart Rate 1: 77 bpm Height: 6' SpO2: 95% Weight: 220 lbs Functional Status No Functional Status data History of Present Illness Symptom Name Status Result Effective Date Notes rash Location-Major on the upper body 01/02/2017 [...] data Encounters Encounter Performer Location Codes Date 79126 EST. PATIENT, LEVEL III Diagnosis: Zoster without complications[ICD10: B02.9] [facility] CPT-4: 35990 01/02/2017 39859 EST. PATIENT, LEVEL IV Diagnosis: Chronic pain due to trauma[ICD10: G89.21] Diagnosis: Incomplete rotator cuff tear or rupture of left shoulder, not specified as traumatic[ICD10: M75.112] Diagnosis: Incomplete rotator cuff tear or rupture of right shoulder, not specified as traumatic[ICD10: M75.111] Diagnosis: Crohn's disease of both small and large intestine without complications[ICD10: K50.80] Bridget Hamm MD, [facility] CPT-4: 42153 09/07/2016 ([id number]) 04657 EST. PATIENT, LEVEL III Diagnosis: Chronic pain due to trauma[ICD10: G89.21] Diagnosis: Incomplete rotator cuff tear or rupture of left shoulder, not specified as traumatic[ICD10: M75.112] Diagnosis: Incomplete rotator cuff tear or rupture of right shoulder, not specified as traumatic[ICD10: M75.111] Diagnosis: Crohn's disease of both small and large intestine without complications[ICD10: K50.80] Carmela Hamm MD, [facility] CPT-4: 13140 04/21/2016 16309 EST. PATIENT, LEVEL IV Diagnosis: Chronic pain due to trauma[ICD10: G89.21] Diagnosis: Incomplete rotator cuff tear or rupture of right shoulder, not specified as traumatic[ICD10: M75.111] Diagnosis: Incomplete rotator cuff tear or rupture of left shoulder, not specified as traumatic[ICD10: M75.112] [facility] CPT-4: 82920 11/30/2015 25593 EST. PATIENT, LEVEL IV Diagnosis: Chronic pain due to trauma[ICD10: G89.21] Diagnosis: Incomplete rotator cuff tear or rupture of right shoulder, not specified as traumatic[ICD10: M75.111] Diagnosis: Incomplete rotator cuff tear or rupture of left shoulder, not specified as traumatic[ICD10: M75.112] [facility] CPT-4: 60619 11/02/2015 ([id number]) OFFICE VISIT, NEW - LEVEL 4 Diagnosis: Incomplete rotator cuff tear or rupture of left shoulder, not specified as traumatic[ICD10: M75.112] Diagnosis: Incomplete rotator cuff tear or rupture of right shoulder, not specified as traumatic[ICD10: M75.111] Diagnosis: Crohn's disease of both small and large intestine without complications[ICD10: K50.80] [facility] CPT-4: 99654 10/15/2015 Plan of Care Planned Activity Notes Codes Status Date Appointment: Lab Draw 01/03/2017 Visit Plan: Shingles [...] contagious. 01/02/2017 [facility]ment[phone] [facility] ([facility] 01/02/2017 Patient Education: [...] : G89.21 09/07/2016 Appointment: Bridget Terry [facility] ([facility] 09/07/2016 Patient Education: [...] G89.21 04/21/2016 Appointment: Carmela Greenberg WPtel: [phone] [phone] (15 min) Moderate 04/21/2016 Patient Education: Patient [...] first of the year. 11/30/2015 Appointment: Carmela Greebnerg WPtel: [phone] [phone] (30 min) Complex 11/30/2015 Patient Education: Patient [...] the year. 11/02/2015 App[facility]ment: [facility] [phone] [phone] [place] (15 min) Moderate 11/02/2015 [...]
--- OUTSIDE RECORDS SUMMARY | 2018-09-19 08:30 | XMS REPORT | CCD ---
Author Author Bridegt Terry Organization [facility] Address [address] [place] [address] Phone Care Team Providers Care Payroll Benefits Administrator Name Role Phone PP Unavailable CCM Unavailable Summary Purpose Interface Exchange Insurance Providers Payer name Policy type / Coverage type Covered constitution party ID Effective Begin Date Effective End Date Blue Cross Blue [facility] Blue Cross/Blue Shield [id number] Unknown Unknown Family history Son Diagnosis Age At Onset Attention deficit hyperactivity disorder Unknown Social History Social History Element Codes Description Effective Dates Marital status Unknown Single 10/15/2015 Number of children Unknown 1 10/15/[address]: 403544230 Currently uses smokeless tobacco 10/15/2015 Alcohol history Unknown pt chooses not to answer 10/15/2015 Allergies, Adverse Reactions, Alerts Allergies, Adverse Reactions, Alerts data not found Past Medical History Illness Codes Condition Status Onset Date Resolved Date Crohn's disease of both small and large intestine without complications ICD-9: 555.2 ICD-10: K50.80 Active 10/14/2015 Unknown Rash and other nonspecific skin eruption [...] Problems Condition Codes Effective Dates Condition Status Crohn's disease of both small and large intestine without complications ICD-9: 555.2 ICD-10: K50.80 10/14/2015 Active Rash and other nonspecific skin eruption [...] hydrocodone 10 mg-acetaminophen 325 mg tablet RxNorm: 114911 1 Tablet(s) PO Q6-8H as needed 05/09/2017 05/31/2017 Active prednisone 10 mg tablet RxNorm: 090207 Tablet(s) PO 04/20/2017 No Stop Date Active 6,5,4,3,2,1 Cipro 500 mg tablet RxNorm: 494154 1 Tablet(s) PO BID 04/20/2017 04/29/2017 Inactive Flagyl 500 mg tablet RxNorm: 211134 1 Tablet(s) PO TID 04/20/2017 04/29/2017 Inactive hydrocodone 10 mg-acetaminophen 325 mg tablet RxNorm: 071241 1 Tablet(s) PO Q6-8H as needed 04/09/2017 05/01/2017 Inactive hydrocodone 10 mg-acetaminophen 325 mg tablet RxNorm: 565436 1 Tablet(s) PO Q6-8H as needed 03/07/2017 03/29/2017 Inactive hydrocodone 10 mg-acetaminophen 325 mg tablet RxNorm: 151563 1 Tablet(s) PO Q6-8H as needed 02/01/2017 02/23/2017 Inactive lidocaine 3 % lotion RxNorm: 5139951 1 Application TOP BID as needed 01/03/2017 No Stop Date Active acyclovir 800 mg tablet RxNorm: 236626 1 Tablet(s) PO 5 x a day 01/02/2017 01/08/2017 Inactive hydrocodone 10 mg-acetaminophen 325 mg tablet RxNorm: 803461 1 Tablet(s) PO Q6-8H as needed 12/06/2016 12/28/2016 Inactive hydrocodone 10 mg-acetaminophen 325 mg tablet RxNorm: 662106 1 Tablet(s) PO Q6-8H as needed 12/04/2016 12/05/2016 Inactive hydrocodone 10 mg-acetaminophen 325 mg tablet RxNorm: 696265 1 Tablet(s) PO Q6-8H as needed 11/08/2016 11/30/2016 Inactive hydrocodone 10 mg-acetaminophen 325 mg tablet RxNorm: 079592 1 Tablet(s) PO Q6-8H as needed 10/09/2016 10/31/2016 Inactive hydrocodone 10 mg-acetaminophen 325 mg tablet RxNorm: 867758 1 Tablet(s) PO Q6-8H as needed 08/08/2016 08/30/2016 Inactive hydrocodone 10 mg-acetaminophen 325 mg tablet RxNorm: 455316 1 Tablet(s) PO Q6-8H as needed 07/12/2016 08/03/2016 Inactive hydrocodone 10 mg-acetaminophen 325 mg tablet RxNorm: 755202 1 Tablet(s) PO Q6-8H as needed 06/12/2016 07/04/2016 Inactive hydrocodone 10 mg-acetaminophen 325 mg tablet RxNorm: 249104 1 Tablet(s) PO Q6-8H as needed 05/16/2016 06/07/2016 Inactive hydrocodone 10 mg-acetaminophen 325 mg tablet RxNorm: 739361 1 Tablet(s) PO Q6-8H as needed 04/21/2016 05/12/2016 Inactive hydrocodone 10 mg-acetaminophen 325 mg tablet RxNorm: 220550 1 Tablet(s) PO Q6-8H as needed 03/23/2016 04/13/2016 Inactive hydrocodone 10 mg-acetaminophen 325 mg tablet RxNorm: 484031 1 Tablet(s) PO Q6-8H as needed 02/24/2016 03/16/2016 Inactive hydrocodone 10 mg-acetaminophen 325 mg tablet RxNorm: 009980 1 Tablet(s) PO Q6-8H 01/21/2016 02/11/2016 Inactive hydrocodone 10 mg-acetaminophen 325 mg tablet RxNorm: 757205 1 Tablet(s) PO Q6-8H 12/24/2015 01/14/2016 Inactive hydrocodone 10 mg-acetaminophen 325 mg tablet RxNorm: 528377 1 Tablet(s) PO Q6-8H 11/30/2015 12/23/2015 Inactive hydrocodone 10 mg-acetaminophen 325 mg tablet RxNorm: 983399 1 Tablet(s) PO Q6-8H 11/05/2015 11/29/2015 Inactive hydrocodone 5 mg-acetaminophen 325 mg tablet RxNorm: 418594 1-2 Tablet(s) PO Q6-8H as needed 10/26/2015 11/01/2015 Inactive omeprazole 40 mg capsule,delayed release RxNorm: 663601 1 Capsule(s) PO daily No Start Date Active Imuran 50 mg tablet RxNorm: 392735 1 Tablet(s) PO daily No Start Date Active testosterone cypionate 200 mg/mL intramuscular oil RxNorm: 133881 1 Milliliter(s) IM No Start Date Active lidocaine 3 % lotion RxNorm: 8837995 1 Application TOP BID as needed No Start Date 01/02/2017 Inactive hydrocodone 5 mg-acetaminophen 325 mg tablet RxNorm: 322469 1-2 Tablet(s) PO Q6-8H as needed No [...] 1: 120/78 Code: 8480-6 BMI: 28.3 Code: 69626-5 Heart Rate 1: 79 bpm Height: 6' SpO2: 98% Weight: 209 lbs 09/07/2016 Blood Pressure 1: 140/90 Code: 8480-6 BMI: 27.4 Code: 77630-2 Heart Rate 1: 70 bpm Height: 6' SpO2: 96% Weight: 202 lbs 04/21/2016 Blood Pressure 1: 136/84 Code: 8480-6 BMI: 29.0 Code: 50820-7 Heart Rate 1: 67 bpm Height: 6' SpO2: 98% Weight: 214 lbs 11/30/2015 Blood Pressure 1: 130/80 Code: 8480-6 BMI: 29.3 Code: 64987-3 Heart Rate 1: 75 bpm Height: 6' SpO2: 98% Weight: 216 lbs 11/02/2015 Blood Pressure 1: 126/78 Code: 8480-6 BMI: 29.8 Code: 19466-2 Heart Rate 1: 69 bpm Height: 6' SpO2: 98% Weight: 220 lbs 10/15/2015 Blood Pressure 1: 132/76 Code: 8480-6 BMI: 29.8 Code: 34412-9 Heart Rate 1: 77 bpm Height: 6' [...] Codes Date EST. PATIENT, LEVEL III Diagnosis: [place] without complications[ICD10: B02.9] [facility] CPT-4: 80503 01/02/2017 51769 EST. PATIENT, LEVEL IV Diagnosis: Chronic pain due to trauma[ICD10: G89.21] Diagnosis: Incomplete rotator cuff tear or rupture of left shoulder, not specified as traumatic[ICD10: M75.112] Diagnosis: Incomplete rotator cuff tear or rupture of right shoulder, not specified as traumatic[ICD10: M75.111] Diagnosis: Crohn's disease of both small and large intestine without complications[ICD10: K50.80] [facility] CPT-4: 73188 09/07/2016 ([id number]) 08447 EST. PATIENT, LEVEL III Diagnosis: Chronic pain due to trauma[ICD10: G89.21] Diagnosis: Incomplete rotator cuff tear or rupture of left shoulder, not specified as traumatic[ICD10: M75.112] Diagnosis: Incomplete rotator cuff tear or rupture of right shoulder, not specified as traumatic[ICD10: M75.111] Diagnosis: Crohn's disease of both small and large intestine without complications[ICD10: K50.80] [facility] CPT-4: 35472 04/21/2016 27582 EST. PATIENT, LEVEL IV Diagnosis: Chronic pain due to trauma[ICD10: G89.21] Diagnosis: Incomplete rotator cuff tear or rupture of right shoulder, not specified as traumatic[ICD10: M75.111] Diagnosis: Incomplete rotator cuff tear or rupture of left shoulder, not specified as traumatic[ICD10: M75.112] [facility] CPT-4: 60608 11/30/2015 41939 EST. PATIENT, LEVEL IV Diagnosis: Chronic pain due to trauma[ICD10: G89.21] Diagnosis: Incomplete rotator cuff tear or rupture of right shoulder, not specified as traumatic[ICD10: M75.111] Diagnosis: Incomplete rotator cuff tear or rupture of left shoulder, not specified as traumatic[ICD10: M75.112] [facility] CPT-4: 82084 11/02/2015 ([id number]) OFFICE VISIT, NEW - LEVEL 4 Diagnosis: Incomplete rotator cuff tear or rupture of left shoulder, not specified as traumatic[ICD10: M75.112] Diagnosis: Incomplete rotator cuff tear or rupture of right shoulder, not specified as traumatic[ICD10: M75.111] Diagnosis: Crohn's disease of both small and large intestine without complications[ICD10: K50.80] [facility] CPT-4: 76940 10/15/2015 Plan of Care Planned Activity Notes Codes Status Date Appointment: Bridget Terry WPtel: [facility] (30 min) Complex 04/20/2017 Appointment: Bridget Terry WPtel: [phone] [facility] (15 min) Moderate 04/19/2017 Appointment: Lab Draw [...] considered contagious. 01/02/2017 Appointment: Bridget Terry WPtel: [facility] (30 min) Complex 01/02/2017 Patient Education: Patient Medication Summary Completed 01/02/2017 Visit Diagnosis Plan: Crohn's disease of both small and large intestine without complications Discussion: managed by Dr RondonAkwba-fcgify-xp changes at this time ICD-9 : 555.2 [...] G89.21 09/07/2016 Appointment: Bridget Terry WPtel: [phone] [facility] (30 min) Complex 09/07/2016 Patient Education: Patient [...] : G89.21 04/21/2016 Appointment: Carm[facility] Greenberg [facility]Ptel[phone] ([facility] min) Moderate 04/21/2016 Patient Education: Patient [...] the year. 11/30/2015 Appointment: [facility]el[phone] ([facility] min) Complex 11/30/2015 Patient Education: Patient [...] [phone] [place] (15 min) Moderate 11/02/2015 Patient Education: [...]
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
--- NOTE | 2018-09-19 16:34 | Implantation of Loop Monitor ---
Implant of Loop Monitior PROCEDURE PHYSICIAN: Cole Villalpando MD IMPLANTATION OF LOOP MONITOR REPORT DATE OF PROCEDURE: 09/19/18 PERFORMING PHYSICIAN: Dr. Kvng Villalpando. INDICATION: Stroke, Long-term surveillance of atrial fibrillation PREOP DIAGNOSIS: Stroke, Long-term surveillance of atrial fibrillation POSTOP DIAGNOSIS: Stroke, s/p implantation of loop recorder. PROCEDURE DETAILS: The patient is a 43 male with history of stroke. Therefore implantable loop recorder was discussed and agreed with the patient. Informed consent was taken. All risks and complications were discussed at length. The patient was draped and prepped in the usual sterile fashion. Local anesthesia was lidocaine, which was given in the substernal area close to the 4th intercostal space. Loop monitor was implanted according to the protocol. Steri-Strips were placed at the end of the procedure. There were no complications and the patient tolerated the procedure well. ANESTHESIA: Local anesthesia with lidocaine. COMPLICATIONS: None CONTRAST/FLUOROSCOPY: None CONCLUSION: 1. Successful implantation of loop monitor for stroke. 2. No complication and the patient tolerated the procedure well. Cole Villalpando MD, RS, CCDS Cardiac Electrophysiology Surya VILLALPANDO MD Sep 19, 2018 4:34 pm
== END | disposition home or self-care (01) ==
LOC: CATH 07:57
PROVIDERS: ATTEND Internal Medicine Interventional Cardiology
DX: R00.2 Palpitations (principal); Z86.73 Personal history of transient ischemic attack (TIA), and cerebral infarction without residual deficits; I10 Essential (primary) hypertension; F17.220 Nicotine dependence, chewing tobacco, uncomplicated; Z79.82 Long term (current) use of aspirin; Z79.899 Other long term (current) drug therapy
CPT/HCPCS: 33285

== ENCOUNTER → 2019-09-18 | Outpatient (CLI) | payer BC ==
[~2019-09-18] MED LIST changes: +GADOBUTROL 10 MMOL/10 ML (GADAVIST) VIAL IV ONE; -LIDOCAINE 1% INJ 20 ML 20 ML VIAL ONE
--- NOTE | 2019-09-18 11:36 | Diagnostic Imaging Report ---
CLINICAL INDICATION: Patient states he has masses in his nasal passages. Bilateral mastoid masses. EXAM: MRI of the brain performed without and with 9 cc of Gadavist IV contrast. Sequences include axial DWI, ADC map, axial gradient echo, axial 3D-FIESTA, axial T2, axial FLAIR, axial T1, axial T1 post IV contrast, coronal T1 fat-sat post IV contrast, and sagittal T1 post IV contrast. COMPARISON: Outside MRI of the brain performed without IV contrast dated 07/09/2018. Images were obtained from [facility] in [place], [place]. Images are reportedly loaded onto the PACS system. FINDINGS: There is no evidence of acute cerebral infarct, intracranial hemorrhage, or gross mass effect. There is expected evolution of the previous focal area of acute infarct involving the posterior right lateral ventricle wall/subependymal region of the posterior right frontal lobe. There is residual increased T2 signal in the region. There are multiple focal areas of increased T2 signal involving both cerebral hemispheres and bilateral subinsular regions anteriorly which was noted on the prior study. The brain parenchymal volume appears appropriate for patient's age. There is normal vega-white matter distinction. There is no significant midline shift or herniation. The [place] vascular structures show no gross abnormality as visualized. The pituitary gland, sella, and suprasellar regions are unremarkable as visualized. There is no evidence of hydrocephalus. The basal cisterns are unremarkable. The skull, extracranial soft tissue, and orbits are unremarkable. Stable small mucous retention cyst on the floor of the left maxillary sinus. A component of the mucous retention cyst demonstrates slight increased T1 signal, but there is no enhancement seen. There is moderate mucosal thickening of left nasal cavity which is stable. There is small left maxillary sinus antrum which may be related to silent sinus syndrome. There is lateral deviation of the medial wall of the left maxillary sinus and appearance of possible postop changes. There is small amount of fluid in the left mastoid air cells which has slightly decreased and minimal fluid in the right mastoid air cells which has slightly increased. IMPRESSION: 1: There is no evidence of acute intracranial process or abnormal IV contrast enhancement. 2: There is interval expected evolution of the previous focal/punctate area of acute or subacute infarct involving the posterior aspect of the lateral right ventricle/subependymal region with residual minimal increased T2 signal. 3: Stable nonspecific scattered areas of increased T2 signal involving the white matter of both cerebral hemispheres. 4: Stable mucous retention cyst in the left maxillary sinus with no enhancing mass seen. There may be a component of silent sinus syndrome of the left maxillary sinus and/or postop changes. 5: Stable moderate mucosal thickening involving the left nasal cavity with no measurable mass seen. Dictated by: Dictated on workstation # [id number]
== END ==
LOC: RAD 09:48
PROVIDERS: ATTEND Otolaryngology Otolaryngology/Facial Plastic Surgery
DX: H74.8X3 Other specified disorders of middle ear and mastoid, bilateral (principal); J34.1 Cyst and mucocele of nose and nasal sinus
CPT/HCPCS: 70553

== ENCOUNTER → 2020-07-27 | Outpatient (CLI) | payer BC ==
[~2020-07-27] MED LIST changes: -GADOBUTROL 10 MMOL/10 ML (GADAVIST) VIAL IV ONE
== END ==
LOC: SLEEP 14:57
PROVIDERS: ATTEND Nurse Practitioner Family
DX: G47.9 Sleep disorder, unspecified (principal)